=== PATIENT | female | born 1970 | race Caucasian/White ===

== ENCOUNTER 2017-11-13 14:23 | Inpatient (IN) ==
[2017-11-13] MEDS ORDERED: MethylPREDNISolone Sod Succinate Inj 125 MG/2 ML Vial IV.PUSH ONE (14:32)
[2017-11-13] MEDS ORDERED: Etomidate Inj 20 MG/10 ML Ampul IV.PUSH ONE (14:33)
[2017-11-13] MEDS ORDERED: Succinylcholine Inj 200 MG/10 ML Vial IV.PUSH ONE (14:36)
[2017-11-13] MEDS ORDERED: Propofol 1000 mg/100 ml Inj 1,000 MG/100 ML BOTTLE IV.CONT PRN (14:36)
[2017-11-13] MEDS ORDERED: Ketamine Inj 200 MG/20 ML Vial IV.PUSH ONE (14:55)
[2017-11-13] MEDS ORDERED: Ketamine Inj 500 MG/10 ML Vial IV.PUSH ONE (15:00)
[2017-11-13] MEDS ORDERED: Sod Chloride 0.9% Inj 1,000 ML IV.SIG ONE ×2 (15:13→20:00)
[2017-11-13] MEDS ORDERED: Bisacodyl 10 MG Supp RECTAL PRN (15:20)
[2017-11-13] MEDS ORDERED: Dextrose 50% in Water 50 ML Vial IV.PUSH PRN (15:26)
[2017-11-13] MEDS ORDERED: Potassium Phosphate Inj 30 MMOL in Sodium Chlor 0.9% Inj 250 ML IV.SIG PRN (15:27)
[2017-11-13] MEDS ORDERED: Potassium Chlor 40 mEq Premix 40 MEQ/100 ML PIGGYBACK IV.SIG PRN ×2 (15:27)
[2017-11-13] MEDS ORDERED: Magnesium Sulfate Inj 4 GM in Sodium Chlor 0.9% Inj 92 ML IV.SIG PRN (15:27)
[2017-11-13] MEDS ORDERED: Sodium Phosphate Inj 30 MMOL in Sodium Chlor 0.9% Inj 250 ML IV.SIG PRN (15:27)
[2017-11-13] MEDS ORDERED: Magnesium Oxide 400 MG Tablet PO PRN (15:27)
[2017-11-13] MEDS ORDERED: Magnesium Sulfate Inj 2 GM in Sodium Chlor 0.9% Inj 96 ML IV.SIG PRN (15:27)
[2017-11-13] MEDS ORDERED: Potassium Chlor 20 mEq Premix 20 MEQ/100 ML PIGGYBACK IV.SIG PRN (15:27)
[2017-11-13] MEDS ORDERED: Potassium Phosphate 500 MG Soluble Tablet PO PRN ×2 (15:27)
--- NOTE | 2017-11-13 15:32 | ED ---
Procedures Cricothyrotomy Indications: significant oropharyngeal edema (severe anaphylaxis) Tube Type: tracheal C-Spine Immobilization Present: No Patient Preparations: local not needed, sterile field applied and area cleansed with antiseptic Technique Choice: needle cricothyrotomy and surgical cricothyrotomy Cuffed Endotracheal Tube: No Type: Melker cric tray Tracheal Tube Size: 6 End Tidal CO2 Checked: positive Bilateral Breath Sounds: Yes Complications: bleeding and difficult to ventilate Additional Comments: I was asked by Dr. Pino to assist with severe airway compromise secondary to acute anaphylactic reaction. The patient was in respiratory distress on arrival with significant airway and submandibular/ submental edema. RSI was attempted by Dr. Pino and by myself using C-MAC video laryngoscopy but no airway landmarks were visible due to edema. An LMA was able to be passed but the patient's O2 sats did not get above 80%. The decision was made to perform emergent cricothyroidotomy. The patient was positioned with towel rolls behind her shoulders and the neck was hyperextended. A 4 cm midline incision was made and the thyroid cartilage/ cricothyroid membrane/ tracheal rings were palpated. A needle was directed toward the cricothyroid membrane and air was aspirated. A guidewire was placed in a Seldinger technique and a 6-0 uncuffed cric tube was passed. There were bilateral breath sounds auscultated, positive color change on capnometer, and her O2 sats increased to the 90s. Immediate complication was bleeding which was resolved with direct pressure. 2 3 -0 Vicryl sutures were placed in the subcutaneous layer and 4 3-0 Ethilon sutures were placed to reapproximate the skin. The patient will be emergently transferred to [facility] for higher level of care, please see Dr. Pino's separate documentation. Please note that this in an uncuffed tube and the patient was heard to have an air leak during bag mask ventilation. Given the emergent nature of this procedure, need for stat transfer, and risk of losing definitive airway, I did not exchange this for a cuffed tube.
--- NOTE | 2017-11-13 15:41 | ED ---
HPI General Chief complaint: Allergic Reaction Stated complaint: Allergic reaction Source: patient Mode of arrival: ambulatory Limitations: no limitations History of Present Illness HPI narrative: 47yo F with PMH of HTN presents to the ED unable to speak with swollen tongue and neck. Pt was unable to speak and through nodding, sounded like it it started around 1pm. Pt denies any allergies to medication. Denies any other symptoms including fever, chest pain, n/v, abdominal pain, focal weakness or numbness. Unable to obtain a thorough history due to pt's medical condition. Related Data Allergies Allergy/AdvReac Type Severity Reaction Status Date / Time No Known Allergies Allergy Unverified 11/13/17 14:31 Review of Systems ROS Unobtainable ROS Unobtainable: other PMFSH Social History Social History Substance History: No History of Abuse Second Hand Smoke Exposure: No Smoking Status: Former smoker How Often Do You Have a Drink Containing Alcohol: 4 or more times a week Recent Out of Country Travel within the Last 8 Weeks: No Exam Narrative Exam Narrative: GENERAL: 47yo F in severe distress. SKIN: Focused skin assessment warm/dry. HEAD: Atraumatic. Normocephalic. EYES: Pupils equal and round. No scleral icterus. No injection or drainage. ENT: +Marked edema tongue. Pt unable to speak or swallow secretions. NECK: Marked diffuse edema. CARDIOVASCULAR: Regular rate and rhythm. No murmur appreciated. RESPIRATORY: No accessory muscle use. Clear to auscultation. Breath sounds equal bilaterally. GASTROINTESTINAL: Abdomen soft, non-tender, nondistended. MUSCULOSKELETAL: No obvious deformities. No clubbing. No cyanosis. No edema. NEUROLOGICAL: Awake and alert. No obvious cranial nerve deficits. Motor grossly within normal limits. Unable to speak. Course Initial Documented Vital Signs Pulse Oximetry 98 11/13/17 15:00 Last Documented Vital Signs Temperature 99.3 F 11/14/17 04:00 Pulse Rate 77 11/14/17 07:00 Respiratory Rate 24 11/14/17 06:00 Blood Pressure 98/56 L 11/14/17 07:00 Pulse Oximetry 100 11/14/17 07:00 Critical Care Time Critical Care Time: Yes Total Critical Care Time: 45 Attestation: Aggregate critical care time was 45 minutes. Time to perform other separately billable procedures was not included in the critical care time. My time did not include minutes spent treating any other patients simultaneously or on activities that did not directly contribute to the patient's treatment. The services I provided to this patient were to treat and/or prevent clinically significant deterioration that could result in: respiratory distress or . I provided critical care services requiring my management, as noted below: Chart data review, documentation time, medication orders and management, vital sign assessments/reviewing monitor data, ordering and reviewing lab tests, ordering and interpreting/reviewing x-rays and diagnostic studies, care of the patient and discussion of the patient with the admitting physicians. Medical Decision Making MDM Narrative Medical decision making narrative: 47yo F with anaphylaxis and impending airway compromise. Pt unable to speak and decision was made to emergently intubate. Difficult airway expected so pt given only etomidate. I also ask assistance from Dr. Sandhu since we are expecting a difficult airway. I was unable to visualize vocal cord with CMAC and Dr. Sandhu was also unable to intubate with CMAC. We were setting up to do emergent cricothyroidotomy and during that time, I was able to insert an LMA and pt was saturating well in the 90s. After cricothyroidotomy was completed, we took the LMA out but this was an uncuffed tube and there was air leak and pt started to desaturate so we place another LMA back in and started bagging with the LMA and pt is saturating at 97% with LMA at this time and being transferred emergently to [facility]. I have discussed with classification counselor Dr. Casatneda and accepted to his service and pt will go straight to [facility]. I also discussed with general surgeon distance education coordinator Dr. Sebastian who is aware of the patient and the complication with the bleeding during cricothyroidotomy. Pt given NS IVF and sedated on propofol drip. Medical Screen Exam Complete: Yes Emergency Medical Condition: Yes Differential Diagnosis Differential Diagnosis: Anaphylaxis vs. angioedema Lab Data Result diagrams: 11/14/17 03:39 11/14/17 03:39 Lab Results 11/13/17 11/13/17 11/13/17 Range/Units 15:30 15:30 15:30 CBC w Diff Slide review pending WBC 17.4 H (4.0-11.0) th/mm3 RBC 4.72 (4.00-5.30) mil/mm3 Hgb 14.9 (11.6-15.3) gm/dL Hct 45.0 (35.0-46.0) % MCV 95.5 (80.0-100.0) fL MCH 31.7 (27.0-34.0) pg MCHC 33.2 (32.0-36.0) % RDW 12.6 (11.6-17.2) % Plt Count 491 H (150-450) th/mm3 MPV 8.0 (7.0-11.0) fL Neut % (Auto) 64.0 (16.0-70.0) % Lymph % (Auto) 29.3 (9.0-44.0) % Swisher % (Auto) 4.6 (0.0-8.0) % Eos % (Auto) 0.9 (0.0-4.0) % Baso % (Auto) 1.2 (0.0-2.0) % Neut # (Auto) 11.1 H (1.8-7.7) th/mm3 Lymph # (Auto) 5.1 H (1.0-4.8) th/mm3 Swisher # (Auto) 0.8 (0.0-0.9) th/mm3 Eos # (Auto) 0.2 (0.0-0.4) th/mm3 Baso # (Auto) 0.2 (0.0-0.2) th/mm3 WBC Differential Manual diff final Seg Neuts % (Manual) 59 (16-70) % Band Neuts % (Manual) 2 (0-6) % Lymphocytes % (Manual) 36 (9-44) % Monocytes % (Manual) 3 (0-8) % Abs Neuts (Manual) 10.6 H (1.8-7.7) th/mm3 Differential Comment . Platelet Estimate High H (Normal) Platelet Morphology Normal (Normal) RBC Morphology Normal (Normal) PT 9.8 (9.8-11.6) sec INR 1.0 Ratio APTT 24.7 (24.3-30.1) sec Puncture Site Patient Temperature O2 Saturation (90-100) % ABG pH (7.380-7.420) ABG pCO2 (38-42) mmHg ABG pO2 (61-120) mmHg ABG HCO3 (22-26) mmol/L ABG O2 Content (12.0-20.0) Vol % ABG Base Excess (-2-2) mmol/L ABG Methemoglobin (0-2) % Jonatan Test Hemoglobin (12.0-16.0) G/DL Carboxyhemoglobin (0-4) % O2 Delivery Device Vent Setting Inspired O2 % Critical Value Sodium 137 (136-145) meq/L Potassium 4.2 (3.5-5.1) meq/L Chloride 104 (98-107) meq/L Carbon Dioxide 26.2 (21.0-32.0) meq/L Anion Gap 7 (5-15) meq/L BUN 14 (7-18) mg/dL Creatinine 1.10 H (0.50-1.00) mg/dL Estimated GFR 54 L (>89) mL/min POC Glucose (68-110) mg/dl Random Glucose 228 H (74-106) mg/dL Lactic Acid (0.4-2.0) mmol/L Calcium 8.2 L (8.5-10.1) mg/dL Prot Corrected Calcium (8.5-10.1) mg/dL Phosphorus (2.5-4.9) mg/dL Magnesium (1.5-2.5) mg/dL Total Bilirubin (0.2-1.0) mg/dL Direct Bilirubin (0.0-0.2) mg/dL Indirect Bilirubin (0.0-0.8) mg/dL AST (15-37) U/L ALT (10-53) U/L Alkaline Phosphatase (45-117) U/L Total Creatine Kinase (26-192) U/L Total Protein (6.4-8.2) g/dL Albumin (3.4-5.0) g/dL Beta HCG, Qual (0-5) mIU/mL Blood Type Antibody Screen MTS Gel Crossmatch 11/13/17 11/13/17 11/13/17 Range/Units 15:30 15:30 15:30 CBC w Diff WBC (4.0-11.0) th/mm3 RBC (4.00-5.30) mil/mm3 Hgb (11.6-15.3) gm/dL Hct (35.0-46.0) % MCV (80.0-100.0) fL MCH (27.0-34.0) pg MCHC (32.0-36.0) % RDW (11.6-17.2) % Plt Count (150-450) th/mm3 MPV (7.0-11.0) fL Neut % (Auto) (16.0-70.0) % Lymph % (Auto) (9.0-44.0) % Swisher % (Auto) (0.0-8.0) % Eos % (Auto) (0.0-4.0) % Baso % (Auto) (0.0-2.0) % Neut # (Auto) (1.8-7.7) th/mm3 Lymph # (Auto) (1.0-4.8) th/mm3 Swisher # (Auto) (0.0-0.9) th/mm3 Eos # (Auto) (0.0-0.4) th/mm3 Baso # (Auto) (0.0-0.2) th/mm3 WBC Differential Seg Neuts % (Manual) (16-70) % Band Neuts % (Manual) (0-6) % Lymphocytes % (Manual) (9-44) % Monocytes % (Manual) (0-8) % Abs Neuts (Manual) (1.8-7.7) th/mm3 Differential Comment Platelet Estimate (Normal) Platelet Morphology (Normal) RBC Morphology (Normal) PT (9.8-11.6) sec INR Ratio APTT (24.3-30.1) sec Puncture Site Patient Temperature O2 Saturation (90-100) % ABG pH (7.380-7.420) ABG pCO2 (38-42) mmHg ABG pO2 (61-120) mmHg ABG HCO3 (22-26) mmol/L ABG O2 Content (12.0-20.0) Vol % ABG Base Excess (-2-2) mmol/L ABG Methemoglobin (0-2) % Jonatan Test Hemoglobin (12.0-16.0) G/DL Carboxyhemoglobin (0-4) % O2 Delivery Device Vent Setting Inspired O2 % Critical Value Sodium (136-145) meq/L Potassium (3.5-5.1) meq/L Chloride (98-107) meq/L Carbon Dioxide (21.0-32.0) meq/L Anion Gap (5-15) meq/L BUN (7-18) mg/dL Creatinine (0.50-1.00) mg/dL Estimated GFR (>89) mL/min POC Glucose (68-110) mg/dl Random Glucose (74-106) mg/dL Lactic Acid (0.4-2.0) mmol/L Calcium (8.5-10.1) mg/dL Prot Corrected Calcium (8.5-10.1) mg/dL Phosphorus (2.5-4.9) mg/dL Magnesium (1.5-2.5) mg/dL Total Bilirubin 0.3 (0.2-1.0) mg/dL Direct Bilirubin 0.1 (0.0-0.2) mg/dL Indirect Bilirubin 0.2 (0.0-0.8) mg/dL AST 52 H (15-37) U/L ALT 46 (10-53) U/L Alkaline Phosphatase 92 (45-117) U/L Total Creatine Kinase 138 (26-192) U/L Total Protein 7.2 (6.4-8.2) g/dL Albumin 3.2 L (3.4-5.0) g/dL Beta HCG, Qual Less than 1.00 (0-5) mIU/mL Blood Type O Positive Antibody Screen Negative MTS Gel Crossmatch See Detail 11/13/17 11/13/17 11/14/17 Range/Units 17:35 19:12 00:35 CBC w Diff WBC (4.0-11.0) th/mm3 RBC (4.00-5.30) mil/mm3 Hgb (11.6-15.3) gm/dL Hct (35.0-46.0) % MCV (80.0-100.0) fL MCH (27.0-34.0) pg MCHC (32.0-36.0) % RDW (11.6-17.2) % Plt Count (150-450) th/mm3 MPV (7.0-11.0) fL Neut % (Auto) (16.0-70.0) % Lymph % (Auto) (9.0-44.0) % Swisher % (Auto) (0.0-8.0) % Eos % (Auto) (0.0-4.0) % Baso % (Auto) (0.0-2.0) % Neut # (Auto) (1.8-7.7) th/mm3 Lymph # (Auto) (1.0-4.8) th/mm3 Swisher # (Auto) (0.0-0.9) th/mm3 Eos # (Auto) (0.0-0.4) th/mm3 Baso # (Auto) (0.0-0.2) th/mm3 WBC Differential Seg Neuts % (Manual) (16-70) % Band Neuts % (Manual) (0-6) % Lymphocytes % (Manual) (9-44) % Monocytes % (Manual) (0-8) % Abs Neuts (Manual) (1.8-7.7) th/mm3 Differential Comment Platelet Estimate (Normal) Platelet Morphology (Normal) RBC Morphology (Normal) PT (9.8-11.6) sec INR Ratio APTT (24.3-30.1) sec Puncture Site Right radial Left radial Patient Temperature 98.6 98.6 O2 Saturation 90 98 (90-100) % ABG pH 7.11 L* 7.18 L* (7.380-7.420) ABG pCO2 78 H* 61 H* (38-42) mmHg ABG pO2 83 220 H (61-120) mmHg ABG HCO3 24 22 (22-26) mmol/L ABG O2 Content 17.9 18.8 (12.0-20.0) Vol % ABG Base Excess -4.6 L -5.0 L (-2-2) mmol/L ABG Methemoglobin 1.1 1.1 (0-2) % Jonatan Test Present Present Hemoglobin 14.1 13.4 (12.0-16.0) G/DL Carboxyhemoglobin 0.3 0.3 (0-4) % O2 Delivery Device Ventilator Vent Vent Setting [id number]/[id number] See comments Inspired O2 100 100 % Critical Value Yes Yes Sodium (136-145) meq/L Potassium (3.5-5.1) meq/L Chloride (98-107) meq/L Carbon Dioxide (21.0-32.0) meq/L Anion Gap (5-15) meq/L BUN (7-18) mg/dL Creatinine (0.50-1.00) mg/dL Estimated GFR (>89) mL/min POC Glucose 147 H (68-110) mg/dl Random Glucose (74-106) mg/dL Lactic Acid (0.4-2.0) mmol/L Calcium (8.5-10.1) mg/dL Prot Corrected Calcium (8.5-10.1) mg/dL Phosphorus (2.5-4.9) mg/dL Magnesium (1.5-2.5) mg/dL Total Bilirubin (0.2-1.0) mg/dL Direct Bilirubin (0.0-0.2) mg/dL Indirect Bilirubin (0.0-0.8) mg/dL AST (15-37) U/L ALT (10-53) U/L Alkaline Phosphatase (45-117) U/L Total Creatine Kinase (26-192) U/L Total Protein (6.4-8.2) g/dL Albumin (3.4-5.0) g/dL Beta HCG, Qual (0-5) mIU/mL Blood Type Antibody Screen MTS Gel Crossmatch 11/14/17 11/14/17 11/14/17 Range/Units 03:39 03:39 03:39 CBC w Diff WBC 26.8 H D (4.0-11.0) th/mm3 RBC 3.75 L (4.00-5.30) mil/mm3 Hgb 12.1 D (11.6-15.3) gm/dL Hct 35.5 (35.0-46.0) % MCV 94.7 (80.0-100.0) fL MCH 32.2 (27.0-34.0) pg MCHC 34.0 (32.0-36.0) % RDW 13.2 (11.6-17.2) % Plt Count 277 D (150-450) th/mm3 MPV 7.4 (7.0-11.0) fL Neut % (Auto) 97.4 H (16.0-70.0) % Lymph % (Auto) 0.8 L (9.0-44.0) % Swisher % (Auto) 1.7 (0.0-8.0) % Eos % (Auto) 0.0 (0.0-4.0) % Baso % (Auto) 0.1 (0.0-2.0) % Neut # (Auto) 26.1 H (1.8-7.7) th/mm3 Lymph # (Auto) 0.2 L (1.0-4.8) th/mm3 Swisher # (Auto) 0.5 (0.0-0.9) th/mm3 Eos # (Auto) 0.0 (0.0-0.4) th/mm3 Baso # (Auto) 0.0 (0.0-0.2) th/mm3 WBC Differential . Seg Neuts % (Manual) (16-70) % Band Neuts % (Manual) (0-6) % Lymphocytes % (Manual) (9-44) % Monocytes % (Manual) (0-8) % Abs Neuts (Manual) (1.8-7.7) th/mm3 Differential Comment Auto diff final Platelet Estimate (Normal) Platelet Morphology (Normal) RBC Morphology (Normal) PT 9.9 (9.8-11.6) sec INR 1.0 Ratio APTT 23.1 L (24.3-30.1) sec Puncture Site Patient Temperature O2 Saturation (90-100) % ABG pH (7.380-7.420) ABG pCO2 (38-42) mmHg ABG pO2 (61-120) mmHg ABG HCO3 (22-26) mmol/L ABG O2 Content (12.0-20.0) Vol % ABG Base Excess (-2-2) mmol/L ABG Methemoglobin (0-2) % Jonatan Test Hemoglobin (12.0-16.0) G/DL Carboxyhemoglobin (0-4) % O2 Delivery Device Vent Setting Inspired O2 % Critical Value Sodium 142 (136-145) meq/L Potassium 4.1 (3.5-5.1) meq/L Chloride 110 H (98-107) meq/L Carbon Dioxide 22.1 (21.0-32.0) meq/L Anion Gap 10 (5-15) meq/L BUN 11 (7-18) mg/dL Creatinine 0.92 (0.50-1.00) mg/dL Estimated GFR 66 L (>89) mL/min POC Glucose (68-110) mg/dl Random Glucose 149 H (74-106) mg/dL Lactic Acid (0.4-2.0) mmol/L Calcium 7.1 L* D (8.5-10.1) mg/dL Prot Corrected Calcium 7.8 L (8.5-10.1) mg/dL Phosphorus 2.5 (2.5-4.9) mg/dL Magnesium 1.5 (1.5-2.5) mg/dL Total Bilirubin 0.3 (0.2-1.0) mg/dL Direct Bilirubin (0.0-0.2) mg/dL Indirect Bilirubin (0.0-0.8) mg/dL AST 36 (15-37) U/L ALT 42 (10-53) U/L Alkaline Phosphatase 56 (45-117) U/L Total Creatine Kinase (26-192) U/L Total Protein 5.8 L D (6.4-8.2) g/dL Albumin 2.7 L (3.4-5.0) g/dL Beta HCG, Qual (0-5) mIU/mL Blood Type Antibody Screen MTS Gel Crossmatch 11/14/17 11/14/17 11/14/17 Range/Units 03:39 05:28 05:47 CBC w Diff WBC (4.0-11.0) th/mm3 RBC (4.00-5.30) mil/mm3 Hgb (11.6-15.3) gm/dL Hct (35.0-46.0) % MCV (80.0-100.0) fL MCH (27.0-34.0) pg MCHC (32.0-36.0) % RDW (11.6-17.2) % Plt Count (150-450) th/mm3 MPV (7.0-11.0) fL Neut % (Auto) (16.0-70.0) % Lymph % (Auto) (9.0-44.0) % Swisher % (Auto) (0.0-8.0) % Eos % (Auto) (0.0-4.0) % Baso % (Auto) (0.0-2.0) % Neut # (Auto) (1.8-7.7) th/mm3 Lymph # (Auto) (1.0-4.8) th/mm3 Swisher # (Auto) (0.0-0.9) th/mm3 Eos # (Auto) (0.0-0.4) th/mm3 Baso # (Auto) (0.0-0.2) th/mm3 WBC Differential Seg Neuts % (Manual) (16-70) % Band Neuts % (Manual) (0-6) % Lymphocytes % (Manual) (9-44) % Monocytes % (Manual) (0-8) % Abs Neuts (Manual) (1.8-7.7) th/mm3 Differential Comment Platelet Estimate (Normal) Platelet Morphology (Normal) RBC Morphology (Normal) PT (9.8-11.6) sec INR Ratio APTT (24.3-30.1) sec Puncture Site Right radial Patient Temperature 98.6 O2 Saturation 97 (90-100) % ABG pH 7.41 (7.380-7.420) ABG pCO2 35 L (38-42) mmHg ABG pO2 194 H (61-120) mmHg ABG HCO3 21 L (22-26) mmol/L ABG O2 Content 16.2 (12.0-20.0) Vol % ABG Base Excess -2.7 L (-2-2) mmol/L ABG Methemoglobin 1.5 (0-2) % Jonatan Test Present Hemoglobin 11.6 L (12.0-16.0) G/DL Carboxyhemoglobin 0.8 (0-4) % O2 Delivery Device Ventilator Vent Setting See comments Inspired O2 75 % Critical Value No Sodium (136-145) meq/L Potassium (3.5-5.1) meq/L Chloride (98-107) meq/L Carbon Dioxide (21.0-32.0) meq/L Anion Gap (5-15) meq/L BUN (7-18) mg/dL Creatinine (0.50-1.00) mg/dL Estimated GFR (>89) mL/min POC Glucose 133 H (68-110) mg/dl Random Glucose (74-106) mg/dL Lactic Acid 1.7 (0.4-2.0) mmol/L Calcium (8.5-10.1) mg/dL Prot Corrected Calcium (8.5-10.1) mg/dL Phosphorus (2.5-4.9) mg/dL Magnesium (1.5-2.5) mg/dL Total Bilirubin (0.2-1.0) mg/dL Direct Bilirubin (0.0-0.2) mg/dL Indirect Bilirubin (0.0-0.8) mg/dL AST (15-37) U/L ALT (10-53) U/L Alkaline Phosphatase (45-117) U/L Total Creatine Kinase (26-192) U/L Total Protein (6.4-8.2) g/dL Albumin (3.4-5.0) g/dL Beta HCG, Qual (0-5) mIU/mL Blood Type Antibody Screen MTS Gel Crossmatch Imaging Data Radiologist's impression: Chest X-Ray 11/13/17 16:52 CONCLUSION: Satisfactory tracheostomy. Diffuse bilateral parenchymal lung disease. Discharge Plan Discharge Disposition Patient Disposition: 30 Still Patient Discharge Details Diagnosis: Anaphylaxis Physicians Team ED Provider: Cassie Pino Primary Care Provider: UNKNOWN, Attending Provider: Derrick Castaneda Discharge Interventions Interventions: ED Discharge Assessment Last Done: 11/13/17 17:19 Status ED Status: Left Department Discharge Information Discharge Date/Time: 11/13/17 16:30
[2017-11-13 15:49] LABS: Baso # (Auto) 0.2 th/mm3 (0.0-0.2); Baso % (Auto) 1.2 % (0.0-2.0); Eos # (Auto) 0.2 th/mm3 (0.0-0.4); Eos % (Auto) 0.9 % (0.0-4.0); Hemoglobin 14.9 gm/dL (11.6-15.3); Lymph # (Auto) 5.1 th/mm3 (1.0-4.8); Lymph % (Auto) 29.3 % (9.0-44.0); Mean Corpuscular HGB Conc 33.2 % (32.0-36.0); Mean Corpuscular Hemoglobin 31.7 pg (27.0-34.0); Mean Corpuscular Volume 95.5 fL (80.0-100.0); Mono # (Auto) 0.8 th/mm3 (0.0-0.9); Mono % (Auto) 4.6 % (0.0-8.0); Neut # (Auto) 11.1 th/mm3 (1.8-7.7); Platelet Count 491 th/mm3 (150-450); Red Blood Count 4.72 mil/mm3 (4.00-5.30); Red Cell Distribution Width 12.6 % (11.6-17.2); White Blood Count 17.4 th/mm3 (4.0-11.0)
[2017-11-13 15:59] LABS: Potassium 4.2 meq/L (3.5-5.1)
[2017-11-13] MEDS ORDERED: Sodium Chlor 0.9% Inj 250 ML IV.SIG SCH (16:00)
[2017-11-13 16:01] LABS: Calcium 8.2 mg/dL (8.5-10.1)
[2017-11-13 16:02] LABS: Carbon Dioxide 26.2 meq/L (21.0-32.0)
[2017-11-13 16:04] LABS: Albumin 3.2 g/dL (3.4-5.0)
[2017-11-13 16:08] LABS: Activated Partial Thrombo Time 24.7 sec (24.3-30.1); Prothrombin Time 9.8 sec (9.8-11.6)
[2017-11-13 16:09] LABS: Total Protein 7.2 g/dL (6.4-8.2)
[2017-11-13] MEDS ORDERED: Midazolam Inj 5 MG/ML 1 ML Vial ONE ×3 (16:15→16:33)
[2017-11-13 16:25] LABS: Lymphocytes 36 % (9-44); Monocytes 3 % (0-8); Platelet Morphology Normal (Normal); RBC Morphology Normal (Normal)
[2017-11-13] MEDS ORDERED: Lidocaine 1%/Epinephrine 1:100,000 Inj 20 ML Vial ONE (16:43)
--- NOTE | 2017-11-13 17:05 | P.HPCC ---
History of Present Illness Primary Care Physician: UNKNOWN Chief Complaint: Airway compromise History of Present Illness: Patient is a 47 year old morbidly female obese female who presented to the [place] emergency department with severe acute anaphylactic reaction, and airway compromise. RSI was attempted by Dr. Pino and Dr. Sandhu, but they were unable to. An LMA was placed but the patient's O2 sats remained in the low 80s. Emergency cricothyroidotomy was performed at [place] emergency department , by Dr. Sandhu, 6-0 uncuffed cric tube was placed. Postplacement there was leak around the trach tube with bag and mask ventilation. LMA was reintroduced and patient was given ventilation through the LMA and patient was emergently transferred to the [facility]. I evaluated patient emergently in 504 in [facility]. Patient is sedated with propofol infusion. Oxygen saturation with bag and mask ventilation was 88-90%. I performed a bronchoscopy through the LMA , vocal cords appeared severely swollen. A pediatric bronchoscope was not available to the load a 6.0 ET tube. I attempted intubation with the glide scope and 6.0 ET tube. I was able to visualize the significantly swollen glottic opening and vocal cords, but I was unable to pass the ET tube through the vocal cords due to swelling. Dr. Castaneda placed a new #5 LMA and we returned to bag and mask ventilation and Dr. Copeland performed a percutaneous Blue Rhino tracheostomy at the bedside through the existing cric incision. (He first placed the guidewire through the existing perc tube). Tracheostomy tube placement was confirmed with bronchoscopy again. At the beginning of tracheostomy patient's oxygen saturation was in the mid 70s. This slowly improved to 95% and patient was placed on ventilator. At this time we are unable to get any other history from the patient regarding food allergies. Scheduled IV Decadron Benadryl and famotidine had been started - Diagnosis (1) Acute hypoxemic respiratory failure (2) Angioedema (3) Anaphylaxis Inpatient Certification: I certify that the inpatient services were ordered in accordance with Medicare regulations governing the order. This includes certification that hospital inpatient services are reasonable and necessary and in the case of services not specified as inpatient-only under 42 CFR 419.22(n), that they are appropriately provided as inpatient services in accordance to with the 2-midnight benchmark under 43 CFR 412.3(e) Estimated Total Length of Stay (Days): 6 Plans for Post Hospital Care: Not yet determined Review of Systems unobtainable due to endotracheal tube, other (Acute airway compromise) PMF - History History Provided By: Department Coordinator / EMT - Medical / Surgical Hx Neg / Unobtainable Medical Problems Denied: Unable to Obtain Surgical History: Unable to Obtain - Travel History Recent Travel Out of the Country Within the Last 8 Weeks: No Medications and Allergies Active Medications: Active Medications Al Hydroxide/Mg Hydroxide (Milk Of Marguerite Liq) 30 ml PO Q12H PRN PRN Reason: Mild Constipation Albuterol (Albuterol Neb (Prn)) 2.5 mg NEB Q2HR NEB PRN PRN Reason: SHORTNESS OF BREATH/WHEEZING Albuterol (Duoneb Neb (Scout)) 1 ampul NEB Q4HR NEB SCOUT Artificial Tears (Genteal Severe Dry Eye Relief 0.3% Opth Gel) 1 drops EACH EYE BID SCOUT Bisacodyl (Dulcolax Supp) 10 mg RECTAL DAILY PRN PRN Reason: SEVERE CONSITIPATION Chlorhexidine Gluconate (Peridex 0.12% Oral Kit) 15 ml OROPHARYNG BID@0800, 2000 SCOUT Chlorhexidine Gluconate (Chlorhexidine 2% Cloth) 3 pack TOPICAL DAILY@0400 SCOUT Stop: 11/19/17 03:59 Chlorhexidine Gluconate (Chlorhexidine 2% Cloth) 3 pack TOPICAL DAILY@0400 PRN PRN Reason: Extra cloth needed Stop: 11/19/17 03:59 Dexamethasone Sodium Phosphate (Decadron Inj) 4 mg IV.PUSH Q12HR SCOUT Dextrose (D50w Vial) 50 ml IV.PUSH UNSCH PRN PRN Reason: PER HYPOGLYCEMIA PROTOCOL Diphenhydramine HCl (Benadryl Inj) 25 mg IV.PUSH Q6H SCOUT Stop: 11/15/17 15:59 Famotidine (Pepcid Pf Inj) 20 mg IV.PUSH Q12HR SCOUT Glucagon (Glucagon Inj) 1 mg OTHER PRN PRN PRN Reason: for Hypoglycemia Protocol Sodium Chloride (Ns Inj) 250 mls @ 15 mls/hr IV.SIG ONCE SCOUT Stop: 11/14/17 08:39 Fentanyl (Fentanyl 10 Mcg/Ml Premix Drip) 2,500 mcg in 250 mls @ 5 mls/hr IV.SIG TITRATE PRN; Protocol PRN Reason: Per Protocol Sodium Chloride (Ns Inj) 1,000 mls @ 84 mls/hr IV.CONT .[id number] SCOUT Propofol (Diprivan 1000 Mg/100 Ml Inj) 1,000 mg in 100 mls @ 3.225 mls/hr IV.CONT TITRATE PRN; Protocol PRN Reason: Per Protocol Magnesium Sulfate Inj 4 gm/ (Sodium Chloride) 100 mls @ 50 mls/hr IV.SIG UNSCH PRN PRN Reason: For Magnesium 0.9 - 1.1 mg/dL Magnesium Sulfate Inj 2 gm/ (Sodium Chloride) 100 mls @ 50 mls/hr IV.SIG UNSCH PRN PRN Reason: For Magnesium 1.2 - 1.6 mg/dL Potassium Chloride (Kcl 40 Meq Premix Inj) 40 meq in 100 mls @ 25 mls/hr IV.SIG Q2H PRN PRN Reason: For Potassium 2.8 - 3.2 mEq/L Potassium Chloride (Kcl 20 Meq Premix Inj) 20 meq in 100 mls @ 50 mls/hr IV.SIG Q2H PRN PRN Reason: For Potassium 3.3 - 3.5 mEq/L Potassium Chloride (Kcl 40 Meq Premix Inj) 40 meq in 100 mls @ 25 mls/hr IV.SIG UNSCH PRN PRN Reason: For Potassium 3.3 - 3.5 mEq/L Potassium Chloride (Kcl 20 Meq Premix Inj) 20 meq in 100 mls @ 50 mls/hr IV.SIG Q2H PRN PRN Reason: For Potassium 2.8 - 3.2 mEq/L Potassium Phosphate 30 mmol/ (Sodium Chloride) 260 mls @ 42 mls/hr IV.SIG UNSCH PRN PRN Reason: SEE LABEL COMMENTS Sodium Phosphate 30 mmol/ (Sodium Chloride) 260 mls @ 42 mls/hr IV.SIG UNSCH PRN PRN Reason: For Phosphorus < 2.5 mg/dL Insulin Aspart (Novolog Insulin Correctional Sugar Inj) 0 unit SQ Q6HR SCOUT; Protocol Lactulose (Lactulose Liq) 30 ml PO DAILY PRN PRN Reason: SEVERE CONSITIPATION Magnesium Oxide (Mag-Ox) 800 mg PO UNSCH PRN PRN Reason: For Magnesium 1.2 - 1.6 mg/dL Potassium Bicarb/Potassium Chloride (K-Lyte Cl Eff) 50 meq PO UNSCH PRN PRN Reason: For Potassium 3.3 - 3.5 mEq/L Potassium Phosphate (K-Phos Original) 2,000 mg PO Q4H PRN PRN Reason: Phosphorus Less Than 2.5 mg/dL Potassium Phosphate (K-Phos Original) 2,000 mg PO UNSCH PRN PRN Reason: SEE LABEL COMMENTS Senna/Docusate Sodium (Nydia-Colace) 1 tab PO BID SCOUT Sennosides (Senokot) 17.2 mg PO Q12H PRN PRN Reason: Moderate Constipation Sodium Chloride (Ns Flush) 2 ml IV.FLUSH BID SCOUT Sodium Chloride (Ns Flush) 2 ml IV.FLUSH PRN PRN PRN Reason: FLUSH AFTER USING IV ACCESS Allergies Allergy/AdvReac Type Severity Reaction Status Date / Time No Known Allergies Allergy Unverified 11/13/17 14:31 Results - Labs CBC & Chem 7: 11/13/17 15:30 11/13/17 15:30 Labs: Short CBC 11/13/17 Range/Units 15:30 WBC 17.4 H (4.0-11.0) th/mm3 Hgb 14.9 (11.6-15.3) gm/dL Hct 45.0 (35.0-46.0) % Plt Count 491 H (150-450) th/mm3 BMP 11/13/17 15:30 Sodium 137 Potassium 4.2 Chloride 104 Carbon Dioxide 26.2 BUN 14 Creatinine 1.10 H Calcium 8.2 L Cardiac Enzymes 11/13/17 Range/Units 15:30 Total Creatine Kinase 138 (26-192) U/L Liver Function 11/13/17 Range/Units 15:30 Total Bilirubin 0.3 (0.2-1.0) mg/dL Direct Bilirubin 0.1 (0.0-0.2) mg/dL AST 52 H (15-37) U/L ALT 46 (10-53) U/L Alkaline Phosphatase 92 (45-117) U/L Albumin 3.2 L (3.4-5.0) g/dL Exam Vital signs: Vital Signs 11/13/17 15:00 Pulse Oximetry 98 Intake & Output 11/12/17 11/13/17 11/13/17 18:59 06:59 18:59 Weight 107.501 kg Narrative: GENERAL: 47yo F in severe distress, partially sedated. Getting bag and mask ventilation through the LMA HEAD: Atraumatic. Normocephalic. EYES: Pupils equal and round. ENT: Marked edema of tongue. Bronchoscopy shows significant edema of the vocal cords and glottic opening NECK: Marked diffuse edema. Perc tube in place with air leaking around the incision CARDIOVASCULAR: Tachycardic hypotensive RESPIRATORY: Significant respiratory distress hypoxia. Bag and mask ventilation through LMA. Diminished air entry bilaterally with crackles GASTROINTESTINAL: Abdomen soft, non-tender, nondistended. MUSCULOSKELETAL: No obvious deformities. No clubbing. No cyanosis. No edema. NEUROLOGICAL: Patient is in severe distress currently partially sedated with propofol infusion. She moves all extremities Septic Shock Reassessment Septic shock perfusion: reassessment completed Caprini VTE Risk Assessment Caprini VTE Risk Assessment: Moderate/High Risk (score >= 2) Caprini Risk Assessment Model: Point Value = 1 Point Value = 2 Point Value = 3 Point Value = 5 Age 41-60 Minor surgery BMI > 25 kg/m2 Swollen legs Varicose veins or History of unexplained or recurrent spontaneous Oral contraceptives or hormone replacement Sepsis (< 1 month) Serious lung disease, including pneumonia (< 1 month) Abnormal pulmonary function Acute myocardial infarction Congestive heart failure (< 1 month) History of inflammatory bowel disease Medical patient at bed rest Age 61-74 Arthroscopic surgery Major open surgery (> 45 min) Laparoscopic surgery (> 45 min) Malignancy Confined to bed (> 72 hours) Immobilizing plaster cast Central venous access Age >= 75 History of VTE Family history of VTE Factor V Leiden Prothrombin [id number] Lupus anticoagulant Anticardiolipin antibodies Elevated serum homocysteine Heparin-induced thrombocytopenia Other congenital or acquired thrombophilia Stroke (< 1 month) Elective arthroplasty Hip, pelvis, or leg fracture Acute spinal cord injury (< 1 month) Prophylaxis Regimen: Total Risk Factor Score Risk Level Prophylaxis Regimen 0-1 Low Early ambulation 2 Moderate Order ONE of the following: *Sequential Compression Device (SCD) *Heparin 5000 units SQ BID 3-4 Higher Order ONE of the following medications: *Heparin 5000 units SQ TID *Enoxaparin/Lovenox 40 mg SQ daily (WT < 150 kg, CrCl > 30 mL/min) *Enoxaparin/Lovenox 30 mg SQ daily (WT < 150 kg, CrCl > 10-29 mL/min) *Enoxaparin/Lovenox 30 mg SQ BID (WT < 150 kg, CrCl > 30 mL/min) AND/OR *Sequential Compression Device (SCD) 5 or more Highest Order ONE of the following medications: *Heparin 5000 units SQ TID (Preferred with Epidurals) *Enoxaparin/Lovenox 40 mg SQ daily (WT < 150 kg, CrCl > 30 mL/min) *Enoxaparin/Lovenox 30 mg SQ daily (WT < 150 kg, CrCl > 10-29 mL/min) *Enoxaparin/Lovenox 30 mg SQ BID (WT < 150 kg, CrCl > 30 mL/min) AND *Sequential Compression Device (SCD) Assessment and Plan - Problem List (1) Acute hypoxemic respiratory failure Code(s): J96.01 - Acute respiratory failure with hypoxia Status: Acute (2) Angioedema Code(s): T78.3XXA - Angioneurotic edema, initial encounter Status: Acute (3) Anaphylaxis Code(s): T78.2XXA - Anaphylactic shock, unspecified, initial encounter Status : Acute - Assessment and Plan Plan: NEURO: -Propofol and fentanyl for sedation and ventilator synchrony -Use intermittent neuromuscular paralysis RESP: Acute hypoxemic respiratory failure Angioedema with severe upper airway compromise -Dr. Copeland emergently performed percutaneous tracheostomy at the bedside -Position of the tracheostomy tube confirmed with bronchoscopy -Unable to adequately ventilate through the cric tube as it was cuff less -PRVC/AC, Ventilator bundle. -DuoNeb every 6 hours scheduled and as needed -Decadron 6 mg IV every 6 hours, Benadryl 50 mg IV every 6 hours -Famotidine 20 mg IV every 12 -Plan for OR for revision and repair on 11/16/2017 CV: Pulmonary edema most likely negative pressure -IV Lasix 40 mg 1 GI: -N.p.o., IV famotidine : -Monitor renal function closely. Colindres catheter. ID: -Empiric Rocephin for 5 days due to unstable procedure. Vancomycin 1 dose HEME: -Monitor CBC, coags ENDO: -Electrolyte replacement per protocol -Sliding scale insulin if needed PROPH: -Bilateral lower extremity SCDs. IV famotidine LINES: -Utilize peripheral IVs, central line if needed CC time 77 min excluding procedural time Code Status: Full Discussed Condition With: Dr. Copeland
--- NOTE | 2017-11-13 17:21 | XR ---
EXAM DATE: 11/13/2017 5:18 PM EDT AGE/SEX: 47 years / Female INDICATIONS: Status post trach placement. CLINICAL DATA: This is the patient's initial encounter. Patient reports that signs and symptoms have been present for 1 day and indicates a pain score of Nonresponsive. MEDICAL/SURGICAL HISTORY: Non-responsive. Non-responsive. COMPARISON: No prior exams available for comparison. FINDINGS: Tracheostomy is present in good position. There is fairly symmetric diffuse bilateral alveolar opacit y. Cardiac contours are grossly satisfactory for technique and projection. CONCLUSION: Satisfactory tracheostomy. Diffuse bilateral parenchymal lung disease. Electronically signed by: Uriel Martinez MD 11/13/2017 5:19 PM EDT
--- NOTE | 2017-11-13 17:37 | P.PCN ---
Date of procedure: 11/13/17 Pre-op diagnosis: Severe angioedema Post-op diagnosis: same Procedure: Diagnostic and therapeutic flexible fiberoptic bronchoscopy Patient in respiratory distress. Patient has an LMA in place. Continuous propofol infusion ongoing The flexible bronchoscope was passed through the LMA and I visualized severely swollen glottic opening and vocal cords. Large amount of secretions were suctioned out from the glottic opening. The percutaneous tracheostomy procedure performed by Dr. Copeland. Following the insertion of the percutaneous tracheostomy tube the bronchoscope was immediately delivered through the new tracheostomy tube and confirmed position in the trachea above the alexandr. Inner cannula was placed and mechanical ventilation was accomplished with good return of mechanical breath volumes. Bilateral breath sounds were auscultated. Oxygen saturation remained greater than 96% post procedure. Chest x-ray ordered and is pending Anesthesia: ZEV Surgeon: Nancy Trevino Pathology: none sent Condition: critical Disposition: ICU
[2017-11-13 17:50] LABS: ABG Base Excess -4.6 mmol/L (-2-2); ABG PCO2 78 mmHg (38-42); ABG PO2 83 mmHg (61-120)
[2017-11-13] MEDS: Sod Chloride 0.9% Inj 1,000 ML IV.CONT SCH (18:15)
[2017-11-13] MEDS: fentaNYL 10 mcg/mL Premix Drip 2,500 MCG/250 ML BAG IV.SIG PRN (18:16)
[2017-11-13] MEDS: Insulin NovoLOG Aspart Correctional Sugar Inj SQ SCH (18:20)
[2017-11-13] MEDS: Propofol 1000 mg/100 ml Inj 1,000 MG/100 ML BOTTLE IV.CONT PRN ×3 (18:21→23:26)
--- NOTE | 2017-11-13 18:31 | MP ---
cc: Jackson Copeland MD DATE OF OPERATION: 11/13/2017 Corrected Copy: 12/11/17 PROCEDURE PERFORMED: Tracheostomy placement via cricothyroidotomy. PROCEDURE IN DETAIL: The patient was in the intensive care unit and after unsuccessful attempt at conversion of LMA to endotracheal tube by Dr. Trevino, it was elected to place airway via the cricothyrotomy. As this was leaking severely with bleeding around it this was felt to be compromising her airway further and it was felt that this would be the best approach to obtain an airway. The jet ventilator cannula was removed from the cricothyrotomy and Dr. Trevino then attempted to place the bronchoscope down the cricothyroidotomy cannula. This was too narrow and at this point, I simply took the guidewire from the Blue Rhino set and threaded it down the cricothyroidotomy. This slid easily and felt as if it was in the airway and there was bubbling and blood coming out of the cricothyrotomy cannula with each breath of the patient. The tube was then removed from the neck and the Blue Rhino slipped over the guidewire. This was then removed and a #8 percutaneous tracheostomy tube with a 28-Nepali tracheostomy guide was slid over the green guidewire and white catheter guide. This went into the trachea very easily and at this point, the guidewire was left in place, but the 28-Nepali tracheostomy guide and white catheter guide were both removed. Dr. Trevino was then able to take the bronchoscope and slide it alongside of the guidewire and the tracheostomy tube was seen to be within the trachea. The alexandr was visualized. At this point, the bronchoscope and guidewire were removed. The obturator was placed into the percutaneous tracheostomy tube and the circuit switched over to the tracheostomy site. Good sats were obtained and the patient actually was preoxygenated into the 90s prior to placement of this tube. When this had been confirmed and sats remained good, the tracheostomy tube was secured with four 2-0 Prolene sutures. A tracheostomy dressing was applied and the Velcro dressing was applied around the neck to further secure the tracheostomy in place. The patient remained hemodynamically stable with good tidal volumes with minimal leak. There was no air leak around the tracheostomy tube at the completion of the procedure. STAT chest x-ray is pending at the time of this dictation. MD TRACEY Masters/alistair , 05:23 PM , 05:30 PM
--- NOTE | 2017-11-13 18:38 | MB ---
cc: Jackson Copeland MD DATE: 11/13/2017 REASON FOR CONSULTATION: Emergency airway management in patient with anaphylaxis. HISTORY OF PRESENT ILLNESS: The patient is a 47-year-old female, who had severe airway compromise secondary to acute anaphylactic reaction. The patient was transferred from [place] with laryngeal mask ventilation. The patient had a cricothyroidotomy but she was unable to be ventilated through this. Upon arrival, Dr. Trevino, in concert with the undersigned, attempted visualization of the cords and after preoxygenation, attempted to place endotracheal tube. This was unsuccessful due to tissue edema. Please see his dictation for this. PAST MEDICAL HISTORY: Unobtainable at this time. REVIEW OF SYSTEMS: Unobtainable. The patient was unable to communicate with the ED physician or with us after transfer. At this point, the cricothyroidotomy was utilized for airway. Please see my dictation for the procedure note. The patient will be emergently intubated through the cricothyroidotomy with airway access emergently. She will require conversion to a formal tracheostomy next week. PHYSICAL EXAMINATION: Reveals an obese female who is in respiratory distress. The patient's vitals: BP 134/73, pulse 130, saturations 93%. ASSESSMENT AND PLAN: 1. Acute hypoxemic respiratory failure requiring airway management. 2. Angioedema. 3. Anaphylaxis. Jackson Copeland MD MAF/lc , 05:20 PM , 05:26 PM
[2017-11-13] MEDS: Famotidine PF Inj 20 MG/2 ML Vial IV.PUSH SCH (20:47)
[2017-11-13] MEDS: Senna/Docusate Sodium 8.6/50 MG Tablet PO SCH (20:48)
[2017-11-13] MEDS: Chlorhexidine 0.12% Oral Kit 15 ML UDC OROPHARYNG SCH (20:48)
[2017-11-13] MEDS: Hypromellose 0.3% Opth Gel 10 GM Bottle EACH EYE SCH (20:49)
[2017-11-13] MEDS ORDERED: Vancomycin Inj 1,500 MG in Sodium Chlor 0.9% Inj 500 ML IV.SIG ONE (22:00)
[2017-11-13] MEDS: Midazolam 50 MG/50 ML Inj 50 MG/50 ML BAG IV.CONT PRN (23:27)
[2017-11-13 23:28] LABS: ABG PCO2 61 mmHg (38-42); ABG PO2 220 mmHg (61-120)
[2017-11-14] MEDS: Oral Hygiene Kit OROPHARYNG SCH ×6 (00:40→23:53)
[2017-11-14] MEDS: Insulin NovoLOG Aspart Correctional Sugar Inj SQ SCH ×5 (00:40→23:53)
[2017-11-14] MEDS: fentaNYL 10 mcg/mL Premix Drip 2,500 MCG/250 ML BAG IV.SIG PRN ×4 (03:00→21:36)
[2017-11-14] MEDS: Sod Chloride 0.9% Inj 1,000 ML IV.CONT SCH ×2 (03:01→15:49)
[2017-11-14] MEDS: Propofol 1000 mg/100 ml Inj 1,000 MG/100 ML BOTTLE IV.CONT PRN ×5 (03:01→21:36)
[2017-11-14] MEDS ORDERED: Chlorhexidine Gluconate 2% 1 Pack (2 Cloths) TOPICAL PRN (04:00)
[2017-11-14] MEDS: Chlorhexidine Gluconate 2% 1 Pack (2 Cloths) TOPICAL SCH (04:05)
[2017-11-14 04:10] LABS: Baso % (Auto) 0.1 % (0.0-2.0); Hematocrit 35.5 % (35.0-46.0); Hemoglobin 12.1 gm/dL (11.6-15.3); Lymph # (Auto) 0.2 th/mm3 (1.0-4.8); Lymph % (Auto) 0.8 % (9.0-44.0); Mean Corpuscular Hemoglobin 32.2 pg (27.0-34.0); Mean Corpuscular Volume 94.7 fL (80.0-100.0); Mean Platelet Volume 7.4 fL (7.0-11.0); Mono # (Auto) 0.5 th/mm3 (0.0-0.9); Mono % (Auto) 1.7 % (0.0-8.0); Neut # (Auto) 26.1 th/mm3 (1.8-7.7); Neut % (Auto) 97.4 % (16.0-70.0); Platelet Count 277 th/mm3 (150-450); Red Blood Count 3.75 mil/mm3 (4.00-5.30); Red Cell Distribution Width 13.2 % (11.6-17.2); White Blood Count 26.8 th/mm3 (4.0-11.0)
[2017-11-14 04:12] LABS: Activated Partial Thrombo Time 23.1 sec (24.3-30.1); Prothrombin Time 9.9 sec (9.8-11.6)
[2017-11-14 04:43] LABS: Albumin 2.7 g/dL (3.4-5.0); Calcium 7.1 mg/dL (8.5-10.1); Carbon Dioxide 22.1 meq/L (21.0-32.0); Magnesium 1.5 mg/dL (1.5-2.5); Phosphorus 2.5 mg/dL (2.5-4.9); Potassium 4.1 meq/L (3.5-5.1); Total Protein 5.8 g/dL (6.4-8.2)
[2017-11-14 05:58] LABS: ABG Base Excess -2.7 mmol/L (-2-2); ABG PCO2 35 mmHg (38-42); ABG PO2 194 mmHg (61-120)
[2017-11-14] MEDS: Midazolam 50 MG/50 ML Inj 50 MG/50 ML BAG IV.CONT PRN ×3 (07:21→20:42)
[2017-11-14] MEDS: Chlorhexidine 0.12% Oral Kit 15 ML UDC OROPHARYNG SCH ×2 (08:45→20:17)
[2017-11-14] MEDS: Senna/Docusate Sodium 8.6/50 MG Tablet PO SCH ×2 (08:46→20:17)
--- NOTE | 2017-11-14 08:54 | P.PNCC ---
Subjective Subjective Remarks/Hospital Course: Patient is a 47 year old morbidly female obese female who presented to the [facility] emergency department with severe acute anaphylactic reaction, and airway compromise. RSI was attempted by Dr. Pino and Dr. Sandhu, but they were unable to. An LMA was placed but the patient's O2 sats remained in the low 80s. Emergency cricothyroidotomy was performed at [facility] emergency department , by Dr. Sandhu, 6-0 uncuffed cric tube was placed. Postplacement there was leak around the trach tube with bag and mask ventilation. LMA was reintroduced and patient was given ventilation through the LMA and patient was emergently transferred to the [facility]. I evaluated patient emergently in 504 in [facility]. Patient is sedated with propofol infusion. Oxygen saturation with bag and mask ventilation was 88-90%. I performed a bronchoscopy through the LMA , vocal cords appeared severely swollen. A pediatric bronchoscope was not available to the load a 6.0 ET tube. I attempted intubation with the glide scope and 6.0 ET tube. I was able to visualize the significantly swollen glottic opening and vocal cords, but I was unable to pass the ET tube through the vocal cords due to swelling. Dr. Castaneda placed a new #5 LMA and we returned to bag and mask ventilation and Dr. Copeland performed a percutaneous Blue Rhino tracheostomy at the bedside through the existing cric incision. (He first placed the guidewire through the existing perc tube). Tracheostomy tube placement was confirmed with bronchoscopy again. At the beginning of tracheostomy patient's oxygen saturation was in the mid 70s. This slowly improved to 95% and patient was placed on ventilator. At this time we are unable to get any other history from the patient regarding food allergies. Scheduled IV Decadron Benadryl and famotidine had been started. Subjective: 11/14 Remains deeply sedated and on mechanical ventilation via trach, no leak. Plan for revision of trach on Thursday. Has persistent face and tongue swelling but family and staff indicate improved compared with yesterday. Family states patient on lisinopril ~ 1 year, technician terminal and repeater NSAIDS. She had eaten scrapple and toast about 1 1/2 hours before onset of symptoms. Objective Vital Signs / I&O: Vital Signs 11/13/17 15:00 11/13/17 16:00 11/13/17 17:14 Temperature 98.2 F Pulse Rate 128 H Respiratory Rate 12 16 Blood Pressure 108/66 Pulse Oximetry 98 94 L 90 L 11/13/17 18:00 11/13/17 19:00 11/13/17 19:57 Temperature Pulse Rate 124 H 117 H Respiratory Rate 20 24 Blood Pressure 98/55 L Pulse Oximetry 94 L 99 11/13/17 19:58 11/13/17 20:00 11/13/17 21:00 Temperature 99.3 F Pulse Rate 97 H 99 H 91 H Respiratory Rate 24 24 24 Blood Pressure 81/51 L 112/61 Pulse Oximetry 99 100 11/13/17 22:00 11/13/17 23:00 11/13/17 23:45 Temperature Pulse Rate 90 85 86 Respiratory Rate 24 24 Blood Pressure 107/58 L 108/58 L 102/56 L Pulse Oximetry 100 100 100 11/13/17 23:50 11/13/17 23:55 11/14/17 00:00 Temperature 99.2 F Pulse Rate 85 84 83 Respiratory Rate 24 Blood Pressure 101/59 L 100/55 L 101/59 L Pulse Oximetry 100 100 100 11/14/17 00:05 11/14/17 00:10 11/14/17 00:15 Temperature Pulse Rate 83 83 82 Respiratory Rate Blood Pressure 104/58 L 108/58 L 105/58 L Pulse Oximetry 100 100 100 11/14/17 00:20 11/14/17 00:25 11/14/17 00:30 Temperature Pulse Rate 81 81 81 Respiratory Rate Blood Pressure 103/59 L 103/59 L 108/60 Pulse Oximetry 100 100 100 11/14/17 00:35 11/14/17 01:00 11/14/17 01:04 Temperature Pulse Rate 79 78 78 Respiratory Rate 24 24 Blood Pressure 105/58 L 104/58 L Pulse Oximetry 100 100 100 11/14/17 01:30 11/14/17 02:00 11/14/17 02:30 Temperature Pulse Rate 82 83 85 Respiratory Rate 24 Blood Pressure 104/59 L 112/62 114/67 Pulse Oximetry 100 100 100 11/14/17 03:00 11/14/17 03:30 11/14/17 03:47 Temperature Pulse Rate 89 90 88 Respiratory Rate 24 Blood Pressure 114/64 116/65 111/67 Pulse Oximetry 100 100 100 11/14/17 04:00 11/14/17 04:17 11/14/17 04:30 Temperature 99.3 F Pulse Rate 88 89 94 H Respiratory Rate 24 24 Blood Pressure 112/64 105/56 L Pulse Oximetry 100 100 100 11/14/17 05:00 11/14/17 05:30 11/14/17 06:00 Temperature Pulse Rate 92 H 89 84 Respiratory Rate 24 24 Blood Pressure 108/61 105/58 L 97/55 L Pulse Oximetry 100 100 100 11/14/17 06:30 11/14/17 07:00 11/14/17 07:37 Temperature Pulse Rate 80 77 74 Respiratory Rate Blood Pressure 97/53 L 98/56 L Pulse Oximetry 100 100 11/14/17 07:42 Temperature Pulse Rate Respiratory Rate 24 Blood Pressure Pulse Oximetry 100 Intake & Output 11/13/17 11/14/17 11/14/17 18:59 06:59 18:59 Intake Total 4265 / 4265 150 / 150 Output Total 0 / 0 1500 / 1500 Balance 0 / 0 2765 / 2765 150 / 150 Weight 107.501 kg 106 kg Intake: IV 4265 / 4265 150 / 150 Versed Inj 50 mg In 50 ml @ 2 50 / 50 MG/HR 2 mls/hr IV.CONT TITRATE PRN Rx#:[id number] Diprivan 1000 mg/100 ml Inj 1, 300 / 300 100 / 100 000 mg In 100 ml @ 5 MCG/KG/MIN 3.225 mls/hr IV.CONT TITRATE PRN Rx#:[id number] NS Inj 1,000 ML @ 84 mls/hr IV. 1000 / 1000 CONT .[id number] [facility] Rx#: [id number] NS Inj 1,000 ML @ Wide Open IV. 1999 / 1999 SIG BOLUS ONE Rx#:[id number] Vancomycin Inj 1,500 MG In NS 515 / 515 Inj 500 ML @ 250 mls/hr IV.SIG ONCE ONE Rx#:[id number] Rocephin Inj 2,000 MG In NS Inj 200 / 200 100 ML @ 200 mls/hr IV.SIG Q24H [facility] Rx#:[id number] fentaNYL 10 mcg/mL Premix Drip 250 / 250 2,500 mcg In 250 ml @ 50 MCG/HR 5 mls/hr IV.SIG TITRATE PRN Rx #:[id number] Output: Urine Amount (Catheter) 0 / 0 1500 / 1500 Indwelling Urethral Catheter 0 / 0 1500 / 1500 Other: Weight On Admission 106 kg Result Diagrams: 11/14/17 03:39 11/14/17 03:39 Objective Remarks: GENERAL: Overweight well-developed female who is heavily sedated on mechanical ventilation via tracheostomy. SKIN: Warm and dry. No rash or urticaria. HEAD: Atraumatic. Normocephalic. +swelling of face and tongue, EYES: Pupils equal and round, pinpoint bilaterally. No scleral icterus. No injection or drainage. ENT: No nasal bleeding or discharge. Mucous membranes pink and moist. NECK: Trachea midline. No JVD. [address] via cricothyroid membrane. CARDIOVASCULAR: Regular rate and rhythm. No murmurs rubs or gallops. RESPIRATORY: No accessory muscle use. Clear to auscultation. Breath sounds equal bilaterally. GASTROINTESTINAL: Abdomen soft, non-tender, nondistended. Bowel sounds present. MUSCULOSKELETAL: Extremities without clubbing, cyanosis, or edema. No obvious deformities. NEUROLOGICAL: Sedated heavily for maintenance of airway. Assessment and Plan - Problem List (1) Acute hypoxemic respiratory failure Code(s): J96.01 - Acute respiratory failure with hypoxia Status: Acute (2) Angioedema Code(s): T78.3XXA - Angioneurotic edema, initial encounter Status: Acute (3) Anaphylaxis Code(s): T78.2XXA - Anaphylactic shock, unspecified, initial encounter Status : Acute - Assessment and Plan Plan: NEURO: -Propofol 30 mcg/kg/min and fentanyl 250 mcg/hr and versed 7mg/hr for sedation and ventilator synchrony -Use intermittent neuromuscular paralysis as needed RESP: Acute hypoxemic respiratory failure Angioedema with severe upper airway compromise -Dr. Copeland emergently performed percutaneous tracheostomy at the bedside -Position of the tracheostomy tube confirmed with bronchoscopy. No cuff leak. -Unable to adequately ventilate through the cric tube as it was cuff less -PRVC/AC, Ventilator bundle. -DuoNeb every 6 hours scheduled and as needed -Decadron 6 mg IV every 6 hours, Benadryl 50 mg IV every 6 hours -Famotidine 20 mg IV every 12 -Plan for OR for revision and repair on 11/16/2017 - Etiology may have been Ervin-I, NSAIDS also a possibility. Given the severity of this reaction, recommended avoiding both and f/u with spreader operator automatic. Check C4, tryptase. CV: Pulmonary edema most likely negative pressure -Received Lasix 40 mg 1 F/u CXR. GI: -N.p.o., pediatric NGT in place, trickle tube feed only. IV famotidine FEN/RENAL: -Monitor renal function closely. Colindres catheter. -Electrolyte replacement per protocol ID: -Empiric Rocephin for 5 days due to unstable procedure. Vancomycin 1 dose HEME: -Monitor CBC, coags ENDO: -Monitoring glucose q6 horus. Sliding scale insulin if needed PROPH: -Bilateral lower extremity SCDs. IV famotidine LINES: -Utilize peripheral IVs Family updated at bedside. FULL CODE Level 3 followup (3) Anaphylaxis Qualifiers: Encounter type: initial encounter Qualified Code(s): T78.2XXA - Anaphylactic shock, unspecified, initial encounter
[2017-11-14] MEDS: Famotidine PF Inj 20 MG/2 ML Vial IV.PUSH SCH ×2 (09:10→20:17)
[2017-11-14] MEDS: Hypromellose 0.3% Opth Gel 10 GM Bottle EACH EYE SCH ×2 (09:13→20:16)
[2017-11-15] MEDS: Sod Chloride 0.9% Inj 1,000 ML IV.CONT SCH (03:44)
--- NOTE | 2017-11-15 03:47 | XR ---
EXAM DATE: 11/15/2017 3:17 AM EDT AGE/SEX: 47 years / Female INDICATIONS: Shortness of breath, possible pulmonary disease, evaluate pediatric N-G tube placement. CLINICAL DATA: This is the patient's subsequent encounter. Patient reports that signs and symptoms h ave been present for 2 days and indicates a pain score of Nonresponsive. MEDICAL/SURGICAL HISTORY: Non-responsive. Non-responsive. COMPARISON: [facility] [place] [place], CHEST 1V SINGLE AP, 11/13/2017. . FINDINGS: There is a tracheostomy tube in place. The NG tube tip is at the EG junction. This should be advanced . The heart size is normal. There is mild increased density seen at the lung bases being worse on the left. There is silhouetting the left hemidiaphragm. CONCLUSION: NG tube in place with the tip at the EG junction. This should be advanced. Mild atelectasis or consolidation at the lung bases being worse on the left. Electronically signed by: Uriel Khanna MD 11/15/2017 3:46 AM EDT
[2017-11-15 04:25] LABS: Hematocrit 29.5 % (35.0-46.0); Hemoglobin 9.8 gm/dL (11.6-15.3); Lymph # (Auto) 0.3 th/mm3 (1.0-4.8); Lymph % (Auto) 2.1 % (9.0-44.0); Mean Corpuscular HGB Conc 33.2 % (32.0-36.0); Mean Corpuscular Hemoglobin 32.3 pg (27.0-34.0); Mean Corpuscular Volume 97.3 fL (80.0-100.0); Mean Platelet Volume 7.8 fL (7.0-11.0); Mono # (Auto) 0.5 th/mm3 (0.0-0.9); Mono % (Auto) 3.2 % (0.0-8.0); Neut # (Auto) 14.4 th/mm3 (1.8-7.7); Neut % (Auto) 94.7 % (16.0-70.0); Platelet Count 189 th/mm3 (150-450); Red Blood Count 3.03 mil/mm3 (4.00-5.30); Red Cell Distribution Width 13.7 % (11.6-17.2); White Blood Count 15.2 th/mm3 (4.0-11.0)
[2017-11-15 04:33] LABS: Calcium 7.7 mg/dL (8.5-10.1); Carbon Dioxide 21.9 meq/L (21.0-32.0); Potassium 3.5 meq/L (3.5-5.1)
[2017-11-15] MEDS: Propofol 1000 mg/100 ml Inj 1,000 MG/100 ML BOTTLE IV.CONT PRN ×6 (05:00→23:10)
[2017-11-15] MEDS: Midazolam 50 MG/50 ML Inj 50 MG/50 ML BAG IV.CONT PRN ×3 (06:00→21:27)
[2017-11-15] MEDS: Oral Hygiene Kit OROPHARYNG SCH ×4 (06:28→23:09)
[2017-11-15] MEDS: Chlorhexidine Gluconate 2% 1 Pack (2 Cloths) TOPICAL SCH (06:28)
[2017-11-15] MEDS: Insulin NovoLOG Aspart Correctional Sugar Inj SQ SCH ×3 (06:30→18:19)
[2017-11-15] MEDS: fentaNYL 10 mcg/mL Premix Drip 2,500 MCG/250 ML BAG IV.SIG PRN ×2 (07:08→18:00)
[2017-11-15] MEDS: Chlorhexidine 0.12% Oral Kit 15 ML UDC OROPHARYNG SCH ×2 (08:40→20:32)
[2017-11-15] MEDS: Senna/Docusate Sodium 8.6/50 MG Tablet PO SCH ×2 (08:40→20:32)
[2017-11-15] MEDS: Famotidine PF Inj 20 MG/2 ML Vial IV.PUSH SCH ×2 (09:46→20:31)
[2017-11-15] MEDS: Hypromellose 0.3% Opth Gel 10 GM Bottle EACH EYE SCH ×2 (09:46→20:32)
--- NOTE | 2017-11-15 11:37 | P.DIET ---
Nutritional Evaluation Type of nutrition evaluation: initial Nutrition consult regarding: Tube Feeding Subjective Subjective Comments: Used SCCM/ASPEN guidelines for critically ill w/ BMI >30. Objective - Diagnosis Anaphlyaxis - Objective % IBW: 161 (JRE=211#) Body Weight Used for Calculations: IBW (68.2kg [PRO]), Actual (109.5kg [kcals]) Energy Needs - Lower Range (kCal/kg): 11 Energy Needs - Upper Range (kCal/kg): 14 Lower Limit kCal/kg (kCals): 1,205 Upper Limit kCal/kg (kCals): 1,533 Lower Limit Protein Factor (Grams per Kg): 2.0 Lower Protein Needs (Protein): 136 Dietitian Reviewed in Medical Record: Curent medications, Intake & Output, Labs , Medical history, Tube feeding Diet Order: TF Only Assessment Assessment: Pt admitted for anaphylaxis. Per records, pt was difficult to intubate 2/2 edema so an emergent tracheostomy was performed. She remains intubated and sedated. Current TF order is for Glucerna 1.5 @ 10mls/hr. To meet pt's nutritional requirements, recommend Vital High Protein @ 65mls/hr. This regimen will provide 1560kcals, 137g PRO, and 1304mls fluid. Unsure what caused the anaphylaxis. Dietitian following. Recommendations: 1. Recommend Vital High Protein @ 65mls/hr. Dietitian to Monitor: Lab values, Intake & Output, Tube feeding tolerance, Weight change, Medical course
--- NOTE | 2017-11-15 20:52 | P.PCN ---
Date of procedure: 11/15/17 Procedure: Date: 11/15/17 Procedure: Diagnostic Fiberoptic laryngoscopy Indication: Upper airway obstruction due to angioedema. Prior cricothyroidotomy , evaluate position of trach tube. Details of procedure: Informed consent was obtained from family. Risks, benefits, alterative discussed with her brother in detail. The patient was positioned supine. She was maintained on hemodynamic monitoring and continuous pulse oximetry. She was preoxygenated with 100% FIO2. She was sedated with propofol 50 mg/kg/min, fentanyl 250 mg/h, Versed 8 mg/h, rocuronium 50 mg IV. Fiberoptic bronchoscope was advanced into the existing tracheostomy. Tip of tube ~ 6cm from alexandr, normal tracheal structures distal to tip of trach. The bronchoscope was then advanced into R naris to level of what appeared to be swollen arytenoids but I was unable to make out other airway structures. I then used Glidescope to visualize airway and noted some swelling of epiglottis but primarily significantly swollen arytenoids and vocal cords resulting in a tight airway. Advanced tip of fiberoptic bronchoscope between posterior cords under visualization with Glidescope and was able to visualize subglottic region via bronchoscopy. The existing tracheostomy tube was visualized immediately caudal to the glottis entering at the expected level of the cricothyroid membrane. Photo images were obtained and placed on the chart. Patient tolerated procedure well. Sats were maintained 99-100% throughout. Family and surgeon updated regarding the findings.
--- NOTE | 2017-11-15 23:43 | P.PNCC ---
Subjective Subjective Remarks/Hospital Course: Patient is a 47 year old morbidly female obese female who presented to the [facility] emergency department with severe acute anaphylactic reaction, and airway compromise. RSI was attempted by Dr. Pino and Dr. Sandhu, but they were unable to. An LMA was placed but the patient's O2 sats remained in the low 80s. Emergency cricothyroidotomy was performed at [facility] emergency department , by Dr. Sandhu, 6-0 uncuffed cric tube was placed. Postplacement there was leak around the trach tube with bag and mask ventilation. LMA was reintroduced and patient was given ventilation through the LMA and patient was emergently transferred to the [facility]. I evaluated patient emergently in [address] [facility]. Patient is sedated with propofol infusion. Oxygen saturation with bag and mask ventilation was 88-90%. I performed a bronchoscopy through the LMA , vocal cords appeared severely swollen. A pediatric bronchoscope was not available to the load a 6.0 ET tube. I attempted intubation with the glide scope and 6.0 ET tube. I was able to visualize the significantly swollen glottic opening and vocal cords, but I was unable to pass the ET tube through the vocal cords due to swelling. Dr. Castaneda placed a new #5 LMA and we returned to bag and mask ventilation and Dr. Copeland performed a percutaneous Blue Rhino tracheostomy at the bedside through the existing cric incision. (He first placed the guidewire through the existing perc tube). Tracheostomy tube placement was confirmed with bronchoscopy again. At the beginning of tracheostomy patient's oxygen saturation was in the mid 70s. This slowly improved to 95% and patient was placed on ventilator. At this time we are unable to get any other history from the patient regarding food allergies. Scheduled IV Decadron Benadryl and famotidine had been started. 11/14 Remains deeply sedated and on mechanical ventilation via trach, no leak. Plan for revision of trach on Thursday. Has persistent face and tongue swelling but family and staff indicate improved compared with yesterday. Family states patient on lisinopril ~ 1 year, shelter NSAIDS. She had eaten scrapple and toast about 1 1/2 hours before onset of symptoms. Subjective: 11/15 Fiberoptic bronchoscopy performed and demonstrates persistent cord edema. Existing tracheostomy position noted immediately subglottic at expected level of cricothyroid membrane. Dr. Copeland will schedule revision to formal tracheostomy. Patient remains heavily sedated to ensure airway maintenance. Objective Vital Signs / I&O: Vital Signs 11/15/17 00:00 11/15/17 01:00 11/15/17 02:00 Temperature 98.4 F Pulse Rate 59 L 58 L 51 L Respiratory Rate 24 Blood Pressure 113/56 L 110/58 L 111/59 L Pulse Oximetry 100 100 100 11/15/17 03:00 11/15/17 04:00 11/15/17 04:15 Temperature Pulse Rate 50 L 53 L 50 L Respiratory Rate 24 Blood Pressure 114/57 L 115/57 L Pulse Oximetry 100 100 100 11/15/17 05:00 11/15/17 06:00 11/15/17 06:30 Temperature Pulse Rate 58 L 55 L 59 L Respiratory Rate Blood Pressure 118/56 L 118/57 L 116/60 Pulse Oximetry 100 100 100 11/15/17 07:00 11/15/17 07:30 11/15/17 07:34 Temperature Pulse Rate 60 57 L 55 L Respiratory Rate 24 Blood Pressure 122/65 133/62 Pulse Oximetry 100 100 100 11/15/17 08:00 11/15/17 08:30 11/15/17 09:00 Temperature 98.1 F Pulse Rate 59 L 103 H 80 Respiratory Rate Blood Pressure 123/66 152/83 H 131/64 Pulse Oximetry 99 100 98 11/15/17 09:30 11/15/17 10:00 11/15/17 10:30 Temperature Pulse Rate 72 63 62 Respiratory Rate Blood Pressure 132/68 127/66 131/66 Pulse Oximetry 98 99 100 11/15/17 11:00 11/15/17 11:30 11/15/17 12:00 Temperature 98.5 F Pulse Rate 51 L 60 67 Respiratory Rate Blood Pressure 128/62 136/72 141/77 H Pulse Oximetry 100 100 100 11/15/17 12:11 11/15/17 12:30 11/15/17 13:00 Temperature Pulse Rate 84 62 71 Respiratory Rate 24 Blood Pressure 136/65 140/76 Pulse Oximetry 100 99 100 11/15/17 13:30 11/15/17 14:00 11/15/17 14:28 Temperature Pulse Rate 67 98 H 77 Respiratory Rate 24 Blood Pressure 137/70 153/87 H Pulse Oximetry 99 100 11/15/17 14:30 11/15/17 15:00 11/15/17 16:00 Temperature Pulse Rate 75 72 72 Respiratory Rate Blood Pressure 141/70 H 134/68 Pulse Oximetry 100 99 11/15/17 17:25 11/15/17 17:27 11/15/17 17:30 Temperature 98.8 F Pulse Rate 117 H 123 H 125 H Respiratory Rate Blood Pressure 148/78 H 155/82 H 157/81 H Pulse Oximetry 100 100 100 11/15/17 17:32 11/15/17 17:35 11/15/17 17:37 Temperature Pulse Rate 126 H 123 H 118 H Respiratory Rate Blood Pressure 158/81 H 162/82 H 162/82 H Pulse Oximetry 100 100 100 11/15/17 17:40 11/15/17 17:42 11/15/17 17:45 Temperature Pulse Rate 120 H 117 H 120 H Respiratory Rate Blood Pressure 161/84 H 162/83 H 162/86 H Pulse Oximetry 100 100 100 11/15/17 17:47 11/15/17 17:50 11/15/17 17:52 Temperature Pulse Rate 120 H 121 H 124 H Respiratory Rate Blood Pressure 165/83 H 164/84 H 161/85 H Pulse Oximetry 100 100 100 11/15/17 17:55 11/15/17 17:57 11/15/17 18:00 Temperature Pulse Rate 132 H 133 H 98 H Respiratory Rate Blood Pressure 171/93 H 170/93 H 172/95 H Pulse Oximetry 100 100 100 11/15/17 18:02 11/15/17 18:05 11/15/17 18:07 Temperature Pulse Rate 144 H 127 H 121 H Respiratory Rate Blood Pressure 173/93 H 171/89 H 167/81 H Pulse Oximetry 100 100 100 11/15/17 18:10 11/15/17 18:13 11/15/17 18:15 Temperature Pulse Rate 106 H 101 H 99 H Respiratory Rate Blood Pressure 156/74 H 146/67 H 152/70 H Pulse Oximetry 100 100 100 11/15/17 18:17 11/15/17 18:20 11/15/17 18:22 Temperature Pulse Rate 98 H 98 H 98 H Respiratory Rate Blood Pressure 146/67 H 145/66 H 146/68 H Pulse Oximetry 100 100 100 11/15/17 18:25 11/15/17 18:42 11/15/17 19:00 Temperature 98.6 F Pulse Rate 98 H 89 Respiratory Rate Blood Pressure 144/67 H 139/66 Pulse Oximetry 100 100 100 11/15/17 19:10 11/15/17 20:00 11/15/17 20:06 Temperature Pulse Rate 93 H Respiratory Rate 24 Blood Pressure 149/81 H Pulse Oximetry 100 100 100 11/15/17 20:21 11/15/17 21:00 11/15/17 22:00 Temperature Pulse Rate 86 78 78 Respiratory Rate 24 Blood Pressure 134/74 129/71 Pulse Oximetry 98 99 Intake & Output 11/15/17 11/15/17 11/16/17 06:59 18:59 06:59 Intake Total 1642 / 1642 1949 / 1949 150 / 150 Output Total 2004 900 / 900 Balance -363 / -363 1050 / 1050 150 / 150 Weight 109.5 kg Intake: IV 1550 / 1550 1949 / 1949 150 / 150 Versed Inj 50 mg In 50 ml @ 2 100 / 100 50 / 50 50 / 50 MG/HR 2 mls/hr IV.CONT TITRATE PRN Rx#:[id number] Diprivan 1000 mg/100 ml Inj 1, 200 / 200 400 / 400 100 / 100 000 mg In 100 ml @ 5 MCG/KG/MIN 3.225 mls/hr IV.CONT TITRATE PRN Rx#:[id number] NS Inj 1,000 ML @ 84 mls/hr IV. 1000 / 1000 1000 / 1000 CONT .[id number] [facility] Rx#: [id number] fentaNYL 10 mcg/mL Premix Drip 250 / 250 500 / 500 2,500 mcg In 250 ml @ 50 MCG/HR 5 mls/hr IV.SIG TITRATE PRN Rx #:[id number] Tube Feeding 72 / 72 Water Bolus Amount 20 / 20 Output: Urine Amount (Catheter) 2004 900 / 900 Indwelling Urethral Catheter 2004 900 / 900 Result Diagrams: 11/15/17 03:45 11/15/17 03:45 Objective Remarks: GENERAL: Overweight well-developed female who is heavily sedated on mechanical ventilation via tracheostomy. SKIN: Warm and dry. No rash or urticaria. HEAD: Atraumatic. Normocephalic. +swelling of face and tongue, significantly improved. EYES: Pupils equal and round, pinpoint bilaterally. No scleral icterus. No injection or drainage. ENT: No nasal bleeding or discharge. Mucous membranes pink and moist. NECK: Trachea midline. No JVD. [address] via cricothyroid membrane. CARDIOVASCULAR: Regular rate and rhythm. No murmurs rubs or gallops. RESPIRATORY: No accessory muscle use. Clear to auscultation. Breath sounds equal bilaterally. GASTROINTESTINAL: Abdomen soft, non-tender, nondistended. Bowel sounds present. MUSCULOSKELETAL: Extremities without clubbing, cyanosis, or edema. No obvious deformities. NEUROLOGICAL: Sedated heavily for maintenance of airway. Assessment and Plan - Problem List (1) Acute hypoxemic respiratory failure Code(s): J96.01 - Acute respiratory failure with hypoxia Status: Acute (2) Angioedema Code(s): T78.3XXA - Angioneurotic edema, initial encounter Status: Acute - Assessment and Plan Plan: NEURO: -Propofol 30 mcg/kg/min and fentanyl 250 mcg/hr and versed 7mg/hr for sedation and ventilator synchrony -Use intermittent neuromuscular paralysis as needed RESP: Acute hypoxemic respiratory failure Angioedema with severe upper airway compromise -Emergent cric per Dr. Sandhu at [facility]. -Unable to adequately ventilate through the cric tube as it was cuff less tube ( supplied in [facility] kit) -Dr. Copeland emergently performed percutaneous tracheostomy at the bedside by passing wire through existing cric tube. -Existing tube without cuff leak. -Dr. Copeland is scheduling formal trach. -PRVC/AC, Ventilator bundle. -DuoNeb every 6 hours scheduled and as needed -Decadron 6 mg IV every 6 hours, Benadryl 50 mg IV every 6 hours -Famotidine 20 mg IV every 12 -Airway remains persistently swollen, more typical of Ervin-I/bradykinin mediated angioedema. - Etiology most like Ervin-I, NSAIDS also a possibility. Given the severity of this reaction, recommended avoiding both and f/u with financial services agent. C4 is normal, tryptase pending. CV: Pulmonary edema most likely negative pressure -Received Lasix 40 mg 1 GI: -N.p.o., pediatric NGT in place, trickle tube feeds only. NGT at GE junction, was advanced but nurses noted regurgitation of tube feeds so currently on hold. Initiate Reglan. f/u KUB /confirm placement before resuming tube feeds (on hold after midnight pending surgical scheduling) IV famotidine FEN/RENAL: -Monitor renal function closely. Colindres catheter. -Electrolyte replacement per protocol ID: -Empiric Rocephin for 5 days due to unstable procedure. Received Vancomycin 1 dose HEME: -Monitor CBC, coags ENDO: -Monitoring glucose q6 hours. Sliding scale insulin if needed PROPH: -Bilateral lower extremity SCDs. Lovenox today, then hold for OR. IV famotidine LINES: -Utilize peripheral IVs Family updated at bedside. Discussed with Dr Copeland. FULL CODE Level 3 followup
[2017-11-16] MEDS: Insulin NovoLOG Aspart Correctional Sugar Inj SQ SCH ×4 (02:03→23:49)
[2017-11-16] MEDS: fentaNYL 10 mcg/mL Premix Drip 2,500 MCG/250 ML BAG IV.SIG PRN ×3 (02:04→21:56)
[2017-11-16] MEDS ORDERED: Enoxaparin Inj 40 MG/0.4 ML Syringe SQ ONE (02:12)
--- NOTE | 2017-11-16 04:53 | XR ---
EXAM DATE: 11/16/2017 4:25 AM EDT AGE/SEX: 47 years / Female INDICATIONS: Constipation. CLINICAL DATA: This is the patient's subsequent encounter. Patient reports that signs and symptoms h ave been present for 4 - 6 days and indicates a pain score of Nonresponsive. MEDICAL/SURGICAL HISTORY: Non-responsive. Non-responsive. COMPARISON: No prior exams available for comparison. FINDINGS: Gas-filled loops of nondilated large and small bowel. Gas and stool is seen to the level the rectal vault. No abnormal masses, calcifications, or organomegaly is seen. Scoliotic curvature. Degenerative changes involving the right hip.. CONCLUSION: Gas-filled loops of nondilated large and small bowel without an obstructive pattern. Electronically signed by: Dany Paredes MD 11/16/2017 4:52 AM EDT
[2017-11-16] MEDS: Chlorhexidine Gluconate 2% 1 Pack (2 Cloths) TOPICAL SCH (05:51)
[2017-11-16] MEDS: Oral Hygiene Kit OROPHARYNG SCH ×4 (05:52→23:49)
[2017-11-16 06:12] LABS: Anion Gap 9 meq/L (5-15); Blood Urea Nitrogen 21 mg/dL (7-18); Chloride 113 meq/L (98-107); Glomerular Filtration Rate Greater Than 89 mL/min (>89); Glucose,Random 112 mg/dL (74-106); Potassium 3.3 meq/L (3.5-5.1)
[2017-11-16 06:18] LABS: Sodium 147 meq/L (136-145)
[2017-11-16] MEDS: Propofol 1000 mg/100 ml Inj 1,000 MG/100 ML BOTTLE IV.CONT PRN ×5 (06:29→18:31)
[2017-11-16] MEDS: Famotidine PF Inj 20 MG/2 ML Vial IV.PUSH SCH ×2 (09:37→20:50)
[2017-11-16] MEDS: Hypromellose 0.3% Opth Gel 10 GM Bottle EACH EYE SCH ×2 (09:39→20:51)
[2017-11-16] MEDS: Midazolam 50 MG/50 ML Inj 50 MG/50 ML BAG IV.CONT PRN ×2 (09:41→20:56)
[2017-11-16] MEDS: Senna/Docusate Sodium 8.6/50 MG Tablet PO SCH ×2 (09:43→20:51)
[2017-11-16] MEDS: Chlorhexidine 0.12% Oral Kit 15 ML UDC OROPHARYNG SCH ×2 (09:46→20:51)
[2017-11-16] MEDS: Potassium Chlor 20 mEq Premix 20 MEQ/100 ML PIGGYBACK IV.SIG PRN ×2 (11:39→14:16)
--- NOTE | 2017-11-16 17:57 | P.PN ---
Subjective Interval history: No issues with ventilation overnight. No air leak. Trache. Ostomy site clean and dry Physical Exam Vital signs: Vital Signs 11/15/17 17:57 11/15/17 18:00 11/15/17 18:02 Temperature Pulse Rate 133 H 98 H 144 H Respiratory Rate Blood Pressure 170/93 H 172/95 H 173/93 H Pulse Oximetry 100 100 100 11/15/17 18:05 11/15/17 18:07 11/15/17 18:10 Temperature Pulse Rate 127 H 121 H 106 H Respiratory Rate Blood Pressure 171/89 H 167/81 H 156/74 H Pulse Oximetry 100 100 100 11/15/17 18:13 11/15/17 18:15 11/15/17 18:17 Temperature Pulse Rate 101 H 99 H 98 H Respiratory Rate Blood Pressure 146/67 H 152/70 H 146/67 H Pulse Oximetry 100 100 100 11/15/17 18:20 11/15/17 18:22 11/15/17 18:25 Temperature Pulse Rate 98 H 98 H 98 H Respiratory Rate Blood Pressure 145/66 H 146/68 H 144/67 H Pulse Oximetry 100 100 100 11/15/17 18:42 11/15/17 19:00 11/15/17 19:10 Temperature 98.6 F Pulse Rate 89 Respiratory Rate Blood Pressure 139/66 Pulse Oximetry 100 100 100 11/15/17 20:00 11/15/17 20:06 11/15/17 20:21 Temperature Pulse Rate 93 H 86 Respiratory Rate 24 24 Blood Pressure 149/81 H Pulse Oximetry 100 100 11/15/17 21:00 11/15/17 22:00 11/15/17 23:00 Temperature Pulse Rate 78 78 70 Respiratory Rate Blood Pressure 134/74 129/71 124/67 Pulse Oximetry 98 99 99 11/16/17 00:00 11/16/17 01:00 11/16/17 02:00 Temperature 98.8 F Pulse Rate 66 52 L 91 H Respiratory Rate 24 Blood Pressure 128/68 131/72 159/88 H Pulse Oximetry 100 100 100 11/16/17 03:00 11/16/17 03:59 11/16/17 04:00 Temperature 98.9 F Pulse Rate 65 50 L 50 L Respiratory Rate Blood Pressure 136/76 132/64 Pulse Oximetry 100 100 11/16/17 04:01 11/16/17 04:51 11/16/17 05:00 Temperature Pulse Rate 56 L 56 L Respiratory Rate 24 24 Blood Pressure 132/67 Pulse Oximetry 100 100 11/16/17 06:00 11/16/17 07:00 11/16/17 07:30 Temperature Pulse Rate 53 L 47 L 53 L Respiratory Rate Blood Pressure 127/70 131/75 140/84 Pulse Oximetry 100 100 100 11/16/17 07:41 11/16/17 08:00 11/16/17 08:30 Temperature 97.9 F Pulse Rate 55 L 60 47 L Respiratory Rate 24 24 Blood Pressure 137/85 136/77 Pulse Oximetry 100 99 100 11/16/17 09:00 11/16/17 09:30 11/16/17 10:00 Temperature Pulse Rate 45 L 45 L 47 L Respiratory Rate Blood Pressure 140/76 144/78 H 149/80 H Pulse Oximetry 100 100 99 11/16/17 10:30 11/16/17 11:00 11/16/17 11:01 Temperature Pulse Rate 73 60 51 L Respiratory Rate Blood Pressure 166/94 H 146/71 H Pulse Oximetry 100 99 99 11/16/17 11:30 11/16/17 12:00 11/16/17 12:30 Temperature 97.5 F L Pulse Rate 53 L 50 L 47 L Respiratory Rate 24 Blood Pressure 129/70 142/75 H 131/75 Pulse Oximetry 99 100 100 11/16/17 12:48 11/16/17 13:00 11/16/17 15:34 Temperature Pulse Rate 45 L 45 L 56 L Respiratory Rate 24 24 Blood Pressure 133/74 Pulse Oximetry 100 100 99 Intake & Output 11/15/17 11/16/17 11/16/17 18:59 06:59 18:59 Intake Total 1949 550 / 550 750 / 750 Output Total 900 / 900 2150 / 2150 Balance 1050 / 1050 -1600 / -1600 750 / 750 Weight 109 kg Intake: IV 1949 550 / 550 750 / 750 Versed Inj 50 mg In 50 ml @ 2 50 / 50 100 / 100 MG/HR 2 mls/hr IV.CONT TITRATE PRN Rx#:[id number] Diprivan 1000 mg/100 ml Inj 1, 400 / 400 200 / 200 300 / 300 000 mg In 100 ml @ 5 MCG/KG/MIN 3.225 mls/hr IV.CONT TITRATE PRN Rx#:[id number] NS Inj 1,000 ML @ 84 mls/hr IV. 1000 / 1000 CONT .[id number] DINA Rx#: [id number] KCl 20 mEq Premix Inj 20 meq In 100 / 100 100 ml @ 50 mls/hr IV.SIG Q2H PRN Rx#:[id number] Rocephin Inj 2,000 MG In NS Inj 100 / 100 100 ML @ 200 mls/hr IV.SIG Q24H DINA Rx#:[id number] fentaNYL 10 mcg/mL Premix Drip 500 / 500 250 / 250 250 / 250 2,500 mcg In 250 ml @ 50 MCG/HR 5 mls/hr IV.SIG TITRATE PRN Rx #:[id number] Output: Urine Amount (Catheter) 900 / 900 2150 / 2150 Indwelling Urethral Catheter 900 / 900 2150 / 2150 - Constitutional no acute distress - Routine Neck Exam Present: supple, swelling, trachea midline Comments: No fresh blood or other fluids - Routine Respiratory Exam Present: decreased breath sounds - Urinary Catheter Management Indwelling Urethral Catheter Cath placed during this visit: yes Reason for continuing: Hourly intake/output Insertion date: 11/13/17 Insertion time: 19:00 Results - Labs CBC & Chem 7: 11/15/17 03:45 11/16/17 05:13 Laboratory Results - last 24 hr 11/13/17 11/15/17 11/15/17 15:30 18:17 23:15 Sodium Potassium Chloride Carbon Dioxide Anion Gap BUN Creatinine Estimated GFR POC Glucose 112 H 110 Random Glucose Calcium MTS Gel Crossmatch See Detail 11/16/17 11/16/17 05:13 11:43 Sodium 147 H Potassium 3.3 L Chloride 113 H Carbon Dioxide 25.0 Anion Gap 9 BUN 21 H Creatinine 0.69 Estimated GFR Greater than 89 POC Glucose 108 Random Glucose 112 H Calcium 8.0 L MTS Gel Crossmatch - Imaging Impressions Abdomen X-Ray 11/16/17 00:00 CONCLUSION: Gas-filled loops of nondilated large and small bowel without an obstructive pattern. Assessment and Plan - Plan Considering conversion to formal tracheostomy; in doing further research on this , it may be best to just leave the current airway in place until patient is ready to be extubated. We will discuss this with nursing staff and well service pump equipment operator
--- NOTE | 2017-11-16 19:36 | P.PNCC ---
Subjective Subjective Remarks/Hospital Course: Patient is a 47 year old morbidly female obese female who presented to the [place] emergency department with severe acute anaphylactic reaction, and airway compromise. RSI was attempted by Dr. Pino and Dr. Sandhu, but they were unable to. An LMA was placed but the patient's O2 sats remained in the low 80s. Emergency cricothyroidotomy was performed at [place] emergency department , by Dr. Sandhu, 6-0 uncuffed cric tube was placed. Postplacement there was leak around the trach tube with bag and mask ventilation. LMA was reintroduced and patient was given ventilation through the LMA and patient was emergently transferred to the [facility]. I evaluated patient emergently in 504 in [facility]. Patient is sedated with propofol infusion. Oxygen saturation with bag and mask ventilation was 88-90%. I performed a bronchoscopy through the LMA , vocal cords appeared severely swollen. A pediatric bronchoscope was not available to the load a 6.0 ET tube. I attempted intubation with the glide scope and 6.0 ET tube. I was able to visualize the significantly swollen glottic opening and vocal cords, but I was unable to pass the ET tube through the vocal cords due to swelling. Dr. Castaneda placed a new #5 LMA and we returned to bag and mask ventilation and Dr. Copeland performed a percutaneous [place] tracheostomy at the bedside through the existing cric incision. (He first placed the guidewire through the existing perc tube). Tracheostomy tube placement was confirmed with bronchoscopy again. At the beginning of tracheostomy patient's oxygen saturation was in the mid 70s. This slowly improved to 95% and patient was placed on ventilator. At this time we are unable to get any other history from the patient regarding food allergies. Scheduled IV Decadron Benadryl and famotidine had been started. 11/14 Remains deeply sedated and on mechanical ventilation via trach, no leak. Plan for revision of trach on Thursday. Has persistent face and tongue swelling but family and staff indicate improved compared with yesterday. Family states patient on lisinopril ~ 1 year, mcc NSAIDS. She had eaten scrapple and toast about 1 1/2 hours before onset of symptoms. Subjective: 11/15 Fiberoptic bronchoscopy performed and demonstrates persistent cord edema. Existing tracheostomy position noted immediately subglottic at expected level of cricothyroid membrane. Dr. Copeland will schedule revision to formal tracheostomy. Patient remains heavily sedated to ensure airway maintenance. 11/16: remains deeply sedated for airway protection. discussion with Dr. Copeland: may need additional time for edema to decrease. will now plan to leave cric in place and not revise at this immediate time. Objective Vital Signs / I&O: Vital Signs 11/15/17 20:00 11/15/17 20:06 11/15/17 20:21 Temperature Pulse Rate 93 H 86 Respiratory Rate 24 24 Blood Pressure 149/81 H Pulse Oximetry 100 100 11/15/17 21:00 11/15/17 22:00 11/15/17 23:00 Temperature Pulse Rate 78 78 70 Respiratory Rate Blood Pressure 134/74 129/71 124/67 Pulse Oximetry 98 99 99 11/16/17 00:00 11/16/17 01:00 11/16/17 02:00 Temperature 37.1 C Pulse Rate 66 52 L 91 H Respiratory Rate 24 Blood Pressure 128/68 131/72 159/88 H Pulse Oximetry 100 100 100 11/16/17 03:00 11/16/17 03:59 11/16/17 04:00 Temperature 37.2 C Pulse Rate 65 50 L 50 L Respiratory Rate Blood Pressure 136/76 132/64 Pulse Oximetry 100 100 11/16/17 04:01 11/16/17 04:51 11/16/17 05:00 Temperature Pulse Rate 56 L 56 L Respiratory Rate 24 24 Blood Pressure 132/67 Pulse Oximetry 100 100 11/16/17 06:00 11/16/17 07:00 11/16/17 07:30 Temperature Pulse Rate 53 L 47 L 53 L Respiratory Rate Blood Pressure 127/70 131/75 140/84 Pulse Oximetry 100 100 100 11/16/17 07:41 11/16/17 08:00 11/16/17 08:30 Temperature 36.6 C Pulse Rate 55 L 60 47 L Respiratory Rate 24 24 Blood Pressure 137/85 136/77 Pulse Oximetry 100 99 100 11/16/17 09:00 11/16/17 09:30 11/16/17 10:00 Temperature Pulse Rate 45 L 45 L 47 L Respiratory Rate Blood Pressure 140/76 144/78 H 149/80 H Pulse Oximetry 100 100 99 11/16/17 10:30 11/16/17 11:00 11/16/17 11:01 Temperature Pulse Rate 73 60 51 L Respiratory Rate Blood Pressure 166/94 H 146/71 H Pulse Oximetry 100 99 99 11/16/17 11:30 11/16/17 12:00 11/16/17 12:30 Temperature 36.4 C L Pulse Rate 53 L 50 L 47 L Respiratory Rate 24 Blood Pressure 129/70 142/75 H 131/75 Pulse Oximetry 99 100 100 11/16/17 12:48 11/16/17 13:00 11/16/17 14:00 Temperature Pulse Rate 45 L 45 L 50 L Respiratory Rate 24 Blood Pressure 133/74 155/83 H Pulse Oximetry 100 100 98 11/16/17 14:30 11/16/17 15:00 11/16/17 15:05 Temperature Pulse Rate 71 94 H 63 Respiratory Rate Blood Pressure 169/93 H 171/110 H 156/87 H Pulse Oximetry 100 100 100 11/16/17 15:30 11/16/17 15:34 11/16/17 16:00 Temperature 36.1 C L Pulse Rate 58 L 56 L 52 L Respiratory Rate 24 Blood Pressure 139/75 141/80 H Pulse Oximetry 99 99 100 11/16/17 16:31 11/16/17 17:00 11/16/17 17:01 Temperature Pulse Rate 67 47 L 46 L Respiratory Rate Blood Pressure 177/87 H 140/70 Pulse Oximetry 100 100 100 11/16/17 17:30 11/16/17 18:00 11/16/17 18:30 Temperature Pulse Rate 48 L 48 L 45 L Respiratory Rate Blood Pressure 150/84 H 140/76 149/81 H Pulse Oximetry 100 99 100 11/16/17 19:00 11/16/17 19:34 Temperature Pulse Rate 44 L 44 L Respiratory Rate 24 Blood Pressure 149/82 H Pulse Oximetry 99 Intake & Output 11/16/17 11/16/17 11/17/17 06:59 18:59 06:59 Intake Total 550 / 550 1050 / 1050 0 / 0 Output Total 2150 / 2150 1500 / 1500 Balance -1600 / -1600 -450 / -450 0 / 0 Weight 109 kg Intake: IV 550 / 550 1050 / 1050 Versed Inj 50 mg In 50 ml @ 2 100 / 100 MG/HR 2 mls/hr IV.CONT TITRATE PRN Rx#:[id number] Diprivan 1000 mg/100 ml Inj 1, 200 / 200 400 / 400 000 mg In 100 ml @ 5 MCG/KG/MIN 3.225 mls/hr IV.CONT TITRATE PRN Rx#:[id number] KCl 20 mEq Premix Inj 20 meq In 200 / 200 100 ml @ 50 mls/hr IV.SIG Q2H PRN Rx#:[id number] Rocephin Inj 2,000 MG In NS Inj 200 / 200 100 ML @ 200 mls/hr IV.SIG Q24H DINA Rx#:[id number] fentaNYL 10 mcg/mL Premix Drip 250 / 250 250 / 250 2,500 mcg In 250 ml @ 50 MCG/HR 5 mls/hr IV.SIG TITRATE PRN Rx #:[id number] Oral 0 / 0 0 / 0 Tube Feeding 0 / 0 0 / 0 Output: Urine Amount (Catheter) 2150 / 2150 1500 / 1500 Indwelling Urethral Catheter 215 / 2150 1500 / 1500 Result Diagrams: 11/15/17 03:45 11/16/17 05:13 Objective Remarks: GENERAL: Obese female who is heavily sedated on mechanical ventilation via tracheostomy. SKIN: Warm and dry. No rash or urticaria. HEAD: Atraumatic. Normocephalic. +swelling of face and tongue, present but continues to improve. EYES: Pupils equal and round, pinpoint bilaterally. No scleral icterus. No injection or drainage. ENT: No nasal bleeding or discharge. Mucous membranes pink and moist. NECK: Trachea midline. No JVD. [address] via cricothyroid membrane[address] CARDIOVASCULAR: Regular rate and rhythm. No murmurs rubs or gallops. RESPIRATORY: No accessory muscle use. Clear to auscultation. Breath sounds equal bilaterally. GASTROINTESTINAL: Abdomen soft, non-tender, nondistended. Bowel sounds present. MUSCULOSKELETAL: Extremities without clubbing, cyanosis, or edema. No obvious deformities. NEUROLOGICAL: Sedated heavily for maintenance of airway. Assessment and Plan - Problem List (1) Acute hypoxemic respiratory failure Code(s): J96.01 - Acute respiratory failure with hypoxia Status: Acute (2) Angioedema Code(s): T78.3XXA - Angioneurotic edema, initial encounter Status: Acute - Assessment and Plan Plan: Assessment: 47yF with angioedema compromising airway requiring emergent surgical airway. continue deep sedation today for ongoing laryngeal edema and airway concerns. may be able to lighten airway tomorrow. must remain in ICU deeply sedated: if she were to dislodge her surgical airway, this would likely be a fatal event for her. high risk and highly complex. NEURO: -propofol, fentanyl, versed as needed for goal RASS -3/-4 -Use intermittent neuromuscular paralysis as needed RESP: Acute hypoxemic respiratory failure Angioedema with severe upper airway compromise -Emergent cric per Dr. Sandhu at [place] ED. -Unable to adequately ventilate through the cric tube as it was cuff less tube ( supplied in Melker kit) -Dr. Copeland emergently performed percutaneous tracheostomy at the bedside by passing wire through existing cric tube. -Existing tube without cuff leak. -discussion with Dr. Copeland 11/16: will keep current surgical airway in place and re-evaluate after a few days of improved edema. -PRVC/AC, Ventilator bundle. -DuoNeb every 6 hours scheduled and as needed -Decadron 6 mg IV every 6 hours, Benadryl 50 mg IV every 6 hours -Famotidine 20 mg IV every 12 -Airway remains persistently swollen, more typical of Ervin-I/bradykinin mediated angioedema. - Etiology most like Ervin-I, NSAIDS also a possibility. Given the severity of this reaction, recommended avoiding both and f/u with tube blower. C4 is normal, tryptase pending. CV: Pulmonary edema most likely negative pressure -continue lasix 20mg iv q12h. GI: -N.p.o., pediatric NGT in place, trickle tube feeds only. NGT at [facility], was advanced but nurses noted regurgitation of tube feeds so currently on hold. FEN/RENAL: -Monitor renal function closely. - d/c evon. place purewick for uop monitoring. -Electrolyte replacement per protocol ID: -Empiric Rocephin for 5 days due to unstable procedure. Received Vancomycin 1 dose HEME: -Monitor CBC, coags ENDO: -Monitoring glucose q6 hours. Sliding scale insulin if needed PROPH: -Bilateral lower extremity SCDs. Lovenox daily. IV famotidine LINES: -Utilize peripheral IVs Discussed with Dr Copeland. FULL CODE
[2017-11-17] MEDS: Oral Hygiene Kit OROPHARYNG SCH ×4 (03:27→23:35)
[2017-11-17] MEDS: Chlorhexidine Gluconate 2% 1 Pack (2 Cloths) TOPICAL SCH (03:27)
[2017-11-17] MEDS: Insulin NovoLOG Aspart Correctional Sugar Inj SQ SCH ×4 (05:13→23:35)
--- NOTE | 2017-11-17 05:41 | XR ---
EXAM DATE: 11/17/2017 5:07 AM EDT AGE/SEX: 47 years / Female INDICATIONS: Shortness of breath. CLINICAL DATA: This is the patient's subsequent encounter. Patient reports that signs and symptoms h ave been present for 4 - 6 days and indicates a pain score of Nonresponsive. MEDICAL/SURGICAL HISTORY: Non-responsive. Non-responsive. COMPARISON: [facility] [place], CHEST 1V SINGLE AP, 11/15/2017. . FINDINGS: A single AP view of the chest demonstrates bibasilar consolidation similar to the prior study. No eff usions. Heart is normal in size. Tracheostomy tube and nasogastric tube noted. CONCLUSION: Unchanged bibasilar consolidations. Electronically signed by: Dany Paredes MD 11/17/2017 5:39 AM EDT
[2017-11-17 05:46] LABS: Baso % (Auto) 0.1 % (0.0-2.0); Hematocrit 31.9 % (35.0-46.0); Hemoglobin 10.6 gm/dL (11.6-15.3); Lymph # (Auto) 0.6 th/mm3 (1.0-4.8); Lymph % (Auto) 3.5 % (9.0-44.0); Mean Corpuscular HGB Conc 33.2 % (32.0-36.0); Mean Corpuscular Hemoglobin 32.2 pg (27.0-34.0); Mean Corpuscular Volume 97.2 fL (80.0-100.0); Mean Platelet Volume 8.4 fL (7.0-11.0); Mono # (Auto) 0.7 th/mm3 (0.0-0.9); Mono % (Auto) 4.1 % (0.0-8.0); Neut # (Auto) 16.2 th/mm3 (1.8-7.7); Neut % (Auto) 92.3 % (16.0-70.0); Platelet Count 193 th/mm3 (150-450); Red Blood Count 3.28 mil/mm3 (4.00-5.30); Red Cell Distribution Width 14.3 % (11.6-17.2); White Blood Count 17.6 th/mm3 (4.0-11.0)
[2017-11-17] MEDS: Midazolam 50 MG/50 ML Inj 50 MG/50 ML BAG IV.CONT PRN (06:52)
[2017-11-17] MEDS: Propofol 1000 mg/100 ml Inj 1,000 MG/100 ML BOTTLE IV.CONT PRN ×4 (06:52→21:54)
[2017-11-17 07:21] LABS: Anion Gap 10 meq/L (5-15); Blood Urea Nitrogen 37 mg/dL (7-18); Calcium 8.4 mg/dL (8.5-10.1); Carbon Dioxide 25.5 meq/L (21.0-32.0); Chloride 111 meq/L (98-107); Glomerular Filtration Rate Greater Than 89 mL/min (>89); Glucose,Random 114 mg/dL (74-106); Sodium 146 meq/L (136-145)
[2017-11-17] MEDS ORDERED: Dexmedetomidine Inj 200 MCG in Sodium Chlor 0.9% Inj 48 ML IV.CONT PRN (09:16)
[2017-11-17] MEDS: Hypromellose 0.3% Opth Gel 10 GM Bottle EACH EYE SCH (09:21)
[2017-11-17] MEDS: Famotidine PF Inj 20 MG/2 ML Vial IV.PUSH SCH ×2 (09:21→20:11)
[2017-11-17] MEDS: Senna/Docusate Sodium 8.6/50 MG Tablet PO SCH ×2 (09:24→20:12)
[2017-11-17] MEDS: Chlorhexidine 0.12% Oral Kit 15 ML UDC OROPHARYNG SCH ×2 (10:18→20:11)
--- NOTE | 2017-11-17 10:56 | XR ---
EXAM DATE: 11/17/2017 10:41 AM EDT AGE/SEX: 47 years / Female INDICATIONS: NG tube placement. CLINICAL DATA: This is the patient's subsequent encounter. Patient reports that signs and symptoms h ave been present for 4 - 6 days and indicates a pain score of Nonresponsive. MEDICAL/SURGICAL HISTORY: None. None. COMPARISON: [facility] [place]ST 1V SINGLE AP, 11/17/2017. . FINDINGS: Portable AP view of the chest demonstrates nasogastric tube distal tip in the gastric body with senti lázaro hole near the GE junction. There is stable bibasilar opacity. Otherwise, no change is appreciated . CONCLUSION: 1. Nasogastric tube distal tip in the stomach/gastric body. 2. Stable bibasilar airspace opacities. Electronically signed by: Uriel Middleton MD 11/17/2017 10:55 AM EDT
--- NOTE | 2017-11-17 12:22 | P.PN ---
Subjective Interval history: Uneventful night; nurses placed a larger NG tube. Discussed operative plan change with significant other and brother at bedside. Physical Exam Vital signs: Vital Signs 11/16/17 12:30 11/16/17 12:48 11/16/17 13:00 Temperature Pulse Rate 47 L 45 L 45 L Respiratory Rate 24 Blood Pressure 131/75 133/74 Pulse Oximetry 100 100 100 11/16/17 14:00 11/16/17 14:30 11/16/17 15:00 Temperature Pulse Rate 50 L 71 94 H Respiratory Rate Blood Pressure 155/83 H 169/93 H 171/110 H Pulse Oximetry 98 100 100 11/16/17 15:05 11/16/17 15:30 11/16/17 15:34 Temperature Pulse Rate 63 58 L 56 L Respiratory Rate 24 Blood Pressure 156/87 H 139/75 Pulse Oximetry 100 99 99 11/16/17 16:00 11/16/17 16:31 11/16/17 17:00 Temperature 97 F L Pulse Rate 52 L 67 47 L Respiratory Rate Blood Pressure 141/80 H 177/87 H Pulse Oximetry 100 100 100 11/16/17 17:01 11/16/17 17:30 11/16/17 18:00 Temperature Pulse Rate 46 L 48 L 48 L Respiratory Rate Blood Pressure 140/70 150/84 H 140/76 Pulse Oximetry 100 100 99 11/16/17 18:30 11/16/17 19:00 11/16/17 19:34 Temperature Pulse Rate 45 L 44 L 44 L Respiratory Rate 24 Blood Pressure 149/81 H 149/82 H Pulse Oximetry 100 99 99 11/16/17 20:00 11/16/17 21:00 11/16/17 22:00 Temperature 98.4 F Pulse Rate 46 L 47 L 46 L Respiratory Rate 20 24 24 Blood Pressure 133/74 130/69 128/69 Pulse Oximetry 98 98 98 11/16/17 22:22 11/16/17 23:00 11/16/17 23:19 Temperature Pulse Rate 41 L Respiratory Rate 24 24 24 Blood Pressure 129/71 Pulse Oximetry 99 11/17/17 00:00 11/17/17 00:02 11/17/17 01:00 Temperature 98.6 F Pulse Rate 42 L 42 L 40 L Respiratory Rate 24 24 24 Blood Pressure 142/77 H 145/77 H Pulse Oximetry 100 100 100 11/17/17 02:00 11/17/17 02:17 11/17/17 02:31 Temperature Pulse Rate 41 L 42 L Respiratory Rate 24 24 Blood Pressure 147/79 H Pulse Oximetry 99 100 11/17/17 03:11 11/17/17 04:00 11/17/17 04:19 Temperature Pulse Rate 39 L 40 L Respiratory Rate 24 24 Blood Pressure Pulse Oximetry 100 11/17/17 06:00 11/17/17 07:41 11/17/17 07:42 Temperature Pulse Rate 39 L 38 L Respiratory Rate 24 24 Blood Pressure Pulse Oximetry 100 11/17/17 08:00 11/17/17 11:20 11/17/17 11:21 Temperature 98.2 F Pulse Rate 39 L 68 Respiratory Rate 24 24 24 Blood Pressure 176/89 H Pulse Oximetry 100 99 Intake & Output 11/16/17 11/17/17 11/17/17 18:59 06:59 18:59 Intake Total 1100 / 1100 400 / 400 Output Total 1500 / 1500 1001 / 1001 Balance -400 / -400 -601 / -601 Weight 108.5 kg Intake: IV 1100 / 1100 400 / 400 Versed Inj 50 mg In 50 ml @ 2 50 / 50 50 / 50 MG/HR 2 mls/hr IV.CONT TITRATE PRN Rx#:[id number] Diprivan 1000 mg/100 ml Inj 1, 400 / 400 100 / 100 000 mg In 100 ml @ 5 MCG/KG/MIN 3.225 mls/hr IV.CONT TITRATE PRN Rx#:[id number] KCl 20 mEq Premix Inj 20 meq In 200 / 200 100 ml @ 50 mls/hr IV.SIG Q2H PRN Rx#:[id number] Rocephin Inj 2,000 MG In NS Inj 200 / 200 100 ML @ 200 mls/hr IV.SIG Q24H DINA Rx#:[id number] fentaNYL 10 mcg/mL Premix Drip 250 / 250 250 / 250 2,500 mcg In 250 ml @ 50 MCG/HR 5 mls/hr IV.SIG TITRATE PRN Rx #:[id number] Oral 0 / 0 0 / 0 Tube Feeding 0 / 0 0 / 0 Output: Urine Amount (Catheter) 1500 / 1500 1001 / 1001 Indwelling Urethral Catheter 1500 / 1500 1001 / 1001 - Routine Respiratory Exam Present: CTA bilaterally - Urinary Catheter Management Indwelling Urethral Catheter Cath placed during this visit: yes Reason for continuing: Hourly intake/output Insertion date: 11/13/17 Insertion time: 19:00 Results - Labs CBC & Chem 7: 11/17/17 03:50 11/17/17 06:03 Laboratory Results - last 24 hr 11/16/17 11/16/17 11/17/17 18:00 23:35 03:50 WBC 17.6 H RBC 3.28 L Hgb 10.6 L Hct 31.9 L MCV 97.2 MCH 32.2 MCHC 33.2 RDW 14.3 Plt Count 193 MPV 8.4 Neut % (Auto) 92.3 H Lymph % (Auto) 3.5 L [place] % (Auto) 4.1 Eos % (Auto) 0.0 Baso % (Auto) 0.1 Neut # (Auto) 16.2 H Lymph # (Auto) 0.6 L [place] # (Auto) 0.7 Eos # (Auto) 0.0 Baso # (Auto) 0.0 WBC Differential . Differential Comment Auto diff final Sodium Potassium Chloride Carbon Dioxide Anion Gap BUN Creatinine Estimated GFR POC Glucose 105 122 H Random Glucose Calcium 11/17/17 11/17/17 05:11 06:03 WBC RBC Hgb Hct MCV MCH MCHC RDW Plt Count MPV Neut % (Auto) Lymph % (Auto) [place] % (Auto) Eos % (Auto) Baso % (Auto) Neut # (Auto) Lymph # (Auto) [place] # (Auto) Eos # (Auto) Baso # (Auto) WBC Differential Differential Comment Sodium 146 H Potassium 4.0 Chloride 111 H Carbon Dioxide 25.5 Anion Gap 10 BUN 37 H Creatinine 0.69 Estimated GFR Greater than 89 POC Glucose 119 H Random Glucose 114 H Calcium 8.4 L - Imaging Impressions Chest X-Ray 11/17/17 00:00 CONCLUSION: Unchanged bibasilar consolidations. Chest X-Ray 11/17/17 00:00 CONCLUSION: 1. Nasogastric tube distal tip in the stomach/gastric body. 2. Stable bibasilar airspace opacities. Assessment and Plan - Plan Considering conversion to formal tracheostomy; in doing further research on this , it may be best to just leave the current airway in place until patient is ready to be extubated. After discussion with bonbon cream warmer and family, will leave cricothyrotomy in place and allow edema to subside. May be able to simply decannulate the patient without formal revision to a tracheostomy. I am reluctant to create another defect in the trachea when she may simply be extubated. Discussed Condition With: Nurse Significant other and brother - Attending Attestation I attest that I had a [id number] encounter with the patient on the same day, and personally performed and documented my assessment and findings in the medical record. The following services were provided during this hospital visit: Chart data review, vital sign assessments/reviewing monitor data Review of consultation notes if present Medication orders/review and/or management Ordering and/or reviewing lab tests Ordering and/or interpreting/reviewing x-rays and/or diagnostic studies Care of the patient and discussion of the patient with the care team Documentation time To help prompt me to consider important information that might be impacting today's encounter and assessment, Information from prior notes written by myself or my colleagues may have been "brought forward/copy and pasted" into today's note.
[2017-11-17] MEDS: Enoxaparin Inj 40 MG/0.4 ML Syringe SQ SCH (12:27)
[2017-11-17] MEDS ORDERED: Nitroglycerin Drip Premix 50 MG/250 ML BOTTLE ONE (14:46)
[2017-11-17] MEDS ORDERED: Labetalol HCl Inj 100 MG/20 ML Vial ONE ×2 (15:08→16:25)
--- NOTE | 2017-11-17 16:25 | P.PNCC ---
Subjective Subjective Remarks/Hospital Course: Patient is a 47 year old morbidly female obese female who presented to the [facility] emergency department with severe acute anaphylactic reaction, and airway compromise. RSI was attempted by Dr. Pino and Dr. Sandhu, but they were unable to. An LMA was placed but the patient's O2 sats remained in the low 80s. Emergency cricothyroidotomy was performed at [facility] emergency department , by Dr. Sandhu, 6-0 uncuffed cric tube was placed. Postplacement there was leak around the trach tube with bag and mask ventilation. LMA was reintroduced and patient was given ventilation through the LMA and patient was emergently transferred to the [facility]. I evaluated patient emergently in 504 in [facility]. Patient is sedated with propofol infusion. Oxygen saturation with bag and mask ventilation was 88-90%. I performed a bronchoscopy through the LMA , vocal cords appeared severely swollen. A pediatric bronchoscope was not available to the load a 6.0 ET tube. I attempted intubation with the glide scope and 6.0 ET tube. I was able to visualize the significantly swollen glottic opening and vocal cords, but I was unable to pass the ET tube through the vocal cords due to swelling. Dr. Castaneda placed a new #5 LMA and we returned to bag and mask ventilation and Dr. Copeland performed a percutaneous Blue Rhino tracheostomy at the bedside through the existing cric incision. (He first placed the guidewire through the existing perc tube). Tracheostomy tube placement was confirmed with bronchoscopy again. At the beginning of tracheostomy patient's oxygen saturation was in the mid 70s. This slowly improved to 95% and patient was placed on ventilator. At this time we are unable to get any other history from the patient regarding food allergies. Scheduled IV Decadron Benadryl and famotidine had been started. 11/14 Remains deeply sedated and on mechanical ventilation via trach, no leak. Plan for revision of trach on Thursday. Has persistent face and tongue swelling but family and staff indicate improved compared with yesterday. Family states patient on lisinopril ~ 1 year, fci NSAIDS. She had eaten scrapple and toast about 1 1/2 hours before onset of symptoms. Subjective: 11/15 Fiberoptic bronchoscopy performed and demonstrates persistent cord edema. Existing tracheostomy position noted immediately subglottic at expected level of cricothyroid membrane. Dr. Copeland will schedule revision to formal tracheostomy. Patient remains heavily sedated to ensure airway maintenance. 11/16: remains deeply sedated for airway protection. discussion with Dr. Copeland: may need additional time for edema to decrease. will now plan to leave cric in place and not revise at this immediate time. 11/17: I remained at beside today and personally weaned sedation to ensure patient was calm through emergence from sedation. patient now off sedation, awake, alert, oriented, calm. on t-piece 40% o2. Objective Vital Signs / I&O: Vital Signs 11/16/17 16:31 11/16/17 17:00 11/16/17 17:01 Temperature Pulse Rate 67 47 L 46 L Respiratory Rate Blood Pressure 177/87 H 140/70 Pulse Oximetry 100 100 100 11/16/17 17:30 11/16/17 18:00 11/16/17 18:30 Temperature Pulse Rate 48 L 48 L 45 L Respiratory Rate Blood Pressure 150/84 H 140/76 149/81 H Pulse Oximetry 100 99 100 11/16/17 19:00 11/16/17 19:34 11/16/17 20:00 Temperature 36.9 C Pulse Rate 44 L 44 L 46 L Respiratory Rate 24 20 Blood Pressure 149/82 H 133/74 Pulse Oximetry 99 99 98 11/16/17 21:00 11/16/17 22:00 11/16/17 22:22 Temperature Pulse Rate 47 L 46 L Respiratory Rate 24 24 24 Blood Pressure 130/69 128/69 Pulse Oximetry 98 98 11/16/17 23:00 11/16/17 23:19 11/17/17 00:00 Temperature 37.0 C Pulse Rate 41 L 42 L Respiratory Rate 24 24 24 Blood Pressure 129/71 142/77 H Pulse Oximetry 99 100 11/17/17 00:02 11/17/17 01:00 11/17/17 02:00 Temperature Pulse Rate 42 L 40 L 41 L Respiratory Rate 24 24 Blood Pressure 145/77 H Pulse Oximetry 100 100 11/17/17 02:17 11/17/17 02:31 11/17/17 03:11 Temperature Pulse Rate 42 L 39 L Respiratory Rate 24 24 24 Blood Pressure 147/79 H Pulse Oximetry 99 100 11/17/17 04:00 11/17/17 04:19 11/17/17 06:00 Temperature Pulse Rate 40 L 39 L Respiratory Rate 24 Blood Pressure Pulse Oximetry 100 11/17/17 07:41 11/17/17 07:42 11/17/17 08:00 Temperature 36.8 C Pulse Rate 38 L 39 L Respiratory Rate 24 24 24 Blood Pressure 176/89 H Pulse Oximetry 100 100 11/17/17 10:00 11/17/17 11:00 11/17/17 11:20 Temperature Pulse Rate 42 L 44 L 68 Respiratory Rate 24 24 24 Blood Pressure 177/98 H 169/83 H Pulse Oximetry 97 97 11/17/17 11:21 11/17/17 12:00 11/17/17 13:00 Temperature 37.0 C Pulse Rate 80 50 L Respiratory Rate 24 24 24 Blood Pressure 182/133 H 135/80 Pulse Oximetry 99 98 97 11/17/17 14:00 11/17/17 15:00 11/17/17 15:14 Temperature Pulse Rate 41 L 72 Respiratory Rate 24 24 Blood Pressure 141/85 H 136/106 H Pulse Oximetry 99 93 L 96 11/17/17 16:00 Temperature 37.0 C Pulse Rate 39 L Respiratory Rate 20 Blood Pressure 190/100 H Pulse Oximetry 97 Intake & Output 11/16/17 11/17/17 11/17/17 18:59 06:59 18:59 Intake Total 1100 / 1100 400 / 400 350 / 350 Output Total 1500 / 1500 1001 / 1001 Balance -400 / -400 -601 / -601 350 / 350 Weight 108.5 kg Intake: IV 1100 / 1100 400 / 400 350 / 350 Versed Inj 50 mg In 50 ml @ 2 50 / 50 50 / 50 MG/HR 2 mls/hr IV.CONT TITRATE PRN Rx#:[id number] Diprivan 1000 mg/100 ml Inj 1, 400 / 400 100 / 100 100 / 100 000 mg In 100 ml @ 5 MCG/KG/MIN 3.255 mls/hr IV.CONT TITRATE PRN Rx#:[id number] KCl 20 mEq Premix Inj 20 meq In 200 / 200 100 ml @ 50 mls/hr IV.SIG Q2H PRN Rx#:[id number] Rocephin Inj 2,000 MG In NS Inj 200 / 200 100 ML @ 200 mls/hr IV.SIG Q24H [facility] Rx#:[id number] fentaNYL 10 mcg/mL Premix Drip 250 / 250 250 / 250 250 / 250 2,500 mcg In 250 ml @ 50 MCG/HR 5 mls/hr IV.SIG TITRATE PRN Rx #:[id number] Oral 0 / 0 0 / 0 Tube Feeding 0 / 0 0 / 0 Output: Urine Amount (Catheter) 1500 / 1500 1001 / 1001 Indwelling Urethral Catheter 1500 / 1500 1001 / 1001 Result Diagrams: 11/17/17 03:50 11/17/17 06:03 Objective Remarks: GENERAL: Obese female now awake and alert. SKIN: Warm and dry. No rash or urticaria. HEAD: Atraumatic. Normocephalic. +swelling of face and tongue, present but continues to improve. EYES: Pupils equal and round, pinpoint bilaterally. No scleral icterus. No injection or drainage. ENT: No nasal bleeding or discharge. Mucous membranes pink and moist. NECK: Trachea midline. No JVD. [address] via cricothyroid membrane. CARDIOVASCULAR: Regular rate and rhythm. No murmurs rubs or gallops. RESPIRATORY: No accessory muscle use. Clear to auscultation. Breath sounds equal bilaterally. GASTROINTESTINAL: Abdomen soft, non-tender, nondistended. Bowel sounds present. MUSCULOSKELETAL: Extremities without clubbing, cyanosis, or edema. No obvious deformities. NEUROLOGICAL: RASS -1. follows commands. Assessment and Plan - Problem List (1) Acute hypoxemic respiratory failure Code(s): J96.01 - Acute respiratory failure with hypoxia Status: Acute (2) Angioedema Code(s): T78.3XXA - Angioneurotic edema, initial encounter Status: Acute - Assessment and Plan Plan: Assessment: 47yF with angioedema compromising airway requiring emergent surgical airway. now awake and alert. can begin to very carefully mobilize patient. high concern over airway and high risk for decompensation if she were to dislodge her surgical airway. NEURO: - avoid sedation - frequent neuro checks. RESP: Acute hypoxemic respiratory failure- resolving. Angioedema with severe upper airway compromise- slowly improving. -Emergent cric per Dr. Sandhu at [facility]. -Unable to adequately ventilate through the cric tube as it was cuff less tube ( supplied in Melker kit) -Dr. Copeland emergently performed percutaneous tracheostomy at the bedside by passing wire through existing cric tube. -Existing tube without cuff leak. -discussion with Dr. Copeland 11/16: will keep current surgical airway in place and re-evaluate after a few days of improved edema. - trach collar as tolerated. -DuoNeb every 6 hours scheduled and as needed -Decadron 6 mg IV every 6 hours, Benadryl 50 mg IV every 6 hours -Famotidine 20 mg IV every 12 -Airway remains persistently swollen, more typical of Ervin-I/bradykinin mediated angioedema. - Etiology most like Ervin-I, NSAIDS also a possibility. Given the severity of this reaction, recommended avoiding both and f/u with infrastructure analyst. C4 is normal, tryptase pending. CV: Pulmonary edema most likely negative pressure- resolved -continue lasix 20mg iv q12h. GI: -N.p.o., pediatric NGT in place, trickle tube feeds only. NGT at [facility], was advanced but nurses noted regurgitation of tube feeds so currently on hold. FEN/RENAL: -Monitor renal function closely. - d/c evon. -Electrolyte replacement per protocol ID: -Empiric Rocephin for 5 days due to unstable procedure. Received Vancomycin 1 dose HEME: -Monitor CBC, coags ENDO: -Monitoring glucose q6 hours. Sliding scale insulin if needed PROPH: -Bilateral lower extremity SCDs. Lovenox daily. IV famotidine LINES: -Utilize peripheral IVs PT/OT. careful mobilization. FULL CODE
[2017-11-17] MEDS: Dexmedetomidine Inj 200 MCG in Sodium Chlor 0.9% Inj 48 ML IV.CONT PRN ×3 (18:24→22:25)
[2017-11-17] MEDS ORDERED: Lidocaine 2% 100 MG/5 ML Syringe ONE (18:47)
[2017-11-17] MEDS ORDERED: Labetalol HCl Inj 20 MG/4 ML Vial IV.PUSH PRN (19:00)
[2017-11-18] MEDS: Dexmedetomidine Inj 200 MCG in Sodium Chlor 0.9% Inj 48 ML IV.CONT PRN ×14 (00:13→22:47)
[2017-11-18] MEDS: Chlorhexidine Gluconate 2% 1 Pack (2 Cloths) TOPICAL SCH (03:53)
[2017-11-18] MEDS: Oral Hygiene Kit OROPHARYNG SCH ×3 (03:53→17:46)
[2017-11-18] MEDS: Propofol 1000 mg/100 ml Inj 1,000 MG/100 ML BOTTLE IV.CONT PRN ×6 (05:19→21:51)
[2017-11-18] MEDS: Insulin NovoLOG Aspart Correctional Sugar Inj SQ SCH ×3 (05:23→17:48)
[2017-11-18] MEDS: Enoxaparin Inj 40 MG/0.4 ML Syringe SQ SCH (08:12)
[2017-11-18] MEDS: Chlorhexidine 0.12% Oral Kit 15 ML UDC OROPHARYNG SCH ×2 (08:12→20:50)
[2017-11-18] MEDS: Famotidine PF Inj 20 MG/2 ML Vial IV.PUSH SCH ×2 (08:13→20:49)
[2017-11-18] MEDS: Senna/Docusate Sodium 8.6/50 MG Tablet PO SCH ×2 (08:15→20:49)
[2017-11-18] MEDS ORDERED: Haloperidol Inj 5 MG/ML Ampul IV.PUSH ONE (08:59)
[2017-11-18] MEDS ORDERED: Haloperidol Inj 5 MG/ML Ampul IV.PUSH PRN (11:53)
--- NOTE | 2017-11-18 12:00 | P.PNCC ---
Subjective Subjective Remarks/Hospital Course: Patient is a 47 year old morbidly female obese female who presented to the [place] emergency department with severe acute anaphylactic reaction, and airway compromise. RSI was attempted by Dr. Pino and Dr. Sandhu, but they were unable to. An LMA was placed but the patient's O2 sats remained in the low 80s. Emergency cricothyroidotomy was performed at [place] emergency department , by Dr. Sandhu, 6-0 uncuffed cric tube was placed. Postplacement there was leak around the trach tube with bag and mask ventilation. LMA was reintroduced and patient was given ventilation through the LMA and patient was emergently transferred to the [facility]. I evaluated patient emergently in 504 in [facility]. Patient is sedated with propofol infusion. Oxygen saturation with bag and mask ventilation was 88-90%. I performed a bronchoscopy through the LMA , vocal cords appeared severely swollen. A pediatric bronchoscope was not available to the load a 6.0 ET tube. I attempted intubation with the glide scope and 6.0 ET tube. I was able to visualize the significantly swollen glottic opening and vocal cords, but I was unable to pass the ET tube through the vocal cords due to swelling. Dr. Castaneda placed a new #5 LMA and we returned to bag and mask ventilation and Dr. Copeland performed a percutaneous Blue Rhino tracheostomy at the bedside through the existing cric incision. (He first placed the guidewire through the existing perc tube). Tracheostomy tube placement was confirmed with bronchoscopy again. At the beginning of tracheostomy patient's oxygen saturation was in the mid 70s. This slowly improved to 95% and patient was placed on ventilator. At this time we are unable to get any other history from the patient regarding food allergies. Scheduled IV Decadron Benadryl and famotidine had been started. 11/14 Remains deeply sedated and on mechanical ventilation via trach, no leak. Plan for revision of trach on Thursday. Has persistent face and tongue swelling but family and staff indicate improved compared with yesterday. Family states patient on lisinopril ~ 1 year, usp NSAIDS. She had eaten scrapple and toast about 1 1/2 hours before onset of symptoms. Subjective: 11/15 Fiberoptic bronchoscopy performed and demonstrates persistent cord edema. Existing tracheostomy position noted immediately subglottic at expected level of cricothyroid membrane. Dr. Copeland will schedule revision to formal tracheostomy. Patient remains heavily sedated to ensure airway maintenance. 11/16: remains deeply sedated for airway protection. discussion with Dr. Copeland: may need additional time for edema to decrease. will now plan to leave cric in place and not revise at this immediate time. 11/17: I remained at beside today and personally weaned sedation to ensure patient was calm through emergence from sedation. patient now off sedation, awake, alert, oriented, calm. on t-piece 40% o2. 11/18: significantly agitated overnight, requiring deep sedation to prevent trach dislodgement and loss of airway. back on the vent this AM. critical agitation and some delirium. some improvement with haldol iv. Objective Vital Signs / I&O: Vital Signs 11/17/17 12:00 11/17/17 13:00 11/17/17 14:00 Temperature 37.0 C Pulse Rate 80 50 L 41 L Respiratory Rate 24 24 24 Blood Pressure 182/133 H 135/80 141/85 H Pulse Oximetry 98 97 99 11/17/17 15:00 11/17/17 15:14 11/17/17 16:00 Temperature 37.0 C Pulse Rate 72 39 L Respiratory Rate 24 20 Blood Pressure 136/106 H 190/100 H Pulse Oximetry 93 L 96 97 11/17/17 16:33 11/17/17 17:00 11/17/17 18:00 Temperature Pulse Rate 99 H 103 H 102 H Respiratory Rate 22 20 20 Blood Pressure 190/98 H 171/96 H Pulse Oximetry 93 L 94 L 11/17/17 19:54 11/17/17 20:00 11/17/17 21:00 Temperature 36.9 C Pulse Rate 108 H 98 H 96 H Respiratory Rate 24 30 H 30 H Blood Pressure 173/122 H 179/107 H Pulse Oximetry 94 L 93 L 93 L 11/17/17 21:46 11/17/17 22:00 11/17/17 23:00 Temperature Pulse Rate 81 65 Respiratory Rate 26 H 24 24 Blood Pressure 165/99 H 149/91 H Pulse Oximetry 93 L 94 L 94 L 11/17/17 23:17 11/17/17 23:18 11/18/17 00:00 Temperature 37.2 C Pulse Rate 64 64 Respiratory Rate 25 H 24 24 Blood Pressure 153/97 H Pulse Oximetry 96 92 L 11/18/17 01:00 11/18/17 01:32 11/18/17 02:00 Temperature Pulse Rate 69 64 Respiratory Rate 24 26 H 24 Blood Pressure 145/78 H 147/85 H Pulse Oximetry 91 L 93 L 93 L 11/18/17 03:00 11/18/17 03:23 11/18/17 04:00 Temperature 36.9 C Pulse Rate 66 68 70 Respiratory Rate 24 26 H 24 Blood Pressure 139/74 131/83 Pulse Oximetry 95 95 11/18/17 04:21 11/18/17 05:00 11/18/17 06:00 Temperature Pulse Rate 69 59 L Respiratory Rate 28 H 24 24 Blood Pressure 131/89 145/92 H Pulse Oximetry 97 95 98 11/18/17 07:00 11/18/17 07:35 11/18/17 07:36 Temperature Pulse Rate 70 60 Respiratory Rate 24 24 24 Blood Pressure 183/101 H Pulse Oximetry 98 97 11/18/17 08:00 11/18/17 09:00 11/18/17 10:00 Temperature 37.3 C Pulse Rate 62 117 H 79 Respiratory Rate 24 24 24 Blood Pressure 139/87 227/136 H 177/104 H Pulse Oximetry 96 98 96 11/18/17 11:00 11/18/17 11:24 11/18/17 11:25 Temperature Pulse Rate 70 61 Respiratory Rate 24 24 24 Blood Pressure 131/98 H Pulse Oximetry 96 96 Intake & Output 11/17/17 11/18/17 11/18/17 18:59 06:59 18:59 Intake Total 600 / 600 500 / 500 300 / 300 Output Total 725 / 725 Balance 600 / 600 -225 / -225 300 / 300 Weight 106 kg Intake: IV 600 / 600 500 / 500 300 / 300 Precedex Inj 200 MCG In NS Inj 300 / 300 200 / 200 48 ML @ 0.2 MCG/KG/HR 5.42 mls/ hr IV.CONT TITRATE PRN Rx#: [id number] Versed Inj 50 mg In 50 ml @ 2 50 / 50 MG/HR 2 mls/hr IV.CONT TITRATE PRN Rx#:[id number] Diprivan 1000 mg/100 ml Inj 1, 300 / 300 100 / 100 100 / 100 000 mg In 100 ml @ 5 MCG/KG/MIN 3.255 mls/hr IV.CONT TITRATE PRN Rx#:[id number] Rocephin Inj 2,000 MG In NS Inj 100 / 100 100 ML @ 200 mls/hr IV.SIG Q24H [facility] Rx#:[id number] fentaNYL 10 mcg/mL Premix Drip 250 / 250 2,500 mcg In 250 ml @ 50 MCG/HR 5 mls/hr IV.SIG TITRATE PRN Rx #:[id number] Output: Urine Amount (Catheter) 725 / 725 Straight 725 / 725 Result Diagrams: 11/17/17 03:50 11/17/17 06:03 Objective Remarks: GENERAL: Obese female agitated, delirious. SKIN: Warm and dry. No rash or urticaria. HEAD: Atraumatic. Normocephalic. +swelling of face and tongue, present but continues to improve. EYES: Pupils equal and round, pinpoint bilaterally. No scleral icterus. No injection or drainage. ENT: No nasal bleeding or discharge. Mucous membranes pink and moist. NECK: Trachea midline. No JVD. [address] via cricothyroid membrane. CARDIOVASCULAR: Regular rate and rhythm. No murmurs rubs or gallops. RESPIRATORY: No accessory muscle use. Clear to auscultation. Breath sounds equal bilaterally. back on PRVC mode ventilation. GASTROINTESTINAL: Abdomen soft, non-tender, nondistended. Bowel sounds present. MUSCULOSKELETAL: Extremities without clubbing, cyanosis, or edema. No obvious deformities. NEUROLOGICAL: RASS -3. does not follow commands. intermittently agitated. Assessment and Plan - Problem List (1) Acute hypoxemic respiratory failure Code(s): J96.01 - Acute respiratory failure with hypoxia Status: Acute (2) Angioedema Code(s): T78.3XXA - Angioneurotic edema, initial encounter Status: Acute - Assessment and Plan Plan: Assessment: 47yF with angioedema compromising airway requiring emergent surgical airway. now her course is complicated by life-threatening agitation as when we lighten sedation, her agitation puts her airway at significant risk. will add scheduled and breakthrough haldol and continue her precedex and propofol. will continue to attempt to wean from mechanical ventilation, but her agitation is currently life-threatening given airway concerns. remains critically ill today. NEURO: Severe life-threatening agitated delirium - precedex and propofol - goal RASS 0 - continue precedex, propofol - add scheduled haldol 5mg iv q4h - breakthrough haldol 5mg iv q1h prn - enteral access has been difficult given airway edema, so oral anti-delirium agents is not currently possible. - frequent neuro checks. RESP: Acute hypoxemic respiratory failure- resolving. Angioedema with severe upper airway compromise- slowly improving. -Emergent cric per Dr. Sandhu at [place] [facility]. -Unable to adequately ventilate through the cric tube as it was cuff less tube ( supplied in Melker kit) -Dr. Copeland emergently performed percutaneous tracheostomy at the bedside by passing wire through existing cric tube. -Existing tube without cuff leak. -discussion with Dr. Copeland 11/16: will keep current surgical airway in place and re-evaluate after a few days of improved edema. - back on vent. daily sedation vacation with SBT, but airway safety is of utmost concern. -DuoNeb every 6 hours scheduled and as needed -Decadron 6 mg IV every 6 hours, Benadryl 50 mg IV every 6 hours -Famotidine 20 mg IV every 12 -Airway remains persistently swollen, more typical of Ervin-I/bradykinin mediated angioedema. - Etiology most like Ervin-I, NSAIDS also a possibility. Given the severity of this reaction, recommended avoiding both and f/u with contact center analyst. C4 is normal, tryptase pending. CV: Pulmonary edema most likely negative pressure- resolved -continue lasix 20mg iv q12h. GI: -N.p.o., pediatric NGT in place, trickle tube feeds only. NGT at [facility], was advanced but nurses noted regurgitation of tube feeds so currently on hold. FEN/RENAL: -Monitor renal function closely. - d/c barnard. -Electrolyte replacement per protocol ID: -Empiric Rocephin for 5 days due to unstable procedure. Received Vancomycin 1 dose HEME: -Monitor CBC, coags ENDO: -Monitoring glucose q6 hours. Sliding scale insulin if needed PROPH: -Bilateral lower extremity SCDs. Lovenox daily. IV famotidine LINES: -Utilize peripheral IVs PT/OT. careful mobilization. FULL CODE critical care time: 35 minutes, exclusive of separately billable procedures.
[2017-11-18] MEDS: Haloperidol Inj 5 MG/ML Ampul IV.PUSH SCH ×3 (13:16→19:57)
--- NOTE | 2017-11-18 14:12 | P.PNGS ---
Subjective Interval history: Eyes closed; resting comfortably Physical Exam Vital signs: Vital Signs 11/17/17 15:00 11/17/17 15:14 11/17/17 16:00 Temperature 98.6 F Pulse Rate 72 39 L Respiratory Rate 24 20 Blood Pressure 136/106 H 190/100 H Pulse Oximetry 93 L 96 97 11/17/17 16:33 11/17/17 17:00 11/17/17 18:00 Temperature Pulse Rate 99 H 103 H 102 H Respiratory Rate 22 20 20 Blood Pressure 190/98 H 171/96 H Pulse Oximetry 93 L 94 L 11/17/17 19:54 11/17/17 20:00 11/17/17 21:00 Temperature 98.5 F Pulse Rate 108 H 98 H 96 H Respiratory Rate 24 30 H 30 H Blood Pressure 173/122 H 179/107 H Pulse Oximetry 94 L 93 L 93 L 11/17/17 21:46 11/17/17 22:00 11/17/17 23:00 Temperature Pulse Rate 81 65 Respiratory Rate 26 H 24 24 Blood Pressure 165/99 H 149/91 H Pulse Oximetry 93 L 94 L 94 L 11/17/17 23:17 11/17/17 23:18 11/18/17 00:00 Temperature 98.9 F Pulse Rate 64 64 Respiratory Rate 25 H 24 24 Blood Pressure 153/97 H Pulse Oximetry 96 92 L 11/18/17 01:00 11/18/17 01:32 11/18/17 02:00 Temperature Pulse Rate 69 64 Respiratory Rate 24 26 H 24 Blood Pressure 145/78 H 147/85 H Pulse Oximetry 91 L 93 L 93 L 11/18/17 03:00 11/18/17 03:23 11/18/17 04:00 Temperature 98.4 F Pulse Rate 66 68 70 Respiratory Rate 24 26 H 24 Blood Pressure 139/74 131/83 Pulse Oximetry 95 95 11/18/17 04:21 11/18/17 05:00 11/18/17 06:00 Temperature Pulse Rate 69 59 L Respiratory Rate 28 H 24 24 Blood Pressure 131/89 145/92 H Pulse Oximetry 97 95 98 11/18/17 07:00 11/18/17 07:35 11/18/17 07:36 Temperature Pulse Rate 70 60 Respiratory Rate 24 24 24 Blood Pressure 183/101 H Pulse Oximetry 98 97 11/18/17 08:00 11/18/17 09:00 11/18/17 10:00 Temperature 99.2 F Pulse Rate 62 117 H 79 Respiratory Rate 24 24 24 Blood Pressure 139/87 227/136 H 177/104 H Pulse Oximetry 96 98 96 11/18/17 11:00 11/18/17 11:24 11/18/17 11:25 Temperature Pulse Rate 70 61 Respiratory Rate 24 24 24 Blood Pressure 131/98 H Pulse Oximetry 96 96 11/18/17 12:00 Temperature 98.2 F Pulse Rate 47 L Respiratory Rate 24 Blood Pressure 130/85 Pulse Oximetry 98 Intake & Output 11/17/17 11/18/17 11/18/17 18:59 06:59 18:59 Intake Total 600 / 600 500 / 500 500 / 500 Output Total 725 / 725 Balance 600 / 600 -225 / -225 500 / 500 Weight 106 kg Intake: IV 600 / 600 500 / 500 500 / 500 Precedex Inj 200 MCG In NS Inj 300 / 300 300 / 300 48 ML @ 0.2 MCG/KG/HR 5.42 mls/ hr IV.CONT TITRATE PRN Rx#: [id number] Versed Inj 50 mg In 50 ml @ 2 50 / 50 MG/HR 2 mls/hr IV.CONT TITRATE PRN Rx#:[id number] Diprivan 1000 mg/100 ml Inj 1, 300 / 300 100 / 100 200 / 200 000 mg In 100 ml @ 5 MCG/KG/MIN 3.255 mls/hr IV.CONT TITRATE PRN Rx#:[id number] Rocephin Inj 2,000 MG In NS Inj 100 / 100 100 ML @ 200 mls/hr IV.SIG Q24H [facility] Rx#:[id number] fentaNYL 10 mcg/mL Premix Drip 250 / 250 2,500 mcg In 250 ml @ 50 MCG/HR 5 mls/hr IV.SIG TITRATE PRN Rx #:[id number] Output: Urine Amount (Catheter) 725 / 725 Straight 725 / 725 Narrative: On vent Cardio; RRR Resp: CTAB Abd: soft non tender Trach in place connected to MV - Urinary Catheter Management Indwelling Urethral Catheter Cath placed during this visit: yes, but has since been removed by the nurse Reason for continuing: Decision to DC catheter Insertion date: 11/13/17 Insertion time: 19:00 Removal date: 11/17/17 Removal time: 04:00 Straight Cath placed during this visit: no Assessment and Plan - Assessment (1) Angioedema Code(s): T78.3XXA - Angioneurotic edema, initial encounter Status: Acute Plan: 47 year old female with angioedema; ?? lisinopril; s/p emergency trach placement -EMILIE Anglin to place NGT/dobhoff -Continue Decadron -Vent per CCM -Will continue to monitor and decrease swelling and hopefully safe extubation No change; Dubhoff tube to be placed for nutrition The exam, history, and the medical decision-making described in the above note were completed with the assistance of the mid-level provider. I reviewed and agree with the findings presented. I attest that I had a [id number] encounter with the patient on the same day, and personally performed and documented my assessment and findings in the medical record.
--- NOTE | 2017-11-18 15:10 | XR ---
EXAM DATE: 11/18/2017 3:06 PM EDT AGE/SEX: 47 years / Female INDICATIONS: Dobbhoff placement CLINICAL DATA: This is the patient's subsequent encounter. Patient reports that signs and symptoms h ave been present for 1 week and indicates a pain score of Nonresponsive. MEDICAL/SURGICAL HISTORY: Non-responsive. Non-responsive. COMPARISON: C, ABDOMEN 1V KUB, 11/16/2017. . FINDINGS: Feeding tube just in the fundus of the stomach. Minimal bibasilar parenchymal changes Minimal gaseous distention. CONCLUSION: Feeding tube just in fundus of the stomach. Electronically signed by: Bryant Cross MD 11/18/2017 3:09 PM EDT
[2017-11-18] MEDS: hydrALAZINE 50 MG Tablet PO PRN (21:04)
[2017-11-19] MEDS: Haloperidol Inj 5 MG/ML Ampul IV.PUSH SCH ×7 (00:12→23:13)
[2017-11-19] MEDS: Oral Hygiene Kit OROPHARYNG SCH ×4 (00:13→16:43)
[2017-11-19] MEDS: Insulin NovoLOG Aspart Correctional Sugar Inj SQ SCH ×4 (00:15→18:43)
[2017-11-19] MEDS: Dexmedetomidine Inj 200 MCG in Sodium Chlor 0.9% Inj 48 ML IV.CONT PRN ×6 (00:36→09:32)
[2017-11-19] MEDS: Propofol 1000 mg/100 ml Inj 1,000 MG/100 ML BOTTLE IV.CONT PRN ×8 (00:36→23:50)
[2017-11-19] MEDS: hydrALAZINE 50 MG Tablet PO PRN (06:33)
[2017-11-19] MEDS: Famotidine PF Inj 20 MG/2 ML Vial IV.PUSH SCH ×2 (08:26→20:24)
[2017-11-19] MEDS: Enoxaparin Inj 40 MG/0.4 ML Syringe SQ SCH (08:26)
[2017-11-19] MEDS: Chlorhexidine 0.12% Oral Kit 15 ML UDC OROPHARYNG SCH ×2 (08:27→20:29)
[2017-11-19] MEDS: Senna/Docusate Sodium 8.6/50 MG Tablet PO SCH ×2 (08:35→20:29)
[2017-11-19] MEDS: Labetalol HCl Inj 100 MG/20 ML Vial IV.PUSH PRN ×2 (09:40→13:34)
[2017-11-19] MEDS: Dexmedetomidine Inj 1,000 MCG in Sodium Chlor 0.9% Inj 240 ML IV.CONT PRN ×2 (11:02→20:27)
--- NOTE | 2017-11-19 13:40 | P.PNGS ---
Subjective Interval history: On vent per trach; RT at bedside Physical Exam Vital signs: Vital Signs 11/18/17 14:00 11/18/17 15:00 11/18/17 15:12 Temperature Pulse Rate 51 L 45 L 48 L Respiratory Rate 24 24 24 Blood Pressure 155/89 H 161/100 H Pulse Oximetry 98 99 100 11/18/17 16:00 11/18/17 16:27 11/18/17 17:00 Temperature 98.1 F Pulse Rate 75 54 L Respiratory Rate 24 24 24 Blood Pressure 158/98 H 142/100 H Pulse Oximetry 100 96 99 11/18/17 18:00 11/18/17 20:00 11/18/17 20:10 Temperature 100 F H Pulse Rate 68 72 66 Respiratory Rate 24 30 H 33 H Blood Pressure 201/112 H 191/105 H Pulse Oximetry 99 96 97 11/18/17 22:00 11/18/17 23:32 11/19/17 00:00 Temperature 98.4 F Pulse Rate 50 L 73 71 Respiratory Rate 24 27 H Blood Pressure 171/95 H Pulse Oximetry 99 99 11/19/17 02:00 11/19/17 03:31 11/19/17 03:48 Temperature Pulse Rate 58 L 59 L Respiratory Rate 24 Blood Pressure 152/91 H Pulse Oximetry 98 11/19/17 04:00 11/19/17 04:01 11/19/17 04:12 Temperature 99.3 F Pulse Rate 63 60 57 L Respiratory Rate 27 H Blood Pressure 143/84 H 188/104 H 176/102 H Pulse Oximetry 97 97 96 11/19/17 04:31 11/19/17 05:00 11/19/17 05:01 Temperature Pulse Rate 66 51 L 99 H Respiratory Rate 25 H Blood Pressure 187/102 H 126/72 156/87 H Pulse Oximetry 98 97 100 11/19/17 05:30 11/19/17 06:00 11/19/17 06:31 Temperature Pulse Rate 96 H 96 H 97 H Respiratory Rate 25 H 25 H 22 Blood Pressure 170/96 H 143/75 H 204/125 H Pulse Oximetry 100 99 100 11/19/17 06:32 11/19/17 07:00 11/19/17 07:01 Temperature Pulse Rate 102 H 58 L 61 Respiratory Rate 23 Blood Pressure 203/108 H 142/73 H 159/91 H Pulse Oximetry 100 95 96 11/19/17 07:30 11/19/17 07:45 11/19/17 08:00 Temperature 99.4 F Pulse Rate 59 L 71 59 L Respiratory Rate 27 H 28 H Blood Pressure 176/101 H 148/73 H Pulse Oximetry 99 98 97 11/19/17 08:01 11/19/17 08:30 11/19/17 09:00 Temperature Pulse Rate 57 L 101 H 70 Respiratory Rate 29 H Blood Pressure 175/98 H 197/116 H 129/70 Pulse Oximetry 97 100 97 11/19/17 09:27 11/19/17 09:31 11/19/17 10:00 Temperature Pulse Rate 76 95 H 71 Respiratory Rate 17 Blood Pressure 224/140 H 201/119 H 215/135 H Pulse Oximetry 95 99 97 11/19/17 10:01 11/19/17 10:31 11/19/17 11:00 Temperature Pulse Rate 105 H 67 68 Respiratory Rate 27 H Blood Pressure 148/88 H 183/116 H Pulse Oximetry 93 L 96 96 11/19/17 11:01 11/19/17 11:11 11/19/17 11:41 Temperature Pulse Rate 68 68 72 Respiratory Rate 24 Blood Pressure 116/68 157/103 H Pulse Oximetry 95 96 95 Intake & Output 11/18/17 11/19/17 11/19/17 18:59 06:59 18:59 Intake Total 700 / 700 700 / 700 396 / 396 Output Total 500 / 500 425 / 425 Balance 200 / 200 275 / 275 396 / 396 Weight 104.5 kg Intake: IV 700 / 700 700 / 700 396 / 396 Precedex Inj 200 MCG In NS Inj 400 / 400 300 / 300 96 / 96 48 ML @ 0.2 MCG/KG/HR 5.42 mls/ hr IV.CONT TITRATE PRN Rx#: [id number] Diprivan 1000 mg/100 ml Inj 1, 300 / 300 400 / 400 300 / 300 000 mg In 100 ml @ 5 MCG/KG/MIN 3.255 mls/hr IV.CONT TITRATE PRN Rx#:[id number] Output: Urine 500 / 500 425 / 425 Other: # Incontinent Voids 2 Narrative: Resting with eyes closed Cardio: RRR Resp: CTAB Abd: soft non tender Trach in place without any difficulties - Urinary Catheter Management Indwelling Urethral Catheter Cath placed during this visit: yes, but has since been removed by the nurse Reason for continuing: Decision to DC catheter Insertion date: 11/13/17 Insertion time: 19:00 Removal date: 11/17/17 Removal time: 04:00 Straight Cath placed during this visit: no Reason for continuing: Not indwelling catheter Assessment and Plan - Assessment (1) Angioedema Code(s): T78.3XXA - Angioneurotic edema, initial encounter Status: Acute Plan: 47 year old female with angioedema; ?? lisinopril; s/p emergency trach placement -Dobhoff in place -Continue Decadron -Vent per CCM -Will continue to monitor and decrease swelling and hopefully safe extubation Discussed with Dr. Paredes; may need to be extubated in OR for safety reasons; will re-assess in AM. The exam, history, and the medical decision-making described in the above note were completed with the assistance of the mid-level provider. I reviewed and agree with the findings presented. I attest that I had a [id number] encounter with the patient on the same day, and personally performed and documented my assessment and findings in the medical record.
--- NOTE | 2017-11-19 19:47 | P.PNCC ---
Subjective Subjective Remarks/Hospital Course: Patient is a 47 year old morbidly female obese female who presented to the [place] emergency department with severe acute anaphylactic reaction, and airway compromise. RSI was attempted by Dr. Pino and Dr. Sandhu, but they were unable to. An LMA was placed but the patient's O2 sats remained in the low 80s. Emergency cricothyroidotomy was performed at [place] emergency department , by Dr. Sandhu, 6-0 uncuffed cric tube was placed. Postplacement there was leak around the trach tube with bag and mask ventilation. LMA was reintroduced and patient was given ventilation through the LMA and patient was emergently transferred to the [facility]. I evaluated patient emergently in [facility] [place] [facility] Patient is sedated with propofol infusion. Oxygen saturation with bag and mask ventilation was 88-90%. I performed a bronchoscopy through the LMA , vocal cords appeared severely swollen. A pediatric bronchoscope was not available to the load a 6.0 ET tube. I attempted intubation with the glide scope and 6.0 ET tube. I was able to visualize the significantly swollen glottic opening and vocal cords, but I was unable to pass the ET tube through the vocal cords due to swelling. Dr. Castaneda placed a new #5 LMA and we returned to bag and mask ventilation and Dr. Copeland performed a percutaneous [place] tracheostomy at the bedside through the existing cric incision. (He first placed the guidewire through the existing perc tube). Tracheostomy tube placement was confirmed with bronchoscopy again. At the beginning of tracheostomy patient's oxygen saturation was in the mid 70s. This slowly improved to 95% and patient was placed on ventilator. At this time we are unable to get any other history from the patient regarding food allergies. Scheduled IV Decadron Benadryl and famotidine had been started. 11/14 Remains deeply sedated and on mechanical ventilation via trach, no leak. Plan for revision of trach on Thursday. Has persistent face and tongue swelling but family and staff indicate improved compared with yesterday. Family states patient on lisinopril ~ 1 year, mcc NSAIDS. She had eaten scrapple and toast about 1 1/2 hours before onset of symptoms. Subjective: 11/15 Fiberoptic bronchoscopy performed and demonstrates persistent cord edema. Existing tracheostomy position noted immediately subglottic at expected level of cricothyroid membrane. Dr. Copeland will schedule revision to formal tracheostomy. Patient remains heavily sedated to ensure airway maintenance. 11/16: remains deeply sedated for airway protection. discussion with Dr. Copeland: may need additional time for edema to decrease. will now plan to leave cric in place and not revise at this immediate time. 11/17: I remained at beside today and personally weaned sedation to ensure patient was calm through emergence from sedation. patient now off sedation, awake, alert, oriented, calm. on t-piece 40% o2. 11/18: significantly agitated overnight, requiring deep sedation to prevent trach dislodgement and loss of airway. back on the vent this AM. critical agitation and some delirium. some improvement with haldol iv. 11/19: agitation persists. discussed with general surgery, will need to re- evaluate level of edema tomorrow. Objective Vital Signs / I&O: Vital Signs 11/18/17 20:00 11/18/17 20:10 11/18/17 22:00 Temperature 37.7 C H Pulse Rate 72 66 50 L Respiratory Rate 30 H 33 H Blood Pressure 191/105 H Pulse Oximetry 96 97 11/18/17 23:32 11/19/17 00:00 11/19/17 02:00 Temperature 36.9 C Pulse Rate 73 71 58 L Respiratory Rate 24 27 H Blood Pressure 171/95 H Pulse Oximetry 99 99 11/19/17 03:31 11/19/17 03:48 11/19/17 04:00 Temperature 37.4 C Pulse Rate 59 L 63 Respiratory Rate 24 27 H Blood Pressure 152/91 H 143/84 H Pulse Oximetry 98 97 11/19/17 04:01 11/19/17 04:12 11/19/17 04:31 Temperature Pulse Rate 60 57 L 66 Respiratory Rate Blood Pressure 188/104 H 176/102 H 187/102 H Pulse Oximetry 97 96 98 11/19/17 05:00 11/19/17 05:01 11/19/17 05:30 Temperature Pulse Rate 51 L 99 H 96 H Respiratory Rate 25 H 25 H Blood Pressure 126/72 156/87 H 170/96 H Pulse Oximetry 97 100 100 11/19/17 06:00 11/19/17 06:31 08/23/18 06:32 Temperature Pulse Rate 96 H 97 H 102 H Respiratory Rate 25 H 22 23 Blood Pressure 143/75 H 204/125 H 203/108 H Pulse Oximetry 99 100 100 11/19/17 07:00 11/19/17 07:01 11/19/17 07:30 Temperature Pulse Rate 58 L 61 59 L Respiratory Rate Blood Pressure 142/73 H 159/91 H 176/101 H Pulse Oximetry 95 96 99 11/19/17 07:45 11/19/17 08:00 11/19/17 08:01 Temperature 37.4 C Pulse Rate 71 59 L 57 L Respiratory Rate 27 H 28 H Blood Pressure 148/73 H 175/98 H Pulse Oximetry 98 97 97 11/19/17 08:30 11/19/17 09:00 11/19/17 09:27 Temperature Pulse Rate 101 H 70 76 Respiratory Rate 29 H Blood Pressure 197/116 H 129/70 224/140 H Pulse Oximetry 100 97 95 11/19/17 09:31 11/19/17 10:00 11/19/17 10:01 Temperature Pulse Rate 95 H 71 105 H Respiratory Rate 17 27 H Blood Pressure 201/119 H 215/135 H 148/88 H Pulse Oximetry 99 97 93 L 11/19/17 10:31 11/19/17 11:00 11/19/17 11:01 Temperature Pulse Rate 67 68 68 Respiratory Rate Blood Pressure 183/116 H 116/68 Pulse Oximetry 96 96 95 11/19/17 11:11 11/19/17 11:30 11/19/17 11:41 Temperature Pulse Rate 68 79 72 Respiratory Rate 24 Blood Pressure 157/103 H 172/104 H Pulse Oximetry 96 96 95 11/19/17 12:00 11/19/17 12:31 11/19/17 13:00 Temperature 37.7 C H Pulse Rate 76 71 92 H Respiratory Rate 24 22 Blood Pressure 123/81 149/102 H 115/67 Pulse Oximetry 96 88 L 96 11/19/17 13:17 11/19/17 13:30 11/19/17 13:34 Temperature Pulse Rate 91 H 91 H 94 H Respiratory Rate 19 Blood Pressure 108/65 173/111 H 87/61 L Pulse Oximetry 100 95 95 11/19/17 13:37 11/19/17 14:00 11/19/17 14:30 Temperature Pulse Rate 92 H 80 77 Respiratory Rate Blood Pressure 119/73 160/99 H 155/114 H Pulse Oximetry 94 L 93 L 94 L 11/19/17 15:00 11/19/17 15:31 11/19/17 15:38 Temperature Pulse Rate 81 80 72 Respiratory Rate 24 Blood Pressure 177/97 H 150/91 H Pulse Oximetry 92 L 94 L 94 L 11/19/17 16:00 11/19/17 16:30 11/19/17 17:00 Temperature 38.1 C H Pulse Rate 63 64 62 Respiratory Rate 24 Blood Pressure 123/66 123/70 126/72 Pulse Oximetry 94 L 95 95 11/19/17 17:30 11/19/17 18:00 11/19/17 18:30 Temperature Pulse Rate 62 63 71 Respiratory Rate Blood Pressure 126/76 137/90 146/98 H Pulse Oximetry 96 96 97 Intake & Output 11/19/17 11/19/17 11/20/17 06:59 18:59 06:59 Intake Total 700 / 700 556 / 556 Output Total 425 / 425 1600 / 1600 Balance 275 / 275 -1044 / -1044 Weight 104.5 kg Intake: IV 700 / 700 496 / 496 Precedex Inj 200 MCG In NS Inj 300 / 300 96 / 96 48 ML @ 0.2 MCG/KG/HR 5.42 mls/ hr IV.CONT TITRATE PRN Rx#: [id number] Diprivan 1000 mg/100 ml Inj 1, 400 / 400 400 / 400 000 mg In 100 ml @ 5 MCG/KG/MIN 3.255 mls/hr IV.CONT TITRATE PRN Rx#:[id number] Water Bolus Amount 60 / 60 Output: Urine 425 / 425 1600 / 1600 Other: # Incontinent Voids 2 # Bowel Movements 0 Result Diagrams: 11/17/17 03:50 11/17/17 06:03 Objective Remarks: GENERAL: Obese female agitated, delirious. SKIN: Warm and dry. No rash or urticaria. HEAD: Atraumatic. Normocephalic. +swelling of face and tongue, present but continues to improve. EYES: Pupils equal and round, pinpoint bilaterally. No scleral icterus. No injection or drainage. ENT: No nasal bleeding or discharge. Mucous membranes pink and moist. NECK: Trachea midline. No JVD. [address] via cricothyroid membrane[address] CARDIOVASCULAR: Regular rate and rhythm. No murmurs rubs or gallops. RESPIRATORY: No accessory muscle use. Clear to auscultation. Breath sounds equal bilaterally. back on PRVC mode ventilation. GASTROINTESTINAL: Abdomen soft, non-tender, nondistended. Bowel sounds present. MUSCULOSKELETAL: Extremities without clubbing, cyanosis, or edema. No obvious deformities. NEUROLOGICAL: RASS -3. does not follow commands. intermittently agitated. Assessment and Plan - Problem List (1) Acute hypoxemic respiratory failure Code(s): J96.01 - Acute respiratory failure with hypoxia Status: Acute (2) Angioedema Code(s): T78.3XXA - Angioneurotic edema, initial encounter Status: Acute - Assessment and Plan Plan: Assessment: 47yF with angioedema compromising airway requiring emergent surgical airway. now her course is complicated by life-threatening agitation as when we lighten sedation, her agitation puts her airway at significant risk. continues with agitation and too agitated to safely wake and wean from mechanical ventilation. will plan bronch and DL tomorrow to eval airway. NEURO: Severe life-threatening agitated delirium - precedex and propofol - goal RASS 0 - continue precedex, propofol - add scheduled haldol 5mg iv q4h - breakthrough haldol 5mg iv q1h prn - enteral access has been difficult given airway edema, so oral anti-delirium agents is not currently possible. - frequent neuro checks. RESP: Acute hypoxemic respiratory failure- resolving. Angioedema with severe upper airway compromise- slowly improving. -Emergent cric per Dr. Sandhu at [place] ED. -Unable to adequately ventilate through the cric tube as it was cuff less tube ( supplied in Melker kit) -Dr. Copeland emergently performed percutaneous tracheostomy at the bedside by passing wire through existing cric tube. -Existing tube without cuff leak. -discussion with Dr. Copeland 11/16: will keep current surgical airway in place and re-evaluate after a few days of improved edema. - back on vent. daily sedation vacation with SBT, but airway safety is of utmost concern. -DuoNeb every 6 hours scheduled and as needed -Decadron 6 mg IV every 6 hours, Benadryl 50 mg IV every 6 hours -Famotidine 20 mg IV every 12 -Airway remains persistently swollen, more typical of Ervin-I/bradykinin mediated angioedema. - Etiology most like Ervin-I, NSAIDS also a possibility. Given the severity of this reaction, recommended avoiding both and f/u with casino beverage server. C4 is normal, tryptase pending. CV: Pulmonary edema most likely negative pressure- resolved -continue lasix 20mg iv q12h. GI: -N.p.o., pediatric NGT in place, trickle tube feeds only. NGT at [facility], was advanced but nurses noted regurgitation of tube feeds so currently on hold. FEN/RENAL: -Monitor renal function closely. - d/c barnard. -Electrolyte replacement per protocol ID: -Empiric Rocephin for 5 days due to unstable procedure. Received Vancomycin 1 dose HEME: -Monitor CBC, coags ENDO: -Monitoring glucose q6 hours. Sliding scale insulin if needed PROPH: -Bilateral lower extremity SCDs. Lovenox daily. IV famotidine LINES: -Utilize peripheral IVs PT/OT. careful mobilization. FULL CODE
[2017-11-20] MEDS: Insulin NovoLOG Aspart Correctional Sugar Inj SQ SCH ×5 (00:33→23:31)
[2017-11-20] MEDS: Oral Hygiene Kit OROPHARYNG SCH ×5 (00:33→23:31)
[2017-11-20] MEDS: Propofol 1000 mg/100 ml Inj 1,000 MG/100 ML BOTTLE IV.CONT PRN ×6 (02:57→22:46)
[2017-11-20] MEDS: Haloperidol Inj 5 MG/ML Ampul IV.PUSH SCH ×6 (04:37→23:27)
[2017-11-20] MEDS: Dexmedetomidine Inj 1,000 MCG in Sodium Chlor 0.9% Inj 240 ML IV.CONT PRN ×3 (04:39→21:12)
[2017-11-20] MEDS ORDERED: Midazolam Inj 5 MG/ML 1 ML Vial IV.PUSH ONE (09:00)
[2017-11-20] MEDS ORDERED: Cisatracurium Inj 20 MG/10 ML Vial IV.PUSH ONE (09:00)
[2017-11-20] MEDS: Famotidine PF Inj 20 MG/2 ML Vial IV.PUSH SCH ×2 (09:05→20:48)
[2017-11-20] MEDS: Chlorhexidine 0.12% Oral Kit 15 ML UDC OROPHARYNG SCH ×2 (09:05→20:47)
[2017-11-20 09:14] LABS: Bacteria,Urine Rare /hpf; Bilirubin,Urine Negative (Negative); Clarity,Urine Hazy (Clear); Color,Urine Amber (Yellw/Straw); Glucose,Urine (UA) Negative (Negative); Leukocyte Esterase,Urine Negative (Negative); Mucus,Urine Few /lpf (Occasional); Nitrite,Urine Negative (Negative); Specific Gravity,Urine 1.029 (1.002-1.035); Squamous Epithelial Cell,Urine 3 /hpf (0-5)
--- NOTE | 2017-11-20 10:02 | XR ---
EXAM DATE: 11/20/2017 9:43 AM EDT AGE/SEX: 47 years / Female INDICATIONS: Distention. CLINICAL DATA: This is the patient's initial encounter. Patient reports that signs and symptoms have been present for 1 day and indicates a pain score of Nonresponsive. MEDICAL/SURGICAL HISTORY: Non-responsive. Non-responsive. COMPARISON: C, ABDOMEN 1V KUB, 11/18/2017. . FINDINGS: Dobbhoff tube is present with tip in the stomach. The stomach is distended measures 25 cm in size an d there are loops of small bowel distention in maximum diameter of 4.6 cm. Gas and stool however is p resent down in the colon. CONCLUSION: Distended stomach and prominent loops of small bowel more distended since the prior exam. Possible il eus, however partial small bowel obstruction is not excluded and follow-up is recommended clinically. Electronically signed by: Carley Lilly MD 11/20/2017 10:01 AM EDT
[2017-11-20] MEDS ORDERED: Methylnaltrexone Inj 12 MG/0.6 ML Vial SQ STA (10:20)
[2017-11-20] MEDS ORDERED: Atropine Inj 1 MG/10 ML Syringe ONE (10:32)
[2017-11-20] MEDS: Enoxaparin Inj 40 MG/0.4 ML Syringe SQ SCH (10:56)
[2017-11-20] MEDS: Bisacodyl 10 MG Supp RECTAL SCH (11:31)
[2017-11-20] MEDS: Senna/Docusate Sodium 8.6/50 MG Tablet PO SCH ×2 (11:31→20:48)
[2017-11-20 12:02] LABS: Baso # (Auto) 0.1 th/mm3 (0.0-0.2); Baso % (Auto) 0.2 % (0.0-2.0); Hematocrit 37.4 % (35.0-46.0); Hemoglobin 12.6 gm/dL (11.6-15.3); Lymph # (Auto) 1.3 th/mm3 (1.0-4.8); Lymph % (Auto) 5.6 % (9.0-44.0); Mean Corpuscular HGB Conc 33.7 % (32.0-36.0); Mean Corpuscular Hemoglobin 32.4 pg (27.0-34.0); Mean Corpuscular Volume 96.2 fL (80.0-100.0); Mean Platelet Volume 8.9 fL (7.0-11.0); Mono # (Auto) 1.6 th/mm3 (0.0-0.9); Mono % (Auto) 6.8 % (0.0-8.0); Neut # (Auto) 20.1 th/mm3 (1.8-7.7); Neut % (Auto) 87.4 % (16.0-70.0); Platelet Count 242 th/mm3 (150-450); Red Blood Count 3.89 mil/mm3 (4.00-5.30); Red Cell Distribution Width 13.3 % (11.6-17.2)
[2017-11-20 12:10] LABS: Anion Gap 12 meq/L (5-15); Blood Urea Nitrogen 36 mg/dL (7-18); Carbon Dioxide 27.3 meq/L (21.0-32.0); Chloride 102 meq/L (98-107); Glomerular Filtration Rate Greater Than 89 mL/min (>89); Glucose,Random 122 mg/dL (74-106); Potassium 3.6 meq/L (3.5-5.1); Sodium 141 meq/L (136-145)
[2017-11-20 13:24] LABS: Lymphocytes 4 % (9-44); Metamyelocytes 1 % (0-1); Monocytes 1 % (0-8); Myelocytes 1 % (0-0)
[2017-11-20 13:27] LABS: Platelet Estimate Normal (Normal); Platelet Morphology Normal (Normal)
--- NOTE | 2017-11-20 14:24 | P.PN ---
Subjective Interval history: Had some emesis; 1000ml out with NG placement to LIWS Physical Exam Vital signs: Vital Signs 11/19/17 14:30 11/19/17 15:00 11/19/17 15:31 Temperature Pulse Rate 77 81 80 Respiratory Rate Blood Pressure 155/114 H 177/97 H 150/91 H Pulse Oximetry 94 L 92 L 94 L 11/19/17 15:38 11/19/17 16:00 11/19/17 16:30 Temperature 100.5 F H Pulse Rate 72 63 64 Respiratory Rate 24 24 Blood Pressure 123/66 123/70 Pulse Oximetry 94 L 94 L 95 11/19/17 17:00 11/19/17 17:30 11/19/17 18:00 Temperature Pulse Rate 62 62 63 Respiratory Rate Blood Pressure 126/72 126/76 137/90 Pulse Oximetry 95 96 96 11/19/17 18:30 11/19/17 20:00 11/19/17 20:08 Temperature 99.7 F H Pulse Rate 71 73 74 Respiratory Rate 25 H 24 Blood Pressure 146/98 H 143/92 H Pulse Oximetry 97 94 L 11/19/17 22:00 11/20/17 00:00 11/20/17 01:01 Temperature 100.4 F H Pulse Rate 74 67 71 Respiratory Rate 30 H 24 Blood Pressure 167/89 H Pulse Oximetry 100 97 11/20/17 02:00 11/20/17 04:00 11/20/17 04:28 Temperature 99.4 F Pulse Rate 71 75 70 Respiratory Rate 26 H 27 H Blood Pressure 158/95 H Pulse Oximetry 95 99 11/20/17 06:00 11/20/17 08:01 11/20/17 10:25 Temperature Pulse Rate 74 61 Respiratory Rate 24 Blood Pressure Pulse Oximetry 96 100 11/20/17 12:02 Temperature Pulse Rate 54 L Respiratory Rate 24 Blood Pressure Pulse Oximetry 94 L Intake & Output 11/19/17 11/20/17 11/20/17 18:59 06:59 18:59 Intake Total 806 / 806 700 / 700 350 / 350 Output Total 1600 / 1600 900 / 900 Balance -794 / -794 -200 / -200 350 / 350 Weight 101.5 kg Intake: IV 746 / 746 700 / 700 350 / 350 Precedex Inj 1,000 MCG In NS 250 / 250 250 / 250 250 / 250 Inj 240 ML @ 0.2 MCG/KG/HR 5.42 mls/hr IV.CONT TITRATE PRN Rx# :[id number] Precedex Inj 200 MCG In NS Inj 96 / 96 50 / 50 48 ML @ 0.2 MCG/KG/HR 5.42 mls/ hr IV.CONT TITRATE PRN Rx#: [id number] Diprivan 1000 mg/100 ml Inj 1, 400 / 400 400 / 400 100 / 100 000 mg In 100 ml @ 5 MCG/KG/MIN 3.255 mls/hr IV.CONT TITRATE PRN Rx#:[id number] Water Bolus Amount 60 / 60 Output: Urine 1600 / 1600 900 / 900 Other: # Bowel Movements 0 # Emeses 2 - Routine Respiratory Exam Present: CTA bilaterally - Routine Abdominal Exam Present: soft - Urinary Catheter Management Indwelling Urethral Catheter Cath placed during this visit: yes, but has since been removed by the nurse Reason for continuing: Decision to DC catheter Insertion date: 11/13/17 Insertion time: 19:00 Removal date: 11/17/17 Removal time: 04:00 Straight Cath placed during this visit: no Reason for continuing: Not indwelling catheter Results - Labs CBC & Chem 7: 11/20/17 10:53 11/20/17 10:53 Laboratory Results - last 24 hr 11/19/17 11/19/17 11/20/17 18:12 23:17 05:30 WBC RBC Hgb Hct MCV MCH MCHC RDW Plt Count MPV Prelim Diff (Auto) Neut % (Auto) Lymph % (Auto) [place] % (Auto) Eos % (Auto) Baso % (Auto) Neut # (Auto) Lymph # (Auto) [place] # (Auto) Eos # (Auto) Baso # (Auto) WBC Differential Seg Neuts % (Manual) Band Neuts % (Manual) Lymphocytes % (Manual) Monocytes % (Manual) Metamyelocytes % (Man) Myelocytes % (Man) Abs Neuts (Manual) Differential Comment Platelet Estimate Platelet Morphology Sodium Potassium Chloride Carbon Dioxide Anion Gap BUN Creatinine Estimated GFR POC Glucose 119 H 112 H 104 Random Glucose Calcium Urine Color Urine Clarity Urine pH Ur Specific [place] Urine Protein Urine Glucose (UA) Urine Ketones Urine Occult Blood Urine Nitrate Urine Bilirubin Urine Urobilinogen Ur Leukocyte Esterase Urine RBC Urine WBC Ur Squamous Epith Cells Urine Bacteria Urine Mucus Micro UA Comment Ur Microscopic Review Urine Culture Comments 11/20/17 11/20/17 11/20/17 08:35 10:53 10:53 WBC 23.0 H RBC 3.89 L Hgb 12.6 Hct 37.4 MCV 96.2 MCH 32.4 MCHC 33.7 RDW 13.3 Plt Count 242 MPV 8.9 Prelim Diff (Auto) Slide review pending Neut % (Auto) 87.4 H Lymph % (Auto) 5.6 L [place] % (Auto) 6.8 Eos % (Auto) 0.0 Baso % (Auto) 0.2 Neut # (Auto) 20.1 H Lymph # (Auto) 1.3 [place] # (Auto) 1.6 H Eos # (Auto) 0.0 Baso # (Auto) 0.1 WBC Differential Manual diff final Seg Neuts % (Manual) 91 H Band Neuts % (Manual) 2 Lymphocytes % (Manual) 4 L Monocytes % (Manual) 1 Metamyelocytes % (Man) 1 Myelocytes % (Man) 1 H Abs Neuts (Manual) 21.9 H Differential Comment . Platelet Estimate Normal Platelet Morphology Normal Sodium 141 Potassium 3.6 Chloride 102 Carbon Dioxide 27.3 Anion Gap 12 BUN 36 H Creatinine 0.69 Estimated GFR Greater than 89 POC Glucose Random Glucose 122 H Calcium 9.0 Urine Color Kimmie Urine Clarity Hazy H Urine pH 5.0 Ur Specific [place] 1.029 Urine Protein Negative Urine Glucose (UA) Negative Urine Ketones 20 Urine Occult Blood Small H Urine Nitrate Negative Urine Bilirubin Negative Urine Urobilinogen Less than 2 Ur Leukocyte Esterase Negative Urine RBC 5 H Urine WBC 3 Ur Squamous Epith Cells 3 Urine Bacteria Rare H Urine Mucus Few H Micro UA Comment Cath-culture ind Ur Microscopic Review Not Reportable Urine Culture Comments Cath-cult indicated 11/20/17 11:27 WBC RBC Hgb Hct MCV MCH MCHC RDW Plt Count MPV Prelim Diff (Auto) Neut % (Auto) Lymph % (Auto) [place] % (Auto) Eos % (Auto) Baso % (Auto) Neut # (Auto) Lymph # (Auto) [place] # (Auto) Eos # (Auto) Baso # (Auto) WBC Differential Seg Neuts % (Manual) Band Neuts % (Manual) Lymphocytes % (Manual) Monocytes % (Manual) Metamyelocytes % (Man) Myelocytes % (Man) Abs Neuts (Manual) Differential Comment Platelet Estimate Platelet Morphology Sodium Potassium Chloride Carbon Dioxide Anion Gap BUN Creatinine Estimated GFR POC Glucose 120 H Random Glucose Calcium Urine Color Urine Clarity Urine pH Ur Specific [place] Urine Protein Urine Glucose (UA) Urine Ketones Urine Occult Blood Urine Nitrate Urine Bilirubin Urine Urobilinogen Ur Leukocyte Esterase Urine RBC Urine WBC Ur Squamous Epith Cells Urine Bacteria Urine Mucus Micro UA Comment Ur Microscopic Review Urine Culture Comments - Imaging Impressions Abdomen X-Ray 11/20/17 00:00 CONCLUSION: Distended stomach and prominent loops of small bowel more distended since the prior exam. Possible ileus, however partial small bowel obstruction is not excluded and follow-up is recommended clinically. Assessment and Plan - Assessment (1) Angioedema Code(s): T78.3XXA - Angioneurotic edema, initial encounter Status: Acute - Plan Hold off on extubation today due to emesis and likely ileus. Discussed with Dr. Paredes, speech language pathology assistant. Will see patient again on Thursday to re-assess for extubation. - Attending Attestation I attest that I had a [id number] encounter with the patient on the same day, and personally performed and documented my assessment and findings in the medical record. The following services were provided during this hospital visit: Chart data review, vital sign assessments/reviewing monitor data Review of consultation notes if present Medication orders/review and/or management Ordering and/or reviewing lab tests Ordering and/or interpreting/reviewing x-rays and/or diagnostic studies Care of the patient and discussion of the patient with the care team Documentation time To help prompt me to consider important information that might be impacting today's encounter and assessment, Information from prior notes written by myself or my colleagues may have been "brought forward/copy and pasted" into today's note.
--- NOTE | 2017-11-20 15:46 | P.PNCC ---
Subjective Subjective Remarks/Hospital Course: Patient is a 47 year old morbidly female obese female who presented to the [place] emergency department with severe acute anaphylactic reaction, and airway compromise. RSI was attempted by Dr. Pino and Dr. Sandhu, but they were unable to. An LMA was placed but the patient's O2 sats remained in the low 80s. Emergency cricothyroidotomy was performed at [place] emergency department , by Dr. Sandhu, 6-0 uncuffed cric tube was placed. Postplacement there was leak around the trach tube with bag and mask ventilation. LMA was reintroduced and patient was given ventilation through the LMA and patient was emergently transferred to the [facility]. I evaluated patient emergently [place] [facility] [place] Patient is sedated with propofol infusion. Oxygen saturation with bag and mask ventilation was 88-90%. I performed a bronchoscopy through the LMA , vocal cords appeared severely swollen. A pediatric bronchoscope was not available to the load a 6.0 ET tube. I attempted intubation with the glide scope and 6.0 ET tube. I was able to visualize the significantly swollen glottic opening and vocal cords, but I was unable to pass the ET tube through the vocal cords due to swelling. Dr. Castaneda placed a new #5 LMA and we returned to bag and mask ventilation and Dr. Copeland performed a percutaneous Blue Rhino tracheostomy at the bedside through the existing cric incision. (He first placed the guidewire through the existing perc tube). Tracheostomy tube placement was confirmed with bronchoscopy again. At the beginning of tracheostomy patient's oxygen saturation was in the mid 70s. This slowly improved to 95% and patient was placed on ventilator. At this time we are unable to get any other history from the patient regarding food allergies. Scheduled IV Decadron Benadryl and famotidine had been started. 11/14 Remains deeply sedated and on mechanical ventilation via trach, no leak. Plan for revision of trach on Thursday. Has persistent face and tongue swelling but family and staff indicate improved compared with yesterday. Family states patient on lisinopril ~ 1 year, halfway NSAIDS. She had eaten scrapple and toast about 1 1/2 hours before onset of symptoms. Subjective: 11/15 Fiberoptic bronchoscopy performed and demonstrates persistent cord edema. Existing tracheostomy position noted immediately subglottic at expected level of cricothyroid membrane. Dr. Copeland will schedule revision to formal tracheostomy. Patient remains heavily sedated to ensure airway maintenance. 11/16: remains deeply sedated for airway protection. discussion with Dr. Copeland: may need additional time for edema to decrease. will now plan to leave cric in place and not revise at this immediate time. 11/17: I remained at beside today and personally weaned sedation to ensure patient was calm through emergence from sedation. patient now off sedation, awake, alert, oriented, calm. on t-piece 40% o2. 11/18: significantly agitated overnight, requiring deep sedation to prevent trach dislodgement and loss of airway. back on the vent this AM. critical agitation and some delirium. some improvement with haldol iv. 11/19: agitation persists. discussed with general surgery, will need to re- evaluate level of edema tomorrow. 11/20: bronch today with completely resolved pharyngeal edema. also performed direct laryngoscopy and patient is an easy Grade I view with Mac 3 blade. mild edema at the cords themselves, but visually could easily pass 7.0 or greater ett. significant emesis and KUB with abdominal distension/ileus, nonobstructive pattern. given neostigmine 2.5mg iv with significant bowel movement and improvement in distension. NGT placed and >1L bilious emesis removed. still CAM + and agitation is a problem. Objective Vital Signs / I&O: Vital Signs 11/19/17 16:00 11/19/17 16:30 11/19/17 17:00 Temperature 38.1 C H Pulse Rate 63 64 62 Respiratory Rate 24 Blood Pressure 123/66 123/70 126/72 Pulse Oximetry 94 L 95 95 11/19/17 17:30 11/19/17 18:00 11/19/17 18:30 Temperature Pulse Rate 62 63 71 Respiratory Rate Blood Pressure 126/76 137/90 146/98 H Pulse Oximetry 96 96 97 11/19/17 20:00 11/19/17 20:08 11/19/17 22:00 Temperature 37.6 C H Pulse Rate 73 74 74 Respiratory Rate 25 H 24 Blood Pressure 143/92 H Pulse Oximetry 94 L 11/20/17 00:00 11/20/17 01:01 11/20/17 02:00 Temperature 38.0 C H Pulse Rate 67 71 71 Respiratory Rate 30 H 24 Blood Pressure 167/89 H Pulse Oximetry 100 97 11/20/17 04:00 11/20/17 04:28 11/20/17 06:00 Temperature 37.4 C Pulse Rate 75 70 74 Respiratory Rate 26 H 27 H Blood Pressure 158/95 H Pulse Oximetry 95 99 11/20/17 08:00 11/20/17 08:01 11/20/17 10:00 Temperature Pulse Rate 58 L 61 71 Respiratory Rate 24 Blood Pressure Pulse Oximetry 96 11/20/17 10:25 11/20/17 12:00 11/20/17 12:02 Temperature Pulse Rate 53 L 54 L Respiratory Rate 24 Blood Pressure Pulse Oximetry 100 94 L 11/20/17 13:51 11/20/17 13:54 11/20/17 13:57 Temperature Pulse Rate 52 L 55 L 54 L Respiratory Rate 44 H 24 24 Blood Pressure 131/73 134/75 132/76 Pulse Oximetry 94 L 94 L 94 L 11/20/17 14:00 11/20/17 14:03 11/20/17 14:06 Temperature Pulse Rate 53 L 54 L 53 L Respiratory Rate 24 25 H 24 Blood Pressure 133/73 133/73 132/71 Pulse Oximetry 94 L 94 L 94 L 11/20/17 14:09 11/20/17 14:12 11/20/17 14:15 Temperature Pulse Rate 53 L 52 L 53 L Respiratory Rate 24 24 24 Blood Pressure 129/71 128/69 132/70 Pulse Oximetry 94 L 94 L 94 L 11/20/17 14:18 11/20/17 14:21 11/20/17 14:24 Temperature Pulse Rate 52 L 52 L 52 L Respiratory Rate 24 24 24 Blood Pressure 132/69 132/73 133/72 Pulse Oximetry 94 L 94 L 94 L 11/20/17 14:27 11/20/17 14:30 11/20/17 14:33 Temperature Pulse Rate 52 L 52 L 52 L Respiratory Rate 24 24 24 Blood Pressure 128/72 131/70 133/73 Pulse Oximetry 95 95 95 11/20/17 14:36 11/20/17 14:39 11/20/17 14:42 Temperature Pulse Rate 52 L 52 L 52 L Respiratory Rate 24 24 24 Blood Pressure 127/73 129/73 131/72 Pulse Oximetry 95 95 95 11/20/17 14:45 11/20/17 14:48 11/20/17 14:52 Temperature Pulse Rate 51 L 54 L 49 L Respiratory Rate 22 Blood Pressure 129/72 130/67 115/59 L Pulse Oximetry 96 91 L 100 11/20/17 14:54 11/20/17 14:57 11/20/17 14:58 Temperature Pulse Rate 49 L 55 L 54 L Respiratory Rate 32 H 29 H 24 Blood Pressure 125/66 126/60 Pulse Oximetry 97 96 11/20/17 14:59 11/20/17 15:00 11/20/17 15:03 Temperature Pulse Rate 56 L 56 L Respiratory Rate 24 Blood Pressure 119/65 117/61 Pulse Oximetry 96 96 98 Intake & Output 11/19/17 11/20/17 11/20/17 18:59 06:59 18:59 Intake Total 806 / 806 700 / 700 350 / 350 Output Total 1600 / 1600 900 / 900 Balance -794 / -794 -200 / -200 350 / 350 Weight 101.5 kg Intake: IV 746 / 746 700 / 700 350 / 350 Precedex Inj 1,000 MCG In NS 250 / 250 250 / 250 250 / 250 Inj 240 ML @ 0.2 MCG/KG/HR 5.42 mls/hr IV.CONT TITRATE PRN Rx# :[id number] Precedex Inj 200 MCG In NS Inj 96 / 96 50 / 50 48 ML @ 0.2 MCG/KG/HR 5.42 mls/ hr IV.CONT TITRATE PRN Rx#: [id number] Diprivan 1000 mg/100 ml Inj 1, 400 / 400 400 / 400 100 / 100 000 mg In 100 ml @ 5 MCG/KG/MIN 3.255 mls/hr IV.CONT TITRATE PRN Rx#:[id number] Water Bolus Amount 60 / 60 Output: Urine 1600 / 1600 900 / 900 Other: Date of Last Bowel Movement 11/20/17 # Bowel Movements 0 # Emeses 2 Result Diagrams: 11/20/17 10:53 11/20/17 10:53 Objective Remarks: GENERAL: Obese female agitated, delirious. SKIN: Warm and dry. No rash or urticaria. HEAD: Atraumatic. Normocephalic. no edema today. EYES: Pupils equal and round, pinpoint bilaterally. No scleral icterus. No injection or drainage. ENT: No nasal bleeding or discharge. Mucous membranes pink and moist. NECK: Trachea midline. No JVD. [address] via cricothyroid membrane. CARDIOVASCULAR: Regular rate and rhythm. No murmurs rubs or gallops. RESPIRATORY: No accessory muscle use. Clear to auscultation. Breath sounds equal bilaterally. VC/AC mode ventilation. GASTROINTESTINAL: Abdomen soft, non-tender, moderately distended. hypoactive bowel sounds. MUSCULOSKELETAL: Extremities without clubbing, cyanosis, or edema. No obvious deformities. NEUROLOGICAL: RASS -3. does not follow commands. intermittently agitated. Assessment and Plan - Problem List (1) Acute hypoxemic respiratory failure Code(s): J96.01 - Acute respiratory failure with hypoxia Status: Acute (2) Angioedema Code(s): T78.3XXA - Angioneurotic edema, initial encounter Status: Acute - Assessment and Plan Plan: Assessment: 47yF with angioedema compromising airway requiring emergent surgical airway. now her course is complicated by life-threatening agitation as well as nausea/vomiting and non-obstructive ileus. need to control ileus before airway manipulation is attempted. NEURO: Severe life-threatening agitated delirium - precedex and propofol - goal RASS 0 - continue precedex, propofol - scheduled haldol 5mg iv q4h - breakthrough haldol 5mg iv q1h prn - unlikely to absorb enteral meds given ileus, so oral anti-delirium agents is not currently possible. - frequent neuro checks. RESP: Acute hypoxemic respiratory failure- resolving. Angioedema with severe upper airway compromise- slowly improving. -Emergent cric per Dr. Sandhu at [place] ED. -Unable to adequately ventilate through the cric tube as it was cuff less tube ( supplied in Melker kit) -Dr. Copeland emergently performed percutaneous tracheostomy at the bedside by passing wire through existing cric tube. -Existing tube without cuff leak. -discussion with Dr. Copeland 11/16: will keep current surgical airway in place and re-evaluate after a few days of improved edema. - back on vent. daily sedation vacation with SBT, but airway safety is of utmost concern. -DuoNeb every 6 hours scheduled and as needed -Decadron 6 mg IV every 6 hours, Benadryl 50 mg IV every 6 hours -Famotidine 20 mg IV every 12 -Airway remains persistently swollen, more typical of Ervin-I/bradykinin mediated angioedema. - Etiology most like Ervin-I, NSAIDS also a possibility. Given the severity of this reaction, recommended avoiding both and f/u with bath mix operator. C4 is normal, tryptase pending. CV: Pulmonary edema most likely negative pressure- resolved -continue lasix 20mg iv q12h. GI: Nonobstructive ileus -N.p.o., - NGT in place to LIWS - add relistor - add aggressive bowel regimen - keep NPO until NGT output decreases FEN/RENAL: -Monitor renal function closely. - voiding on own -Electrolyte replacement per protocol ID: -spiked fever this AM, but does not appear septic. check cbc, bmp and u/a. HEME: -Monitor CBC, coags ENDO: -Monitoring glucose q6 hours. Sliding scale insulin if needed PROPH: -Bilateral lower extremity SCDs. Lovenox daily. IV famotidine LINES: -Utilize peripheral IVs PT/OT. careful mobilization. FULL CODE
--- NOTE | 2017-11-20 15:58 | P.PCN ---
Date of procedure: 11/20/17 Pre-op diagnosis: laryngeal edema Post-op diagnosis: same Procedure: Procedure: Diagnostic fiberoptic Bronchoscopy Diagnosis: Angioedema with laryngeal and hypopharyngeal edema Indications: In brief this is a 47-year-old female with angioedema status post emergent cricothyroidotomy for airway edema. After discussion with a general surgeon, we need to reevaluate hypopharyngeal and laryngeal edema prior to consideration for airway manipulation. Consent: Obtained Anesthesia: Versed 10 mg IV, cisatricurium 20 mg IV Description of the Procedure: The patient was sedated and mechanically ventilated. The patient was placed on 100% FIO2 and a volume control mode of ventilation. The fiberoptic bronchoscopy was inserted via the the mouth, the right nare, and the 8.0 Shiley cuffed tracheostomy tube. The trachea, right and left mainstem bronchi, and sub-segmental bronchi were evaluated. The endobronchial anatomy was normal. Findings: Starting with the oropharynx, there is no evidence of any persistent edema in the tongue, oral mucosa, pharynx, or hypopharynx. There is a small abrasion in the posterior aspect of the nasopharynx next of the right nare secondary to nasogastric tube placement. There is no active bleeding associated with this. The larynx is without any evidence of edema. There is a very small amount of edema of the true vocal cords, but these are widely open and patent and could easily accommodate a 7.0 ET tube by visual estimation. There is no edema of the epiglottis. Through the Shiley 8.0 cuffed tracheostomy tube, I inserted the bronchoscope and there is no evidence of edema or secretions in the main airways. The anatomy the main arises normal. Patient has had recent emesis, but there is no evidence of emesis below the level of the tracheostomy cuff. In addition I performed direct laryngoscopy with a Ann Marie 3 blade and the patient has any easy grade 1 view of the entire larynx. BAL samples: No samples were sent. The patient tolerated the procedure well with no hemodynamic instability or hypoxia. There were no immediate complications noted. At the conclusion of the procedure, the patient was placed back on their pre-procedure ventilatory settings. There was minimal EBL. I personally performed the procedure.
[2017-11-21] MEDS: Propofol 1000 mg/100 ml Inj 1,000 MG/100 ML BOTTLE IV.CONT PRN ×5 (01:52→15:37)
[2017-11-21] MEDS: Haloperidol Inj 5 MG/ML Ampul IV.PUSH SCH ×3 (05:04→12:13)
[2017-11-21] MEDS: Oral Hygiene Kit OROPHARYNG SCH ×3 (05:04→15:40)
[2017-11-21] MEDS: Dexmedetomidine Inj 1,000 MCG in Sodium Chlor 0.9% Inj 240 ML IV.CONT PRN ×2 (05:05→12:55)
[2017-11-21] MEDS: Insulin NovoLOG Aspart Correctional Sugar Inj SQ SCH ×3 (06:06→19:49)
[2017-11-21] MEDS: Enoxaparin Inj 40 MG/0.4 ML Syringe SQ SCH (08:33)
[2017-11-21] MEDS: Senna/Docusate Sodium 8.6/50 MG Tablet PO SCH ×2 (08:33→20:03)
[2017-11-21] MEDS: Famotidine PF Inj 20 MG/2 ML Vial IV.PUSH SCH ×2 (08:33→20:03)
[2017-11-21] MEDS: Bisacodyl 10 MG Supp RECTAL SCH (08:34)
[2017-11-21] MEDS: Chlorhexidine 0.12% Oral Kit 15 ML UDC OROPHARYNG SCH ×2 (08:53→20:00)
--- NOTE | 2017-11-21 15:34 | P.PNCC ---
Subjective Subjective Remarks/Hospital Course: Patient is a 47 year old morbidly female obese female who presented to the [place] emergency department with severe acute anaphylactic reaction, and airway compromise. RSI was attempted by Dr. Pino and Dr. Sandhu, but they were unable to. An LMA was placed but the patient's O2 sats remained in the low 80s. Emergency cricothyroidotomy was performed at [place] emergency department , by Dr. Sandhu, 6-0 uncuffed cric tube was placed. Postplacement there was leak around the trach tube with bag and mask ventilation. LMA was reintroduced and patient was given ventilation through the LMA and patient was emergently transferred to the [facility]. I evaluated patient emergently in 504 in [facility] [place]. Patient is sedated with propofol infusion. Oxygen saturation with bag and mask ventilation was 88-90%. I performed a bronchoscopy through the LMA , vocal cords appeared severely swollen. A pediatric bronchoscope was not available to the load a 6.0 ET tube. I attempted intubation with the glide scope and 6.0 ET tube. I was able to visualize the significantly swollen glottic opening and vocal cords, but I was unable to pass the ET tube through the vocal cords due to swelling. Dr. Castaneda placed a new #5 LMA and we returned to bag and mask ventilation and Dr. Copeland performed a percutaneous Blue Rhino tracheostomy at the bedside through the existing cric incision. (He first placed the guidewire through the existing perc tube). Tracheostomy tube placement was confirmed with bronchoscopy again. At the beginning of tracheostomy patient's oxygen saturation was in the mid 70s. This slowly improved to 95% and patient was placed on ventilator. At this time we are unable to get any other history from the patient regarding food allergies. Scheduled IV Decadron Benadryl and famotidine had been started. 11/14 Remains deeply sedated and on mechanical ventilation via trach, no leak. Plan for revision of trach on Thursday. Has persistent face and tongue swelling but family and staff indicate improved compared with yesterday. Family states patient on lisinopril ~ 1 year, correction NSAIDS. She had eaten scrapple and toast about 1 1/2 hours before onset of symptoms. 11/15 Fiberoptic bronchoscopy performed and demonstrates persistent cord edema. Existing tracheostomy position noted immediately subglottic at expected level of cricothyroid membrane. Dr. Copeland will schedule revision to formal tracheostomy. Patient remains heavily sedated to ensure airway maintenance. 11/16: remains deeply sedated for airway protection. discussion with Dr. Copeland: may need additional time for edema to decrease. will now plan to leave cric in place and not revise at this immediate time. 11/17: I remained at beside today and personally weaned sedation to ensure patient was calm through emergence from sedation. patient now off sedation, awake, alert, oriented, calm. on t-piece 40% o2. 11/18: significantly agitated overnight, requiring deep sedation to prevent trach dislodgement and loss of airway. back on the vent this AM. critical agitation and some delirium. some improvement with haldol iv. 11/19: agitation persists. discussed with general surgery, will need to re- evaluate level of edema tomorrow. 11/20: bronch today with completely resolved pharyngeal edema. also performed direct laryngoscopy and patient is an easy Grade I view with Mac 3 blade. mild edema at the cords themselves, but visually could easily pass 7.0 or greater ett. significant emesis and KUB with abdominal distension/ileus, nonobstructive pattern. given neostigmine 2.5mg iv with significant bowel movement and improvement in distension. NGT placed and >1L bilious emesis removed. still CAM + and agitation is a problem. Subjective: 11/21: agitation still a problem. NGT output significantly improved. good BM yesterday and abdomen soft today. no evidence of laryngeal edema today. Objective Vital Signs / I&O: Vital Signs 11/20/17 15:30 11/20/17 16:00 11/20/17 16:30 Temperature Pulse Rate 54 L 56 L 53 L Respiratory Rate 24 24 24 Blood Pressure 113/57 L 116/64 117/65 Pulse Oximetry 93 L 95 95 11/20/17 17:00 11/20/17 17:30 11/20/17 18:00 Temperature Pulse Rate 50 L 47 L 44 L Respiratory Rate 24 24 24 Blood Pressure 114/60 114/63 112/64 Pulse Oximetry 95 96 96 11/20/17 18:30 11/20/17 19:21 11/20/17 20:00 Temperature 37.2 C Pulse Rate 43 L 51 L Respiratory Rate 24 26 H 24 Blood Pressure 118/66 125/71 Pulse Oximetry 96 98 96 11/20/17 22:00 11/20/17 22:20 11/21/17 00:00 Temperature 37.1 C Pulse Rate 47 L 55 L Respiratory Rate 24 26 H Blood Pressure 142/80 H Pulse Oximetry 98 97 11/21/17 01:09 11/21/17 02:00 11/21/17 04:00 Temperature 37.2 C Pulse Rate 49 L 39 L Respiratory Rate 24 26 H Blood Pressure 132/70 Pulse Oximetry 96 97 11/21/17 06:00 11/21/17 07:53 11/21/17 08:00 Temperature 37.0 C Pulse Rate 40 L 37 L Respiratory Rate 24 24 Blood Pressure 152/83 H Pulse Oximetry 97 98 11/21/17 10:00 11/21/17 11:20 11/21/17 12:00 Temperature 37.1 C Pulse Rate 47 L 41 L Respiratory Rate 24 24 Blood Pressure 152/80 H Pulse Oximetry 97 98 11/21/17 14:00 11/21/17 14:48 Temperature Pulse Rate 40 L Respiratory Rate 24 Blood Pressure Pulse Oximetry 97 Intake & Output 11/20/17 11/21/17 11/21/17 18:59 06:59 18:59 Intake Total 550 / 550 800 / 800 200 / 200 Output Total 2900 / 2900 1600 / 1600 Balance -2350 / -2350 -800 / -800 200 / 200 Weight 101 kg Intake: IV 550 / 550 800 / 800 200 / 200 Precedex Inj 1,000 MCG In NS 250 / 250 500 / 500 Inj 240 ML @ 0.2 MCG/KG/HR 5.42 mls/hr IV.CONT TITRATE PRN Rx# :[id number] Diprivan 1000 mg/100 ml Inj 1, 300 / 300 300 / 300 200 / 200 000 mg In 100 ml @ 5 MCG/KG/MIN 3.255 mls/hr IV.CONT TITRATE PRN Rx#:[id number] Output: Urine 1600 / 1600 1600 / 1600 Emesis 1300 / 1300 Other: Date of Last Bowel Movement 11/20/17 11/20/17 11/20/17 # Bowel Movements 1 0 Result Diagrams: 11/20/17 10:53 11/20/17 10:53 Objective Remarks: GENERAL: Obese female agitated, delirious. SKIN: Warm and dry. No rash or urticaria. HEAD: Atraumatic. Normocephalic. no edema today. EYES: Pupils equal and round, pinpoint bilaterally. No scleral icterus. No injection or drainage. ENT: No nasal bleeding or discharge. Mucous membranes pink and moist. NECK: Trachea midline. No JVD. [address] via cricothyroid membrane. CARDIOVASCULAR: Regular rate and rhythm. No murmurs rubs or gallops. RESPIRATORY: No accessory muscle use. Clear to auscultation. Breath sounds equal bilaterally. VC/AC mode ventilation. GASTROINTESTINAL: Abdomen soft, non-tender, moderately distended. hypoactive bowel sounds. MUSCULOSKELETAL: Extremities without clubbing, cyanosis, or edema. No obvious deformities. NEUROLOGICAL: RASS -3. does not follow commands. intermittently agitated. Assessment and Plan - Problem List (1) Acute hypoxemic respiratory failure Code(s): J96.01 - Acute respiratory failure with hypoxia Status: Acute (2) Angioedema Code(s): T78.3XXA - Angioneurotic edema, initial encounter Status: Acute - Assessment and Plan Plan: Assessment: 47yF with angioedema compromising airway requiring emergent surgical airway. now her course is complicated by life-threatening agitation as well as nausea/vomiting and non-obstructive ileus. start tube feeds. continue aggressive bowel regimen. at this point, airway is no longer a significant concern. once agitation controlled, can continue daily SBTs. NEURO: Severe life-threatening agitated delirium - precedex and propofol - goal RASS 0 - d/c scheduled haldol and start seroquel 50mg po q8hr - breakthrough haldol 5mg iv q1h prn - add oxycodone 10mg po q4h scheduled for chronic back pain as this may add to her agitation. - frequent neuro checks. RESP: Acute hypoxemic respiratory failure- resolving. Angioedema with severe upper airway compromise- resolved -Emergent cric per Dr. Sandhu at [place] [facility]. -Unable to adequately ventilate through the cric tube as it was cuff less tube ( supplied in Melker kit) -Dr. Copeland emergently performed percutaneous tracheostomy at the bedside by passing wire through existing cric tube. -Existing tube without cuff leak. -discussion with Dr. Copeland: will keep current surgical airway in place - at this point, airway is no longer an issue. on 11/20, direct laryngoscopy with lilli #3 blade with easy Grade 1 view of complete larynx. bronch on without any evidence of pharyngeal or hypopharyngeal or laryngeal edema. - d/c decadron and benadryl. -DuoNeb every 6 hours scheduled and as needed -Famotidine 20 mg IV every 12 - Etiology most like Ervin-I, NSAIDS also a possibility. Given the severity of this reaction, recommended avoiding both and f/u with business analyst intern. C4 is normal, tryptase pending. CV: Pulmonary edema most likely negative pressure- resolved -d/c lasix. GI: Nonobstructive ileus- resolving - start glucerna tube feeds - bowel regimen with senna, colace, miralax, lactulose, dulcolax suppository, prn milk of mag. - goal daily BMs. FEN/RENAL: -Monitor renal function closely. - voiding on own -Electrolyte replacement per protocol ID: -afebrile. u/a was not suggestive of UTI. - am CBC. HEME: -Monitor CBC ENDO: -Monitoring glucose q6 hours. Sliding scale insulin if needed PROPH: -Bilateral lower extremity SCDs. Lovenox daily. IV famotidine LINES: -Utilize peripheral IVs PT/OT. careful mobilization. FULL CODE
[2017-11-21] MEDS: Polyethylene Glycol 3350 17 GM Packet PO SCH (20:03)
[2017-11-21] MEDS: QUEtiapine 25 MG Tablet PO SCH (22:42)
[2017-11-22] MEDS: Oral Hygiene Kit OROPHARYNG SCH ×4 (00:37→18:04)
[2017-11-22] MEDS: Insulin NovoLOG Aspart Correctional Sugar Inj SQ SCH ×4 (00:37→18:04)
[2017-11-22] MEDS: Propofol 1000 mg/100 ml Inj 1,000 MG/100 ML BOTTLE IV.CONT PRN ×5 (00:41→18:49)
[2017-11-22 04:07] LABS: Hemoglobin 11.7 gm/dL (11.6-15.3); Mean Corpuscular HGB Conc 34.2 % (32.0-36.0); Mean Corpuscular Hemoglobin 32.7 pg (27.0-34.0); Mean Corpuscular Volume 95.6 fL (80.0-100.0); Mean Platelet Volume 8.4 fL (7.0-11.0); Platelet Count 262 th/mm3 (150-450); Red Blood Count 3.56 mil/mm3 (4.00-5.30); Red Cell Distribution Width 13.7 % (11.6-17.2); White Blood Count 14.9 th/mm3 (4.0-11.0)
[2017-11-22] MEDS: Dexmedetomidine Inj 1,000 MCG in Sodium Chlor 0.9% Inj 240 ML IV.CONT PRN ×3 (04:30→20:38)
[2017-11-22 05:29] LABS: Anion Gap 12 meq/L (5-15); Blood Urea Nitrogen 38 mg/dL (7-18); Calcium 8.2 mg/dL (8.5-10.1); Carbon Dioxide 27.2 meq/L (21.0-32.0); Chloride 105 meq/L (98-107); Glomerular Filtration Rate Greater Than 89 mL/min (>89); Glucose,Random 104 mg/dL (74-106); Sodium 144 meq/L (136-145)
[2017-11-22 05:30] LABS: Potassium 3.2 meq/L (3.5-5.1)
[2017-11-22] MEDS: QUEtiapine 25 MG Tablet PO SCH ×3 (06:14→22:10)
[2017-11-22] MEDS: Chlorhexidine 0.12% Oral Kit 15 ML UDC OROPHARYNG SCH ×2 (08:41→20:00)
[2017-11-22] MEDS: Potassium Chlor 20 mEq Premix 20 MEQ/100 ML PIGGYBACK IV.SIG PRN ×4 (08:41→17:00)
[2017-11-22] MEDS: Enoxaparin Inj 40 MG/0.4 ML Syringe SQ SCH (08:42)
[2017-11-22] MEDS: Famotidine PF Inj 20 MG/2 ML Vial IV.PUSH SCH ×2 (08:43→20:02)
[2017-11-22] MEDS: Polyethylene Glycol 3350 17 GM Packet PO SCH ×2 (08:43→20:01)
[2017-11-22] MEDS: Senna/Docusate Sodium 8.6/50 MG Tablet PO SCH ×2 (08:43→20:02)
--- NOTE | 2017-11-22 17:20 | P.PNCC ---
Subjective Subjective Remarks/Hospital Course: Patient is a 47 year old morbidly female obese female who presented to the [place] emergency department with severe acute anaphylactic reaction, and airway compromise. RSI was attempted by Dr. Pino and Dr. Sandhu, but they were unable to. An LMA was placed but the patient's O2 sats remained in the low 80s. Emergency cricothyroidotomy was performed at [place] emergency department , by Dr. Sandhu, 6-0 uncuffed cric tube was placed. Postplacement there was leak around the trach tube with bag and mask ventilation. LMA was reintroduced and patient was given ventilation through the LMA and patient was emergently transferred to the [facility]. I evaluated patient emergently in 504 in [facility]. Patient is sedated with propofol infusion. Oxygen saturation with bag and mask ventilation was 88-90%. I performed a bronchoscopy through the LMA , vocal cords appeared severely swollen. A pediatric bronchoscope was not available to the load a 6.0 ET tube. I attempted intubation with the glide scope and 6.0 ET tube. I was able to visualize the significantly swollen glottic opening and vocal cords, but I was unable to pass the ET tube through the vocal cords due to swelling. Dr. Castaneda placed a new #5 LMA and we returned to bag and mask ventilation and Dr. Copeland performed a percutaneous Blue Rhino tracheostomy at the bedside through the existing cric incision. (He first placed the guidewire through the existing perc tube). Tracheostomy tube placement was confirmed with bronchoscopy again. At the beginning of tracheostomy patient's oxygen saturation was in the mid 70s. This slowly improved to 95% and patient was placed on ventilator. At this time we are unable to get any other history from the patient regarding food allergies. Scheduled IV Decadron Benadryl and famotidine had been started. 11/14 Remains deeply sedated and on mechanical ventilation via trach, no leak. Plan for revision of trach on Thursday. Has persistent face and tongue swelling but family and staff indicate improved compared with yesterday. Family states patient on lisinopril ~ 1 year, nursing home NSAIDS. She had eaten scrapple and toast about 1 1/2 hours before onset of symptoms. 11/15 Fiberoptic bronchoscopy performed and demonstrates persistent cord edema. Existing tracheostomy position noted immediately subglottic at expected level of cricothyroid membrane. Dr. Copeland will schedule revision to formal tracheostomy. Patient remains heavily sedated to ensure airway maintenance. 11/16: remains deeply sedated for airway protection. discussion with Dr. Copeland: may need additional time for edema to decrease. will now plan to leave cric in place and not revise at this immediate time. 11/17: I remained at beside today and personally weaned sedation to ensure patient was calm through emergence from sedation. patient now off sedation, awake, alert, oriented, calm. on t-piece 40% o2. 11/18: significantly agitated overnight, requiring deep sedation to prevent trach dislodgement and loss of airway. back on the vent this AM. critical agitation and some delirium. some improvement with haldol iv. 11/19: agitation persists. discussed with general surgery, will need to re- evaluate level of edema tomorrow. 11/20: bronch today with completely resolved pharyngeal edema. also performed direct laryngoscopy and patient is an easy Grade I view with Mac 3 blade. mild edema at the cords themselves, but visually could easily pass 7.0 or greater ett. significant emesis and KUB with abdominal distension/ileus, nonobstructive pattern. given neostigmine 2.5mg iv with significant bowel movement and improvement in distension. NGT placed and >1L bilious emesis removed. still CAM + and agitation is a problem. Subjective: 11/21: agitation still a problem. NGT output significantly improved. good BM yesterday and abdomen soft today. no evidence of laryngeal edema today. 11/22: more awake and less agitated today. weaning sedation. following commands for the first time consistently in 48h. tolerating tube feeds. BM daily now. Objective Vital Signs / I&O: Vital Signs 11/21/17 17:32 11/21/17 18:00 11/21/17 19:57 Temperature Pulse Rate 46 L Respiratory Rate 24 24 Blood Pressure Pulse Oximetry 98 100 11/21/17 20:00 11/21/17 22:00 11/22/17 00:00 Temperature 36.9 C 36.9 C Pulse Rate 51 L 53 L 62 Respiratory Rate 24 24 Blood Pressure 132/66 139/70 Pulse Oximetry 99 97 11/22/17 00:54 11/22/17 02:00 11/22/17 03:43 Temperature Pulse Rate 56 L Respiratory Rate 24 24 Blood Pressure Pulse Oximetry 96 99 11/22/17 04:00 11/22/17 06:00 11/22/17 07:37 Temperature 37.3 C Pulse Rate 52 L 54 L Respiratory Rate 24 26 H Blood Pressure 108/56 L Pulse Oximetry 94 L 97 11/22/17 08:00 11/22/17 10:00 11/22/17 11:15 Temperature 37.1 C Pulse Rate 51 L 77 Respiratory Rate 13 Blood Pressure 112/62 Pulse Oximetry 100 11/22/17 12:00 11/22/17 14:00 11/22/17 15:53 Temperature 37.1 C Pulse Rate 58 L 56 L Respiratory Rate 14 9 L Blood Pressure 109/55 L Pulse Oximetry 100 11/22/17 15:58 Temperature Pulse Rate 58 L Respiratory Rate 9 L Blood Pressure Pulse Oximetry Intake & Output 11/21/17 11/22/17 11/22/17 18:59 06:59 18:59 Intake Total 750 / 750 450 / 450 550 / 550 Output Total 2400 / 2400 900 / 900 Balance -1650 / -1650 -450 / -450 550 / 550 Weight 99 kg Intake: IV 650 / 650 450 / 450 550 / 550 Precedex Inj 1,000 MCG In NS 250 / 250 250 / 250 250 / 250 Inj 240 ML @ 0.2 MCG/KG/HR 5.42 mls/hr IV.CONT TITRATE PRN Rx# :[id number] Diprivan 1000 mg/100 ml Inj 1, 400 / 400 200 / 200 100 / 100 000 mg In 100 ml @ 5 MCG/KG/MIN 3.255 mls/hr IV.CONT TITRATE PRN Rx#:[id number] KCl 20 mEq Premix Inj 20 meq In 200 / 200 100 ml @ 50 mls/hr IV.SIG Q2H PRN Rx#:[id number] Oral 0 / 0 Tube Feeding 0 / 0 0 / 0 Water Bolus Amount 100 / 100 0 / 0 Output: Urine 1500 / 1500 Emesis 0 / 0 Urine Amount (Catheter) 500 / 500 Straight 500 / 500 Gastric Drainage 900 / 900 400 / 400 Left Nare Nasogastric Tube 900 / 900 400 / 400 Other: Date of Last Bowel Movement 11/20/17 11/22/17 11/22/17 # Bowel Movements 1 # Emeses 0 Result Diagrams: 11/22/17 02:48 11/22/17 02:48 Objective Remarks: GENERAL: Obese female agitated, delirious. SKIN: Warm and dry. No rash or urticaria. HEAD: Atraumatic. Normocephalic. no edema today. EYES: Pupils equal and round, pinpoint bilaterally. No scleral icterus. No injection or drainage. ENT: No nasal bleeding or discharge. Mucous membranes pink and moist. NECK: Trachea midline. No JVD. [address] via cricothyroid membrane. CARDIOVASCULAR: Regular rate and rhythm. No murmurs rubs or gallops. RESPIRATORY: No accessory muscle use. Clear to auscultation. Breath sounds equal bilaterally. VC/AC mode ventilation. GASTROINTESTINAL: Abdomen soft, non-tender, moderately distended. hypoactive bowel sounds. MUSCULOSKELETAL: Extremities without clubbing, cyanosis, or edema. No obvious deformities. NEUROLOGICAL: RASS -2. following commands this AM. CAM-. Assessment and Plan - Problem List (1) Acute hypoxemic respiratory failure Code(s): J96.01 - Acute respiratory failure with hypoxia Status: Acute (2) Angioedema Code(s): T78.3XXA - Angioneurotic edema, initial encounter Status: Acute - Assessment and Plan Plan: Assessment: 47yF with angioedema compromising airway requiring emergent surgical airway. now her course is complicated by life-threatening agitation as well as nausea/vomiting and non-obstructive ileus. ileus has resolved. agitation now appears to be resolving. will start weaning sedation and start SBT again. NEURO: Severe life-threatening agitated delirium- resolving. - precedex and propofol - goal RASS 0 - seroquel 50mg po q8hr - breakthrough haldol 5mg iv q1h prn - oxycodone 10mg po q4h scheduled for chronic back pain as this may add to her agitation. - frequent neuro checks. RESP: Acute hypoxemic respiratory failure- resolving. Angioedema with severe upper airway compromise- resolved -Emergent cric per Dr. Sandhu at [place] ED. -Unable to adequately ventilate through the cric tube as it was cuff less tube ( supplied in Melker kit) -Dr. Copeland emergently performed percutaneous tracheostomy at the bedside by passing wire through existing cric tube. -Existing tube without cuff leak. -discussion with Dr. Copeland: will keep current surgical airway in place - at this point, airway is no longer an issue. on 11/20, direct laryngoscopy with lilli #3 blade with easy Grade 1 view of complete larynx. bronch on without any evidence of pharyngeal or hypopharyngeal or laryngeal edema. - d/c decadron and benadryl. -DuoNeb every 6 hours scheduled and as needed -Famotidine 20 mg IV every 12 restart daily SBTs. - Etiology most like Ervin-I, NSAIDS also a possibility. Given the severity of this reaction, recommended avoiding both and f/u with law examiner. C4 is normal, tryptase pending. CV: Pulmonary edema most likely negative pressure- resolved -d/c lasix. GI: Nonobstructive ileus- resolving - glucerna tube feeds - bowel regimen with senna, colace, miralax, lactulose, dulcolax suppository, prn milk of mag. - goal daily BMs. FEN/RENAL: -Monitor renal function closely. - voiding on own -Electrolyte replacement per protocol ID: -afebrile. u/a was not suggestive of UTI. - am CBC. HEME: -Monitor CBC ENDO: -Monitoring glucose q6 hours. Sliding scale insulin if needed PROPH: -Bilateral lower extremity SCDs. Lovenox daily. IV famotidine LINES: -Utilize peripheral IVs PT/OT. careful mobilization. FULL CODE
[2017-11-22] MEDS: Bisacodyl 10 MG Supp RECTAL SCH (17:38)
[2017-11-23] MEDS: Insulin NovoLOG Aspart Correctional Sugar Inj SQ SCH ×4 (01:04→18:48)
[2017-11-23] MEDS: Oral Hygiene Kit OROPHARYNG SCH ×4 (01:04→18:48)
[2017-11-23] MEDS: QUEtiapine 25 MG Tablet PO SCH ×3 (05:16→22:54)
[2017-11-23] MEDS: Dexmedetomidine Inj 1,000 MCG in Sodium Chlor 0.9% Inj 240 ML IV.CONT PRN ×2 (06:30→15:16)
[2017-11-23 07:06] LABS: Hematocrit 35.4 % (35.0-46.0); Hemoglobin 11.8 gm/dL (11.6-15.3); Mean Corpuscular HGB Conc 33.4 % (32.0-36.0); Mean Corpuscular Hemoglobin 32.3 pg (27.0-34.0); Mean Corpuscular Volume 96.7 fL (80.0-100.0); Mean Platelet Volume 8.6 fL (7.0-11.0); Platelet Count 218 th/mm3 (150-450); Red Blood Count 3.66 mil/mm3 (4.00-5.30); Red Cell Distribution Width 13.6 % (11.6-17.2); White Blood Count 14.8 th/mm3 (4.0-11.0)
[2017-11-23 07:25] LABS: Anion Gap 10 meq/L (5-15); Blood Urea Nitrogen 34 mg/dL (7-18); Calcium 8.5 mg/dL (8.5-10.1); Carbon Dioxide 26.9 meq/L (21.0-32.0); Chloride 108 meq/L (98-107); Glomerular Filtration Rate Greater Than 89 mL/min (>89); Glucose,Random 92 mg/dL (74-106); Potassium 3.4 meq/L (3.5-5.1); Sodium 145 meq/L (136-145)
[2017-11-23] MEDS: Famotidine PF Inj 20 MG/2 ML Vial IV.PUSH SCH ×2 (08:47→20:00)
[2017-11-23] MEDS: Enoxaparin Inj 40 MG/0.4 ML Syringe SQ SCH (08:48)
[2017-11-23] MEDS: Senna/Docusate Sodium 8.6/50 MG Tablet PO SCH ×2 (08:48→20:01)
[2017-11-23] MEDS: Polyethylene Glycol 3350 17 GM Packet PO SCH ×2 (08:48→20:00)
[2017-11-23] MEDS: Bisacodyl 10 MG Supp RECTAL SCH (08:49)
[2017-11-23] MEDS: Chlorhexidine 0.12% Oral Kit 15 ML UDC OROPHARYNG SCH ×2 (08:51→19:59)
[2017-11-23] MEDS: Potassium Chloride 25 MEQ Effervescent Tablet PO PRN (08:51)
--- NOTE | 2017-11-23 11:26 | P.DIET ---
Nutritional Evaluation Type of nutrition evaluation: follow-up Nutrition consult regarding: Tube Feeding Subjective Subjective Comments: Used SCCM/ASPEN guidelines for critically ill w/ BMI >30. Objective - Diagnosis Anaphlyaxis - Objective % IBW: 161 (SGA=655#) Body Weight Used for Calculations: IBW (68.2kg [PRO]), Actual (109.5kg [kcals]) Energy Needs - Lower Range (kCal/kg): 11 Energy Needs - Upper Range (kCal/kg): 14 Lower Limit kCal/kg (kCals): 1,205 Upper Limit kCal/kg (kCals): 1,533 Lower Limit Protein Factor (Grams per Kg): 2.0 Lower Protein Needs (Protein): 136 Dietitian Reviewed in Medical Record: Curent medications, Intake & Output, Labs , Medical history, Tube feeding Diet Order: TF Only Assessment Assessment: Pt admitted for anaphylaxis. Per records, pt was difficult to intubate 2/2 edema so an emergent tracheostomy was performed. She had not been receiving TFing d/t N/V and non-obstructing ileus. TF now resumed. Current TF order is for Glucerna 1.5 @ 60 mls/hr goal. To meet pt's nutritional requirements, recommend Vital High Protein @ 65mls/hr. This regimen will provide 1560kcals, 137g PRO, and 1304mls fluid. Unsure what caused the anaphylaxis. CBW = 101.3 kg. LBM 11/22 Recommendations: Recommend Vital High Protein @ 65mls/hr. Dietitian to Monitor: Lab values, Intake & Output, Tube feeding tolerance, Weight change, Medical course
--- NOTE | 2017-11-23 12:59 | XR ---
EXAM DATE: 11/23/2017 12:50 PM EDT AGE/SEX: 47 years / Female INDICATIONS: Abdominal distention, evaluate ileus CLINICAL DATA: This is the patient's subsequent encounter. Patient reports that signs and symptoms h ave been present for 3 days and indicates a pain score of Nonresponsive. MEDICAL/SURGICAL HISTORY: . anaphylaxis . tracheostomy COMPARISON: [facility], ABDOMEN 1V KUB, 11/20/2017. . FINDINGS: There is a Dobbhoff tube coiled in the fundus of the stomach. There is diffuse persistent gaseous di stention of small bowel throughout the abdomen and stomach. Overall this is unchanged from prior exam . No gross pneumatosis or free air. Main of the exam is unchanged. CONCLUSION: 1. Stable bowel gas pattern consistent with severe adynamic ileus versus partial small bowel obstruc tion. 2. Persistent gaseous distention of the stomach. Patient may benefit from NGT decompression. Electronically signed by: Celestino Otoole MD 11/23/2017 12:58 PM EDT
--- NOTE | 2017-11-23 13:02 | XR ---
EXAM DATE: 11/23/2017 12:44 PM EDT AGE/SEX: 47 years / Female INDICATIONS: Short of breath, respiratory disease CLINICAL DATA: This is the patient's subsequent encounter. Patient reports that signs and symptoms h ave been present for 3 days and indicates a pain score of Nonresponsive. MEDICAL/SURGICAL HISTORY: . anaphylaxis . tracheostomy COMPARISON: [facility], CHEST 1V SINGLE AP, 11/17/2017. . FINDINGS: Underinflated AP view of the chest demonstrates a normal-sized cardiac silhouette. EKG lines overlie the patient. Tracheostomy overlies the trachea and nasogastric tube distal tip is in the stomach. Fee ding tube distal tip is also within the stomach. Lungs are underinflated with bibasilar opacity. No p leural effusion or pneumothorax is identified. CONCLUSION: Underinflation with bibasilar opacity with an appearance favoring subsegmental atelectasis. There is mild improved aeration at the left lung base compared to the prior exam. Electronically signed by: Uriel Middleton MD 11/23/2017 1:00 PM EDT
--- NOTE | 2017-11-23 13:05 | P.PNCC ---
Subjective Subjective Remarks/Hospital Course: Patient is a 47 year old morbidly female obese female who presented to the [place] emergency department with severe acute anaphylactic reaction, and airway compromise. RSI was attempted by Dr. Pino and Dr. Sandhu, but they were unable to. An LMA was placed but the patient's O2 sats remained in the low 80s. Emergency cricothyroidotomy was performed at [place] emergency department , by Dr. Sandhu, 6-0 uncuffed cric tube was placed. Postplacement there was leak around the trach tube with bag and mask ventilation. LMA was reintroduced and patient was given ventilation through the LMA and patient was emergently transferred to the [facility]. I evaluated patient emergently in 504 in [facility]. Patient is sedated with propofol infusion. Oxygen saturation with bag and mask ventilation was 88-90%. I performed a bronchoscopy through the LMA , vocal cords appeared severely swollen. A pediatric bronchoscope was not available to the load a 6.0 ET tube. I attempted intubation with the glide scope and 6.0 ET tube. I was able to visualize the significantly swollen glottic opening and vocal cords, but I was unable to pass the ET tube through the vocal cords due to swelling. Dr. Castaneda placed a new #5 LMA and we returned to bag and mask ventilation and Dr. Copeland performed a percutaneous Blue Rhino tracheostomy at the bedside through the existing cric incision. (He first placed the guidewire through the existing perc tube). Tracheostomy tube placement was confirmed with bronchoscopy again. At the beginning of tracheostomy patient's oxygen saturation was in the mid 70s. This slowly improved to 95% and patient was placed on ventilator. At this time we are unable to get any other history from the patient regarding food allergies. Scheduled IV Decadron Benadryl and famotidine had been started. 11/14 Remains deeply sedated and on mechanical ventilation via trach, no leak. Plan for revision of trach on Thursday. Has persistent face and tongue swelling but family and staff indicate improved compared with yesterday. Family states patient on lisinopril ~ 1 year, care home NSAIDS. She had eaten scrapple and toast about 1 1/2 hours before onset of symptoms. 11/15 Fiberoptic bronchoscopy performed and demonstrates persistent cord edema. Existing tracheostomy position noted immediately subglottic at expected level of cricothyroid membrane. Dr. Copeland will schedule revision to formal tracheostomy. Patient remains heavily sedated to ensure airway maintenance. 11/16: remains deeply sedated for airway protection. discussion with Dr. Copeland: may need additional time for edema to decrease. will now plan to leave cric in place and not revise at this immediate time. 11/17: I remained at beside today and personally weaned sedation to ensure patient was calm through emergence from sedation. patient now off sedation, awake, alert, oriented, calm. on t-piece 40% o2. 11/18: significantly agitated overnight, requiring deep sedation to prevent trach dislodgement and loss of airway. back on the vent this AM. critical agitation and some delirium. some improvement with haldol iv. 11/19: agitation persists. discussed with general surgery, will need to re- evaluate level of edema tomorrow. 11/20: bronch today with completely resolved pharyngeal edema. also performed direct laryngoscopy and patient is an easy Grade I view with Mac 3 blade. mild edema at the cords themselves, but visually could easily pass 7.0 or greater ett. significant emesis and KUB with abdominal distension/ileus, nonobstructive pattern. given neostigmine 2.5mg iv with significant bowel movement and improvement in distension. NGT placed and >1L bilious emesis removed. still CAM + and agitation is a problem. Subjective: 11/21: agitation still a problem. NGT output significantly improved. good BM yesterday and abdomen soft today. no evidence of laryngeal edema today. 11/22: more awake and less agitated today. weaning sedation. following commands for the first time consistently in 48h. tolerating tube feeds. BM daily now. 11/23: Currently awake alert on CPAP. Tolerating well. Will place on T piece for 24 hours and possibly decannulate tomorrow. Discussed with Dr. Copeland. Chest x-ray improving infiltrates Objective Vital Signs / I&O: Vital Signs 11/22/17 14:00 11/22/17 15:53 11/22/17 15:58 Temperature Pulse Rate 56 L 58 L Respiratory Rate 9 L 9 L Blood Pressure Pulse Oximetry 100 11/22/17 16:00 11/22/17 18:00 11/22/17 19:20 Temperature 99 F Pulse Rate 54 L 54 L Respiratory Rate 13 12 Blood Pressure 116/66 Pulse Oximetry 100 11/22/17 20:00 11/22/17 22:00 11/22/17 22:20 Temperature 98.7 F Pulse Rate 52 L 51 L Respiratory Rate 14 13 Blood Pressure 117/59 L Pulse Oximetry 100 11/23/17 00:00 11/23/17 01:18 11/23/17 02:00 Temperature 98.4 F Pulse Rate 49 L 56 L Respiratory Rate 10 L 10 L Blood Pressure 129/63 Pulse Oximetry 100 11/23/17 04:00 11/23/17 04:28 11/23/17 04:39 Temperature 98.3 F Pulse Rate 52 L Respiratory Rate 13 11 L 13 Blood Pressure 122/59 L Pulse Oximetry 100 11/23/17 06:00 11/23/17 07:39 11/23/17 08:00 Temperature 98.4 F Pulse Rate 55 L 65 Respiratory Rate 13 14 Blood Pressure 133/74 Pulse Oximetry 100 11/23/17 10:00 11/23/17 11:40 Temperature Pulse Rate 69 Respiratory Rate Blood Pressure Pulse Oximetry 96 Intake & Output 11/22/17 11/23/17 11/23/17 18:59 06:59 18:59 Intake Total 750 / 750 845 / 845 Output Total 500 / 500 600 / 600 Balance 250 / 250 245 / 245 Weight 101.3 kg Intake: IV 750 / 750 600 / 600 Precedex Inj 1,000 MCG In NS 250 / 250 500 / 500 Inj 240 ML @ 0.2 MCG/KG/HR 5.42 mls/hr IV.CONT TITRATE PRN Rx# :[id number] Diprivan 1000 mg/100 ml Inj 1, 200 / 200 000 mg In 100 ml @ 5 MCG/KG/MIN 3.255 mls/hr IV.CONT TITRATE PRN Rx#:[id number] KCl 20 mEq Premix Inj 20 meq In 300 / 300 100 / 100 100 ml @ 50 mls/hr IV.SIG Q2H PRN Rx#:[id number] Oral 0 / 0 Tube Feeding 185 / 185 Water Bolus Amount 60 / 60 Output: Urine 500 / 500 600 / 600 Emesis 0 / 0 Other: # Incontinent Voids 0 Date of Last Bowel Movement 11/22/17 11/22/17 11/22/17 # Bowel Movements 1 0 # Emeses 0 Result Diagrams: 11/23/17 04:11 11/23/17 04:11 Objective Remarks: GENERAL: Obese female calm, following commands. SKIN: Warm and dry. No rash or urticaria. HEAD: Atraumatic. Normocephalic. no edema today. EYES: Pupils equal and round, pinpoint bilaterally. No scleral icterus. No injection or drainage. ENT: No nasal bleeding or discharge. Mucous membranes pink and moist. NECK: Trachea midline. No JVD. [address] via cricothyroid membrane. CARDIOVASCULAR: Regular rate and rhythm. No murmurs rubs or gallops. RESPIRATORY: No accessory muscle use. Clear to auscultation. Breath sounds equal bilaterally. VC/AC mode ventilation. GASTROINTESTINAL: Abdomen soft, non-tender, moderately distended. hypoactive bowel sounds. MUSCULOSKELETAL: Extremities without clubbing, cyanosis, or edema. No obvious deformities. NEUROLOGICAL: RASS -1. following commands this AM. No focal deficits Assessment and Plan - Problem List (1) Acute hypoxemic respiratory failure Code(s): J96.01 - Acute respiratory failure with hypoxia Status: Acute (2) Angioedema Code(s): T78.3XXA - Angioneurotic edema, initial encounter Status: Acute - Assessment and Plan Plan: Assessment: 47yF with angioedema compromising airway requiring emergent surgical airway. now her course is complicated by life-threatening agitation as well as nausea/vomiting and non-obstructive ileus. ileus has resolved. agitation now appears to be resolving. will start weaning sedation and start SBT again. NEURO: Agitated delirium- resolving - precedex wean to DC - goal RASS 0 - seroquel 50mg po q8hr - breakthrough haldol 5mg iv q1h prn - oxycodone 10mg po q4h scheduled for chronic back pain as this may add to her agitation. - frequent neuro checks. RESP: Acute hypoxemic respiratory failure- resolving. Angioedema with severe upper airway compromise- resolved -Emergent cric per Dr. Sandhu at [place] [facility]. -Unable to adequately ventilate through the cric tube as it was cuff less tube ( supplied in Melker kit) -Dr. Copeland emergently performed percutaneous tracheostomy at the bedside by passing wire through existing cric tube. -Existing tube without cuff leak. -discussion with Dr. Copeland: possible decannulation in am 11/24/17 - at this point, airway is no longer an issue. on 11/20, direct laryngoscopy with lilli #3 blade with easy Grade 1 view of complete larynx. bronch on without any evidence of pharyngeal or hypopharyngeal or laryngeal edema. - d/cd Decadron and benadryl. -DuoNeb every 6 hours scheduled and as needed -Famotidine 20 mg IV every 12 Diagnostic fiberoptic Bronchoscopy-no evidence of any persistent edema in the tongue, oral mucosa, pharynx, or hypopharynx. The larynx is without any evidence of edema. There is a very small amount of edema of the true vocal cords, but these are widely open and patent. No evidence of edema or secretions in the main airways. TP today 20/10 as tolerated - Etiology most like Ervin-I, NSAIDS also a possibility. Given the severity of this reaction, recommended avoiding both and f/u with harness cutter. C4 is normal, tryptase pending. CV: Pulmonary edema most likely negative pressure- resolved -d/cd lasix. GI: Nonobstructive ileus- resolving - glucerna tube feeds - bowel regimen with senna, colace, miralax, lactulose, dulcolax suppository, prn milk of mag. - goal daily BMs. FEN/RENAL: -Monitor renal function closely. - voiding on own -Electrolyte replacement per protocol ID: -afebrile. u/a was not suggestive of UTI. - am CBC. HEME: -Monitor CBC ENDO: -Monitoring glucose q6 hours. Sliding scale insulin if needed PROPH: -Bilateral lower extremity SCDs. Lovenox daily. IV famotidine LINES: -Utilize peripheral IVs PT/OT. careful mobilization. FULL CODE Level 3
[2017-11-24] MEDS: Oral Hygiene Kit OROPHARYNG SCH ×4 (00:06→16:03)
[2017-11-24] MEDS: Insulin NovoLOG Aspart Correctional Sugar Inj SQ SCH ×4 (00:06→17:55)
[2017-11-24] MEDS: Dexmedetomidine Inj 1,000 MCG in Sodium Chlor 0.9% Inj 240 ML IV.CONT PRN (01:25)
[2017-11-24 04:34] LABS: Hematocrit 36.1 % (35.0-46.0); Mean Corpuscular HGB Conc 33.3 % (32.0-36.0); Mean Platelet Volume 8.4 fL (7.0-11.0); Platelet Count 240 th/mm3 (150-450); Red Blood Count 3.76 mil/mm3 (4.00-5.30); Red Cell Distribution Width 13.4 % (11.6-17.2); White Blood Count 18.3 th/mm3 (4.0-11.0)
[2017-11-24 05:09] LABS: Anion Gap 9 meq/L (5-15); Blood Urea Nitrogen 23 mg/dL (7-18); Calcium 8.7 mg/dL (8.5-10.1); Carbon Dioxide 32.8 meq/L (21.0-32.0); Chloride 106 meq/L (98-107); Glomerular Filtration Rate Greater Than 89 mL/min (>89); Glucose,Random 100 mg/dL (74-106); Potassium 3.3 meq/L (3.5-5.1); Sodium 148 meq/L (136-145)
[2017-11-24] MEDS: QUEtiapine 25 MG Tablet PO SCH ×3 (06:50→21:15)
[2017-11-24] MEDS: Senna/Docusate Sodium 8.6/50 MG Tablet PO SCH ×2 (08:19→21:15)
[2017-11-24] MEDS: Bisacodyl 10 MG Supp RECTAL SCH (08:19)
[2017-11-24] MEDS: Polyethylene Glycol 3350 17 GM Packet PO SCH ×2 (08:19→21:15)
[2017-11-24] MEDS: Famotidine PF Inj 20 MG/2 ML Vial IV.PUSH SCH ×2 (08:19→21:15)
[2017-11-24] MEDS: Chlorhexidine 0.12% Oral Kit 15 ML UDC OROPHARYNG SCH ×2 (08:19→21:15)
[2017-11-24] MEDS: Enoxaparin Inj 40 MG/0.4 ML Syringe SQ SCH (08:19)
--- NOTE | 2017-11-24 09:32 | P.PNCC ---
Subjective Subjective Remarks/Hospital Course: Patient is a 47 year old morbidly female obese female who presented to the [facility] emergency department with severe acute anaphylactic reaction, and airway compromise. RSI was attempted by Dr. Pino and Dr. Sandhu, but they were unable to. An LMA was placed but the patient's O2 sats remained in the low 80s. Emergency cricothyroidotomy was performed at [facility] emergency department , by Dr. Sandhu, 6-0 uncuffed cric tube was placed. Postplacement there was leak around the trach tube with bag and mask ventilation. LMA was reintroduced and patient was given ventilation through the LMA and patient was emergently transferred to the [facility]. I evaluated patient emergently in 504 in [facility]. Patient is sedated with propofol infusion. Oxygen saturation with bag and mask ventilation was 88-90%. I performed a bronchoscopy through the LMA , vocal cords appeared severely swollen. A pediatric bronchoscope was not available to the load a 6.0 ET tube. I attempted intubation with the glide scope and 6.0 ET tube. I was able to visualize the significantly swollen glottic opening and vocal cords, but I was unable to pass the ET tube through the vocal cords due to swelling. Dr. Castaneda placed a new #5 LMA and we returned to bag and mask ventilation and Dr. Copeland performed a percutaneous [place] tracheostomy at the bedside through the existing cric incision. (He first placed the guidewire through the existing perc tube). Tracheostomy tube placement was confirmed with bronchoscopy again. At the beginning of tracheostomy patient's oxygen saturation was in the mid 70s. This slowly improved to 95% and patient was placed on ventilator. At this time we are unable to get any other history from the patient regarding food allergies. Scheduled IV Decadron Benadryl and famotidine had been started. 11/14 Remains deeply sedated and on mechanical ventilation via trach, no leak. Plan for revision of trach on Thursday. Has persistent face and tongue swelling but family and staff indicate improved compared with yesterday. Family states patient on lisinopril ~ 1 year, [facility] NSAIDS. She had eaten scrapple and toast about 1 1/2 hours before onset of symptoms. 11/15 Fiberoptic bronchoscopy performed and demonstrates persistent cord edema. Existing tracheostomy position noted immediately subglottic at expected level of cricothyroid membrane. Dr. Copeland will schedule revision to formal tracheostomy. Patient remains heavily sedated to ensure airway maintenance. 11/16: remains deeply sedated for airway protection. discussion with Dr. Copeland: may need additional time for edema to decrease. will now plan to leave cric in place and not revise at this immediate time. 11/17: I remained at beside today and personally weaned sedation to ensure patient was calm through emergence from sedation. patient now off sedation, awake, alert, oriented, calm. on t-piece 40% o2. 11/18: significantly agitated overnight, requiring deep sedation to prevent trach dislodgement and loss of airway. back on the vent this AM. critical agitation and some delirium. some improvement with haldol iv. 11/19: agitation persists. discussed with general surgery, will need to re- evaluate level of edema tomorrow. 11/20: bronch today with completely resolved pharyngeal edema. also performed direct laryngoscopy and patient is an easy Grade I view with Mac 3 blade. mild edema at the cords themselves, but visually could easily pass 7.0 or greater ett. significant emesis and KUB with abdominal distension/ileus, nonobstructive pattern. given neostigmine 2.5mg iv with significant bowel movement and improvement in distension. NGT placed and >1L bilious emesis removed. still CAM + and agitation is a problem. Subjective: 11/21: agitation still a problem. NGT output significantly improved. good BM yesterday and abdomen soft today. no evidence of laryngeal edema today. 11/22: more awake and less agitated today. weaning sedation. following commands for the first time consistently in 48h. tolerating tube feeds. BM daily now. 11/23: Currently awake alert on CPAP. Tolerating well. Will place on T piece for 24 hours and possibly decannulate tomorrow. Discussed with Dr. Copeland. Chest x-ray improving infiltrates 11/24: Patient is clinically improving, remained off the ventilator last 24 hours. KUB pending regarding ileus. However no vomiting at least for the last 12 hours, having BM Objective Vital Signs / I&O: Vital Signs 11/23/17 10:00 11/23/17 11:40 11/23/17 12:00 Temperature 98.7 F Pulse Rate 69 81 Respiratory Rate 29 H Blood Pressure 149/91 H Pulse Oximetry 96 11/23/17 14:00 11/23/17 16:00 11/23/17 18:00 Temperature 98.2 F Pulse Rate 78 79 79 Respiratory Rate 20 Blood Pressure 151/85 H Pulse Oximetry 97 11/23/17 20:00 11/23/17 20:46 11/23/17 22:00 Temperature 98.4 F Pulse Rate 76 78 Respiratory Rate 20 Blood Pressure 152/84 H Pulse Oximetry 98 98 11/24/17 00:00 11/24/17 01:43 11/24/17 02:00 Temperature 98.8 F Pulse Rate 72 73 Respiratory Rate 22 Blood Pressure 140/91 H Pulse Oximetry 96 100 11/24/17 04:00 11/24/17 05:41 Temperature 99.2 F Pulse Rate 81 73 Respiratory Rate 26 H Blood Pressure 164/108 H Pulse Oximetry 96 Intake & Output 11/23/17 11/24/17 11/24/17 18:59 06:59 18:59 Intake Total 559 / 559 250 / 250 Output Total 2100 / 2100 1500 / 1500 Balance -1541 / -1541 -1250 / -1250 Weight 94 kg Intake: IV 295 / 295 250 / 250 Precedex Inj 1,000 MCG In NS 250 / 250 250 / 250 Inj 240 ML @ 0.2 MCG/KG/HR 5.42 mls/hr IV.CONT TITRATE PRN Rx# :[id number] Diprivan 1000 mg/100 ml Inj 1, 45 / 45 000 mg In 100 ml @ 5 MCG/KG/MIN 3.255 mls/hr IV.CONT TITRATE PRN Rx#:[id number] Oral 0 / 0 Tube Feeding 89 / 89 Tube Irrigant 100 / 100 Water Bolus Amount 75 / 75 Output: Urine 1250 / 1250 1000 / 1000 Emesis 0 / 0 Gastric Drainage 850 / 850 500 / 500 Left Nare Nasogastric Tube 850 / 850 500 / 500 Other: # Incontinent Voids 0 Date of Last Bowel Movement 11/23/17 11/23/17 # Bowel Movements 1 # Incontinent Bowel Movements 1 # Emeses 6 Result Diagrams: 11/24/17 03:45 11/24/17 03:45 Objective Remarks: GENERAL: Obese female calm, following commands. SKIN: Warm and dry. No rash or urticaria. HEAD: Atraumatic. Normocephalic. no edema today. EYES: Pupils equal and round, pinpoint bilaterally. No scleral icterus. No injection or drainage. ENT: No nasal bleeding or discharge. Mucous membranes pink and moist. NECK: Trachea midline. No JVD. [address] via cricothyroid membrane[address] CARDIOVASCULAR: Regular rate and rhythm. No murmurs rubs or gallops. RESPIRATORY: No accessory muscle use. Clear to auscultation. Breath sounds equal bilaterally. on TP GASTROINTESTINAL: Abdomen soft, non-tender, moderately distended. hypoactive bowel sounds, but present. MUSCULOSKELETAL: Extremities without clubbing, cyanosis, or edema. No obvious deformities. NEUROLOGICAL: Alert awake. following commands this AM. No focal deficits Assessment and Plan - Problem List (1) Acute hypoxemic respiratory failure Code(s): J96.01 - Acute respiratory failure with hypoxia Status: Acute (2) Angioedema Code(s): T78.3XXA - Angioneurotic edema, initial encounter Status: Acute - Assessment and Plan Plan: Assessment: 47yF with angioedema compromising airway requiring emergent surgical airway. now her course is complicated by life-threatening agitation as well as nausea/vomiting and non-obstructive ileus. ileus clinically improving. agitation resolved. On TP last 24 hours NEURO: Agitated delirium- resolved - precedex wean to DC - goal RASS 0 - seroquel 50mg po q8hr - breakthrough haldol 5mg iv q1h prn - oxycodone 10mg po q4h PRN for chronic back pain as this may add to her agitation. - frequent neuro checks. RESP: Acute hypoxemic respiratory failure- resolving. Angioedema with severe upper airway compromise- resolved -Emergent cric per Dr. Sandhu at [facility]. -Unable to adequately ventilate through the cric tube as it was cuff less tube ( supplied in [facility] kit) -Dr. Copeland emergently performed percutaneous tracheostomy at the bedside by passing wire through existing cric tube. -Existing tube without cuff leak. -discussion with Dr. Copeland: Decannulation in am 11/24/17 - at this point, airway is no longer an issue. on 11/20, direct laryngoscopy with lilli #3 blade with easy Grade 1 view of complete larynx. bronch on without any evidence of pharyngeal or hypopharyngeal or laryngeal edema. - d/cd Decadron and benadryl. -DuoNeb every 6 hours scheduled and as needed -Famotidine 20 mg IV every 12 Diagnostic fiberoptic Bronchoscopy-no evidence of any persistent edema in the tongue, oral mucosa, pharynx, or hypopharynx. The larynx is without any evidence of edema. There is a very small amount of edema of the true vocal cords, but these are widely open and patent. No evidence of edema or secretions in the main airways. TP today 24/ as tolerated - Etiology most like Ervin-I, NSAIDS also a possibility. Given the severity of this reaction, recommended avoiding both and f/u with electrical systems designer. C4 is normal, tryptase pending. CV: Pulmonary edema most likely negative pressure- resolved -d/cd lasix. GI: Nonobstructive ileus- clinically improving - NPO. Continue IV Reglan. Consider Relistor if KUB shows persistent ileus - bowel regimen with senna, colace, miralax, lactulose, dulcolax suppository, prn milk of mag. - Having daily BMs. N/V improving FEN/RENAL: -Monitor renal function closely. - voiding on own -Electrolyte replacement per protocol ID: -afebrile. u/a was not suggestive of UTI. - am CBC. HEME: -Monitor CBC, leukocytosis may be secondary to recent steroid use ENDO: -Monitoring glucose q6 hours. Sliding scale insulin if needed PROPH: -Bilateral lower extremity SCDs. Lovenox daily. IV famotidine LINES: -Utilize peripheral IVs PT/OT. careful mobilization. FULL CODE Level 3
--- NOTE | 2017-11-24 10:00 | XR ---
EXAM DATE: 11/24/2017 9:50 AM EDT AGE/SEX: 47 years / Female INDICATIONS: Abdominal distention, evaluate ileus CLINICAL DATA: This is the patient's subsequent encounter. Patient reports that signs and symptoms h ave been present for 4 - 6 days and indicates a pain score of Nonresponsive. MEDICAL/SURGICAL HISTORY: . anaphylaxis . tracheostomy COMPARISON: [facility], ABDOMEN 1V KUB, 11/23/2017. . FINDINGS: NG tube and feeding catheter are noted coiled in the expected location of the stomach. There is mild gaseous distention of small and large bowel identified. This would be characteristic of an ileus. Th e osseous structures are intact. No abnormal calcifications are seen. CONCLUSION: Mild gaseous distention of bowel identified. Electronically signed by: Simone Mensah MD 11/24/2017 9:59 AM EDT
--- NOTE | 2017-11-24 10:28 | P.PN ---
Subjective Interval history: Patient still with abdominal distention, but no further emesis. Physical Exam Vital signs: Vital Signs 11/23/17 11:40 11/23/17 12:00 11/23/17 14:00 Temperature 98.7 F Pulse Rate 81 78 Respiratory Rate 29 H Blood Pressure 149/91 H Pulse Oximetry 96 11/23/17 16:00 11/23/17 18:00 11/23/17 20:00 Temperature 98.2 F 98.4 F Pulse Rate 79 79 76 Respiratory Rate 20 20 Blood Pressure 151/85 H 152/84 H Pulse Oximetry 97 98 11/23/17 20:46 11/23/17 22:00 11/24/17 00:00 Temperature 98.8 F Pulse Rate 78 72 Respiratory Rate 22 Blood Pressure 140/91 H Pulse Oximetry 98 96 11/24/17 01:43 11/24/17 02:00 11/24/17 04:00 Temperature 99.2 F Pulse Rate 73 81 Respiratory Rate 26 H Blood Pressure 164/108 H Pulse Oximetry 100 96 11/24/17 05:41 Temperature Pulse Rate 73 Respiratory Rate Blood Pressure Pulse Oximetry Intake & Output 11/23/17 11/24/17 11/24/17 18:59 06:59 18:59 Intake Total 559 / 559 250 / 250 Output Total 2100 / 2100 1500 / 1500 Balance -1541 / -1541 -1250 / -1250 Weight 94 kg Intake: IV 295 / 295 250 / 250 Precedex Inj 1,000 MCG In NS 250 / 250 250 / 250 Inj 240 ML @ 0.2 MCG/KG/HR 5.42 mls/hr IV.CONT TITRATE PRN Rx# :[id number] Diprivan 1000 mg/100 ml Inj 1, 45 / 45 000 mg In 100 ml @ 5 MCG/KG/MIN 3.255 mls/hr IV.CONT TITRATE PRN Rx#:[id number] Oral 0 / 0 Tube Feeding 89 / 89 Tube Irrigant 100 / 100 Water Bolus Amount 75 / 75 Output: Urine 1250 / 1250 1000 / 1000 Emesis 0 / 0 Gastric Drainage 850 / 850 500 / 500 Left Nare Nasogastric Tube 850 / 850 500 / 500 Other: # Incontinent Voids 0 Date of Last Bowel Movement 11/23/17 11/23/17 # Bowel Movements 1 # Incontinent Bowel Movements 1 # Emeses 6 - Routine Neck Exam Present: supple - Routine Respiratory Exam Present: CTA bilaterally Comments: No neck swelling - Urinary Catheter Management Indwelling Urethral Catheter Cath placed during this visit: yes, but has since been removed by the nurse Reason for continuing: Decision to DC catheter Insertion date: 11/13/17 Insertion time: 19:00 Removal date: 11/17/17 Removal time: 04:00 Straight Cath placed during this visit: no Reason for continuing: Not indwelling catheter Results - Labs CBC & Chem 7: 11/24/17 03:45 11/24/17 03:45 Laboratory Results - last 24 hr 11/23/17 11/23/17 11/24/17 11:20 17:30 00:04 WBC RBC Hgb Hct MCV MCH MCHC RDW Plt Count MPV Sodium Potassium Chloride Carbon Dioxide Anion Gap BUN Creatinine Estimated GFR POC Glucose 99 114 H 100 Random Glucose Calcium 11/24/17 11/24/17 03:45 03:45 WBC 18.3 H RBC 3.76 L Hgb 12.0 Hct 36.1 MCV 96.0 MCH 32.0 MCHC 33.3 RDW 13.4 Plt Count 240 MPV 8.4 Sodium 148 H Potassium 3.3 L Chloride 106 Carbon Dioxide 32.8 H Anion Gap 9 BUN 23 H Creatinine 0.50 Estimated GFR Greater than 89 POC Glucose Random Glucose 100 Calcium 8.7 - Imaging Impressions Chest X-Ray 11/23/17 00:00 CONCLUSION: Underinflation with bibasilar opacity with an appearance favoring subsegmental atelectasis. There is mild improved aeration at the left lung base compared to the prior exam. Abdomen X-Ray 11/23/17 11:32 CONCLUSION: 1. Stable bowel gas pattern consistent with severe adynamic ileus versus partial small bowel obstruction. 2. Persistent gaseous distention of the stomach. Patient may benefit from NGT decompression. Abdomen X-Ray 11/24/17 09:20 CONCLUSION: Mild gaseous distention of bowel identified. Assessment and Plan - Assessment (1) Angioedema Code(s): T78.3XXA - Angioneurotic edema, initial encounter Status: Acute - Plan Decanulated today; good sats to mid 90's on nasal cannula. Discussed with Dr. Cruz, team manager.
[2017-11-24] MEDS: hydrALAZINE 50 MG Tablet PO PRN ×2 (11:48→23:31)
--- NOTE | 2017-11-24 15:42 | CT ---
EXAM DATE: 11/24/2017 3:39 PM EDT AGE/SEX: 47 years / Female INDICATIONS: ileus abdomen pain CLINICAL DATA: This is the patient's initial encounter. Patient reports that signs and symptoms have been present for 1 day and indicates a pain score of 5/10. MEDICAL/SURGICAL HISTORY: None. None. RADIATION DOSE: 11.65 CTDI (mGy) COMPARISON: [facility], ABDOMEN 1V KUB, 11/24/2017. . TECHNIQUE: Multiple contiguous axial images were obtained through the abdomen. Images were obtained using multiple row detector helical technique. Using automated exposure control and adjustment of the mA and/or kV according to patient size, radiation dose was kept as low as reasonably achievable to o btain optimal diagnostic quality images. DICOM format image data is available electronically for rev iew and comparison. FINDINGS: There is consolidation and atelectasis at the bases a feeding tube is noted with tip terminating in t he stomach as well as an enteric tube. Cholelithiasis is noted. Liver, spleen, pancreas, adrenal glan ds unremarkable. Trace perinephric fluid and perinephric stranding bilaterally there is no hydronephr osis or nephrolithiasis. Distention of the urinary bladder. Uterus and ovaries are unremarkable. The osseous structures are intact. No evidence of bowel obstruction. Mild gaseous distention of bowel loo ps identified suggesting a mild ileus. CONCLUSION: 1. Mild ileus. 2. Bilateral lower lobe atelectasis and consolidation. 3. Cholelithiasis. Electronically signed by: Simone Mensah MD 11/24/2017 3:41 PM EDT
[2017-11-24] MEDS ORDERED: Morphine Sulfate Inj 2 MG/ML Vial IV.PUSH ONE (15:45)
[2017-11-25] MEDS: Insulin NovoLOG Aspart Correctional Sugar Inj SQ SCH ×4 (01:15→19:08)
[2017-11-25] MEDS: Oral Hygiene Kit OROPHARYNG SCH ×3 (01:15→19:06)
[2017-11-25] MEDS: Metoprolol Inj 5 MG/5 ML Vial IV.PUSH SCH ×4 (01:15→11:34)
[2017-11-25] MEDS: QUEtiapine 25 MG Tablet PO SCH (05:35)
--- NOTE | 2017-11-25 06:08 | XR ---
EXAM DATE: 11/25/2017 6:02 AM EDT AGE/SEX: 47 years / Female INDICATIONS: Distention. CLINICAL DATA: This is the patient's subsequent encounter. Patient reports that signs and symptoms h ave been present for 4 - 6 days and indicates a pain score of Nonresponsive. MEDICAL/SURGICAL HISTORY: None. None. COMPARISON: [facility], ABDOMEN 1V KUB, 11/24/2017. . FINDINGS: Mild and diffuse small and large bowel distention again noted. No free air demonstrated. There is a Dobbhoff feeding tube coiled in the stomach. Stomach is decompressed. CONCLUSION: Mild generalized ileus not significantly changed. Dobbhoff feeding tube is coiled in a decompressed s tomach. Electronically signed by: Uriel Hernandez MD 11/25/2017 6:07 AM EDT
[2017-11-25] MEDS: Labetalol HCl Inj 100 MG/20 ML Vial IV.PUSH PRN (06:54)
[2017-11-25] MEDS ORDERED: Haloperidol Inj 5 MG/ML Ampul IV.PUSH PRN (08:43)
--- NOTE | 2017-11-25 09:03 | P.PNCC ---
Subjective Subjective Remarks/Hospital Course: Patient is a 47 year old morbidly female obese female who presented to the [facility] emergency department with severe acute anaphylactic reaction, and airway compromise. RSI was attempted by Dr. Pino and Dr. Sandhu, but they were unable to. An LMA was placed but the patient's O2 sats remained in the low 80s. Emergency cricothyroidotomy was performed at [facility] emergency department , by Dr. Sandhu, 6-0 uncuffed cric tube was placed. Postplacement there was leak around the trach tube with bag and mask ventilation. LMA was reintroduced and patient was given ventilation through the LMA and patient was emergently transferred to the [facility]. I evaluated patient emergently in 504 in [facility] Patient is sedated with propofol infusion. Oxygen saturation with bag and mask ventilation was 88-90%. I performed a bronchoscopy through the LMA , vocal cords appeared severely swollen. A pediatric bronchoscope was not available to the load a 6.0 ET tube. I attempted intubation with the glide scope and 6.0 ET tube. I was able to visualize the significantly swollen glottic opening and vocal cords, but I was unable to pass the ET tube through the vocal cords due to swelling. Dr. Castaneda placed a new #5 LMA and we returned to bag and mask ventilation and Dr. Copeland performed a percutaneous Blue Rhino tracheostomy at the bedside through the existing cric incision. (He first placed the guidewire through the existing perc tube). Tracheostomy tube placement was confirmed with bronchoscopy again. At the beginning of tracheostomy patient's oxygen saturation was in the mid 70s. This slowly improved to 95% and patient was placed on ventilator. At this time we are unable to get any other history from the patient regarding food allergies. Scheduled IV Decadron Benadryl and famotidine had been started. 11/14 Remains deeply sedated and on mechanical ventilation via trach, no leak. Plan for revision of trach on Thursday. Has persistent face and tongue swelling but family and staff indicate improved compared with yesterday. Family states patient on lisinopril ~ 1 year, correction NSAIDS. She had eaten scrapple and toast about 1 1/2 hours before onset of symptoms. 11/15 Fiberoptic bronchoscopy performed and demonstrates persistent cord edema. Existing tracheostomy position noted immediately subglottic at expected level of cricothyroid membrane. Dr. Copeland will schedule revision to formal tracheostomy. Patient remains heavily sedated to ensure airway maintenance. 11/16: remains deeply sedated for airway protection. discussion with Dr. Copeland: may need additional time for edema to decrease. will now plan to leave cric in place and not revise at this immediate time. 11/17: I remained at beside today and personally weaned sedation to ensure patient was calm through emergence from sedation. patient now off sedation, awake, alert, oriented, calm. on t-piece 40% o2. 11/18: significantly agitated overnight, requiring deep sedation to prevent trach dislodgement and loss of airway. back on the vent this AM. critical agitation and some delirium. some improvement with haldol iv. 11/19: agitation persists. discussed with general surgery, will need to re- evaluate level of edema tomorrow. 11/20: bronch today with completely resolved pharyngeal edema. also performed direct laryngoscopy and patient is an easy Grade I view with Mac 3 blade. mild edema at the cords themselves, but visually could easily pass 7.0 or greater ett. significant emesis and KUB with abdominal distension/ileus, nonobstructive pattern. given neostigmine 2.5mg iv with significant bowel movement and improvement in distension. NGT placed and >1L bilious emesis removed. still CAM + and agitation is a problem. Subjective: 11/21: agitation still a problem. NGT output significantly improved. good BM yesterday and abdomen soft today. no evidence of laryngeal edema today. 11/22: more awake and less agitated today. weaning sedation. following commands for the first time consistently in 48h. tolerating tube feeds. BM daily now. 11/23: Currently awake alert on CPAP. Tolerating well. Will place on T piece for 24 hours and possibly decannulate tomorrow. Discussed with Dr. Copeland. Chest x-ray improving infiltrates 11/24: Patient is clinically improving, remained off the ventilator last 24 hours. KUB pending regarding ileus. However no vomiting at least for the last 12 hours, having BM 11/25: Breathing comfortably after trach decannulation yesterday. But patient is slightly confused today. She is oriented to person but appears to be developing psychosis. Family had indicated previous psych history but they are not sure about diagnosis. I will discontinue current psychotropic medications which are we are using for agitation and consult psychiatry. Her ileus is clinically improving, KUB shows mild ileus slowly. Will request swallow eval today. CT abdomen shows gallstones Objective Vital Signs / I&O: Vital Signs 11/24/17 09:00 11/24/17 10:00 11/24/17 11:00 Temperature Pulse Rate 75 89 Respiratory Rate 16 17 Blood Pressure 162/93 H 178/84 H 178/86 H Pulse Oximetry 99 97 100 11/24/17 11:41 11/24/17 12:00 11/24/17 12:11 Temperature Pulse Rate 89 137 H 132 H Respiratory Rate 26 H 17 Blood Pressure 182/135 H 203/158 H Pulse Oximetry 98 84 L 11/24/17 12:28 11/24/17 13:00 11/24/17 14:00 Temperature Pulse Rate 122 H 111 H 136 H Respiratory Rate 19 17 19 Blood Pressure 155/88 H Pulse Oximetry 100 100 98 11/24/17 15:00 11/24/17 15:35 11/24/17 16:00 Temperature 98.2 F Pulse Rate 125 H 125 H 116 H Respiratory Rate 27 H 21 22 Blood Pressure 171/86 H 153/96 H Pulse Oximetry 95 96 97 11/24/17 17:00 11/24/17 17:39 11/24/17 18:00 Temperature Pulse Rate 117 H 115 H 119 H Respiratory Rate 33 H 20 Blood Pressure 143/81 H 139/69 Pulse Oximetry 98 100 11/24/17 19:00 11/24/17 20:00 11/24/17 21:00 Temperature 98.4 F Pulse Rate 127 H 127 H 127 H Respiratory Rate 30 H 18 27 H Blood Pressure 147/96 H 164/82 H 161/79 H Pulse Oximetry 100 99 100 11/24/17 21:16 11/24/17 22:00 11/24/17 23:00 Temperature Pulse Rate 122 H 127 H Respiratory Rate 16 17 Blood Pressure 146/87 H 169/87 H Pulse Oximetry 98 96 96 11/25/17 00:00 11/25/17 01:00 11/25/17 02:00 Temperature 98.2 F Pulse Rate 132 H 132 H 101 H Respiratory Rate 16 19 18 Blood Pressure 156/84 H 129/72 135/86 Pulse Oximetry 95 96 96 11/25/17 03:00 11/25/17 04:00 11/25/17 05:00 Temperature 97.8 F Pulse Rate 111 H 125 H 118 H Respiratory Rate 17 18 27 H Blood Pressure 136/95 H 141/88 H 154/94 H Pulse Oximetry 99 11/25/17 06:00 Temperature Pulse Rate 117 H Respiratory Rate Blood Pressure Pulse Oximetry Intake & Output 11/24/17 11/25/17 11/25/17 18:59 06:59 18:59 Intake Total 100 / 100 500 / 500 Output Total 750 / 750 800 / 800 Balance -650 / -650 -300 / -300 Weight 92.5 kg Intake: IV 100 / 100 500 / 500 Precedex Inj 1,000 MCG In NS 250 / 250 Inj 240 ML @ 0.2 MCG/KG/HR 5.42 mls/hr IV.CONT TITRATE PRN Rx# :[id number] KCl 20 mEq Premix Inj 20 meq In 100 / 100 100 ml @ 50 mls/hr IV.SIG Q2H PRN Rx#:[id number] Output: Urine 750 / 750 500 / 500 Gastric Drainage 300 / 300 Left Nare Nasogastric Tube 300 / 300 Other: Date of Last Bowel Movement 11/23/17 11/23/17 # Bowel Movements 0 Result Diagrams: 11/24/17 03:45 11/24/17 03:45 Objective Remarks: GENERAL: Obese female calm, following commands, confused today. SKIN: Warm and dry. No rash or urticaria. HEAD: Atraumatic. Normocephalic. no edema today. EYES: Pupils equal and round. No scleral icterus. No injection or drainage. ENT: No nasal bleeding or discharge. Mucous membranes pink and moist. NECK: Trachea midline. No JVD. Dressing placed over the trach stoma CARDIOVASCULAR: Regular rate and rhythm. No murmurs rubs or gallops. RESPIRATORY: No accessory muscle use. Clear to auscultation. Breath sounds equal bilaterally. GASTROINTESTINAL: Abdomen soft, non-tender, moderately distended. hypoactive bowel sounds, but present. MUSCULOSKELETAL: Extremities without clubbing, cyanosis, or edema. No obvious deformities. NEUROLOGICAL: Alert awake. following commands. Oriented to person but confused about place and time. Having some delusional thoughts-asked about her to the night nurse Assessment and Plan - Problem List (1) Acute hypoxemic respiratory failure Code(s): J96.01 - Acute respiratory failure with hypoxia Status: Acute (2) Angioedema Code(s): T78.3XXA - Angioneurotic edema, initial encounter Status: Acute - Assessment and Plan Plan: Assessment: 47yF with angioedema compromising airway requiring emergent surgical airway. Decannulated yesterday. ileus clinically improving. Psych consulted for acute psychosis NEURO: Agitated delirium- resolved Acute psychosis with previous history of psychiatric illness - Discontinue Precedex, discontinue Seroquel awaiting psych recommendations - Patient having some hallucinations about her . Psych consult requested according to family has previous psych history diagnosis unknown - breakthrough haldol 5mg iv q4h prn - oxycodone 10mg po q4h PRN for chronic back pain RESP: Acute hypoxemic respiratory failure- resolved. Angioedema with severe upper airway compromise- resolved -Emergent cric per Dr. Sandhu at [facility]. -Unable to adequately ventilate through the cric tube as it was cuff less tube ( supplied in Melker kit) -Dr. Copeland emergently performed percutaneous tracheostomy at the bedside by passing wire through existing cric tube. -Trach decannulated yesterday 11/25/17 -Per Dr. Paredes's note on 11/20, direct laryngoscopy with lilli #3 blade with easy Grade 1 view of complete larynx. bronch on 11/20 without any evidence of pharyngeal or hypopharyngeal or laryngeal edema. - Off Decadron and benadryl. -DuoNeb every 6 hours scheduled and as needed -Famotidine 20 mg IV every 12 Diagnostic fiberoptic Bronchoscopy-no evidence of any persistent edema in the tongue, oral mucosa, pharynx, or hypopharynx. The larynx is without any evidence of edema. There is a very small amount of edema of the true vocal cords, but these are widely open and patent. No evidence of edema or secretions in the main airways. - Etiology most like Ervin-I, NSAIDS also a possibility. Given the severity of this reaction, recommended avoiding both and f/u with crap shooter. C4 is normal, tryptase pending. CV: Pulmonary edema most likely negative pressure- resolved -d/cd lasix. GI: Nonobstructive ileus- clinically improving - NPO. Continue IV Reglan. Consider Relistor if KUB shows persistent ileus - bowel regimen with senna, colace, miralax, lactulose, dulcolax suppository, prn milk of mag. - Having daily BMs. N/V improving - CT abdomen showed mild ileus and gallstones. -May need outpatient cholecystectomy FEN/RENAL: -Monitor renal function closely. - voiding on own -Electrolyte replacement per protocol ID: -afebrile. u/a was not suggestive of UTI. - am CBC. HEME: -Monitor CBC, leukocytosis may be secondary to recent steroid use ENDO: -Monitoring glucose q6 hours. Sliding scale insulin if needed PROPH: -Bilateral lower extremity SCDs. Lovenox daily. IV famotidine LINES: -Utilize peripheral IVs PT/OT. careful mobilization. FULL CODE Level 3 Continue ICU care due to delirium/psychosis. Improving respiratory sanchez Code Status: Full
[2017-11-25 09:39] LABS: Hematocrit 40.7 % (35.0-46.0); Hemoglobin 13.8 gm/dL (11.6-15.3); Mean Corpuscular HGB Conc 33.8 % (32.0-36.0); Mean Corpuscular Hemoglobin 32.1 pg (27.0-34.0); Mean Corpuscular Volume 95.2 fL (80.0-100.0); Mean Platelet Volume 8.2 fL (7.0-11.0); Platelet Count 264 th/mm3 (150-450); Red Blood Count 4.28 mil/mm3 (4.00-5.30); Red Cell Distribution Width 13.6 % (11.6-17.2); White Blood Count 19.2 th/mm3 (4.0-11.0)
[2017-11-25 10:07] LABS: Alanine Aminotransferase 275 U/L (10-53); Albumin 3.1 g/dL (3.4-5.0); Alkaline Phosphatase 99 U/L (45-117); Anion Gap 9 meq/L (5-15); Aspartate Aminotransferase 114 U/L (15-37); Blood Urea Nitrogen 23 mg/dL (7-18); Calcium 9.4 mg/dL (8.5-10.1); Chloride 105 meq/L (98-107); Glomerular Filtration Rate Greater Than 89 mL/min (>89); Glucose,Random 124 mg/dL (74-106); Magnesium 2.4 mg/dL (1.5-2.5); Sodium 152 meq/L (136-145); Total Protein 7.2 g/dL (6.4-8.2)
[2017-11-25 10:09] LABS: Potassium 2.8 meq/L (3.5-5.1)
[2017-11-25] MEDS ORDERED: Metoprolol Inj 5 MG/5 ML Vial ONE (10:48)
[2017-11-25] MEDS: Polyethylene Glycol 3350 17 GM Packet PO SCH ×2 (11:05→20:15)
[2017-11-25] MEDS: Bisacodyl 10 MG Supp RECTAL SCH (11:05)
[2017-11-25] MEDS: Enoxaparin Inj 40 MG/0.4 ML Syringe SQ SCH (11:05)
[2017-11-25] MEDS: Chlorhexidine 0.12% Oral Kit 15 ML UDC OROPHARYNG SCH ×2 (11:05→20:15)
[2017-11-25] MEDS: Famotidine PF Inj 20 MG/2 ML Vial IV.PUSH SCH ×2 (11:06→20:16)
[2017-11-25] MEDS: Potassium Chlor 20 mEq Premix 20 MEQ/100 ML PIGGYBACK IV.SIG PRN (11:07)
[2017-11-25] MEDS: Senna/Docusate Sodium 8.6/50 MG Tablet PO SCH ×2 (11:34→20:16)
[2017-11-25 16:47] LABS: Alanine Aminotransferase 255 U/L (10-53); Albumin 2.9 g/dL (3.4-5.0); Anion Gap 10 meq/L (5-15); Aspartate Aminotransferase 79 U/L (15-37); Blood Urea Nitrogen 23 mg/dL (7-18); Calcium 9.4 mg/dL (8.5-10.1); Carbon Dioxide 38.2 meq/L (21.0-32.0); Chloride 107 meq/L (98-107); Glomerular Filtration Rate Greater Than 89 mL/min (>89); Glucose,Random 103 mg/dL (74-106); Potassium 3.1 meq/L (3.5-5.1); Sodium 155 meq/L (136-145)
[2017-11-25 16:49] LABS: Alkaline Phosphatase 95 U/L (45-117); Total Protein 7.2 g/dL (6.4-8.2)
[2017-11-25] MEDS: Potassium Chloride Inj 40 MEQ in Sodium Chloride 0.45 % Inj 1,000 ML IV.CONT SCH (19:06)
[2017-11-25] MEDS: Metoprolol Inj 5 MG/5 ML Vial IV.PUSH PRN ×3 (21:34→22:18)
[2017-11-25 23:34] LABS: Alanine Aminotransferase 231 U/L (10-53); Anion Gap 8 meq/L (5-15); Aspartate Aminotransferase 69 U/L (15-37); Blood Urea Nitrogen 30 mg/dL (7-18); Calcium 9.2 mg/dL (8.5-10.1); Chloride 111 meq/L (98-107); Glomerular Filtration Rate 79 mL/min (>89); Glucose,Random 145 mg/dL (74-106); Magnesium 2.4 mg/dL (1.5-2.5); Potassium 3.7 meq/L (3.5-5.1); Sodium 155 meq/L (136-145)
[2017-11-25 23:35] LABS: Alkaline Phosphatase 95 U/L (45-117); Total Protein 7.2 g/dL (6.4-8.2)
[2017-11-26] MEDS: Insulin NovoLOG Aspart Correctional Sugar Inj SQ SCH ×4 (00:38→23:41)
[2017-11-26] MEDS ORDERED: dilTIAZem Inj 125 MG in Sodium Chlor 0.9% Inj 100 ML IV.CONT PRN (01:10)
[2017-11-26] MEDS: Oral Hygiene Kit OROPHARYNG SCH ×4 (04:00→15:27)
[2017-11-26 05:36] LABS: Hematocrit 41.5 % (35.0-46.0); Hemoglobin 13.7 gm/dL (11.6-15.3); Mean Platelet Volume 8.9 fL (7.0-11.0); Platelet Count 199 th/mm3 (150-450); Red Blood Count 4.28 mil/mm3 (4.00-5.30); Red Cell Distribution Width 14.1 % (11.6-17.2); White Blood Count 21.8 th/mm3 (4.0-11.0)
[2017-11-26] MEDS: Potassium Chloride Inj 40 MEQ in Sodium Chloride 0.45 % Inj 1,000 ML IV.CONT SCH (06:41)
[2017-11-26] MEDS ORDERED: Metoprolol Inj 5 MG/5 ML Vial ONE (07:42)
[2017-11-26] MEDS: Enoxaparin Inj 40 MG/0.4 ML Syringe SQ SCH (08:00)
[2017-11-26] MEDS: Famotidine PF Inj 20 MG/2 ML Vial IV.PUSH SCH ×2 (08:00→21:58)
[2017-11-26] MEDS: Senna/Docusate Sodium 8.6/50 MG Tablet PO SCH ×2 (08:00→21:54)
[2017-11-26] MEDS: Polyethylene Glycol 3350 17 GM Packet PO SCH ×2 (08:00→21:53)
[2017-11-26] MEDS: Bisacodyl 10 MG Supp RECTAL SCH (08:01)
[2017-11-26] MEDS: Chlorhexidine 0.12% Oral Kit 15 ML UDC OROPHARYNG SCH ×2 (08:01→21:44)
[2017-11-26] MEDS ORDERED: Vancomycin Inj 1,250 MG in Sodium Chlor 0.9% Inj 250 ML IV.SIG ONE (08:42)
--- NOTE | 2017-11-26 08:53 | P.PNCC ---
Subjective Subjective Remarks/Hospital Course: Patient is a 47 year old morbidly female obese female who presented to the [place] emergency department with severe acute anaphylactic reaction, and airway compromise. RSI was attempted by Dr. Pino and Dr. Sandhu, but they were unable to. An LMA was placed but the patient's O2 sats remained in the low 80s. Emergency cricothyroidotomy was performed at [place] emergency department , by Dr. Sandhu, 6-0 uncuffed cric tube was placed. Postplacement there was leak around the trach tube with bag and mask ventilation. LMA was reintroduced and patient was given ventilation through the LMA and patient was emergently transferred to the [facility]. I evaluated [place] emergently in [place] [facility] [place] Patient is sedated with propofol infusion. Oxygen saturation with bag and mask ventilation was 88-90%. I performed a bronchoscopy through the LMA , vocal cords appeared severely swollen. A pediatric bronchoscope was not available to the load a 6.0 ET tube. I attempted intubation with the glide scope and 6.0 ET tube. I was able to visualize the significantly swollen glottic opening and vocal cords, but I was unable to pass the ET tube through the vocal cords due to swelling. Dr. Castaneda placed a new #5 LMA and we returned to bag and mask ventilation and Dr. Copeland performed a percutaneous Blue Rhino tracheostomy at the bedside through the existing cric incision. (He first placed the guidewire through the existing perc tube). Tracheostomy tube placement was confirmed with bronchoscopy again. At the beginning of tracheostomy patient's oxygen saturation was in the mid 70s. This slowly improved to 95% and patient was placed on ventilator. At this time we are unable to get any other history from the patient regarding food allergies. Scheduled IV Decadron Benadryl and famotidine had been started. 11/14 Remains deeply sedated and on mechanical ventilation via trach, no leak. Plan for revision of trach on Thursday. Has persistent face and tongue swelling but family and staff indicate improved compared with yesterday. Family states patient on lisinopril ~ 1 year, mcc NSAIDS. She had eaten scrapple and toast about 1 1/2 hours before onset of symptoms. 11/15 Fiberoptic bronchoscopy performed and demonstrates persistent cord edema. Existing tracheostomy position noted immediately subglottic at expected level of cricothyroid membrane. Dr. Copeland will schedule revision to formal tracheostomy. Patient remains heavily sedated to ensure airway maintenance. 11/16: remains deeply sedated for airway protection. discussion with Dr. Copeland: may need additional time for edema to decrease. will now plan to leave cric in place and not revise at this immediate time. 11/17: I remained at beside today and personally weaned sedation to ensure patient was calm through emergence from sedation. patient now off sedation, awake, alert, oriented, calm. on t-piece 40% o2. 11/18: significantly agitated overnight, requiring deep sedation to prevent trach dislodgement and loss of airway. back on the vent this AM. critical agitation and some delirium. some improvement with haldol iv. 11/19: agitation persists. discussed with general surgery, will need to re- evaluate level of edema tomorrow. 11/20: bronch today with completely resolved pharyngeal edema. also performed direct laryngoscopy and patient is an easy Grade I view with Mac 3 blade. mild edema at the cords themselves, but visually could easily pass 7.0 or greater ett. significant emesis and KUB with abdominal distension/ileus, nonobstructive pattern. given neostigmine 2.5mg iv with significant bowel movement and improvement in distension. NGT placed and >1L bilious emesis removed. still CAM + and agitation is a problem. Subjective: 11/21: agitation still a problem. NGT output significantly improved. good BM yesterday and abdomen soft today. no evidence of laryngeal edema today. 11/22: more awake and less agitated today. weaning sedation. following commands for the first time consistently in 48h. tolerating tube feeds. BM daily now. 11/23: Currently awake alert on CPAP. Tolerating well. Will place on T piece for 24 hours and possibly decannulate tomorrow. Discussed with Dr. Copeland. Chest x-ray improving infiltrates 11/24: Patient is clinically improving, remained off the ventilator last 24 hours. KUB pending regarding ileus. However no vomiting at least for the last 12 hours, having BM 11/25: Breathing comfortably after trach decannulation yesterday. But patient is slightly confused today. She is oriented to person but appears to be developing psychosis. Family had indicated previous psych history but they are not sure about diagnosis. I will discontinue current psychotropic medications which are we are using for agitation and consult psychiatry. Her ileus is clinically improving, KUB shows mild ileus slowly. Will request swallow eval today. CT abdomen shows gallstones 11/26: Stable respiratory sanchez. WBC count 21,000 today. Cricothyrotomy site looks infected with yellow discharge. Broad-spectrum antibiotics started. Wound culture sent. Remains hyponatremic, change fluid to quarter normal saline with potassium. Ileus clinically improving. BM x1 yesterday Objective Vital Signs / I&O: Vital Signs 11/25/17 09:00 11/25/17 10:00 11/25/17 10:55 Temperature Pulse Rate 118 H 123 H 109 H Respiratory Rate 17 20 16 Blood Pressure 130/78 133/81 122/70 Pulse Oximetry 100 91 L 95 11/25/17 10:56 11/25/17 11:00 11/25/17 11:04 Temperature Pulse Rate 104 H 99 H 97 H Respiratory Rate 17 21 22 Blood Pressure 115/71 146/82 H 130/68 Pulse Oximetry 94 L 96 96 11/25/17 11:09 11/25/17 12:00 11/25/17 13:00 Temperature Pulse Rate 106 H 116 H Respiratory Rate 18 20 Blood Pressure 124/78 127/80 Pulse Oximetry 95 96 95 11/25/17 14:00 11/25/17 15:00 11/25/17 15:05 Temperature Pulse Rate 121 H 128 H 123 H Respiratory Rate 22 34 H 21 Blood Pressure 130/81 131/79 138/87 Pulse Oximetry 96 78 L 96 11/25/17 16:00 11/25/17 17:00 11/25/17 18:00 Temperature Pulse Rate 119 H 121 H 121 H Respiratory Rate 20 20 Blood Pressure 140/86 136/97 H Pulse Oximetry 96 96 11/25/17 19:50 11/25/17 20:00 11/25/17 22:00 Temperature 98.7 F Pulse Rate 125 H 112 H Respiratory Rate 22 Blood Pressure 141/86 H Pulse Oximetry 95 98 11/26/17 00:00 11/26/17 02:00 11/26/17 04:00 Temperature 99.5 F 99.7 F H Pulse Rate 113 H 113 H 116 H Respiratory Rate 24 23 Blood Pressure 122/69 115/78 Pulse Oximetry 100 95 11/26/17 06:00 11/26/17 08:23 Temperature Pulse Rate 109 H Respiratory Rate 20 Blood Pressure Pulse Oximetry Intake & Output 11/25/17 11/26/17 11/26/17 18:59 06:59 18:59 Intake Total 364 / 364 0 / 0 Output Total 1300 / 1300 700 / 700 Balance -936 / -936 -700 / -700 Weight 92 kg Intake: IV 100 / 100 KCl 20 mEq Premix Inj 20 meq In 100 / 100 100 ml @ 50 mls/hr IV.SIG Q2H PRN Rx#:[id number] Oral 0 / 0 0 / 0 Tube Feeding 89 / 89 Tube Irrigant 100 / 100 Water Bolus Amount 75 / 75 Output: Urine 500 / 500 600 / 600 Emesis 0 / 0 Urine Amount (Catheter) 500 / 500 Straight 500 / 500 Gastric Drainage 300 / 300 100 / 100 Left Nare Nasogastric Tube 300 / 300 100 / 100 Other: # Incontinent Voids 0 Date of Last Bowel Movement 11/23/17 11/24/17 # Bowel Movements 0 0 # Incontinent Bowel Movements 1 # Emeses 6 Result Diagrams: 11/26/17 04:18 11/25/17 23:01 Objective Remarks: GENERAL: Obese female calm, following commands. SKIN: Warm and dry. No rash or urticaria. HEAD: Atraumatic. Normocephalic. no edema today. EYES: Pupils equal and round. No scleral icterus. No injection or drainage. ENT: No nasal bleeding or discharge. Mucous membranes pink and moist. NECK: Trachea midline. No JVD. Cric site erythematous with yellow discharge CARDIOVASCULAR: Regular rate and rhythm. No murmurs rubs or gallops. RESPIRATORY: No accessory muscle use. Clear to auscultation. Breath sounds equal bilaterally. GASTROINTESTINAL: Abdomen soft, non-tender, moderately distended. hypoactive bowel sounds, but present. MUSCULOSKELETAL: Extremities without clubbing, cyanosis, or edema. No obvious deformities. NEUROLOGICAL: Alert awake. following commands. Oriented to person and place. Delirium resolving Assessment and Plan - Problem List (1) Acute hypoxemic respiratory failure Code(s): J96.01 - Acute respiratory failure with hypoxia Status: Acute (2) Angioedema Code(s): T78.3XXA - Angioneurotic edema, initial encounter Status: Acute - Assessment and Plan Plan: Assessment: 47yF with angioedema compromising airway requiring emergent surgical airway. Decannulated 11/24, now with evidence of chronic site infection. ileus clinically improving. NEURO: Agitated delirium- resolving - Minimize psychotropic meds. Haldol as needed for agitation 2mg iv q4h prn - Acute delirium is most likely metabolic now improving - oxycodone 10mg po q4h PRN for chronic back pain RESP: Acute hypoxemic respiratory failure- resolved. Angioedema with severe upper airway compromise- resolved Cric site infection -Emergent cric per Dr. Sandhu at [place] [facility]. -Unable to adequately ventilate through the cric tube as it was cuff less tube ( supplied in Melker kit) -Dr. Copeland emergently performed percutaneous tracheostomy at the bedside by passing wire through existing cric tube. -Trach decannulated yesterday 11/24/17 -Per Dr. Paredes's note on 11/20, direct laryngoscopy with lilli #3 blade with easy Grade 1 view of complete larynx. bronch on 11/20 without any evidence of pharyngeal or hypopharyngeal or laryngeal edema. - Off Decadron and benadryl. -Famotidine 20 mg IV every 12 -DuoNeb every 6 hours scheduled and as needed Diagnostic fiberoptic Bronchoscopy-no evidence of any persistent edema in the tongue, oral mucosa, pharynx, or hypopharynx. The larynx is without any evidence of edema. There is a very small amount of edema of the true vocal cords, but these are widely open and patent. No evidence of edema or secretions in the main airways. - Etiology most like Ervin-I, NSAIDS also a possibility. Given the severity of this reaction, recommended avoiding both and f/u with clerical assistant. C4 is normal, tryptase pending. -Trach site infected. Send culture, start Zosyn and single dose of vancomycin CV: Pulmonary edema most likely negative pressure- resolved -d/cd lasix. GI: Nonobstructive ileus- clinically improving - NPO. Continue IV Reglan. Consider Relistor if KUB shows persistent ileus - bowel regimen with senna, colace, miralax, lactulose, dulcolax suppository, prn milk of mag. - Having BMs. N/V improving. Start diet per speech recommendation - CT abdomen showed mild ileus and gallstones. US today to rule out acute cholecystitis - May need outpatient cholecystectomy FEN/RENAL: -Monitor renal function closely. - voiding on own -Electrolyte replacement per protocol -Quarter normal saline at 125 mL/h to correct hyponatremia ID: Sepsis Cric site infection -Trach site infected. Send culture, start Zosyn and single dose of vancomycin -afebrile. u/a was not suggestive of UTI. - am CBC. HEME: -Monitor CBC ENDO: -Monitoring glucose q6 hours. Sliding scale insulin if needed PROPH: -Bilateral lower extremity SCDs. Lovenox daily. IV famotidine LINES: -Utilize peripheral IVs PT/OT. careful mobilization. FULL CODE Level 3 Continue ICU care due to delirium/psychosis, and now with sepsis and ileus. Improving respiratory sanchez
--- NOTE | 2017-11-26 09:59 | US ---
EXAM DATE: 11/26/2017 9:34 AM EDT AGE/SEX: 47 years / Female INDICATIONS: Elevated lab values. CLINICAL DATA: This is the patient's initial encounter. Patient reports that signs and symptoms have been present for 3 days and indicates a pain score of 4/10. MEDICAL/SURGICAL HISTORY: . Elevated lab values. None. COMPARISON: No prior exams available for comparison. MEASUREMENTS: Liver:__ 14.3 cm. Common Bile Duct:__ 4mm. FINDINGS: Liver: Normal echotexture without focal lesion or ductal dilatation. Portal Vein: Hepatopedal flow seen in portal vein. Common Duct: The common bile duct is nondilated. Gallbladder: There is a stone along the base of the gallbladder measuring approximately 1 cm. There is some sludge in the gallbladder. The gallbladder wall is not thickened. There is no fluid around th e gallbladder. Pancreas: Not well visualized. Right Kidney: The kidney is within normal limits for size and shape. There is a small cyst along the upper pole measuring 1.2 cm. There appears to be some cortical scarring along the upper pole. There is no evidence of hydronephrosis. CONCLUSION: 1. There is a gallstone in the gallbladder along with sludge in the gallbladder. No biliary tract ob struction. 2. Small benign-appearing right kidney cyst measuring 1.2 cm. No evidence of hydronephrosis. Electronically signed by: Keshav Floyd MD 11/26/2017 9:57 AM EDT
[2017-11-26] MEDS: Piperacil/Tazo 4.5 GM Premix 4.5 GM/100 ML BAG IV.SIG SCH ×3 (11:21→21:59)
[2017-11-26] MEDS: POTASSIUM CHLORIDE IV.CONT SCH ×2 (14:52→21:43)
[2017-11-26] MEDS: [UNRECOGNIZED DRUG - OTHER] IV.CONT SCH ×2 (14:52→21:43)
[2017-11-26] MEDS: WATER FOR INJ IV.CONT SCH ×2 (14:52→21:43)
[2017-11-26] MEDS: SODIUM CHLORIDE IV.CONT SCH ×2 (14:52→21:43)
[2017-11-26 16:01] LABS: Alanine Aminotransferase 182 U/L (10-53); Alkaline Phosphatase 84 U/L (45-117); Anion Gap 11 meq/L (5-15); Aspartate Aminotransferase 56 U/L (15-37); Blood Urea Nitrogen 31 mg/dL (7-18); Calcium 8.8 mg/dL (8.5-10.1); Chloride 114 meq/L (98-107); Glomerular Filtration Rate Greater Than 89 mL/min (>89); Glucose,Random 126 mg/dL (74-106); Potassium 3.8 meq/L (3.5-5.1)
[2017-11-26 16:07] LABS: Sodium 156 meq/L (136-145)
--- NOTE | 2017-11-26 18:07 | P.PN ---
Subjective Interval history: Some drainage at trach site; cleans up well Physical Exam Vital signs: Vital Signs 11/25/17 19:50 11/25/17 20:00 11/25/17 22:00 Temperature 98.7 F Pulse Rate 125 H 112 H Respiratory Rate 22 Blood Pressure 141/86 H Pulse Oximetry 95 98 11/26/17 00:00 11/26/17 02:00 11/26/17 04:00 Temperature 99.5 F 99.7 F H Pulse Rate 113 H 113 H 116 H Respiratory Rate 24 23 Blood Pressure 122/69 115/78 Pulse Oximetry 100 95 11/26/17 06:00 11/26/17 08:00 11/26/17 08:23 Temperature Pulse Rate 109 H 113 H Respiratory Rate 20 Blood Pressure Pulse Oximetry 11/26/17 13:31 Temperature Pulse Rate Respiratory Rate Blood Pressure Pulse Oximetry 95 Intake & Output 11/25/17 11/26/17 11/26/17 18:59 06:59 18:59 Intake Total 364 / 364 0 / 0 982.5 / 982.5 Output Total 1300 / 1300 700 / 700 Balance -936 / -936 -700 / -700 982.5 / 982.5 Weight 92 kg Intake: IV 100 / 100 982.5 / 982.5 KCl Inj 40 MEQ In 1/2 Normal 500 / 500 Saline Inj 1,000 ML @ 60 mls/hr IV.CONT .Q17H [facility] Rx#:[id number] Cardizem Inj 125 MG In NS Inj 20 / 20 100 ML @ 5 MG/HR 5 mls/hr IV. CONT TITRATE PRN Rx#:[id number] Zosyn 4.5 GM Premix 4.5 gm In 200 / 200 100 ml @ 200 mls/hr IV.SIG Q6H [facility] Rx#:[id number] KCl 20 mEq Premix Inj 20 meq In 100 / 100 100 ml @ 50 mls/hr IV.SIG Q2H [facility] Rx#:[id number] Vancomycin Inj 1,250 MG In NS 262.5 / 262.5 Inj 250 ML @ 250 mls/hr IV.SIG ONCE ONE Rx#:[id number] Oral 0 / 0 0 / 0 Tube Feeding 89 / 89 Tube Irrigant 100 / 100 Water Bolus Amount 75 / 75 Output: Urine 500 / 500 600 / 600 Emesis 0 / 0 Urine Amount (Catheter) 500 / 500 Straight 500 / 500 Gastric Drainage 300 / 300 100 / 100 Left Nare Nasogastric Tube 300 / 300 100 / 100 Other: # Incontinent Voids 0 Date of Last Bowel Movement 11/23/17 11/24/17 11/24/17 # Bowel Movements 0 0 # Incontinent Bowel Movements 1 # Emeses 6 - Routine Neck Exam Present: supple Comments: Small amt purulence at site with minimal bloody drainage - Routine Respiratory Exam Present: CTA bilaterally - Urinary Catheter Management Indwelling Urethral Catheter Cath placed during this visit: yes, but has since been removed by the nurse Reason for continuing: Decision to DC catheter Insertion date: 11/13/17 Insertion time: 19:00 Removal date: 11/17/17 Removal time: 04:00 Straight Cath placed during this visit: no Reason for continuing: Not indwelling catheter Results - Labs CBC & Chem 7: 11/26/17 04:18 11/26/17 13:53 Laboratory Results - last 24 hr 11/25/17 11/26/17 11/26/17 23:01 00:35 04:18 WBC 21.8 H RBC 4.28 Hgb 13.7 Hct 41.5 MCV 97.0 MCH 32.0 MCHC 33.0 RDW 14.1 Plt Count 199 MPV 8.9 Sodium 155 H Potassium 3.7 Chloride 111 H Carbon Dioxide 36.0 H Anion Gap 8 BUN 30 H Creatinine 0.79 Estimated GFR 79 L POC Glucose 127 H Random Glucose 145 H Calcium 9.2 Magnesium 2.4 Total Bilirubin 1.1 H AST 69 H ALT 231 H Alkaline Phosphatase 95 Total Protein 7.2 Albumin 3.0 L 11/26/17 11/26/17 05:15 13:53 WBC RBC Hgb Hct MCV MCH MCHC RDW Plt Count MPV Sodium 156 H* Potassium 3.8 Chloride 114 H Carbon Dioxide 31.0 Anion Gap 11 BUN 31 H Creatinine 0.64 Estimated GFR Greater than 89 POC Glucose 100 Random Glucose 126 H Calcium 8.8 Magnesium Total Bilirubin 1.1 H AST 56 H ALT 182 H Alkaline Phosphatase 84 Total Protein 7.0 Albumin 3.0 L - Imaging Impressions Gallbladder Ultrasound 11/26/17 00:00 CONCLUSION: 1. There is a gallstone in the gallbladder along with sludge in the gallbladder. No biliary tract obstruction. 2. Small benign-appearing right kidney cyst measuring 1.2 cm. No evidence of hydronephrosis. Assessment and Plan - Assessment (1) Angioedema Code(s): T78.3XXA - Angioneurotic edema, initial encounter Status: Acute - Plan Trach site ok; minimal drainage. Start diet slowly Discussed with Dr. Cruz, air route controller. - Attending Attestation I attest that I had a [id number] encounter with the patient on the same day, and personally performed and documented my assessment and findings in the medical record. The following services were provided during this hospital visit: Chart data review, vital sign assessments/reviewing monitor data Review of consultation notes if present Medication orders/review and/or management Ordering and/or reviewing lab tests Ordering and/or interpreting/reviewing x-rays and/or diagnostic studies Care of the patient and discussion of the patient with the care team Documentation time To help prompt me to consider important information that might be impacting today's encounter and assessment, Information from prior notes written by myself or my colleagues may have been "brought forward/copy and pasted" into today's note.
[2017-11-27] MEDS: Insulin NovoLOG Aspart Correctional Sugar Inj SQ SCH ×4 (01:21→17:45)
[2017-11-27] MEDS: Oral Hygiene Kit OROPHARYNG SCH ×5 (01:22→23:19)
[2017-11-27] MEDS: [UNRECOGNIZED DRUG - OTHER] IV.CONT SCH ×4 (02:23→23:18)
[2017-11-27] MEDS: SODIUM CHLORIDE IV.CONT SCH ×4 (02:23→23:18)
[2017-11-27] MEDS: POTASSIUM CHLORIDE IV.CONT SCH ×4 (02:23→23:18)
[2017-11-27] MEDS: WATER FOR INJ IV.CONT SCH ×4 (02:23→23:18)
[2017-11-27] MEDS: Piperacil/Tazo 4.5 GM Premix 4.5 GM/100 ML BAG IV.SIG SCH ×4 (03:21→20:33)
[2017-11-27] MEDS: Haloperidol Inj 5 MG/ML Ampul IV.PUSH PRN (04:17)
[2017-11-27 05:22] LABS: Hematocrit 39.4 % (35.0-46.0); Hemoglobin 12.7 gm/dL (11.6-15.3); Mean Corpuscular HGB Conc 32.3 % (32.0-36.0); Mean Corpuscular Hemoglobin 31.9 pg (27.0-34.0); Mean Platelet Volume 9.7 fL (7.0-11.0); Platelet Count 126 th/mm3 (150-450); Red Blood Count 3.98 mil/mm3 (4.00-5.30); White Blood Count 25.1 th/mm3 (4.0-11.0)
--- NOTE | 2017-11-27 05:54 | XR ---
EXAM DATE: 11/27/2017 5:44 AM EDT AGE/SEX: 47 years / Female INDICATIONS: Shortness of breath. Possible respiratory disease. CLINICAL DATA: This is the patient's subsequent encounter. Patient reports that signs and symptoms h ave been present for 1 week and indicates a pain score of Nonresponsive. MEDICAL/SURGICAL HISTORY: . anaphylaxis . tracheostomy COMPARISON: C, CHEST 1V SINGLE AP, 11/23/2017. . FINDINGS: A single AP view of the chest demonstrates the lungs to be symmetrically aerated without evidence of mass, infiltrate or effusion. A linear density overlies the midline possibly relating to a nasogastri c tube. The tip is not well seen due to the penetration of the film. The cardiomediastinal contours a re unremarkable. Osseous structures are intact. CONCLUSION: Clear lungs. Electronically signed by: Dany Paredes MD 11/27/2017 5:53 AM EDT
--- NOTE | 2017-11-27 05:55 | XR ---
EXAM DATE: 11/27/2017 5:44 AM EDT AGE/SEX: 47 years / Female INDICATIONS: Distention. Evaluate ileus. CLINICAL DATA: This is the patient's subsequent encounter. Patient reports that signs and symptoms h ave been present for 1 week and indicates a pain score of Nonresponsive. MEDICAL/SURGICAL HISTORY: . anaphylaxis . tracheostomy COMPARISON: C, ABDOMEN 1V KUB, 11/25/2017. . FINDINGS: 2 supine frontal views of the abdomen show a nasogastric tube with the tip in the region of the fund us the stomach. The stomach is largely decompressed. Dilated loops of gas filled small bowel less dis tended from the prior study. A small amount of air is seen within a normal caliber colon. Scoliotic c urvature. CONCLUSION: Mildly dilated gas-filled loops of small bowel which are slightly [facility] Electronically signed by: Dany Paredes MD 11/27/2017 5:54 AM EDT
[2017-11-27 05:59] LABS: Alanine Aminotransferase 152 U/L (10-53); Albumin 2.7 g/dL (3.4-5.0); Alkaline Phosphatase 79 U/L (45-117); Anion Gap 10 meq/L (5-15); Aspartate Aminotransferase 58 U/L (15-37); Blood Urea Nitrogen 28 mg/dL (7-18); Calcium 8.9 mg/dL (8.5-10.1); Carbon Dioxide 31.7 meq/L (21.0-32.0); Chloride 114 meq/L (98-107); Glomerular Filtration Rate 89 mL/min (>89); Glucose,Random 90 mg/dL (74-106); Magnesium 2.5 mg/dL (1.5-2.5); Total Protein 6.8 g/dL (6.4-8.2)
[2017-11-27 06:04] LABS: Sodium 156 meq/L (136-145)
--- NOTE | 2017-11-27 08:09 | P.PN ---
Subjective Interval history: Patient is a 47 year old morbidly female obese female who presented to the [facility] emergency department with severe acute anaphylactic reaction, and airway compromise. RSI was attempted by Dr. Pino and Dr. Sandhu, but they were unable to. An LMA was placed but the patient's O2 sats remained in the low 80s. Emergency cricothyroidotomy was performed at [facility] emergency department , by Dr. Sandhu, 6-0 uncuffed cric tube was placed. Postplacement there was leak around the trach tube with bag and mask ventilation. LMA was reintroduced and patient was given ventilation through the LMA and patient was emergently transferred to the [facility]. I evaluated patient emergently in [facility] in [facility]. Patient is sedated with propofol infusion. Oxygen saturation with bag and mask ventilation was 88-90%. I performed a bronchoscopy through the LMA , vocal cords appeared severely swollen. A pediatric bronchoscope was not available to the load a 6.0 ET tube. I attempted intubation with the glide scope and 6.0 ET tube. I was able to visualize the significantly swollen glottic opening and vocal cords, but I was unable to pass the ET tube through the vocal cords due to swelling. Dr. Castaneda placed a new #5 LMA and we returned to bag and mask ventilation and Dr. Copeland performed a percutaneous [place] tracheostomy at the bedside through the existing cric incision. (He first placed the guidewire through the existing perc tube). Tracheostomy tube placement was confirmed with bronchoscopy again. At the beginning of tracheostomy patient's oxygen saturation was in the mid 70s. This slowly improved to 95% and patient was placed on ventilator. At this time we are unable to get any other history from the patient regarding food allergies. Scheduled IV Decadron Benadryl and famotidine had been started. 11/14 Remains deeply sedated and on mechanical ventilation via trach, no leak. Plan for revision of trach on Thursday. Has persistent face and tongue swelling but family and staff indicate improved compared with yesterday. Family states patient on lisinopril ~ 1 year, long term care phlebotomist NSAIDS. She had eaten scrapple and toast about 1 1/2 hours before onset of symptoms. 11/15 Fiberoptic bronchoscopy performed and demonstrates persistent cord edema. Existing tracheostomy position noted immediately subglottic at expected level of cricothyroid membrane. Dr. Copeland will schedule revision to formal tracheostomy. Patient remains heavily sedated to ensure airway maintenance. 11/16: remains deeply sedated for airway protection. discussion with Dr. Copeland: may need additional time for edema to decrease. will now plan to leave cric in place and not revise at this immediate time. 11/17: I remained at beside today and personally weaned sedation to ensure patient was calm through emergence from sedation. patient now off sedation, awake, alert, oriented, calm. on t-piece 40% o2. 11/18: significantly agitated overnight, requiring deep sedation to prevent trach dislodgement and loss of airway. back on the vent this AM. critical agitation and some delirium. some improvement with haldol iv. 11/19: agitation persists. discussed with general surgery, will need to re- evaluate level of edema tomorrow. 11/20: bronch today with completely resolved pharyngeal edema. also performed direct laryngoscopy and patient is an easy Grade I view with Mac 3 blade. mild edema at the cords themselves, but visually could easily pass 7.0 or greater ett. significant emesis and KUB with abdominal distension/ileus, nonobstructive pattern. given neostigmine 2.5mg iv with significant bowel movement and improvement in distension. NGT placed and >1L bilious emesis removed. still CAM + and agitation is a problem. Subjective: 11/21: agitation still a problem. NGT output significantly improved. good BM yesterday and abdomen soft today. no evidence of laryngeal edema today. 11/22: more awake and less agitated today. weaning sedation. following commands for the first time consistently in 48h. tolerating tube feeds. BM daily now. 11/23: Currently awake alert on CPAP. Tolerating well. Will place on T piece for 24 hours and possibly decannulate tomorrow. Discussed with Dr. Copeland. Chest x-ray improving infiltrates 11/24: Patient is clinically improving, remained off the ventilator last 24 hours. KUB pending regarding ileus. However no vomiting at least for the last 12 hours, having BM 11/25: Breathing comfortably after trach decannulation yesterday. But patient is slightly confused today. She is oriented to person but appears to be developing psychosis. Family had indicated previous psych history but they are not sure about diagnosis. I will discontinue current psychotropic medications which are we are using for agitation and consult psychiatry. Her ileus is clinically improving, KUB shows mild ileus slowly. Will request swallow eval today. CT abdomen shows gallstones 11/26: Stable respiratory sanchez. WBC count 21,000 today. Cricothyrotomy site looks infected with yellow discharge. Broad-spectrum antibiotics started. Wound culture sent. Remains hyponatremic, change fluid to quarter normal saline with potassium. Ileus clinically improving. BM x1 yesterday 11/27/17 With hypernatremia. On free water. She doesn;t appear in acute distress. No n/v/d/c. With fever 101,8 overnight. Add tylenol amd repeat blood cultures Physical Exam Vital signs: Vital Signs 11/26/17 08:23 11/26/17 09:00 11/26/17 10:00 Temperature Pulse Rate 109 H 110 H Respiratory Rate 20 25 H 26 H Blood Pressure 118/75 143/75 H Pulse Oximetry 92 L 93 L 11/26/17 11:00 11/26/17 11:40 11/26/17 12:00 Temperature Pulse Rate 119 H 113 H 107 H Respiratory Rate 30 H 23 25 H Blood Pressure 126/89 120/63 117/74 Pulse Oximetry 92 L 97 95 11/26/17 13:00 11/26/17 13:31 11/26/17 14:00 Temperature Pulse Rate 113 H 116 H Respiratory Rate 25 H 21 Blood Pressure 118/79 Pulse Oximetry 97 95 93 L 11/26/17 14:19 11/26/17 15:00 11/26/17 15:31 Temperature Pulse Rate 115 H 109 H 112 H Respiratory Rate 27 H 24 23 Blood Pressure 135/94 H 146/102 H 135/79 Pulse Oximetry 93 L 94 L 93 L 11/26/17 16:00 11/26/17 17:00 11/26/17 18:00 Temperature Pulse Rate 112 H 119 H 114 H Respiratory Rate 23 25 H 25 H Blood Pressure 146/77 H 152/72 H 144/84 H Pulse Oximetry 95 95 93 L 11/26/17 20:00 11/26/17 22:00 11/27/17 00:00 Temperature 98.3 F 98.3 F Pulse Rate 114 H 122 H 116 H Respiratory Rate 20 20 Blood Pressure 136/70 158/86 H Pulse Oximetry 96 97 11/27/17 02:00 11/27/17 04:00 11/27/17 05:00 Temperature 98.3 F Pulse Rate 117 H 128 H 122 H Respiratory Rate 20 Blood Pressure 141/62 H Pulse Oximetry 94 L 11/27/17 06:00 Temperature Pulse Rate 116 H Respiratory Rate Blood Pressure Pulse Oximetry Intake & Output 11/26/17 11/27/17 11/27/17 18:59 06:59 18:59 Intake Total 1246.5 / 1246.5 1229.625 / 1229.625 Output Total 1200 / 1200 900 / 900 Balance 46.5 / 46.5 329.625 / 329.625 Weight 94.5 kg Intake: IV 982.5 / 982.5 1229.625 / 1229.625 KCl Inj 40 MEQ In 1/2 Normal 500 / 500 Saline Inj 1,000 ML @ 60 mls/hr IV.CONT .Q17H [facility] Rx#:[id number] KCl Inj 40 MEQ Sodium Chloride 1029.625 / 1029.625 23.4% Inj 38.5 MEQ In Sterile Water for Inj 1,000 ML @ 150 mls/hr IV.CONT .Q6H52M [facility] Rx#: [id number] Cardizem Inj 125 MG In NS Inj 20 / 20 100 ML @ 5 MG/HR 5 mls/hr IV. CONT TITRATE PRN Rx#:[id number] Zosyn 4.5 GM Premix 4.5 gm In 200 / 200 200 / 200 100 ml @ 200 mls/hr IV.SIG Q6H [facility] Rx#:[id number] Vancomycin Inj 1,250 MG In NS 262.5 / 262.5 Inj 250 ML @ 250 mls/hr IV.SIG ONCE ONE Rx#:[id number] Oral 0 / 0 0 / 0 Tube Feeding 89 / 89 Tube Irrigant 100 / 100 Water Bolus Amount 75 / 75 Output: Urine 600 / 600 900 / 900 Emesis 0 / 0 Urine Amount (Catheter) 500 / 500 Straight 500 / 500 Gastric Drainage 100 / 100 Left Nare Nasogastric Tube 100 / 100 Other: # Incontinent Voids 0 1 Date of Last Bowel Movement 11/24/17 11/24/17 # Bowel Movements 0 # Incontinent Bowel Movements 1 # Emeses 6 Narrative: GENERAL: Obese female, appears in nad. SKIN: Warm and dry. NECK: Trachea midline. No JVD. Cric site erythematous with yellow discharge CARDIOVASCULAR: Regular rate and rhythm. No murmurs rubs or gallops. RESPIRATORY: No accessory muscle use. Clear to auscultation. Breath sounds equal bilaterally. GASTROINTESTINAL: Abdomen soft, non-tender, moderately distended. hypoactive bowel sounds, but present. MUSCULOSKELETAL: Extremities without clubbing, cyanosis, or edema. No obvious deformities. NEUROLOGICAL: Alert awake. following commands. Oriented to person and place. Delirium resolving - Urinary Catheter Management Indwelling Urethral Catheter Cath placed during this visit: yes, but has since been removed by the nurse Reason for continuing: Decision to DC catheter Insertion date: 11/13/17 Insertion time: 19:00 Removal date: 11/17/17 Removal time: 04:00 Straight Cath placed during this visit: no Reason for continuing: Not indwelling catheter Results - Labs CBC & Chem 7: 11/27/17 03:09 11/27/17 03:09 Laboratory Results - last 24 hr 11/26/17 11/26/17 11/27/17 13:53 23:53 03:09 WBC 25.1 H RBC 3.98 L Hgb 12.7 Hct 39.4 MCV 99.0 MCH 31.9 MCHC 32.3 RDW 14.0 Plt Count 126 L D MPV 9.7 Sodium 156 H* Potassium 3.8 Chloride 114 H Carbon Dioxide 31.0 Anion Gap 11 BUN 31 H Creatinine 0.64 Estimated GFR Greater than 89 POC Glucose 112 H Random Glucose 126 H Calcium 8.8 Magnesium Total Bilirubin 1.1 H AST 56 H ALT 182 H Alkaline Phosphatase 84 Total Protein 7.0 Albumin 3.0 L 11/27/17 11/27/17 03:09 05:49 WBC RBC Hgb Hct MCV MCH MCHC RDW Plt Count MPV Sodium 156 H* Potassium 4.0 Chloride 114 H Carbon Dioxide 31.7 Anion Gap 10 BUN 28 H Creatinine 0.71 Estimated GFR 89 POC Glucose 114 H Random Glucose 90 Calcium 8.9 Magnesium 2.5 Total Bilirubin 1.6 H AST 58 H ALT 152 H Alkaline Phosphatase 79 Total Protein 6.8 Albumin 2.7 L - Imaging Impressions Gallbladder Ultrasound 11/26/17 00:00 CONCLUSION: 1. There is a gallstone in the gallbladder along with sludge in the gallbladder. No biliary tract obstruction. 2. Small benign-appearing right kidney cyst measuring 1.2 cm. No evidence of hydronephrosis. Abdomen X-Ray 11/27/17 06:00 CONCLUSION: Mildly dilated gas-filled loops of small bowel which are slightly less distended than on the prior study. Chest X-Ray 11/27/17 06:00 CONCLUSION: Clear lungs. Assessment and Plan - Plan 47 yo F with angioedema compromising airway requiring emergent surgical airway. Decannulated 11/24, now with evidence of chronic site infection. ileus clinically improving. NEURO: Agitated delirium- resolving - Minimize psychotropic meds. Haldol as needed for agitation 2mg iv q4h prn - Acute delirium is most likely metabolic now improving - oxycodone 10mg po q4h PRN for chronic back pain RESP: Acute hypoxemic respiratory failure- resolved. Angioedema with severe upper airway compromise- resolved Cric site infection -Emergent cric per Dr. Sandhu at [facility]. -Unable to adequately ventilate through the cric tube as it was cuff less tube ( supplied in [facility]ker kit) -Dr. Copeland emergently performed percutaneous tracheostomy at the bedside by passing wire through existing cric tube. -Trach decannulated yesterday 11/24/17 -Per Dr. Paredes's note on 11/20, direct laryngoscopy with lilli #3 blade with easy Grade 1 view of complete larynx. bronch on 11/20 without any evidence of pharyngeal or hypopharyngeal or laryngeal edema. - Off Decadron and benadryl. -Famotidine 20 mg IV every 12 -DuoNeb every 6 hours scheduled and as needed Diagnostic fiberoptic Bronchoscopy-no evidence of any persistent edema in the tongue, oral mucosa, pharynx, or hypopharynx. The larynx is without any evidence of edema. There is a very small amount of edema of the true vocal cords, but these are widely open and patent. No evidence of edema or secretions in the main airways. - Etiology most like Ervin-I, NSAIDS also a possibility. Given the severity of this reaction, recommended avoiding both and f/u with certified medical technician assistant. C4 is normal, tryptase pending. -Trach site infected. Send culture, start Zosyn and single dose of vancomycin - With temp 101.8 . Add tylenol. Repeat blood cultures . Add vancomycin IV . Patient with sepsis criteriaL leukocytosis, fever, tachycardia infected trach site . Consider ID consult. CV: Pulmonary edema most likely negative pressure- resolved -d/cd lasix. GI: Nonobstructive ileus- clinically improving - NPO. Continue IV Reglan. Consider Relistor if KUB shows persistent ileus - bowel regimen with senna, colace, miralax, lactulose, dulcolax suppository, prn milk of mag. - Having BMs. N/V improving. Start diet per speech recommendation - CT abdomen showed mild ileus and gallstones. US today to rule out acute cholecystitis - May need outpatient cholecystectomy FEN/RENAL: -Monitor renal function closely. - voiding on own -Electrolyte replacement per protocol -free water to correct hypernatremia. Give lasix 20 mg IVP one time ID: Sepsis ( tachycardia, fever, leukocytosis, infected cric site) Cric site infection -Trach site infected. Send culture, start Zosyn add IV vancomycin. Blood cultures 11/27 . Consider ID consult -afebrile. u/a was not suggestive of UTI. - am CBC. HEME: -Monitor CBC ENDO: -Monitoring glucose q6 hours. Sliding scale insulin if needed PROPH: -Bilateral lower extremity SCDs. Lovenox daily. IV famotidine LINES: -Utilize peripheral IVs PT/OT. careful mobilization. Code status: FULL CODE Discussed with the patient, nurse.
[2017-11-27] MEDS: Chlorhexidine 0.12% Oral Kit 15 ML UDC OROPHARYNG SCH ×2 (10:52→20:33)
[2017-11-27] MEDS: Enoxaparin Inj 40 MG/0.4 ML Syringe SQ SCH (10:53)
[2017-11-27] MEDS: Senna/Docusate Sodium 8.6/50 MG Tablet PO SCH ×2 (10:53→20:33)
[2017-11-27] MEDS: Polyethylene Glycol 3350 17 GM Packet PO SCH ×2 (10:53→20:32)
[2017-11-27] MEDS: Bisacodyl 10 MG Supp RECTAL SCH (10:53)
[2017-11-27] MEDS: Famotidine PF Inj 20 MG/2 ML Vial IV.PUSH SCH ×2 (10:53→20:32)
--- NOTE | 2017-11-27 11:13 | P.PNGS ---
Subjective Patient reports: no new complaints Interval history: Respiratory status stable No issues Physical Exam Vital signs: Vital Signs 11/26/17 11:40 11/26/17 12:00 11/26/17 13:00 Temperature Pulse Rate 113 H 107 H 113 H Respiratory Rate 23 25 H 25 H Blood Pressure 120/63 117/74 118/79 Pulse Oximetry 97 95 97 11/26/17 13:31 11/26/17 14:00 11/26/17 14:19 Temperature Pulse Rate 116 H 115 H Respiratory Rate 21 27 H Blood Pressure 135/94 H Pulse Oximetry 95 93 L 93 L 11/26/17 15:00 11/26/17 15:31 11/26/17 16:00 Temperature Pulse Rate 109 H 112 H 112 H Respiratory Rate 24 23 23 Blood Pressure 146/102 H 135/79 146/77 H Pulse Oximetry 94 L 93 L 95 11/26/17 17:00 11/26/17 18:00 11/26/17 20:00 Temperature 98.3 F Pulse Rate 119 H 114 H 114 H Respiratory Rate 25 H 25 H 20 Blood Pressure 152/72 H 144/84 H 136/70 Pulse Oximetry 95 93 L 96 11/26/17 22:00 11/27/17 00:00 11/27/17 02:00 Temperature 98.3 F Pulse Rate 122 H 116 H 117 H Respiratory Rate 20 Blood Pressure 158/86 H Pulse Oximetry 97 11/27/17 04:00 11/27/17 05:00 11/27/17 06:00 Temperature 98.3 F Pulse Rate 128 H 122 H 116 H Respiratory Rate 20 Blood Pressure 141/62 H Pulse Oximetry 94 L 11/27/17 08:58 Temperature Pulse Rate Respiratory Rate Blood Pressure Pulse Oximetry 97 Intake & Output 11/26/17 11/27/17 11/27/17 18:59 06:59 18:59 Intake Total 1246.5 / 1246.5 1229.625 / 1229.625 Output Total 1200 / 1200 900 / 900 Balance 46.5 / 46.5 329.625 / 329.625 Weight 94.5 kg Intake: IV 982.5 / 982.5 1229.625 / 1229.625 KCl Inj 40 MEQ In 1/2 Normal 500 / 500 Saline Inj 1,000 ML @ 60 mls/hr IV.CONT .Q17H [facility] Rx#:[id number] KCl Inj 40 MEQ Sodium Chloride 1029.625 / 1029.625 23.4% Inj 38.5 MEQ In Sterile Water for Inj 1,000 ML @ 150 mls/hr IV.CONT .Q6H52M [facility] Rx#: [id number] Cardizem Inj 125 MG In NS Inj 20 / 20 100 ML @ 5 MG/HR 5 mls/hr IV. CONT TITRATE PRN Rx#:[id number] Zosyn 4.5 GM Premix 4.5 gm In 200 / 200 200 / 200 100 ml @ 200 mls/hr IV.SIG Q6H [facility] Rx#:[id number] Vancomycin Inj 1,250 MG In NS 262.5 / 262.5 Inj 250 ML @ 250 mls/hr IV.SIG ONCE ONE Rx#:[id number] Oral 0 / 0 0 / 0 Tube Feeding 89 / 89 Tube Irrigant 100 / 100 Water Bolus Amount 75 / 75 Output: Urine 600 / 600 900 / 900 Emesis 0 / 0 Urine Amount (Catheter) 500 / 500 Straight 500 / 500 Gastric Drainage 100 / 100 Left Nare Nasogastric Tube 100 / 100 Other: # Incontinent Voids 0 1 Date of Last Bowel Movement 11/24/17 11/24/17 # Bowel Movements 0 # Incontinent Bowel Movements 1 # Emeses 6 Narrative: Alert and awake Trach site with some thin drainage otherwise area around clear and dry - Routine Abdominal Exam Present: soft - Urinary Catheter Management Indwelling Urethral Catheter Cath placed during this visit: yes, but has since been removed by the nurse Reason for continuing: Decision to DC catheter Insertion date: 11/13/17 Insertion time: 19:00 Removal date: 11/17/17 Removal time: 04:00 Straight Cath placed during this visit: no Reason for continuing: Not indwelling catheter Assessment and Plan - Assessment (1) Angioedema Code(s): T78.3XXA - Angioneurotic edema, initial encounter Status: Acute Plan: 47 year old female with angioedema; ?? lisinopril; s/p emergency trach placement -Working with CARPET W[employer]ER -Diet as tolerated -Stable off ventilator -GS will see PRN over the weekend Added free water flushes for persistent hypernatremia Diet started Clamp NG and check residuals The exam, history, and the medical decision-making described in the above note were completed with the assistance of the mid-level provider. I reviewed and agree with the findings presented. I attest that I had a [id number] encounter with the patient on the same day, and personally performed and documented my assessment and findings in the medical record.
[2017-11-27] MEDS ORDERED: Vancomycin Inj 1 GM/200 ML PIGGYBACK IV.SIG SCH (14:00)
[2017-11-27] MEDS ORDERED: Vancomycin Consult Pharmacy OTHER PRN (14:20)
[2017-11-27] MEDS: Vancomycin Inj 1,750 MG in Sodium Chlor 0.9% Inj 500 ML IV.SIG SCH (16:14)
[2017-11-27] MEDS: Acetaminophen 325 MG Tablet PO PRN (20:34)
[2017-11-27] MEDS: hydrALAZINE 50 MG Tablet PO PRN (23:28)
[2017-11-28] MEDS: Insulin NovoLOG Aspart Correctional Sugar Inj SQ SCH ×4 (00:30→18:07)
[2017-11-28] MEDS: Piperacil/Tazo 4.5 GM Premix 4.5 GM/100 ML BAG IV.SIG SCH ×4 (03:09→20:58)
[2017-11-28] MEDS: Haloperidol Inj 5 MG/ML Ampul IV.PUSH PRN (03:09)
[2017-11-28] MEDS: Vancomycin Inj 1,750 MG in Sodium Chlor 0.9% Inj 500 ML IV.SIG SCH (03:53)
[2017-11-28 04:11] LABS: Hematocrit 34.8 % (35.0-46.0); Hemoglobin 11.4 gm/dL (11.6-15.3); Mean Corpuscular HGB Conc 32.6 % (32.0-36.0); Mean Corpuscular Hemoglobin 32.1 pg (27.0-34.0); Mean Corpuscular Volume 98.4 fL (80.0-100.0); Mean Platelet Volume 10.3 fL (7.0-11.0); Platelet Count 98 th/mm3 (150-450); Red Blood Count 3.54 mil/mm3 (4.00-5.30); Red Cell Distribution Width 13.9 % (11.6-17.2); White Blood Count 19.6 th/mm3 (4.0-11.0)
[2017-11-28] MEDS: Oral Hygiene Kit OROPHARYNG SCH ×3 (04:32→16:19)
[2017-11-28 05:17] LABS: Calcium 8.3 mg/dL (8.5-10.1); Carbon Dioxide 29.7 meq/L (21.0-32.0); Magnesium 2.2 mg/dL (1.5-2.5)
[2017-11-28] MEDS: Bisacodyl 10 MG Supp RECTAL SCH (08:04)
[2017-11-28] MEDS: Famotidine PF Inj 20 MG/2 ML Vial IV.PUSH SCH ×2 (08:04→21:00)
[2017-11-28] MEDS: Enoxaparin Inj 40 MG/0.4 ML Syringe SQ SCH (08:04)
[2017-11-28] MEDS: hydrALAZINE 50 MG Tablet PO PRN (08:04)
[2017-11-28] MEDS: Polyethylene Glycol 3350 17 GM Packet PO SCH ×2 (08:04→21:02)
[2017-11-28] MEDS: Senna/Docusate Sodium 8.6/50 MG Tablet PO SCH ×2 (08:05→21:02)
[2017-11-28] MEDS: WATER FOR INJ IV.CONT SCH ×2 (11:35→17:00)
[2017-11-28] MEDS: SODIUM CHLORIDE IV.CONT SCH ×2 (11:35→17:00)
[2017-11-28] MEDS: POTASSIUM CHLORIDE IV.CONT SCH ×2 (11:35→17:00)
[2017-11-28] MEDS: [UNRECOGNIZED DRUG - OTHER] IV.CONT SCH ×2 (11:35→17:00)
[2017-11-28] MEDS: Chlorhexidine 0.12% Oral Kit 15 ML UDC OROPHARYNG SCH ×2 (11:38→21:02)
--- NOTE | 2017-11-28 14:22 | P.PN ---
Subjective Interval history: Patient is a 47 year old morbidly female obese female who presented to the [place] emergency department with severe acute anaphylactic reaction, and airway compromise. RSI was attempted by Dr. Pino and Dr. Sandhu, but they were unable to. An LMA was placed but the patient's O2 sats remained in the low 80s. Emergency cricothyroidotomy was performed at [place] emergency department , by Dr. Sandhu, 6-0 uncuffed cric tube was placed. Postplacement there was leak around the trach tube with bag and mask ventilation. LMA was reintroduced and patient was given ventilation through the LMA and patient was emergently transferred to the [facility]. I evaluated patient emergently in [place] in [facility] [place] Patient is sedated with propofol infusion. Oxygen saturation with bag and mask ventilation was 88-90%. I performed a bronchoscopy through the LMA , vocal cords appeared severely swollen. A pediatric bronchoscope was not available to the load a 6.0 ET tube. I attempted intubation with the glide scope and 6.0 ET tube. I was able to visualize the significantly swollen glottic opening and vocal cords, but I was unable to pass the ET tube through the vocal cords due to swelling. Dr. Castaneda placed a new #5 LMA and we returned to bag and mask ventilation and Dr. Copeland performed a percutaneous [place] tracheostomy at the bedside through the existing cric incision. (He first placed the guidewire through the existing perc tube). Tracheostomy tube placement was confirmed with bronchoscopy again. At the beginning of tracheostomy patient's oxygen saturation was in the mid 70s. This slowly improved to 95% and patient was placed on ventilator. At this time we are unable to get any other history from the patient regarding food allergies. Scheduled IV Decadron Benadryl and famotidine had been started. 11/14 Remains deeply sedated and on mechanical ventilation via trach, no leak. Plan for revision of trach on Thursday. Has persistent face and tongue swelling but family and staff indicate improved compared with yesterday. Family states patient on lisinopril ~ 1 year, rat exterminator NSAIDS. She had eaten scrapple and toast about 1 1/2 hours before onset of symptoms. 11/15 Fiberoptic bronchoscopy performed and demonstrates persistent cord edema. Existing tracheostomy position noted immediately subglottic at expected level of cricothyroid membrane. Dr. Copeland will schedule revision to formal tracheostomy. Patient remains heavily sedated to ensure airway maintenance. 11/16: remains deeply sedated for airway protection. discussion with Dr. Copeland: may need additional time for edema to decrease. will now plan to leave cric in place and not revise at this immediate time. 11/17: I remained at beside today and personally weaned sedation to ensure patient was calm through emergence from sedation. patient now off sedation, awake, alert, oriented, calm. on t-piece 40% o2. 11/18: significantly agitated overnight, requiring deep sedation to prevent trach dislodgement and loss of airway. back on the vent this AM. critical agitation and some delirium. some improvement with haldol iv. 11/19: agitation persists. discussed with general surgery, will need to re- evaluate level of edema tomorrow. 11/20: bronch today with completely resolved pharyngeal edema. also performed direct laryngoscopy and patient is an easy Grade I view with Mac 3 blade. mild edema at the cords themselves, but visually could easily pass 7.0 or greater ett. significant emesis and KUB with abdominal distension/ileus, nonobstructive pattern. given neostigmine 2.5mg iv with significant bowel movement and improvement in distension. NGT placed and >1L bilious emesis removed. still CAM + and agitation is a problem. Subjective: 11/21: agitation still a problem. NGT output significantly improved. good BM yesterday and abdomen soft today. no evidence of laryngeal edema today. 11/22: more awake and less agitated today. weaning sedation. following commands for the first time consistently in 48h. tolerating tube feeds. BM daily now. 11/23: Currently awake alert on CPAP. Tolerating well. Will place on T piece for 24 hours and possibly decannulate tomorrow. Discussed with Dr. Copeland. Chest x-ray improving infiltrates 11/24: Patient is clinically improving, remained off the ventilator last 24 hours. KUB pending regarding ileus. However no vomiting at least for the last 12 hours, having BM 11/25: Breathing comfortably after trach decannulation yesterday. But patient is slightly confused today. She is oriented to person but appears to be developing psychosis. Family had indicated previous psych history but they are not sure about diagnosis. I will discontinue current psychotropic medications which are we are using for agitation and consult psychiatry. Her ileus is clinically improving, KUB shows mild ileus slowly. Will request swallow eval today. CT abdomen shows gallstones 11/26: Stable respiratory sanchez. WBC count 21,000 today. Cricothyrotomy site looks infected with yellow discharge. Broad-spectrum antibiotics started. Wound culture sent. Remains hyponatremic, change fluid to quarter normal saline with potassium. Ileus clinically improving. BM x1 yesterday 11/27/17 With hypernatremia. On free water. She doesn;t appear in acute distress. No n/v/d/c. With fever 101,8 overnight. Add tylenol amd repeat blood cultures 11/28/17 Patient is in the bed she is sleepy at this time. However says she feels improved since yesterday. Sodium level is improving. In free water. NG tube in place. No fever chills overnight. She is breathing well while on nasal cannula. No cough. Denies chest pain. No nausea or vomiting. Has decreased appetite and not eating much. Physical Exam Vital signs: Vital Signs 11/27/17 15:00 11/27/17 15:07 11/27/17 15:42 Temperature Pulse Rate 125 H 123 H 119 H Respiratory Rate 30 H 29 H 27 H Blood Pressure 133/81 140/88 Pulse Oximetry 96 97 96 11/27/17 16:00 11/27/17 17:00 11/27/17 18:00 Temperature 100.6 F H Pulse Rate 120 H 110 H 109 H Respiratory Rate 27 H 26 H 26 H Blood Pressure 144/81 H 155/84 H 158/95 H Pulse Oximetry 97 96 98 11/27/17 19:00 11/27/17 20:00 11/27/17 21:00 Temperature 101.2 F H Pulse Rate 117 H 110 H 111 H Respiratory Rate 25 H 27 H 35 H Blood Pressure 156/80 H 158/76 H 149/87 H Pulse Oximetry 98 98 95 11/27/17 22:00 11/27/17 23:00 11/27/17 23:01 Temperature Pulse Rate 114 H 123 H 126 H Respiratory Rate 26 H 28 H 39 H Blood Pressure 173/86 H 185/75 H Pulse Oximetry 96 96 96 11/27/17 23:07 11/27/17 23:25 11/27/17 23:48 Temperature Pulse Rate 117 H Respiratory Rate 27 H Blood Pressure 164/113 H Pulse Oximetry 97 96 96 11/28/17 00:00 11/28/17 01:00 11/28/17 02:00 Temperature 100.3 F H Pulse Rate 117 H 126 H 118 H Respiratory Rate 22 24 24 Blood Pressure 156/67 H 158/94 H 149/100 H Pulse Oximetry 96 99 100 11/28/17 03:00 11/28/17 04:00 11/28/17 05:00 Temperature 99.6 F Pulse Rate 114 H 104 H 107 H Respiratory Rate 23 18 21 Blood Pressure 156/94 H 148/101 H 165/96 H Pulse Oximetry 100 100 100 11/28/17 05:31 11/28/17 06:00 11/28/17 07:00 Temperature Pulse Rate 111 H 110 H Respiratory Rate 21 22 Blood Pressure 158/101 H 149/111 H Pulse Oximetry 95 100 100 11/28/17 08:00 11/28/17 08:13 11/28/17 09:00 Temperature 99.7 F H Pulse Rate 108 H 118 H Respiratory Rate 23 26 H Blood Pressure 172/106 H Pulse Oximetry 100 98 100 11/28/17 09:01 11/28/17 10:00 Temperature Pulse Rate 113 H 106 H Respiratory Rate 22 20 Blood Pressure 147/67 H 149/91 H Pulse Oximetry 100 100 Intake & Output 11/27/17 11/28/17 11/28/17 18:59 06:59 18:59 Intake Total 1900 / 1900 3306.750 / 3306.750 617.5 / 617.5 Output Total 700 / 700 600 / 600 Balance 1200 / 1200 2706.750 / 2706.750 617.5 / 617.5 Weight 97 kg Intake: IV 1200 / 1200 2776.750 / 2776.750 617.5 / 617.5 KCl Inj 40 MEQ Sodium Chloride 1000 / 1000 2059.250 / 2059.250 23.4% Inj 38.5 MEQ In Sterile Water for Inj 1,000 ML @ 150 mls/hr IV.CONT .Q6H52M DINA Rx#: [id number] Zosyn 4.5 GM Premix 4.5 gm In 200 / 200 200 / 200 100 / 100 100 ml @ 200 mls/hr IV.SIG Q6H DINA Rx#:[id number] Vancomycin Inj 1,750 MG In NS 517.5 / 517.5 517.5 / 517.5 Inj 500 ML @ 250 mls/hr IV.SIG Q12H DINA Rx#:[id number] Oral 80 / 80 Tube Feeding 0 / 0 Water Bolus Amount 700 / 700 450 / 450 Output: Urine 700 / 700 600 / 600 Emesis 0 / 0 Other: Date of Last Bowel Movement 11/27/17 11/27/17 11/27/17 # Bowel Movements 1 0 # Incontinent Bowel Movements 0 # Emeses 0 Narrative: GENERAL: Obese female, appears in nad. SKIN: Warm and dry. NECK: Trachea midline. No JVD. Cric site erythematous with yellow discharge CARDIOVASCULAR: Regular rate and rhythm. No murmurs rubs or gallops. RESPIRATORY: No accessory muscle use. Clear to auscultation. Breath sounds equal bilaterally. GASTROINTESTINAL: Abdomen soft, non-tender, moderately distended. hypoactive bowel sounds, but present. MUSCULOSKELETAL: Extremities without clubbing, cyanosis, or edema. No obvious deformities. NEUROLOGICAL: Alert awake. following commands. Oriented to person and place. Delirium resolving - Urinary Catheter Management Indwelling Urethral Catheter Cath placed during this visit: yes, but has since been removed by the nurse Reason for continuing: Decision to DC catheter Insertion date: 11/13/17 Insertion time: 19:00 Removal date: 11/17/17 Removal time: 04:00 Straight Cath placed during this visit: no Reason for continuing: Not indwelling catheter Results - Labs CBC & Chem 7: 11/28/17 03:14 11/28/17 03:14 Laboratory Results - last 24 hr 11/27/17 11/27/17 11/28/17 17:46 23:22 03:14 WBC 19.6 H RBC 3.54 L Hgb 11.4 L Hct 34.8 L MCV 98.4 MCH 32.1 MCHC 32.6 RDW 13.9 Plt Count 98 L MPV 10.3 Sodium Potassium Chloride Carbon Dioxide Anion Gap BUN Creatinine Estimated GFR POC Glucose 96 111 H Random Glucose Calcium Magnesium 11/28/17 11/28/17 03:14 11:25 WBC RBC Hgb Hct MCV MCH MCHC RDW Plt Count MPV Sodium 149 H Potassium 4.0 Chloride 109 H Carbon Dioxide 29.7 Anion Gap 10 BUN 23 H Creatinine 0.79 Estimated GFR 79 L POC Glucose 110 Random Glucose 94 Calcium 8.3 L Magnesium 2.2 Microbiology 11/26/17 12:00 Fluid - Other Gram Stain - Final 11/26/17 12:00 Fluid - Other Wound Culture - Final Enterobacter aerogenes 11/27/17 14:23 Blood - Peripheral Aerobic Blood Culture - Preliminary No growth in 1 day 11/27/17 14:23 Blood - Peripheral Anaerobic Blood Culture - Preliminary No growth in 1 day 11/27/17 14:12 Blood - Peripheral Aerobic Blood Culture - Preliminary No growth in 1 day 11/27/17 14:12 Blood - Peripheral Anaerobic Blood Culture - Preliminary No growth in 1 day Assessment and Plan - Plan 47 yo F with angioedema compromising airway requiring emergent surgical airway. Decannulated 11/24, now with evidence of chronic site infection. ileus clinically improving. NEURO: Agitated delirium- resolving - Minimize psychotropic meds. Haldol as needed for agitation 2mg iv q4h prn - Acute delirium is most likely metabolic now improving - oxycodone 10mg po q4h PRN for chronic back pain RESP: Acute hypoxemic respiratory failure- resolved. Angioedema with severe upper airway compromise- resolved Cric site infection -Emergent cric per Dr. Sandhu at [place] [facility]. -Unable to adequately ventilate through the cric tube as it was cuff less tube ( supplied in [employer] kit) -Dr. Copeland emergently performed percutaneous tracheostomy at the bedside by passing wire through existing cric tube. -Trach decannulated yesterday 11/24/17 -Per Dr. Paredes's note on 11/20, direct laryngoscopy with lilli #3 blade with easy Grade 1 view of complete larynx. bronch on 11/20 without any evidence of pharyngeal or hypopharyngeal or laryngeal edema. - Off Decadron and benadryl. -Famotidine 20 mg IV every 12 -DuoNeb every 6 hours scheduled and as needed Diagnostic fiberoptic Bronchoscopy-no evidence of any persistent edema in the tongue, oral mucosa, pharynx, or hypopharynx. The larynx is without any evidence of edema. There is a very small amount of edema of the true vocal cords, but these are widely open and patent. No evidence of edema or secretions in the main airways. - Etiology most like Ervin-I, NSAIDS also a possibility. Given the severity of this reaction, recommended avoiding both and f/u with java architect. C4 is normal, tryptase pending. -Trach site infected. Send culture, start Zosyn and single dose of vancomycin - With temp 101.8 . Add tylenol. Repeat blood cultures . Add vancomycin IV . Patient with sepsis criteriaL leukocytosis, fever, tachycardia infected trach site . ID consulted. CV: Pulmonary edema most likely negative pressure- resolved -d/cd lasix. GI: Nonobstructive ileus- clinically improving - NPO. Continue IV Reglan. Consider Relistor if KUB shows persistent ileus - bowel regimen with senna, colace, miralax, lactulose, dulcolax suppository, prn milk of mag. - Having BMs. N/V improving. Start diet per speech recommendation - CT abdomen showed mild ileus and gallstones. US today to rule out acute cholecystitis - May need outpatient cholecystectomy FEN/RENAL: -Monitor renal function closely. - voiding on own -Electrolyte replacement per protocol -free water to correct hypernatremia. Give lasix 20 mg IVP one time ID: Sepsis ( tachycardia, fever, leukocytosis, infected cric site) Cric site infection -Trach site infected. Send culture, start Zosyn add IV vancomycin. Blood cultures 11/27 . Consider ID consult -afebrile. u/a was not suggestive of UTI. - am CBC. HEME: -Monitor CBC ENDO: -Monitoring glucose q6 hours. Sliding scale insulin if needed PROPH: -Bilateral lower extremity SCDs. Lovenox daily. IV famotidine LINES: -Utilize peripheral IVs PT/OT. careful mobilization. Code status: FULL CODE Discussed with the patient, at bedside, nurse.
[2017-11-28] MEDS: Acetaminophen 325 MG Tablet PO PRN (16:55)
--- NOTE | 2017-11-28 17:57 | P.PN ---
Subjective Interval history: Patient resting comfortably; was in the stretcher chair earlier today Physical Exam Vital signs: Vital Signs 11/27/17 18:00 11/27/17 19:00 11/27/17 20:00 Temperature 101.2 F H Pulse Rate 109 H 117 H 110 H Respiratory Rate 26 H 25 H 27 H Blood Pressure 158/95 H 156/80 H 158/76 H Pulse Oximetry 98 98 98 11/27/17 21:00 11/27/17 22:00 11/27/17 23:00 Temperature Pulse Rate 111 H 114 H 123 H Respiratory Rate 35 H 26 H 28 H Blood Pressure 149/87 H 173/86 H Pulse Oximetry 95 96 96 11/27/17 23:01 11/27/17 23:07 11/27/17 23:25 Temperature Pulse Rate 126 H 117 H Respiratory Rate 39 H 27 H Blood Pressure 185/75 H 164/113 H Pulse Oximetry 96 97 96 11/27/17 23:48 11/28/17 00:00 11/28/17 01:00 Temperature 100.3 F H Pulse Rate 117 H 126 H Respiratory Rate 22 24 Blood Pressure 156/67 H 158/94 H Pulse Oximetry 96 96 99 11/28/17 02:00 11/28/17 03:00 11/28/17 04:00 Temperature 99.6 F Pulse Rate 118 H 114 H 104 H Respiratory Rate 24 23 18 Blood Pressure 149/100 H 156/94 H 148/101 H Pulse Oximetry 100 100 100 11/28/17 05:00 11/28/17 05:31 11/28/17 06:00 Temperature Pulse Rate 107 H 111 H Respiratory Rate 21 21 Blood Pressure 165/96 H 158/101 H Pulse Oximetry 100 95 100 11/28/17 07:00 11/28/17 08:00 11/28/17 08:13 Temperature 99.7 F H Pulse Rate 110 H 108 H Respiratory Rate 22 23 Blood Pressure 149/111 H 172/106 H Pulse Oximetry 100 100 98 11/28/17 09:00 11/28/17 09:01 11/28/17 10:00 Temperature Pulse Rate 118 H 113 H 106 H Respiratory Rate 26 H 22 20 Blood Pressure 147/67 H 149/91 H Pulse Oximetry 100 100 100 11/28/17 11:00 11/28/17 12:00 11/28/17 13:00 Temperature Pulse Rate 108 H 121 H 129 H Respiratory Rate 26 H 33 H 29 H Blood Pressure 154/98 H 144/83 H 153/86 H Pulse Oximetry 96 100 100 11/28/17 14:00 11/28/17 14:01 11/28/17 15:00 Temperature Pulse Rate 110 H 109 H 104 H Respiratory Rate 30 H 26 H 19 Blood Pressure 146/105 H 146/86 H Pulse Oximetry 100 100 100 Intake & Output 11/27/17 11/28/17 11/28/17 18:59 06:59 18:59 Intake Total 1900 / 1900 3306.750 / 3306.750 1017.5 / 1017.5 Output Total 700 / 700 600 / 600 Balance 1200 / 1200 2706.750 / 2706.750 1017.5 / 1017.5 Weight 97 kg Intake: IV 1200 / 1200 2776.750 / 2776.750 1017.5 / 1017.5 KCl Inj 40 MEQ In 1/2 Normal 0 / 0 Saline Inj 1,000 ML @ 60 mls/hr IV.CONT .Q17H DINA Rx#:[id number] KCl Inj 40 MEQ Sodium Chloride 1000 / 1000 2059.250 / 2059.250 300 / 300 23.4% Inj 38.5 MEQ In Sterile Water for Inj 1,000 ML @ 150 mls/hr IV.CONT .Q6H52M DINA Rx#: [id number] Zosyn 4.5 GM Premix 4.5 gm In 200 / 200 200 / 200 200 / 200 100 ml @ 200 mls/hr IV.SIG Q6H DINA Rx#:[id number] Vancomycin Inj 1,750 MG In NS 517.5 / 517.5 517.5 / 517.5 Inj 500 ML @ 250 mls/hr IV.SIG Q12H DINA Rx#:[id number] Oral 80 / 80 Tube Feeding 0 / 0 Water Bolus Amount 700 / 700 450 / 450 Output: Urine 700 / 700 600 / 600 Emesis 0 / 0 Other: Date of Last Bowel Movement 11/27/17 11/27/17 11/27/17 # Bowel Movements 1 0 # Incontinent Bowel Movements 0 # Emeses 0 - Constitutional no acute distress - Routine Neck Exam Present: supple Comments: Wound clean with very minimal drainage. Previous midline incision almost completely healed - Routine Respiratory Exam Present: CTA bilaterally - Routine Cardiovascular Exam Present: RRR - Urinary Catheter Management Indwelling Urethral Catheter Cath placed during this visit: yes, but has since been removed by the nurse Reason for continuing: Decision to DC catheter Insertion date: 11/13/17 Insertion time: 19:00 Removal date: 11/17/17 Removal time: 04:00 Straight Cath placed during this visit: no Reason for continuing: Not indwelling catheter Results - Labs CBC & Chem 7: 11/28/17 03:14 11/28/17 03:14 Laboratory Results - last 24 hr 11/27/17 11/28/17 11/28/17 23:22 03:14 03:14 WBC 19.6 H RBC 3.54 L Hgb 11.4 L Hct 34.8 L MCV 98.4 MCH 32.1 MCHC 32.6 RDW 13.9 Plt Count 98 L MPV 10.3 Sodium 149 H Potassium 4.0 Chloride 109 H Carbon Dioxide 29.7 Anion Gap 10 BUN 23 H Creatinine 0.79 Estimated GFR 79 L POC Glucose 111 H Random Glucose 94 Calcium 8.3 L Magnesium 2.2 11/28/17 11:25 WBC RBC Hgb Hct MCV MCH MCHC RDW Plt Count MPV Sodium Potassium Chloride Carbon Dioxide Anion Gap BUN Creatinine Estimated GFR POC Glucose 110 Random Glucose Calcium Magnesium Microbiology 11/26/17 12:00 Fluid - Other Gram Stain - Final 11/26/17 12:00 Fluid - Other Wound Culture - Final Enterobacter aerogenes 11/27/17 14:23 Blood - Peripheral Aerobic Blood Culture - Preliminary No growth in 1 day 11/27/17 14:23 Blood - Peripheral Anaerobic Blood Culture - Preliminary No growth in 1 day 11/27/17 14:12 Blood - Peripheral Aerobic Blood Culture - Preliminary No growth in 1 day 11/27/17 14:12 Blood - Peripheral Anaerobic Blood Culture - Preliminary No growth in 1 day Assessment and Plan - Assessment (1) Angioedema Code(s): T78.3XXA - Angioneurotic edema, initial encounter Status: Acute (2) Acute hypernatremia Code(s): E87.0 - Hyperosmolality and hypernatremia Status: Acute Plan: Continue free water flushes - Plan Trach site ok; minimal drainage. Start diet slowly; needs retesting by speech therapy on Thursday. Continue dry dressing and cleaning of trach site. Serum sodium decreased; continue free water flushes. Would leave NG tube in for now so that she can get adequate free water to correct her electrolyte abnormality. - Attending Attestation I attest that I had a [id number] encounter with the patient on the same day, and personally performed and documented my assessment and findings in the medical record. The following services were provided during this hospital visit: Chart data review, vital sign assessments/reviewing monitor data Review of consultation notes if present Medication orders/review and/or management Ordering and/or reviewing lab tests Ordering and/or interpreting/reviewing x-rays and/or diagnostic studies Care of the patient and discussion of the patient with the care team Documentation time To help prompt me to consider important information that might be impacting today's encounter and assessment, Information from prior notes written by myself or my colleagues may have been "brought forward/copy and pasted" into today's note.
--- NOTE | 2017-11-29 01:14 | MB ---
cc: Ehsan Walsh MD DATE: 11/28/2017 REQUESTING PHYSICIAN: Katy Mckeon MD REASON FOR CONSULTATION: Sepsis. HISTORY OF PRESENT ILLNESS: This is a 47-year-old white female who presented with severe acute anaphylactic reaction to [place] [facility] on 11/13/2017. The patient had a difficult intubation, prior attempt at cricothyroidotomy, and subsequently had a tracheostomy placed. She was noted to have marked swelling of the vocal cords. The white count was elevated at 17.4 on 11/13/2017. She was transferred from the [place] facility on 11/13/2017. The patient is now off the ventilator on nasal oxygen via cannula. She is drowsy, but arousable and responsive. She is slow in verbal response, she is aware though. Her white count is elevated at 19.6 and temperature was elevated at 101.8 yesterday morning and last night was 101.2. Blood cultures have been taken. The blood culture has no growth in 1 day. The culture from the tracheostomy site has Enterobacter aerogenes on 11/27/2017. The patient denies pain. Chest x-ray on 11/17/2017 showed bibasilar consolidation. Chest x-ray on 11/27/2017 shows the lungs to be clear. The patient was on steroids. She is currently on IV antibiotics. The patient was on Decadron up until 11/21/2017. PAST MEDICAL HISTORY: Asthma, hypertension. ALLERGIES: LISINOPRIL. MEDICATIONS: 1. Vancomycin. 2. Piperacillin/tazobactam. 3. MiraLAX. 4. Potassium. SOCIAL HISTORY: No current tobacco use. The patient was a smoker in the past. Positive alcohol use. No illicit drug use. FAMILY HISTORY: Noncontributory. REVIEW OF SYSTEMS: All systems have been reviewed and are negative. PHYSICAL EXAMINATION: GENERAL: This is a well-developed female who is in no acute distress, but is somewhat somnolent. VITAL SIGNS: Temperature 99.7, BP 140/91, respirations 20, heart rate 106. HEENT: Head is atraumatic. Extraocular movements are grossly intact. Pupils are reactive to light. No icterus. Oropharynx moist mucosa. No lesions. NECK: The tracheostomy has been plugged. Tracheostomy site has a dressing overlying it. Appears clean. The patient no longer has a tracheostomy. Neck is supple. No adenopathy. LUNGS: Clear breath sounds. HEART: Regular S1, S2, without audible murmurs. ABDOMEN: Bowel sounds present. Soft, no tenderness appreciated. RECTAL: Not performed. EXTREMITIES: No clubbing, cyanosis or edema. SKIN: No rash. NEUROLOGIC: No gross focal finding. The patient, however, is drowsy. PSYCHIATRIC: Calm and cooperative. LABORATORY DATA: WBC 19.6, platelets 98, hemoglobin 11.4. Creatinine 0.79, BUN 23, sodium 149. IMPRESSION: 1. Sepsis syndrome suggested by fever and leukocytosis; however, the patient clinically appears stable. 2. Status post treatment for severe acute anaphylactic reaction with airway compromise. 3. Enterobacter cultured from endotracheal site. The patient probably aspirated during the course of this hospital presentation. RECOMMENDATIONS: 1. Discontinue vancomycin. 2. Continue piperacillin/tazobactam. 3. Monitor white blood cell count. 4. Monitor temperature. 5. Antibiotic adjustment. 6. Monitor clinical status. Thank you for this consultation. I will monitor the patient's progress with you. MD IMANI Shirley/heike , 03:37 PM , 03:52 PM
[2017-11-29] MEDS ORDERED: Pharmacy Ordered Lab Info OTHER ONE (03:45)
[2017-11-29 04:20] LABS: Hematocrit 31.8 % (35.0-46.0); Hemoglobin 10.3 gm/dL (11.6-15.3); Mean Corpuscular HGB Conc 32.5 % (32.0-36.0); Mean Corpuscular Hemoglobin 31.8 pg (27.0-34.0); Mean Corpuscular Volume 97.9 fL (80.0-100.0); Mean Platelet Volume 9.7 fL (7.0-11.0); Platelet Count 113 th/mm3 (150-450); Red Blood Count 3.24 mil/mm3 (4.00-5.30); Red Cell Distribution Width 13.6 % (11.6-17.2); White Blood Count 14.5 th/mm3 (4.0-11.0)
[2017-11-29 04:51] LABS: Calcium 8.4 mg/dL (8.5-10.1); Carbon Dioxide 28.7 meq/L (21.0-32.0); Potassium 3.9 meq/L (3.5-5.1)
[2017-11-29 04:53] LABS: Vancomycin,Trough 7.9 mcg/mL (5.0-10.0)
[2017-11-29] MEDS: Oral Hygiene Kit OROPHARYNG SCH ×4 (05:15→16:48)
[2017-11-29] MEDS: Insulin NovoLOG Aspart Correctional Sugar Inj SQ SCH ×3 (07:31→17:18)
[2017-11-29] MEDS: Piperacil/Tazo 4.5 GM Premix 4.5 GM/100 ML BAG IV.SIG SCH ×4 (07:31→21:21)
[2017-11-29] MEDS: Chlorhexidine 0.12% Oral Kit 15 ML UDC OROPHARYNG SCH ×2 (07:32→21:22)
--- NOTE | 2017-11-29 08:44 | P.PN ---
Subjective Interval history: In bed being fed by her , says she likes pudding. Breathing better. Tachycardic. Was up in the chair yesterday. No fever or chills. Physical Exam Vital signs: Vital Signs 11/28/17 09:00 11/28/17 09:01 11/28/17 10:00 Temperature Pulse Rate 118 H 113 H 106 H Respiratory Rate 26 H 22 20 Blood Pressure 147/67 H 149/91 H Pulse Oximetry 100 100 100 11/28/17 11:00 11/28/17 12:00 11/28/17 13:00 Temperature Pulse Rate 108 H 121 H 129 H Respiratory Rate 26 H 33 H 29 H Blood Pressure 154/98 H 144/83 H 153/86 H Pulse Oximetry 96 100 100 11/28/17 14:00 11/28/17 14:01 11/28/17 15:00 Temperature Pulse Rate 110 H 109 H 104 H Respiratory Rate 30 H 26 H 19 Blood Pressure 146/105 H 146/86 H Pulse Oximetry 100 100 100 11/28/17 16:00 11/28/17 16:32 11/28/17 17:00 Temperature 100.6 F H Pulse Rate 110 H 105 H 101 H Respiratory Rate 24 20 17 Blood Pressure 154/116 H 151/79 H 157/81 H Pulse Oximetry 100 100 100 11/28/17 18:00 11/28/17 20:00 11/28/17 21:58 Temperature 98.5 F Pulse Rate 99 H 111 H Respiratory Rate 18 24 Blood Pressure 155/79 H 147/91 H Pulse Oximetry 100 100 99 11/28/17 22:00 11/29/17 00:00 11/29/17 02:00 Temperature Pulse Rate 95 H 99 H 95 H Respiratory Rate 19 Blood Pressure 139/77 Pulse Oximetry 99 11/29/17 04:00 11/29/17 06:00 Temperature 79.5 F L Pulse Rate 89 89 Respiratory Rate 20 Blood Pressure 149/72 H Pulse Oximetry Intake & Output 11/28/17 11/29/17 11/29/17 18:59 06:59 18:59 Intake Total 1537.5 / 1537.5 720 / 720 Output Total 600 / 600 400 / 400 Balance 937.5 / 937.5 320 / 320 Weight 97.5 kg Intake: IV 1017.5 / 1017.5 100 / 100 KCl Inj 40 MEQ Sodium Chloride 300 / 300 23.4% Inj 38.5 MEQ In Sterile Water for Inj 1,000 ML @ 150 mls/hr IV.CONT .Q6H52M DINA Rx#: [id number] Zosyn 4.5 GM Premix 4.5 gm In 200 / 200 100 / 100 100 ml @ 200 mls/hr IV.SIG Q6H DINA Rx#:[id number] Vancomycin Inj 1,750 MG In NS 517.5 / 517.5 Inj 500 ML @ 250 mls/hr IV.SIG Q12H DINA Rx#:[id number] Oral 120 / 120 120 / 120 Tube Feeding 0 / 0 Tube Irrigant 100 / 100 Water Bolus Amount 400 / 400 400 / 400 Output: Urine 600 / 600 300 / 300 Emesis 0 / 0 Gastric Drainage 100 / 100 Left Nare Nasogastric Tube 100 / 100 Other: # Incontinent Voids 1 Date of Last Bowel Movement 11/28/17 11/29/17 # Bowel Movements 1 2 # Incontinent Bowel Movements 0 # Emeses 0 Narrative: GENERAL: Obese female, appears in nad. SKIN: Warm and dry. NECK: Trachea midline. No JVD. Cric site erythematous with yellow discharge CARDIOVASCULAR: Regular rate and rhythm. No murmurs rubs or gallops. RESPIRATORY: No accessory muscle use. Clear to auscultation. Breath sounds equal bilaterally. GASTROINTESTINAL: Abdomen soft, non-tender, moderately distended. hypoactive bowel sounds, but present. MUSCULOSKELETAL: Extremities without clubbing, cyanosis, or edema. No obvious deformities. NEUROLOGICAL: Alert awake. following commands. Oriented to person and place. Delirium resolving - Urinary Catheter Management Indwelling Urethral Catheter Cath placed during this visit: yes, but has since been removed by the nurse Reason for continuing: Decision to DC catheter Insertion date: 11/13/17 Insertion time: 19:00 Removal date: 11/17/17 Removal time: 04:00 Straight Cath placed during this visit: no Reason for continuing: Not indwelling catheter Results - Labs CBC & Chem 7: 11/29/17 03:51 11/29/17 03:51 Laboratory Results - last 24 hr 11/28/17 11/29/17 11/29/17 11:25 03:51 03:51 WBC 14.5 H RBC 3.24 L Hgb 10.3 L Hct 31.8 L MCV 97.9 MCH 31.8 MCHC 32.5 RDW 13.6 Plt Count 113 L MPV 9.7 Sodium 149 H Potassium 3.9 Chloride 111 H Carbon Dioxide 28.7 Anion Gap 9 BUN 22 H Creatinine 0.85 Estimated GFR 72 L POC Glucose 110 Random Glucose 96 Calcium 8.4 L Vancomycin Trough 7.9 11/29/17 05:18 WBC RBC Hgb Hct MCV MCH MCHC RDW Plt Count MPV Sodium Potassium Chloride Carbon Dioxide Anion Gap BUN Creatinine Estimated GFR POC Glucose 90 Random Glucose Calcium Vancomycin Trough Microbiology 11/26/17 12:00 Fluid - Other Gram Stain - Final 11/26/17 12:00 Fluid - Other Wound Culture - Final Enterobacter aerogenes 11/27/17 14:23 Blood - Peripheral Aerobic Blood Culture - Preliminary No growth in 1 day 11/27/17 14:23 Blood - Peripheral Anaerobic Blood Culture - Preliminary No growth in 1 day 11/27/17 14:12 Blood - Peripheral Aerobic Blood Culture - Preliminary No growth in 1 day 11/27/17 14:12 Blood - Peripheral Anaerobic Blood Culture - Preliminary No growth in 1 day Assessment and Plan - Plan 47 yo F with angioedema compromising airway requiring emergent surgical airway. Decannulated 11/24, now with evidence of chronic site infection. ileus clinically improving. NEURO: Agitated delirium- resolving - Minimize psychotropic meds. Haldol as needed for agitation 2mg iv q4h prn - Acute delirium is most likely metabolic now improving - oxycodone 10mg po q4h PRN for chronic back pain RESP: Acute hypoxemic respiratory failure- resolved. Angioedema with severe upper airway compromise- resolved Cric site infection -Emergent cric per Dr. Sandhu at [place] [facility]. -Unable to adequately ventilate through the cric tube as it was cuff less tube ( supplied in Melker kit) -Dr. Copeland emergently performed percutaneous tracheostomy at the bedside by passing wire through existing cric tube. -Trach decannulated yesterday 11/24/17 -Per Dr. Paredes's note on 11/20, direct laryngoscopy with lilli #3 blade with easy Grade 1 view of complete larynx. bronch on 11/20 without any evidence of pharyngeal or hypopharyngeal or laryngeal edema. - Off Decadron and benadryl. -Famotidine 20 mg IV every 12 -DuoNeb every 6 hours scheduled and as needed Diagnostic fiberoptic Bronchoscopy-no evidence of any persistent edema in the tongue, oral mucosa, pharynx, or hypopharynx. The larynx is without any evidence of edema. There is a very small amount of edema of the true vocal cords, but these are widely open and patent. No evidence of edema or secretions in the main airways. - Etiology most like Ervin-I, NSAIDS also a possibility. Given the severity of this reaction, recommended avoiding both and f/u with journeyman electrician. C4 is normal, tryptase pending. -Trach site infected. Send culture, start Zosyn and single dose of vancomycin - With temp 101.8 . Add tylenol. Repeat blood cultures . Add vancomycin IV . Patient with sepsis criteriaL leukocytosis, fever, tachycardia infected trach site . ID consulted. CV: Pulmonary edema most likely negative pressure- resolved -d/cd lasix. GI: Nonobstructive ileus- clinically improving - Continue IV Reglan. Consider Relistor if KUB shows persistent ileus - bowel regimen with senna, colace, miralax, lactulose, dulcolax suppository, prn milk of mag. - Having BMs. N/V improving. Start diet per speech recommendation - CT abdomen showed mild ileus and gallstones. US today to rule out acute cholecystitis - May need outpatient cholecystectomy - [facility] Hypernatremia: Now has an NGT for free water administration. Na is trending down. Continue to monitor. FEN/RENAL: -Monitor renal function closely. - voiding on own -Electrolyte replacement per protocol -free water to correct hypernatremia. Give lasix 20 mg IVP one time ID: Sepsis ( tachycardia, fever, leukocytosis, infected cric site) Cric site infection -Trach site infected. Send culture, start Zosyn add IV vancomycin. Blood cultures 11/27 . Consider ID consult -afebrile. u/a was not suggestive of UTI. - am CBC. HEME: -Monitor CBC ENDO: -Monitoring glucose q6 hours. Sliding scale insulin if needed PROPH: -Bilateral lower extremity SCDs. Lovenox daily. IV famotidine LINES: -Utilize peripheral IVs PT/OT. careful mobilization. Code status: FULL CODE Discussed with the patient, at bedside, nurse.
[2017-11-29] MEDS: Bisacodyl 10 MG Supp RECTAL SCH (09:23)
[2017-11-29] MEDS: Famotidine PF Inj 20 MG/2 ML Vial IV.PUSH SCH ×2 (09:23→21:26)
[2017-11-29] MEDS: Senna/Docusate Sodium 8.6/50 MG Tablet PO SCH ×2 (09:23→21:21)
[2017-11-29] MEDS: Enoxaparin Inj 40 MG/0.4 ML Syringe SQ SCH (09:23)
[2017-11-29] MEDS: Polyethylene Glycol 3350 17 GM Packet PO SCH ×2 (09:24→21:20)
[2017-11-30] MEDS: Oral Hygiene Kit OROPHARYNG SCH ×4 (01:07→18:51)
[2017-11-30] MEDS: Insulin NovoLOG Aspart Correctional Sugar Inj SQ SCH ×4 (01:08→18:51)
[2017-11-30] MEDS: Piperacil/Tazo 4.5 GM Premix 4.5 GM/100 ML BAG IV.SIG SCH ×2 (03:03→08:36)
[2017-11-30 07:33] LABS: Hematocrit 30.7 % (35.0-46.0); Hemoglobin 10.3 gm/dL (11.6-15.3); Mean Corpuscular HGB Conc 33.6 % (32.0-36.0); Mean Corpuscular Hemoglobin 32.2 pg (27.0-34.0); Mean Corpuscular Volume 95.7 fL (80.0-100.0); Mean Platelet Volume 9.5 fL (7.0-11.0); Platelet Count 150 th/mm3 (150-450); Red Blood Count 3.21 mil/mm3 (4.00-5.30); Red Cell Distribution Width 13.2 % (11.6-17.2); White Blood Count 10.7 th/mm3 (4.0-11.0)
[2017-11-30 07:36] LABS: Calcium 8.3 mg/dL (8.5-10.1); Carbon Dioxide 31.7 meq/L (21.0-32.0); Potassium 3.6 meq/L (3.5-5.1)
[2017-11-30] MEDS: Enoxaparin Inj 40 MG/0.4 ML Syringe SQ SCH (08:35)
[2017-11-30] MEDS: Chlorhexidine 0.12% Oral Kit 15 ML UDC OROPHARYNG SCH ×2 (08:36→21:20)
[2017-11-30] MEDS: Senna/Docusate Sodium 8.6/50 MG Tablet PO SCH ×2 (08:36→21:21)
[2017-11-30] MEDS: Famotidine PF Inj 20 MG/2 ML Vial IV.PUSH SCH ×2 (08:36→21:27)
[2017-11-30] MEDS: Polyethylene Glycol 3350 17 GM Packet PO SCH ×2 (08:37→21:21)
[2017-11-30] MEDS: Bisacodyl 10 MG Supp RECTAL SCH (08:37)
--- NOTE | 2017-11-30 11:27 | P.PNID ---
Subjective Remarks: Patient notes that she feels okay. No fevers. Denies chills. She reports that when she woke up this morning she had some disorientation " feeling like she was upside down" This quickly improved after some seconds. She denies dizziness. Past swallow evaluation study this morning. No other complaints. Blood culture has no growth. White blood cell count is now normal. 47-year-old white female who presented with severe acute anaphylactic reaction to [facility] on 11/13/2017. The patient had a difficult intubation, prior attempt at cricothyroidotomy, and subsequently had a tracheostomy placed. She was noted to have marked swelling of the vocal cords. The white count was elevated at 17.4 on 11/13/2017. She was transferred from the [facility] facility on 11/13/2017. Past Medical History: PAST MEDICAL HISTORY: Asthma, hypertension. Allergies/Adverse Reactions: Allergies lisinopril Allergy (Severe, Verified 11/27/17 22:52) Anaphylaxis Objective Vital Signs 11/29/17 12:00 11/29/17 13:00 11/29/17 14:00 Temperature Pulse Rate 92 H 102 H 109 H Respiratory Rate 17 18 24 Blood Pressure 164/83 H 149/90 H 166/89 H Pulse Oximetry 100 98 100 11/29/17 15:00 11/29/17 16:00 11/29/17 17:00 Temperature 98.6 F Pulse Rate 93 H 99 H 90 Respiratory Rate 19 24 27 H Blood Pressure 149/77 H 140/81 150/85 H Pulse Oximetry 100 100 98 11/29/17 18:00 11/29/17 19:00 11/29/17 20:00 Temperature 98.7 F Pulse Rate 118 H 92 H 84 Respiratory Rate 24 18 18 Blood Pressure 143/70 H 145/75 H 156/77 H Pulse Oximetry 99 100 100 11/29/17 20:27 11/29/17 21:00 11/29/17 22:00 Temperature Pulse Rate 85 90 Respiratory Rate 27 H 18 Blood Pressure 147/84 H 153/85 H Pulse Oximetry 100 100 100 11/29/17 23:00 11/30/17 00:00 11/30/17 01:00 Temperature 98.3 F Pulse Rate 81 90 82 Respiratory Rate 16 20 19 Blood Pressure 155/88 H 162/80 H 163/91 H Pulse Oximetry 100 100 98 11/30/17 02:00 11/30/17 03:00 11/30/17 04:00 Temperature Pulse Rate 99 H 83 88 Respiratory Rate 17 17 19 Blood Pressure 154/107 H 160/99 H 147/96 H Pulse Oximetry 97 99 99 11/30/17 05:00 11/30/17 06:00 11/30/17 07:00 Temperature Pulse Rate 86 86 81 Respiratory Rate 17 18 19 Blood Pressure 161/89 H 158/97 H 160/94 H Pulse Oximetry 100 100 100 11/30/17 08:00 11/30/17 08:01 11/30/17 08:14 Temperature Pulse Rate 78 80 Respiratory Rate 25 H 28 H Blood Pressure 170/76 H Pulse Oximetry 100 100 100 11/30/17 09:00 11/30/17 10:00 11/30/17 10:30 Temperature Pulse Rate 73 95 H 114 H Respiratory Rate 29 H 32 H 23 Blood Pressure 152/85 H 150/104 H 151/95 H Pulse Oximetry 100 99 99 Intake & Output 11/29/17 11/30/17 11/30/17 18:59 06:59 18:59 Intake Total 920 / 920 620 / 620 Output Total 1000 / 1000 700 / 700 Balance -80 / -80 -80 / -80 Weight 97.5 kg Intake: IV 200 / 200 200 / 200 Zosyn 4.5 GM Premix 4.5 gm In 200 / 200 200 / 200 100 ml @ 200 mls/hr IV.SIG Q6H DINA Rx#:[id number] Oral 720 / 720 420 / 420 Output: Urine 1000 / 1000 700 / 700 Other: # Incontinent Voids 4 Date of Last Bowel Movement 11/29/17 11/30/17 11/29/17 # Bowel Movements 1 1 11/27/17 14:23 Blood - Peripheral Aerobic Blood Culture - Preliminary No growth in 3 days 11/27/17 14:23 Blood - Peripheral Anaerobic Blood Culture - Preliminary No growth in 3 days 11/27/17 14:12 Blood - Peripheral Aerobic Blood Culture - Preliminary No growth in 3 days 11/27/17 14:12 Blood - Peripheral Anaerobic Blood Culture - Preliminary No growth in 3 days 11/26/17 12:00 Fluid - Other Gram Stain - Final 11/26/17 12:00 Fluid - Other Wound Culture - Final Enterobacter aerogenes Lab - Hematology Results 11/29/17 11/30/17 03:51 04:25 WBC 14.5 H 10.7 RBC 3.24 L 3.21 L Hgb 10.3 L 10.3 L Hct 31.8 L 30.7 L MCV 97.9 95.7 MCH 31.8 32.2 MCHC 32.5 33.6 RDW 13.6 13.2 Plt Count 113 L 150 D MPV 9.7 9.5 Lab - Chemistry Results 11/28/17 11/29/17 11/29/17 11:25 03:51 05:18 Sodium 149 H Potassium 3.9 Chloride 111 H Carbon Dioxide 28.7 Anion Gap 9 BUN 22 H Creatinine 0.85 Estimated GFR 72 L POC Glucose 110 90 Random Glucose 96 Calcium 8.4 L 11/29/17 11/29/17 11/30/17 12:58 17:13 00:30 Sodium Potassium Chloride Carbon Dioxide Anion Gap BUN Creatinine Estimated GFR POC Glucose 94 114 H 151 H Random Glucose Calcium 11/30/17 11/30/17 04:25 07:07 Sodium 148 H Potassium 3.6 Chloride 108 H Carbon Dioxide 31.7 Anion Gap 8 BUN 17 Creatinine 0.82 Estimated GFR 75 L POC Glucose 116 H Random Glucose 120 H Calcium 8.3 L Imaging: ITS Impressions Abdomen/Pelvis CT 11/24/17 00:00 CONCLUSION: 1. Mild ileus. 2. Bilateral lower lobe atelectasis and consolidation. 3. Cholelithiasis. Gallbladder Ultrasound 11/26/17 00:00 CONCLUSION: 1. There is a gallstone in the gallbladder along with sludge in the gallbladder. No biliary tract obstruction. 2. Small benign-appearing right kidney cyst measuring 1.2 cm. No evidence of hydronephrosis. Abdomen X-Ray 11/27/17 06:00 CONCLUSION: Mildly dilated gas-filled loops of small bowel which are slightly less distended than on the prior study. Chest X-Ray 11/27/17 06:00 CONCLUSION: Clear lungs. Physical Exam: PHYSICAL EXAMINATION: GENERAL: This is a well-developed female who is in no acute distress, Awake and alert. HEENT: Head is atraumatic. Extraocular movements are grossly intact. Pupils are reactive to light. No icterus. Oropharynx moist mucosa. No lesions. NECK: Neck is supple. No adenopathy. LUNGS: Clear breath sounds. HEART: Regular S1, S2, without audible murmurs. ABDOMEN: Bowel sounds present. Soft, no tenderness appreciated. EXTREMITIES: No clubbing, cyanosis or trace edema of the left upper extremity and dorsum of the feet. SKIN: No rash. NEUROLOGIC: No gross focal finding. PSYCHIATRIC: Calm and cooperative. Assessment and Plan - Plan IMPRESSION: 1. Sepsis syndrome suggested by fever and leukocytosis; however, the patient clinically appears stable. The white blood cell count is now down to normal. 2. Status post treatment for severe acute anaphylactic reaction with airway compromise. 3. Enterobacter cultured from endotracheal site. The patient probably aspirated during the course of this hospital presentation. Stable. RECOMMENDATIONS: 1. Discontinue piperacillin/tazobactam. 2. Monitor without antibiotics. 3. Monitor clinical status.
--- NOTE | 2017-11-30 11:52 | P.DIET ---
Nutritional Evaluation Type of nutrition evaluation: follow-up Nutrition consult regarding: Tube Feeding Subjective Subjective Comments: states pt likes pudding. Objective - Diagnosis Anaphlyaxis - Objective % IBW: 161 (UCX=715#) Body Weight Used for Calculations: IBW (68.2kg [PRO]) Energy Needs - Lower Range (kCal/kg): 25 Energy Needs - Upper Range (kCal/kg): 30 Lower Limit kCal/kg (kCals): 1,705 Upper Limit kCal/kg (kCals): 2,046 Lower Limit Protein Factor (Grams per Kg): 1.2 Upper Limit Protein Factor (Grams per Kg): 1.5 Lower Protein Needs (Protein): 82 Upper Protein Needs (Protein): 102 Dietitian Reviewed in Medical Record: Current diet, Curent medications, Intake & Output, Labs, Medical history, Tube feeding Diet Order: Pureed w/honey thick liquids Oral Diet Intake Amount: Good 75-90% Speech Therapy Recommendations: Yes Assessment Assessment: Pt continues to be at nutritional risk r/t current clinical status. Pt's TF was stopped on 11/27. Per speech, she is on a pureed diet w/honey thick liquids. Pt ate 75% of her breakfast this morning, she needs to be fed. Will provide pt with Ensure pudding bid, each contain 170kcals and 4gms protein. Will continue to follow pt and monitor po intake for adequacy. Recommendations: Pureed diet w/honey thick liquids Ensure pudding BID Dietitian to Monitor: Lab values, Supplement acceptance, Intake & Output, Diet tolerance, Weight change, PO Intake, Medical course
--- NOTE | 2017-11-30 17:21 | P.PN ---
Subjective Interval history: In nad Was at the margin of the bed with PT today. [place] lightheaded and with sob , tired thereafter. Diet advanced per ST recommendations. NTG removed. Ate 75% of diet Likes pudding ordered bid Much improved today Patient denies chest pain or sob at this time No fever ro chills No n/v/d/c. Transfer put of ICU floor to [facility] Physical Exam Vital signs: Vital Signs 11/29/17 18:00 11/29/17 19:00 11/29/17 20:00 Temperature 98.7 F Pulse Rate 118 H 92 H 84 Respiratory Rate 24 18 18 Blood Pressure 143/70 H 145/75 H 156/77 H Pulse Oximetry 99 100 100 11/29/17 20:27 11/29/17 21:00 11/29/17 22:00 Temperature Pulse Rate 85 90 Respiratory Rate 27 H 18 Blood Pressure 147/84 H 153/85 H Pulse Oximetry 100 100 100 11/29/17 23:00 11/30/17 00:00 11/30/17 01:00 Temperature 98.3 F Pulse Rate 81 90 82 Respiratory Rate 16 20 19 Blood Pressure 155/88 H 162/80 H 163/91 H Pulse Oximetry 100 100 98 11/30/17 02:00 11/30/17 03:00 11/30/17 04:00 Temperature Pulse Rate 99 H 83 88 Respiratory Rate 17 17 19 Blood Pressure 154/107 H 160/99 H 147/96 H Pulse Oximetry 97 99 99 11/30/17 05:00 11/30/17 06:00 11/30/17 07:00 Temperature Pulse Rate 86 86 81 Respiratory Rate 17 18 19 Blood Pressure 161/89 H 158/97 H 160/94 H Pulse Oximetry 100 100 100 11/30/17 08:00 11/30/17 08:01 11/30/17 08:14 Temperature Pulse Rate 78 80 Respiratory Rate 25 H 28 H Blood Pressure 170/76 H Pulse Oximetry 100 100 100 11/30/17 09:00 11/30/17 10:00 11/30/17 10:30 Temperature Pulse Rate 73 95 H 114 H Respiratory Rate 29 H 32 H 23 Blood Pressure 152/85 H 150/104 H 151/95 H Pulse Oximetry 100 99 99 11/30/17 11:00 11/30/17 12:00 09/03/18 13:00 Temperature 98.6 F Pulse Rate 103 H 87 91 H Respiratory Rate 21 20 27 H Blood Pressure 160/97 H 160/92 H 166/93 H Pulse Oximetry 100 98 97 11/30/17 14:00 11/30/17 15:00 11/30/17 16:00 Temperature 98.6 F Pulse Rate 96 H 92 H 83 Respiratory Rate 21 18 17 Blood Pressure 157/95 H 149/97 H 161/101 H Pulse Oximetry 97 97 99 Intake & Output 11/29/17 11/30/17 11/30/17 18:59 06:59 18:59 Intake Total 920 / 920 620 / 620 Output Total 1000 / 1000 700 / 700 Balance -80 / -80 -80 / -80 Weight 97.5 kg Intake: IV 200 / 200 200 / 200 Zosyn 4.5 GM Premix 4.5 gm In 200 / 200 200 / 200 100 ml @ 200 mls/hr IV.SIG Q6H DINA Rx#:[id number] Oral 720 / 720 420 / 420 Output: Urine 1000 / 1000 700 / 700 Other: # Incontinent Voids 4 Date of Last Bowel Movement 11/29/17 11/30/17 11/29/17 # Bowel Movements 1 1 Narrative: GENERAL: Obese very pleasant 47 yo female, appears in nad. SKIN: Warm and dry. NECK: Trachea midline. No JVD. Cric site erythematous no discharge, dressing in place. CARDIOVASCULAR: Regular rate and rhythm. No murmurs rubs or gallops. RESPIRATORY: No accessory muscle use. Clear to auscultation. Breath sounds equal bilaterally. GASTROINTESTINAL: Abdomen soft, non-tender, moderately distended. Normal BS x4Q MUSCULOSKELETAL: Extremities without clubbing, cyanosis, or edema. No obvious deformities. NEUROLOGICAL: Alert awake. following commands. Oriented to person and place. Delirium resolving. - Urinary Catheter Management Indwelling Urethral Catheter Cath placed during this visit: yes, but has since been removed by the nurse Reason for continuing: Decision to DC catheter Insertion date: 11/13/17 Insertion time: 19:00 Removal date: 11/17/17 Removal time: 04:00 Straight Cath placed during this visit: no Reason for continuing: Not indwelling catheter Results - Labs CBC & Chem 7: 11/30/17 04:25 11/30/17 04:25 Laboratory Results - last 24 hr 11/30/17 11/30/17 11/30/17 00:30 04:25 04:25 WBC 10.7 RBC 3.21 L Hgb 10.3 L Hct 30.7 L MCV 95.7 MCH 32.2 MCHC 33.6 RDW 13.2 Plt Count 150 D MPV 9.5 Sodium 148 H Potassium 3.6 Chloride 108 H Carbon Dioxide 31.7 Anion Gap 8 BUN 17 Creatinine 0.82 Estimated GFR 75 L POC Glucose 151 H Random Glucose 120 H Calcium 8.3 L 11/30/17 11/30/17 07:07 12:40 WBC RBC Hgb Hct MCV MCH MCHC RDW Plt Count MPV Sodium Potassium Chloride Carbon Dioxide Anion Gap BUN Creatinine Estimated GFR POC Glucose 116 H 97 Random Glucose Calcium Microbiology 11/27/17 14:23 Blood - Peripheral Aerobic Blood Culture - Preliminary No growth in 3 days 11/27/17 14:23 Blood - Peripheral Anaerobic Blood Culture - Preliminary No growth in 3 days 11/27/17 14:12 Blood - Peripheral Aerobic Blood Culture - Preliminary No growth in 3 days 11/27/17 14:12 Blood - Peripheral Anaerobic Blood Culture - Preliminary No growth in 3 days Assessment and Plan - Plan 47 yo F with angioedema compromising airway requiring emergent surgical airway. Decannulated 11/24, now with evidence of chronic site infection. ileus clinically improving. NEURO: Agitated delirium- resolved - Minimize psychotropic meds. Haldol as needed for agitation 2mg iv q4h prn - Acute delirium is most likely metabolic now improving - oxycodone 10mg po q4h PRN for chronic back pain RESP: Acute hypoxemic respiratory failure- resolved. Angioedema with severe upper airway compromise- resolved Cric site infection, improving -Emergent cric per Dr. Sandhu at [place] [facility]. -Unable to adequately ventilate through the cric tube as it was cuff less tube ( supplied in Melker kit) -Dr. Copeland emergently performed percutaneous tracheostomy at the bedside by passing wire through existing cric tube. -Trach decannulated yesterday 11/24/17 -Per Dr. Paredes's note on 11/20, direct laryngoscopy with lilli #3 blade with easy Grade 1 view of complete larynx. bronch on 11/20 without any evidence of pharyngeal or hypopharyngeal or laryngeal edema. - Off Decadron and benadryl. -Famotidine 20 mg IV every 12 -DuoNeb every 6 hours scheduled and as needed Diagnostic fiberoptic Bronchoscopy-no evidence of any persistent edema in the tongue, oral mucosa, pharynx, or hypopharynx. The larynx is without any evidence of edema. There is a very small amount of edema of the true vocal cords, but these are widely open and patent. No evidence of edema or secretions in the main airways. - Etiology most like Ervin-I, NSAIDS also a possibility. Given the severity of this reaction, recommended avoiding both and f/u with pencil sorter. C4 is normal, tryptase pending. -Trach site infected. Send culture, start Zosyn and single dose of vancomycin - With temp 101.8 . Add tylenol. Repeat blood cultures . Add vancomycin IV . Patient with sepsis criteriaL leukocytosis, fever, tachycardia infected trach site . ID consulted. CV: Pulmonary edema most likely negative pressure- resolved -d/cd lasix. GI: Nonobstructive ileus-Resolved - Continue IV Reglan. Consider Relistor if KUB shows persistent ileus - bowel regimen with senna, colace, miralax, lactulose, dulcolax suppository, prn milk of mag. - Having BMs. N/V improving. Start diet per speech recommendation - CT abdomen showed mild ileus and gallstones. US today to rule out acute cholecystitis - May need outpatient cholecystectomy - [facility] Hypernatremia: Had NGT for free water administration. Na is trending down and back to normal. Continue to monitor. Diet advanced by jeff ff. NGT removed. FEN/RENAL: -Monitor renal function closely. - voiding on own -Electrolyte replacement per protocol -free water to correct hypernatremia. Received lasix 20 mg IVP one time . Na back to normal ID: Sepsis ( tachycardia, fever, leukocytosis, infected cric site) Cric site infection -Trach site infected. Send culture, start Zosyn add IV vancomycin. Blood cultures 11/27 . Consider ID consult -afebrile. u/a was not suggestive of UTI. - am CBC. HEME: -Monitor CBC ENDO: -Monitoring glucose q6 hours. Sliding scale insulin if needed PROPH: -Bilateral lower extremity SCDs. Lovenox daily. IV famotidine LINES: -Utilize peripheral IVs PT/OT. careful mobilization. Code status: FULL CODE Discussed with the patient, at bedside, nurse. Transfer to med surg floor Patient needs rehab at DC. PT/OT ST ff. ZAMAN consulted for DC plan
[2017-12-01] MEDS: Oral Hygiene Kit OROPHARYNG SCH ×4 (00:05→15:29)
[2017-12-01] MEDS: Insulin NovoLOG Aspart Correctional Sugar Inj SQ SCH ×3 (00:05→12:02)
[2017-12-01 06:38] LABS: Anion Gap 8 meq/L (5-15); Blood Urea Nitrogen 12 mg/dL (7-18); Calcium 8.4 mg/dL (8.5-10.1); Carbon Dioxide 29.2 meq/L (21.0-32.0); Chloride 104 meq/L (98-107); Glomerular Filtration Rate Greater Than 89 mL/min (>89); Glucose,Random 96 mg/dL (74-106); Potassium 3.3 meq/L (3.5-5.1); Sodium 141 meq/L (136-145)
[2017-12-01 06:44] LABS: Hematocrit 31.8 % (35.0-46.0); Hemoglobin 10.8 gm/dL (11.6-15.3); Mean Corpuscular HGB Conc 33.9 % (32.0-36.0); Mean Corpuscular Hemoglobin 32.3 pg (27.0-34.0); Platelet Count 190 th/mm3 (150-450); Red Blood Count 3.35 mil/mm3 (4.00-5.30); Red Cell Distribution Width 13.2 % (11.6-17.2); White Blood Count 12.9 th/mm3 (4.0-11.0)
[2017-12-01] MEDS: Potassium Chloride 25 MEQ Effervescent Tablet PO PRN (07:09)
[2017-12-01] MEDS: hydrALAZINE 50 MG Tablet PO PRN (07:28)
[2017-12-01] MEDS: Bisacodyl 10 MG Supp RECTAL SCH (09:17)
[2017-12-01] MEDS: Chlorhexidine 0.12% Oral Kit 15 ML UDC OROPHARYNG SCH ×2 (09:17→20:10)
[2017-12-01] MEDS: Polyethylene Glycol 3350 17 GM Packet PO SCH (09:18)
[2017-12-01] MEDS: Senna/Docusate Sodium 8.6/50 MG Tablet PO SCH ×2 (09:18→20:10)
[2017-12-01] MEDS: Famotidine PF Inj 20 MG/2 ML Vial IV.PUSH SCH ×2 (09:37→20:09)
[2017-12-01] MEDS: Enoxaparin Inj 40 MG/0.4 ML Syringe SQ SCH (09:38)
--- NOTE | 2017-12-01 10:16 | P.PN ---
Subjective Interval history: Tolerating diet Had 2 BM's last two days No complaints Physical Exam Vital signs: Vital Signs 11/30/17 10:30 11/30/17 11:00 11/30/17 12:00 Temperature 98.6 F Pulse Rate 114 H 103 H 87 Respiratory Rate 23 21 20 Blood Pressure 151/95 H 160/97 H 160/92 H Pulse Oximetry 99 100 98 11/30/17 13:00 11/30/17 14:00 11/30/17 15:00 Temperature Pulse Rate 91 H 96 H 92 H Respiratory Rate 27 H 21 18 Blood Pressure 166/93 H 157/95 H 149/97 H Pulse Oximetry 97 97 97 11/30/17 16:00 11/30/17 17:00 11/30/17 18:00 Temperature 98.6 F Pulse Rate 83 84 87 Respiratory Rate 17 19 20 Blood Pressure 161/101 H 160/104 H 153/100 H Pulse Oximetry 99 99 97 11/30/17 19:00 11/30/17 19:47 11/30/17 20:00 Temperature 98.5 F Pulse Rate 95 H 82 Respiratory Rate 20 23 Blood Pressure 159/103 H 152/103 H Pulse Oximetry 97 96 100 11/30/17 21:00 11/30/17 22:00 11/30/17 22:03 Temperature Pulse Rate 92 H 79 88 Respiratory Rate 20 14 15 Blood Pressure 156/101 H 140/90 Pulse Oximetry 100 98 100 11/30/17 23:00 12/01/17 00:00 12/01/17 00:01 Temperature Pulse Rate 104 H 84 86 Respiratory Rate 23 19 18 Blood Pressure 192/114 H 159/91 H Pulse Oximetry 99 100 97 12/01/17 01:00 12/01/17 02:00 12/01/17 03:00 Temperature Pulse Rate 79 93 H 94 H Respiratory Rate 15 18 19 Blood Pressure 166/100 H 153/106 H 166/110 H Pulse Oximetry 100 99 100 12/01/17 04:00 12/01/17 05:00 12/01/17 06:00 Temperature Pulse Rate 86 74 83 Respiratory Rate 17 17 Blood Pressure 156/87 H 155/98 H Pulse Oximetry 95 100 12/01/17 07:57 12/01/17 08:00 Temperature 98.1 F Pulse Rate 93 H Respiratory Rate 20 Blood Pressure 177/99 H Pulse Oximetry 97 98 Intake & Output 11/30/17 12/01/17 12/01/17 18:59 06:59 18:59 Intake Total 960 / 960 750 / 750 Output Total 600 / 600 1000 / 1000 Balance 360 / 360 -250 / -250 Weight 100.5 kg Intake: Oral 960 / 960 750 / 750 Output: Urine 600 / 600 1000 / 1000 Other: # Incontinent Voids 1 Date of Last Bowel Movement 11/29/17 11/30/17 12/01/17 # Bowel Movements 0 - Constitutional no acute distress - Routine Neck Exam Present: supple Comments: Trach site with minimal drainage. - Routine Respiratory Exam Present: CTA bilaterally - Urinary Catheter Management Indwelling Urethral Catheter Cath placed during this visit: yes, but has since been removed by the nurse Reason for continuing: Decision to DC catheter Insertion date: 11/13/17 Insertion time: 19:00 Removal date: 11/17/17 Removal time: 04:00 Straight Cath placed during this visit: no Reason for continuing: Not indwelling catheter Results - Labs CBC & Chem 7: 12/01/17 05:36 12/01/17 05:36 Laboratory Results - last 24 hr 11/30/17 11/30/17 12/01/17 12:40 23:14 05:36 WBC RBC Hgb Hct MCV MCH MCHC RDW Plt Count MPV Sodium 141 Potassium 3.3 L Chloride 104 Carbon Dioxide 29.2 Anion Gap 8 BUN 12 Creatinine 0.63 Estimated GFR Greater than 89 POC Glucose 97 96 Random Glucose 96 Calcium 8.4 L 12/01/17 05:36 WBC 12.9 H RBC 3.35 L Hgb 10.8 L Hct 31.8 L MCV 95.0 MCH 32.3 MCHC 33.9 RDW 13.2 Plt Count 190 MPV 10.0 Sodium Potassium Chloride Carbon Dioxide Anion Gap BUN Creatinine Estimated GFR POC Glucose Random Glucose Calcium Microbiology 11/27/17 14:23 Blood - Peripheral Aerobic Blood Culture - Preliminary No growth in 3 days 11/27/17 14:23 Blood - Peripheral Anaerobic Blood Culture - Preliminary No growth in 3 days 11/27/17 14:12 Blood - Peripheral Aerobic Blood Culture - Preliminary No growth in 3 days 11/27/17 14:12 Blood - Peripheral Anaerobic Blood Culture - Preliminary No growth in 3 days Assessment and Plan - Assessment (1) Angioedema Code(s): T78.3XXA - Angioneurotic edema, initial encounter Status: Acute (2) Acute hypernatremia Code(s): E87.0 - Hyperosmolality and hypernatremia Status: Acute - Plan Stable from GS standpoint; tolerating diet. Needs potassium supplementation. Transferring to floor; will sign off. Discussed Condition With: Patient; significant other Nurse - Attending Attestation I attest that I had a [id number] encounter with the patient on the same day, and personally performed and documented my assessment and findings in the medical record. The following services were provided during this hospital visit: Chart data review, vital sign assessments/reviewing monitor data Review of consultation notes if present Medication orders/review and/or management Ordering and/or reviewing lab tests Ordering and/or interpreting/reviewing x-rays and/or diagnostic studies Care of the patient and discussion of the patient with the care team Documentation time To help prompt me to consider important information that might be impacting today's encounter and assessment, Information from prior notes written by myself or my colleagues may have been "brought forward/copy and pasted" into today's note.
--- NOTE | 2017-12-01 11:16 | P.PNID ---
Subjective Remarks: Patient is sleepy after physical therapy. Awakens easily. No distress. No complaints. No fevers. Blood culture has no growth. White blood cell count is now normal. 47-year-old white female who presented with severe acute anaphylactic reaction to [facility] on 11/13/2017. The patient had a difficult intubation, prior attempt at cricothyroidotomy, and subsequently had a tracheostomy placed. She was noted to have marked swelling of the vocal cords. The white count was elevated at 17.4 on 11/13/2017. She was transferred from the [facility] facility on 11/13/2017. Past Medical History: PAST MEDICAL HISTORY: Asthma, hypertension. Allergies/Adverse Reactions: Allergies lisinopril Allergy (Severe, Verified 11/27/17 22:52) Anaphylaxis Objective Vital Signs 11/30/17 12:00 11/30/17 13:00 11/30/17 14:00 Temperature 98.6 F Pulse Rate 87 91 H 96 H Respiratory Rate 20 27 H 21 Blood Pressure 160/92 H 166/93 H 157/95 H Pulse Oximetry 98 97 97 11/30/17 15:00 11/30/17 16:00 11/30/17 17:00 Temperature 98.6 F Pulse Rate 92 H 83 84 Respiratory Rate 18 17 19 Blood Pressure 149/97 H 161/101 H 160/104 H Pulse Oximetry 97 99 99 11/30/17 18:00 11/30/17 19:00 11/30/17 19:47 Temperature Pulse Rate 87 95 H Respiratory Rate 20 20 Blood Pressure 153/100 H 159/103 H Pulse Oximetry 97 97 96 11/30/17 20:00 11/30/17 21:00 11/30/17 22:00 Temperature 98.5 F Pulse Rate 82 92 H 79 Respiratory Rate 23 20 14 Blood Pressure 152/103 H 156/101 H Pulse Oximetry 100 100 98 11/30/17 22:03 11/30/17 23:00 12/01/17 00:00 Temperature Pulse Rate 88 104 H 84 Respiratory Rate 15 23 19 Blood Pressure 140/90 192/114 H Pulse Oximetry 100 99 100 12/01/17 00:01 12/01/17 01:00 12/01/17 02:00 Temperature Pulse Rate 86 79 93 H Respiratory Rate 18 15 18 Blood Pressure 159/91 H 166/100 H 153/106 H Pulse Oximetry 97 100 99 09/04/18 03:00 12/01/17 04:00 12/01/17 05:00 Temperature Pulse Rate 94 H 86 74 Respiratory Rate 19 17 17 Blood Pressure 166/110 H 156/87 H 155/98 H Pulse Oximetry 100 95 100 12/01/17 06:00 12/01/17 07:57 12/01/17 08:00 Temperature 98.1 F Pulse Rate 83 93 H Respiratory Rate 20 Blood Pressure 177/99 H Pulse Oximetry 97 98 12/01/17 10:00 12/01/17 10:22 Temperature Pulse Rate 96 H 96 H Respiratory Rate Blood Pressure Pulse Oximetry Intake & Output 11/30/17 12/01/17 12/01/17 18:59 06:59 18:59 Intake Total 960 / 960 750 / 750 Output Total 600 / 600 1000 / 1000 Balance 360 / 360 -250 / -250 Weight 100.5 kg Intake: Oral 960 / 960 750 / 750 Output: Urine 600 / 600 1000 / 1000 Other: # Incontinent Voids 1 Date of Last Bowel Movement 11/29/17 11/30/17 12/01/17 # Bowel Movements 0 11/27/17 14:23 Blood - Peripheral Aerobic Blood Culture - Preliminary No growth in 4 days 11/27/17 14:23 Blood - Peripheral Anaerobic Blood Culture - Preliminary No growth in 4 days 11/27/17 14:12 Blood - Peripheral Aerobic Blood Culture - Preliminary No growth in 4 days 11/27/17 14:12 Blood - Peripheral Anaerobic Blood Culture - Preliminary No growth in 4 days 11/26/17 12:00 Fluid - Other Gram Stain - Final 11/26/17 12:00 Fluid - Other Wound Culture - Final Enterobacter aerogenes Lab - Hematology Results 11/30/17 12/01/17 04:25 05:36 WBC 10.7 12.9 H RBC 3.21 L 3.35 L Hgb 10.3 L 10.8 L Hct 30.7 L 31.8 L MCV 95.7 95.0 MCH 32.2 32.3 MCHC 33.6 33.9 RDW 13.2 13.2 Plt Count 150 D 190 MPV 9.5 10.0 Lab - Chemistry Results 11/29/17 11/29/17 11/30/17 12:58 17:13 00:30 Sodium Potassium Chloride Carbon Dioxide Anion Gap BUN Creatinine Estimated GFR POC Glucose 94 114 H 151 H Random Glucose Calcium 11/30/17 11/30/17 11/30/17 04:25 07:07 12:40 Sodium 148 H Potassium 3.6 Chloride 108 H Carbon Dioxide 31.7 Anion Gap 8 BUN 17 Creatinine 0.82 Estimated GFR 75 L POC Glucose 116 H 97 Random Glucose 120 H Calcium 8.3 L 11/30/17 12/01/17 23:14 05:36 Sodium 141 Potassium 3.3 L Chloride 104 Carbon Dioxide 29.2 Anion Gap 8 BUN 12 Creatinine 0.63 Estimated GFR Greater than 89 POC Glucose 96 Random Glucose 96 Calcium 8.4 L Imaging: ITS Impressions Abdomen/Pelvis CT 11/24/17 00:00 CONCLUSION: 1. Mild ileus. 2. Bilateral lower lobe atelectasis and consolidation. 3. Cholelithiasis. Gallbladder Ultrasound 11/26/17 00:00 CONCLUSION: 1. There is a gallstone in the gallbladder along with sludge in the gallbladder. No biliary tract obstruction. 2. Small benign-appearing right kidney cyst measuring 1.2 cm. No evidence of hydronephrosis. Abdomen X-Ray 11/27/17 06:00 CONCLUSION: Mildly dilated gas-filled loops of small bowel which are slightly less distended than on the prior study. Chest X-Ray 11/27/17 06:00 CONCLUSION: Clear lungs. Physical Exam: PHYSICAL EXAMINATION: GENERAL: No acute distress, Awake and alert. HEENT: Head is atraumatic. Extraocular movements are grossly intact. Pupils are reactive to light. No icterus. Oropharynx moist mucosa. No lesions. NECK: Neck is supple. No adenopathy. LUNGS: Clear breath sounds. HEART: Regular S1, S2, without audible murmurs. ABDOMEN: Bowel sounds present. Soft. EXTREMITIES: No clubbing or cyanosis. Trace edema of the left upper extremity and dorsum of the feet. SKIN: No rash. NEUROLOGIC: No gross focal finding. PSYCHIATRIC: Calm and cooperative. Assessment and Plan - Plan IMPRESSION: 1. Sepsis syndrome suggested by fever and leukocytosis; however, the patient clinically appears stable. The white blood cell count is now down to normal. 2. Status post treatment for severe acute anaphylactic reaction with airway compromise. 3. Enterobacter cultured from endotracheal site. The patient probably aspirated during the course of this hospital presentation. Stable from ID standpoint. RECOMMENDATIONS: Monitor without antibiotics. I will sign off now.
--- NOTE | 2017-12-01 17:14 | P.PNIM ---
Subjective Interval history: Patient says she is feeling all right. Denies any chest pain shortness of breath. Physical Exam Vital signs: Vital Signs 11/30/17 18:00 11/30/17 19:00 11/30/17 19:47 Temperature Pulse Rate 87 95 H Respiratory Rate 20 20 Blood Pressure 153/100 H 159/103 H Pulse Oximetry 97 97 96 11/30/17 20:00 11/30/17 21:00 11/30/17 22:00 Temperature 98.5 F Pulse Rate 82 92 H 79 Respiratory Rate 23 20 14 Blood Pressure 152/103 H 156/101 H Pulse Oximetry 100 100 98 11/30/17 22:03 11/30/17 23:00 12/01/17 00:00 Temperature Pulse Rate 88 104 H 84 Respiratory Rate 15 23 19 Blood Pressure 140/90 192/114 H Pulse Oximetry 100 99 100 12/01/17 00:01 12/01/17 01:00 12/01/17 02:00 Temperature Pulse Rate 86 79 93 H Respiratory Rate 18 15 18 Blood Pressure 159/91 H 166/100 H 153/106 H Pulse Oximetry 97 100 99 12/01/17 03:00 12/01/17 04:00 12/01/17 05:00 Temperature Pulse Rate 94 H 86 74 Respiratory Rate 19 17 17 Blood Pressure 166/110 H 156/87 H 155/98 H Pulse Oximetry 100 95 100 12/01/17 06:00 12/01/17 07:57 12/01/17 08:00 Temperature 98.1 F Pulse Rate 83 93 H Respiratory Rate 20 Blood Pressure 177/99 H Pulse Oximetry 97 98 12/01/17 10:00 12/01/17 10:22 12/01/17 12:00 Temperature 98.2 F Pulse Rate 96 H 96 H 97 H Respiratory Rate 20 Blood Pressure 133/77 Pulse Oximetry 100 Intake & Output 11/30/17 12/01/17 12/01/17 18:59 06:59 18:59 Intake Total 960 / 960 750 / 750 200 / 200 Output Total 600 / 600 1000 / 1000 900 / 900 Balance 360 / 360 -250 / -250 -700 / -700 Weight 100.5 kg Intake: Oral 960 / 960 750 / 750 200 / 200 Output: Urine 600 / 600 1000 / 1000 500 / 500 Stool 400 / 400 Other: # Incontinent Voids 1 Date of Last Bowel Movement 11/29/17 11/30/17 12/01/17 # Bowel Movements 0 Narrative: GENERAL: Patient sitting up in bed. Trach site dressed with dressing clean dry and intact. SKIN: Warm and dry. HEAD: Normocephalic. EYES: No scleral icterus. No injection or drainage. NECK: Supple, trachea midline. No JVD or lymphadenopathy. CARDIOVASCULAR: Regular rate and rhythm without murmurs, gallops, or rubs. RESPIRATORY: Breath sounds equal bilaterally. No accessory muscle use. GASTROINTESTINAL: Abdomen soft, non-tender, nondistended. MUSCULOSKELETAL: No cyanosis, or edema. BACK: Nontender without obvious deformity. No CVA tenderness. - Urinary Catheter Management Indwelling Urethral Catheter Cath placed during this visit: yes, but has since been removed by the nurse Reason for continuing: Decision to DC catheter Insertion date: 11/13/17 Insertion time: 19:00 Removal date: 11/17/17 Removal time: 04:00 Straight Cath placed during this visit: no Reason for continuing: Not indwelling catheter Results - Labs CBC & Chem 7: 12/01/17 05:36 12/01/17 05:36 Laboratory Results - last 24 hr 11/30/17 12/01/17 12/01/17 23:14 05:36 05:36 WBC 12.9 H RBC 3.35 L Hgb 10.8 L Hct 31.8 L MCV 95.0 MCH 32.3 MCHC 33.9 RDW 13.2 Plt Count 190 MPV 10.0 Sodium 141 Potassium 3.3 L Chloride 104 Carbon Dioxide 29.2 Anion Gap 8 BUN 12 Creatinine 0.63 Estimated GFR Greater than 89 POC Glucose 96 Random Glucose 96 Calcium 8.4 L 12/01/17 11:46 WBC RBC Hgb Hct MCV MCH MCHC RDW Plt Count MPV Sodium Potassium Chloride Carbon Dioxide Anion Gap BUN Creatinine Estimated GFR POC Glucose 103 Random Glucose Calcium Microbiology 11/27/17 14:23 Blood - Peripheral Aerobic Blood Culture - Preliminary No growth in 4 days 11/27/17 14:23 Blood - Peripheral Anaerobic Blood Culture - Preliminary No growth in 4 days 11/27/17 14:12 Blood - Peripheral Aerobic Blood Culture - Preliminary No growth in 4 days 11/27/17 14:12 Blood - Peripheral Anaerobic Blood Culture - Preliminary No growth in 4 days Assessment and Plan - Plan 47 yo F with angioedema compromising airway requiring emergent surgical airway. Decannulated 11/24, now with evidence of chronic site infection. ileus clinically improving. NEURO: Agitated delirium- resolved - Minimize psychotropic meds. Haldol as needed for agitation 2mg iv q4h prn - Acute delirium is most likely metabolic now improving - oxycodone 10mg po q4h PRN for chronic back pain RESP: Acute hypoxemic respiratory failure- resolved. Angioedema with severe upper airway compromise- resolved Cric site infection, improving -Emergent cric per Dr. Sandhu at [facility]. -Unable to adequately ventilate through the cric tube as it was cuff less tube ( supplied in [facility] kit) -Dr. Copeland emergently performed percutaneous tracheostomy at the bedside by passing wire through existing cric tube. -Trach decannulated yesterday 11/24/17 -Per Dr. Paredes's note on 11/20, direct laryngoscopy with lilli #3 blade with easy Grade 1 view of complete larynx. bronch on 11/20 without any evidence of pharyngeal or hypopharyngeal or laryngeal edema. - Off Decadron and benadryl. -Famotidine 20 mg IV every 12 -DuoNeb every 6 hours scheduled and as needed Diagnostic fiberoptic Bronchoscopy-no evidence of any persistent edema in the tongue, oral mucosa, pharynx, or hypopharynx. The larynx is without any evidence of edema. There is a very small amount of edema of the true vocal cords, but these are widely open and patent. No evidence of edema or secretions in the main airways. - Etiology most like Ervin-I, NSAIDS also a possibility. Given the severity of this reaction, recommended avoiding both and f/u with deck engineer. C4 is normal, tryptase pending. -Trach site infected. Send culture, start Zosyn and single dose of vancomycin - With temp 101.8 . Add tylenol. Repeat blood cultures . Add vancomycin IV . Patient with sepsis criteriaL leukocytosis, fever, tachycardia infected trach site . ID consulted. = 12/01. Appreciate ID assistance. ID recommends monitoring off of antibiotics. Will continue to do so. CV: Pulmonary edema most likely negative pressure- resolved -d/cd lasix. GI: Nonobstructive ileus-Resolved - Continue IV Reglan. Consider Relistor if KUB shows persistent ileus - bowel regimen with senna, colace, miralax, lactulose, dulcolax suppository, prn milk of mag. - Having BMs. N/V improving. Start diet per speech recommendation - CT abdomen showed mild ileus and gallstones. US today to rule out acute cholecystitis - May need outpatient cholecystectomy - [facility] Hypernatremia: Had NGT for free water administration. Na is trending down and back to normal. Continue to monitor. Diet advanced by jeff FERRIS. NGT removed. = Sodium 141. Acceptable. Continue to monitor. //Hypokalemia. 3.3. Replace monitor. FEN/RENAL: -Monitor renal function closely. - voiding on own -Electrolyte replacement per protocol -free water to correct hypernatremia. Received lasix 20 mg IVP one time . Na back to normal ID: Sepsis ( tachycardia, fever, leukocytosis, infected cric site) Cric site infection -Trach site infected. Send culture, start Zosyn add IV vancomycin. Blood cultures 11/27 . Consider ID consult -afebrile. u/a was not suggestive of UTI. - am CBC. = ID following. Appreciate assistance. HEME: -Monitor CBC ENDO: -Monitoring glucose q6 hours. Sliding scale insulin if needed PROPH: -Bilateral lower extremity SCDs. Lovenox daily. IV famotidine LINES: -Utilize peripheral IVs PT/OT. careful mobilization. Code status: FULL CODE Discussed with the patient, at bedside, nurse. Transfer to med surg floor Patient needs rehab at DC. PT/OT [facility]. CM consulted for DC plan Discussed Condition With: Patient, nurse. Discharge Planning: Discharge to SNF/rehab. We will need ID clearance
[2017-12-01] MEDS: Acetaminophen 325 MG Tablet PO PRN (20:10)
[2017-12-02] MEDS: hydrALAZINE 50 MG Tablet PO PRN (00:12)
[2017-12-02] MEDS: Acetaminophen 325 MG Tablet PO PRN ×2 (00:12→10:07)
[2017-12-02] MEDS: Oral Hygiene Kit OROPHARYNG SCH ×4 (00:13→16:40)
[2017-12-02] MEDS: Chlorhexidine 0.12% Oral Kit 15 ML UDC OROPHARYNG SCH ×2 (09:32→20:05)
[2017-12-02] MEDS: Bisacodyl 10 MG Supp RECTAL SCH (10:05)
[2017-12-02] MEDS: Senna/Docusate Sodium 8.6/50 MG Tablet PO SCH ×2 (10:05→20:05)
[2017-12-02] MEDS: Famotidine PF Inj 20 MG/2 ML Vial IV.PUSH SCH ×2 (10:06→20:04)
[2017-12-02] MEDS: Enoxaparin Inj 40 MG/0.4 ML Syringe SQ SCH (10:07)
--- NOTE | 2017-12-02 11:03 | P.PNIM ---
Subjective Interval history: Patient's primary complaint today is discomfort. She still has profound immobility secondary to nearly 3 weeks of immobility in the ICU. In the ICU she was on an air mattress and have more comfort with this. Potassium level is low today. Physical Exam Vital signs: Vital Signs 12/01/17 12:00 12/01/17 16:00 12/01/17 20:00 Temperature 98.2 F 98.4 F 98.3 F Pulse Rate 97 H 89 107 H Respiratory Rate 20 19 20 Blood Pressure 133/77 193/90 H 140/86 Pulse Oximetry 100 98 96 12/02/17 00:00 12/02/17 00:15 12/02/17 04:00 Temperature 98.7 F 98.1 F Pulse Rate 99 H 94 H 88 Respiratory Rate 20 18 Blood Pressure 170/99 H 167/84 H Pulse Oximetry 95 94 L 12/02/17 04:33 12/02/17 08:00 Temperature 99.0 F Pulse Rate 103 H Respiratory Rate 20 19 Blood Pressure 141/93 H Pulse Oximetry 94 L Intake & Output 12/01/17 12/02/17 12/02/17 18:59 06:59 18:59 Intake Total 900 / 900 240 / 240 Output Total 1900 / 1900 2500 / 2500 Balance -1000 / -1000 -2500 / -2500 240 / 240 Weight 104.1 kg Intake: Oral 900 / 900 240 / 240 Output: Urine 1500 / 1500 2500 / 2500 Stool 400 / 400 Other: Date of Last Bowel Movement 12/01/17 12/02/17 # Bowel Movements 0 1 Narrative: GENERAL: NAD, A&Ox3 HEAD: Normocephalic. NECK: Supple, trachea midline. No lymphadenopathy. Bandage over previous cric/ tracheostomy site. EYES: No scleral icterus. No injection or drainage. CARDIOVASCULAR: Regular rate and rhythm without murmurs, gallops, or rubs. RESPIRATORY: Breath sounds equal bilaterally. No accessory muscle use. GASTROINTESTINAL: Abdomen soft, non-tender, nondistended. MUSCULOSKELETAL: No cyanosis, or edema. SKIN: Warm and dry. NEURO: No focal neurological deficits. Global weakness. - Urinary Catheter Management Indwelling Urethral Catheter Cath placed during this visit: yes, but has since been removed by the nurse Reason for continuing: Decision to DC catheter Insertion date: 11/13/17 Insertion time: 19:00 Removal date: 11/17/17 Removal time: 04:00 Straight Cath placed during this visit: no Reason for continuing: Not indwelling catheter Results - Labs CBC & Chem 7: 12/01/17 05:36 12/01/17 05:36 Laboratory Results - last 24 hr 12/01/17 11:46 POC Glucose 103 Microbiology 11/27/17 14:23 Blood - Peripheral Aerobic Blood Culture - Preliminary No growth in 4 days 11/27/17 14:23 Blood - Peripheral Anaerobic Blood Culture - Preliminary No growth in 4 days 11/27/17 14:12 Blood - Peripheral Aerobic Blood Culture - Preliminary No growth in 4 days 11/27/17 14:12 Blood - Peripheral Anaerobic Blood Culture - Preliminary No growth in 4 days Assessment and Plan - Plan 47-year-old female admitted secondary to acute anaphylaxis and angioedema. Patient was in ICU for 2-3 weeks. Emergent cric, decannulated 11/24, signs of infection at cric site. Agitated delirium- resolved Acute hypoxemic respiratory failure- resolved. Angioedema with severe upper airway compromise- resolved Nonobstructive ileus-Resolved Pulmonary edema -resolved Sepsisresolved Avoid NSAIDs Avoid ARLYN inhibitors Cric site infection Zosyn and vancomycin previously given Follow for fevers ID following ID recommends monitoring off of antibiotics Hypokalemia Remains low Replacements provided Continue to monitor Hypernatremia Continue regular diet now continue to monitor Global weakness Continue physical therapy Continue occupational therapy DVT prophylaxis Lovenox Discharge planning Patient will need improved ability to work with PT and OT prior to discharge
[2017-12-02 17:57] LABS: Hematocrit 29.4 % (35.0-46.0); Hemoglobin 10.4 gm/dL (11.6-15.3); Mean Corpuscular HGB Conc 35.3 % (32.0-36.0); Mean Corpuscular Hemoglobin 32.8 pg (27.0-34.0); Mean Corpuscular Volume 92.9 fL (80.0-100.0); Mean Platelet Volume 8.4 fL (7.0-11.0); Platelet Count 270 th/mm3 (150-450); Red Blood Count 3.17 mil/mm3 (4.00-5.30); Red Cell Distribution Width 13.3 % (11.6-17.2); White Blood Count 11.6 th/mm3 (4.0-11.0)
[2017-12-02 18:17] LABS: Calcium 8.3 mg/dL (8.5-10.1); Carbon Dioxide 26.4 meq/L (21.0-32.0); Potassium 3.5 meq/L (3.5-5.1)
[2017-12-03] MEDS: hydrALAZINE 50 MG Tablet PO PRN (00:59)
[2017-12-03] MEDS: Oral Hygiene Kit OROPHARYNG SCH ×4 (01:00→16:04)
[2017-12-03 07:26] LABS: Baso % (Auto) 0.5 % (0.0-2.0); Eos # (Auto) 0.2 th/mm3 (0.0-0.4); Eos % (Auto) 2.1 % (0.0-4.0); Hematocrit 29.5 % (35.0-46.0); Hemoglobin 10.2 gm/dL (11.6-15.3); Lymph % (Auto) 9.4 % (9.0-44.0); Mean Corpuscular HGB Conc 34.4 % (32.0-36.0); Mean Corpuscular Hemoglobin 32.3 pg (27.0-34.0); Mean Platelet Volume 7.9 fL (7.0-11.0); Mono # (Auto) 0.8 th/mm3 (0.0-0.9); Mono % (Auto) 7.4 % (0.0-8.0); Neut # (Auto) 8.2 th/mm3 (1.8-7.7); Neut % (Auto) 80.6 % (16.0-70.0); Platelet Count 301 th/mm3 (150-450); Red Blood Count 3.14 mil/mm3 (4.00-5.30); Red Cell Distribution Width 13.5 % (11.6-17.2); White Blood Count 10.2 th/mm3 (4.0-11.0)
[2017-12-03 08:07] LABS: Albumin 2.4 g/dL (3.4-5.0); Anion Gap 11 meq/L (5-15); Aspartate Aminotransferase 45 U/L (15-37); Blood Urea Nitrogen 11 mg/dL (7-18); Calcium 8.5 mg/dL (8.5-10.1); Carbon Dioxide 25.3 meq/L (21.0-32.0); Chloride 103 meq/L (98-107); Glomerular Filtration Rate 73 mL/min (>89); Glucose,Random 94 mg/dL (74-106); Potassium 3.3 meq/L (3.5-5.1); Sodium 139 meq/L (136-145)
[2017-12-03 08:09] LABS: Alanine Aminotransferase 108 U/L (10-53)
[2017-12-03 08:11] LABS: Alkaline Phosphatase 74 U/L (45-117); Total Protein 6.4 g/dL (6.4-8.2)
[2017-12-03] MEDS: Chlorhexidine 0.12% Oral Kit 15 ML UDC OROPHARYNG SCH ×2 (09:37→21:27)
[2017-12-03] MEDS: Bisacodyl 10 MG Supp RECTAL SCH (09:38)
[2017-12-03] MEDS: Famotidine PF Inj 20 MG/2 ML Vial IV.PUSH SCH (09:40)
[2017-12-03] MEDS: Enoxaparin Inj 40 MG/0.4 ML Syringe SQ SCH (09:41)
[2017-12-03] MEDS: Senna/Docusate Sodium 8.6/50 MG Tablet PO SCH ×2 (09:41→21:27)
--- NOTE | 2017-12-03 15:51 | P.PN ---
Subjective Interval history: Follow-up deconditioning. Patient has no new complaints states she was tired after physical therapy yesterday. Awaiting insurance approval for [place] Physical Exam Vital signs: Vital Signs 12/02/17 16:00 12/02/17 20:00 12/03/17 00:00 Temperature 98.7 F 98.3 F 98.9 F Pulse Rate 103 H 94 H 80 Respiratory Rate 19 18 18 Blood Pressure 145/97 H 159/97 H 165/90 H Pulse Oximetry 98 98 96 12/03/17 04:00 12/03/17 08:00 12/03/17 12:00 Temperature 98.1 F 98.8 F 98.3 F Pulse Rate 93 H 92 H 94 H Respiratory Rate 18 20 18 Blood Pressure 147/70 H 139/92 H 128/80 Pulse Oximetry 93 L 95 96 Intake & Output 12/02/17 12/03/17 12/03/17 18:59 06:59 18:59 Intake Total 1440 / 1440 100 / 100 Output Total 1500 / 1500 700 / 700 Balance 1440 / 1440 -1400 / -1400 -700 / -700 Weight 104.3 kg Intake: IV 100 / 100 Oral 1440 / 1440 Output: Urine 1500 / 1500 700 / 700 Other: # Voids 3 Date of Last Bowel Movement 12/02/17 # Bowel Movements 2 Narrative: GENERAL: NAD, A&Ox3 NECK: Supple, trachea midline. No lymphadenopathy. Bandage over previous cric/ tracheostomy site. CARDIOVASCULAR: Regular rate and rhythm without murmurs, gallops, or rubs. RESPIRATORY: Breath sounds equal bilaterally. No accessory muscle use. GASTROINTESTINAL: Abdomen soft, non-tender, nondistended. MUSCULOSKELETAL: No cyanosis, or edema. SKIN: Warm and dry. NEURO: No focal neurological deficits. Global weakness. - Urinary Catheter Management Indwelling Urethral Catheter Cath placed during this visit: yes, but has since been removed by the nurse Reason for continuing: Decision to DC catheter Insertion date: 11/13/17 Insertion time: 19:00 Removal date: 11/17/17 Removal time: 04:00 Straight Cath placed during this visit: no Reason for continuing: Not indwelling catheter Results - Labs CBC & Chem 7: 12/03/17 06:33 12/03/17 06:33 Laboratory Results - last 24 hr 12/02/17 12/02/1712/03/18 17:00 17:00 06:33 WBC 11.6 H 10.2 RBC 3.17 L 3.14 L Hgb 10.4 L 10.2 L Hct 29.4 L 29.5 L MCV 92.9 94.0 MCH 32.8 32.3 MCHC 35.3 34.4 RDW 13.3 13.5 Plt Count 270 D 301 MPV 8.4 7.9 Neut % (Auto) 80.6 H Lymph % (Auto) 9.4 [place] % (Auto) 7.4 Eos % (Auto) 2.1 Baso % (Auto) 0.5 Neut # (Auto) 8.2 H Lymph # (Auto) 1.0 [place] # (Auto) 0.8 Eos # (Auto) 0.2 Baso # (Auto) 0.0 WBC Differential . Differential Comment Auto diff final Sodium 139 Potassium 3.5 Chloride 103 Carbon Dioxide 26.4 Anion Gap 10 BUN 12 Creatinine 0.86 Estimated GFR 71 L Random Glucose 112 H Calcium 8.3 L Total Bilirubin AST ALT Alkaline Phosphatase Total Protein Albumin 12/03/17 06:33 WBC RBC Hgb Hct MCV MCH MCHC RDW Plt Count MPV Neut % (Auto) Lymph % (Auto) [place] % (Auto) Eos % (Auto) Baso % (Auto) Neut # (Auto) Lymph # (Auto) [place] # (Auto) Eos # (Auto) Baso # (Auto) WBC Differential Differential Comment Sodium 139 Potassium 3.3 L Chloride 103 Carbon Dioxide 25.3 Anion Gap 11 BUN 11 Creatinine 0.84 Estimated GFR 73 L Random Glucose 94 Calcium 8.5 Total Bilirubin 0.4 AST 45 H ALT 108 H Alkaline Phosphatase 74 Total Protein 6.4 Albumin 2.4 L - Imaging ITS Impressions Abdomen/Pelvis CT 11/24/17 00:00 CONCLUSION: 1. Mild ileus. 2. Bilateral lower lobe atelectasis and consolidation. 3. Cholelithiasis. Gallbladder Ultrasound 11/26/17 00:00 CONCLUSION: 1. There is a gallstone in the gallbladder along with sludge in the gallbladder. No biliary tract obstruction. 2. Small benign-appearing right kidney cyst measuring 1.2 cm. No evidence of hydronephrosis. Abdomen X-Ray 11/27/17 06:00 CONCLUSION: Mildly dilated gas-filled loops of small bowel which are slightly less distended than on the prior study. Chest X-Ray 11/27/17 06:00 CONCLUSION: Clear lungs. - Procedures Emergent cric, decannulation Assessment and Plan - Plan 47-year-old female admitted secondary to acute anaphylaxis and angioedema. Patient was in ICU for 2-3 weeks. Emergent cric, decannulated 11/24, signs of infection at cric site. Agitated delirium- resolved Acute hypoxemic respiratory failure- resolved. Angioedema with severe upper airway compromise- resolved Nonobstructive ileus-Resolved Pulmonary edema -resolved Sepsisresolved Avoid NSAIDs Avoid ARLYN inhibitors Cric site infection Zosyn and vancomycin previously given Follow for fevers ID following ID recommends monitoring off of antibiotics Hypokalemia Remains low Replacements provided Continue to monitor Hypernatremia Continue regular diet now continue to monitor Global weakness Continue physical therapy Continue occupational therapy DVT prophylaxis Lovenox Discharge Planning: [facility] pending insurance approval
[2017-12-04] MEDS: Oral Hygiene Kit OROPHARYNG SCH ×3 (01:38→16:28)
[2017-12-04 08:20] LABS: Calcium 8.5 mg/dL (8.5-10.1); Carbon Dioxide 24.6 meq/L (21.0-32.0); Potassium 3.9 meq/L (3.5-5.1)
[2017-12-04] MEDS: Chlorhexidine 0.12% Oral Kit 15 ML UDC OROPHARYNG SCH (08:29)
[2017-12-04] MEDS: Bisacodyl 10 MG Supp RECTAL SCH (08:29)
[2017-12-04] MEDS: Acetaminophen 325 MG Tablet PO PRN (08:32)
[2017-12-04] MEDS: Senna/Docusate Sodium 8.6/50 MG Tablet PO SCH (08:33)
[2017-12-04] MEDS: Enoxaparin Inj 40 MG/0.4 ML Syringe SQ SCH (08:33)
--- NOTE | 2017-12-04 13:13 | P.PN ---
Physical Exam Vital signs: Vital Signs 12/03/17 15:49 12/03/17 16:00 12/03/17 20:00 Temperature 98.3 F 98.2 F Pulse Rate 127 H 88 92 H Respiratory Rate 20 20 Blood Pressure 137/84 168/55 H Pulse Oximetry 96 97 12/04/17 00:00 12/04/17 04:00 12/04/17 08:00 Temperature 98.1 F 97.8 F 97.5 F L Pulse Rate 97 H 87 81 Respiratory Rate 20 20 16 Blood Pressure 138/91 H 150/79 H 158/90 H Pulse Oximetry 96 97 95 Intake & Output 12/03/17 12/04/17 12/04/17 18:59 06:59 18:59 Intake Total 480 / 480 380 / 380 Output Total 700 / 700 900 / 900 Balance -220 / -220 -520 / -520 Intake: Oral 480 / 480 380 / 380 Output: Urine 700 / 700 900 / 900 Other: Date of Last Bowel Movement 12/03/17 # Bowel Movements 2 - Urinary Catheter Management Indwelling Urethral Catheter Cath placed during this visit: yes, but has since been removed by the nurse Reason for continuing: Decision to DC catheter Insertion date: 11/13/17 Insertion time: 19:00 Removal date: 11/17/17 Removal time: 04:00 Straight Cath placed during this visit: no Reason for continuing: Not indwelling catheter Results - Labs CBC & Chem 7: 12/03/17 06:33 12/04/17 07:10 Laboratory Results - last 24 hr 12/03/17 12/04/17 06:33 07:10 Sodium 137 Potassium 3.9 Chloride 103 Carbon Dioxide 24.6 Anion Gap 9 BUN 14 Creatinine 1.22 H Estimated GFR 48 L Random Glucose 98 Calcium 8.5 Magnesium 2.2 2.0 - Procedures Emergent cric, decannulation Assessment and Plan - Plan 47-year-old female admitted secondary to acute anaphylaxis and angioedema. Patient was in ICU for 2-3 weeks. Emergent cric, decannulated 11/24, signs of infection at cric site. Agitated delirium- resolved Acute hypoxemic respiratory failure- resolved. Angioedema with severe upper airway compromise- resolved Nonobstructive ileus-Resolved Pulmonary edema -resolved Sepsisresolved Avoid NSAIDs Avoid ARLYN inhibitors Cric site infection Zosyn and vancomycin previously given Follow for fevers ID following ID recommends monitoring off of antibiotics Hypokalemia Remains low Replacements provided Continue to monitor Hypernatremia Continue regular diet now continue to monitor Global weakness Continue physical therapy Continue occupational therapy DVT prophylaxis Lovenox Discharge Planning: [facility] pending insurance approval
[2017-12-04 15:21] VITALS: BP 156/100; PULSE 96; RESP 20; TEMP 97.7; O2SAT 98
--- NOTE | 2017-12-04 16:37 | P.DS ---
Date of admission: 11/13/17 16:02 Primary care physician: UNKNOWN Brief History from admission: Patient is a 47 year old morbidly female obese female who presented to the [facility] emergency department with severe acute anaphylactic reaction, and airway compromise. RSI was attempted by Dr. Pino and Dr. Sandhu, but they were unable to. An LMA was placed but the patient's O2 sats remained in the low 80s. Emergency cricothyroidotomy was performed at [facility] emergency department , by Dr. Sandhu, 6-0 uncuffed cric tube was placed. Postplacement there was leak around the trach tube with bag and mask ventilation. LMA was reintroduced and patient was given ventilation through the LMA and patient was emergently transferred to the [facility]. I evaluated patient emergently in 504 in [facility] [place]. Patient is sedated with propofol infusion. Oxygen saturation with bag and mask ventilation was 88-90%. I performed a bronchoscopy through the LMA , vocal cords appeared severely swollen. A pediatric bronchoscope was not available to the load a 6.0 ET tube. I attempted intubation with the glide scope and 6.0 ET tube. I was able to visualize the significantly swollen glottic opening and vocal cords, but I was unable to pass the ET tube through the vocal cords due to swelling. Dr. Castaneda placed a new #5 LMA and we returned to bag and mask ventilation and Dr. Copeland performed a percutaneous [place] tracheostomy at the bedside through the existing cric incision. (He first placed the guidewire through the existing perc tube). Tracheostomy tube placement was confirmed with bronchoscopy again. At the beginning of tracheostomy patient's oxygen saturation was in the mid 70s. This slowly improved to 95% and patient was placed on ventilator. At this time we are unable to get any other history from the patient regarding food allergies. Scheduled IV Decadron Benadryl and famotidine had been started DS: Summary Hospital Course: 47-year-old female admitted secondary to acute anaphylaxis and angioedema. Patient was in ICU for 2-3 weeks. Emergent cric, decannulated 11/24, signs of infection at cric site. Agitated delirium- resolved Acute hypoxemic respiratory failure- resolved. Angioedema with severe upper airway compromise- resolved Nonobstructive ileus-Resolved Pulmonary edema -resolved Sepsisresolved Avoid NSAIDs Avoid ARLYN inhibitors Cric site infection Zosyn and vancomycin previously given Follow for fevers ID following ID recommends monitoring off of antibiotics Hypokalemia Remains low Replacements provided Continue to monitor Hypernatremia Continue regular diet now continue to monitor Global weakness Continue physical therapy Continue occupational therapy DVT prophylaxis Lovenox - Time Spent with Patient Total time spent providing and/or coordinating discharge services: Greater than 30 minutes - Quality: VTE Deep Vein Thrombosis/Pulmonary Embolism Present on Admission: No Exam Vital signs: Vital Signs 12/03/17 20:00 12/04/17 00:00 12/04/17 04:00 Temperature 98.2 F 98.1 F 97.8 F Pulse Rate 92 H 97 H 87 Respiratory Rate 20 20 20 Blood Pressure 168/55 H 138/91 H 150/79 H Pulse Oximetry 97 96 97 12/04/17 08:00 12/04/17 12:00 Temperature 97.5 F L 97.7 F Pulse Rate 81 96 H Respiratory Rate 16 20 Blood Pressure 158/90 H 156/100 H Pulse Oximetry 95 98 Intake & Output 12/03/17 12/04/17 12/04/17 18:59 06:59 18:59 Intake Total 480 / 480 380 / 380 Output Total 700 / 700 900 / 900 Balance -220 / -220 -520 / -520 Intake: Oral 480 / 480 380 / 380 Output: Urine 700 / 700 900 / 900 Other: Date of Last Bowel Movement 12/03/17 # Bowel Movements 2 Narrative: GENERAL: NAD, A&Ox3 NECK: Supple, trachea midline. No lymphadenopathy. Bandage over previous cric/ tracheostomy site. CARDIOVASCULAR: Regular rate and rhythm without murmurs, gallops, or rubs. RESPIRATORY: Breath sounds equal bilaterally. No accessory muscle use. GASTROINTESTINAL: Abdomen soft, non-tender, nondistended. MUSCULOSKELETAL: No cyanosis, or edema. SKIN: Warm and dry. NEURO: No focal neurological deficits. Global weakness. Results Procedures completed during hospitalization: cric Labs on day of discharge: Labs from last 24 hours 12/04/17 12/03/17 07:10 06:33 Sodium 137 Potassium 3.9 Chloride 103 Carbon Dioxide 24.6 Anion Gap 9 BUN 14 Creatinine 1.22 H Estimated GFR 48 L Random Glucose 98 Calcium 8.5 Magnesium 2.0 2.2 - Impressions ITS Impressions Abdomen/Pelvis CT 11/24/17 00:00 CONCLUSION: 1. Mild ileus. 2. Bilateral lower lobe atelectasis and consolidation. 3. Cholelithiasis. Gallbladder Ultrasound 11/26/17 00:00 CONCLUSION: 1. There is a gallstone in the gallbladder along with sludge in the gallbladder. No biliary tract obstruction. 2. Small benign-appearing right kidney cyst measuring 1.2 cm. No evidence of hydronephrosis. Abdomen X-Ray 11/27/17 06:00 CONCLUSION: Mildly dilated gas-filled loops of small bowel which are slightly less distended than on the prior study. Chest X-Ray 11/27/17 06:00 CONCLUSION: Clear lungs. Discharge Plan - Discharge Disposition Patient Disposition: [facility] Rehab Inpatient - Discharge Condition Condition: Stable - Discharge Order Discharge Orders: Discharge Order (Routine); Ordered 12/04/17 Ordered By: Carrie Whitfield - Physicians Team Primary Care Provider: UNKNOWN, Attending Provider: Marc Lopez Other Providers: Jackson Copeland MD ; Gage Almonte MD ; Ehsan Walsh MD
== END 2017-12-04 17:46 ==
LOC: PHED 14:23 → PHEDA 16:02 → HIMC 16:09 → N07 12-01 13:07
PROVIDERS: ADMIT Internal Medicine; ATTEND Internal Medicine